=== PATIENT | female | born 1980 | race African-American/Black ===

== ENCOUNTER 2019-10-25 07:31 | Emergency (ER) | payer MEDICAID, SELFPAY ==
[2019-10-25 07:32] VITALS: BP 132/82; PULSE 99; RESP 16; TEMP 36.2; O2SAT 100; BMI 21.0
[2019-10-25 08:46] LABS: Bacteria 0 SEEN /hpf (None Seen); Mucous, Urine 0 SEEN /hpf (<or=2+); Red Blood Cells-Urine 0 SEEN /hpf (0-5); White Blood Cells 0 SEEN /hpf (0-5)
[2019-10-25] MEDS: Azithromycin 250 MG Tablet 1000 MG PO (08:51)
[2019-10-25 08:52] LABS: Color, Urine Yellow (Yellow); Glucose, Dipstick Normal (Normal); Ketone-Dipstick 5 mg/dl (Negative); Leukocyte Esterase-Dipstick 25 /ul (Negative); Nitrite-Dipstick Negative (Negative); Occult Blood-Urine Negative /ul (Negative); Protein-Dipstick 30 mg/dl (Negative); Specific Gravity, Urine 1.025 (1.002-1.030); Urine Bilirubin Dipstick Negative (Negative); Urine Clarity Sl. Cloudy (Clear); Urine Urobilinogen 1 mg/dl (Normal)
[2019-10-25 08:53] LABS: Internal QC Validated? YES +Cl - CLEAR BKGD; Pregnancy, Urine Negative Negative
[2019-10-25 08:58] LABS: Squamous Epithelial Cells - UA 0-5 SEEN /hpf (5-10)
--- NOTE | 2019-10-25 09:19 | ED.DCSUM_ITS ---
- ER Visit Summary Date of Service: 10/25/19 Chief Complaint: [Dysuria, vaginal discharge] History of Present Illness: The patient is a 38 F [presents to the emergency department with vaginal discharge for about a week. Patient states that she just moved to the area from [place]. Patient states that she has history of recurrent bacterial vaginosis. Patient also has had history of chlamydia in 2016. She does have recent exposures of unprotected sex and concern for STD. She denies any after normal external lesions. She is had no fevers. She does complain of burning with urination. She denies nausea or vomiting. She does not believe that she is as she had a menstrual period on 729 that was normal.] Physical Examination: [HEENT-PERRLA, EOMI. Cranial nerves II through XII grossly intact. TMs clear. Mucous membranes moist. No adenopathy. Cardiovascular-regular rate and rhythm without murmur or ectopy Lungs-clear to auscultation, chest wall stable without crepitus or subcu emphysema Abdomen-normoactive bowel sounds, soft, nontender, no rebound or rigidity, no peritoneal signs. Extremities-intact ?4, normal range of motion, normal pulses, atraumatic] Test Results: [Urinalysis was normal. hCG was negative. Urine was sent for gonorrhea and chlamydia and results of that are pending.] Emergency Department Course and Treatment: [Patient was treated with Rocephin and Zithromax.] Treatment Plan: [Patient will be given a prescription for Flagyl to cover bacterial vaginosis as she has a history of recurrent bacterial vaginosis. 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 It may contain incorrect words, spelling, and punctuation that were not noted in review of the chart prior to signing ED Disposition - Plan for ED Patient: Referrals: Care Physician,No Primary [Primary Care Provider] -
--- NOTE | 2019-10-25 09:21 | ED.DEP ---
ED Disposition - Plan for ED Patient: Instructions: Vaginal Infection: Bacterial Vaginosis Prescriptions: metroNIDAZOLE [Flagyl] 500 mg PO Q8H #21 tab Prescription Printed Referrals: Care Physician,No Primary [Primary Care Provider] - Jennifer Hankins MD [STAFF PHYSICIAN] - 5-7 Days
[2019-10-25 10:45] LABS: Chlamydia Trachomatis by PCR Negative (Negative); Neisserai gonorrhoeae by PCR Negative (Negative); Probe Check PASS; Sample Adequacy Control PASS; Specimen Processing Control PASS
== END 2019-10-25 10:00 | disposition home or self-care (01) ==
LOC: ED 08:24
PROVIDERS: Emergency Provider Emergency Medicine
DX: N76.0 Acute vaginitis (principal)
CPT/HCPCS: 81001; 81025; 87491; 87591; 96372; 99283

== ENCOUNTER 2019-11-22 15:47 | Emergency (ER) | payer MEDICAID, SELFPAY ==
[2019-11-22 15:49] VITALS: BP 134/81; PULSE 95; RESP 18; TEMP 36.9; O2SAT 100; BMI 21.9
--- NOTE | 2019-11-22 16:07 | ED.DCSUM_ITS ---
- ER Visit Summary Date of Service: 11/22/19 Chief Complaint: Forearm pain History of Present Illness: The patient is a 38 F presents with right forearm pain. She states that 3 days ago she hit her arm on an iron bedpost and she has been having pain in the right forearm ever since this happened. Pain is worse with movement. She tried Aleve which is not helping. She does have a history of a distal radius fracture on that right arm. She states that any type of movement makes his pain worse. She denies any elbow or shoulder pain. Physical Examination: Vital signs reviewed. Right forearm exam reveals tenderness to the mid forearm on the right-hand side. There is no swelling. There is no erythema. She has a 2+ radial pulse. She has decreased range of motion secondary to pain. Elbow and shoulder have full range of motion. Test Results: Right forearm x-rays negative Emergency Department Course and Treatment: Patient is given Tylenol for pain. X-rays are negative. She will ice and use Tylenol or ibuprofen for pain at home. Treatment Plan: [] Disposition: Discharge Impression: Right forearm pain This note was generated with [employer] dictation software. It may contain incorrect words, spelling, and punctuation that were not noted in review of the chart prior to signing ED Disposition - Plan for ED Patient: Disposition: Home or Assisted Living Instructions: ED EXTREMITY CONTUSION Upper Referrals: Care Physician,No Primary [Primary Care Provider] -
--- NOTE | 2019-11-22 16:10 | RAD_ITS ---
STUDY: X-RAY - RIGHT RADIUS AND ULNA REASON FOR EXAM: Female, 38 years old. HIT RIGHT FOREARM ON IRON BED 3 DAYS AGO. PAIN GETTING WORSE. TECHNIQUE: 2 view(s) of the forearm. COMPARISON: None. FINDINGS: There is no demonstrated soft tissue swelling. Normal visualized radius. Normal visualized ulna. RAD/Forearm 2 Views IMPRESSION: Normal x-ray examination of the radius and ulna. Electronically Signed: Salvador Duque MD at 16:30 EDT , Service support ,
[2019-11-22] MEDS: Acetaminophen 500 MG Tablet 1000 MG PO (16:15)
[2019-11-22] MEDS: Ketorolac 30 MG/ML Syringe IM (16:55)
== END 2019-11-22 16:56 | disposition home or self-care (01) ==
PROVIDERS: Emergency Provider Emergency Medicine
DX: M79.631 Pain in right forearm (principal); Z72.0 Tobacco use
CPT/HCPCS: 73090; 96372; 99282

== ENCOUNTER 2020-01-18 09:28 | Emergency (ER) | payer MEDICAID, SELFPAY ==
[2020-01-18 09:29] VITALS: BP 119/82; PULSE 81; RESP 16; TEMP 36.8; O2SAT 98; BMI 21.9
--- NOTE | 2020-01-18 09:37 | ED.VIS.GEN ---
History of Present Illness Chief Complaint: Complaint Narrative: Patient presents with fullness in the suprapubic region, dysuria and frequency she also has some back pain she has no fever chills cough or congestion she has fishy odor and her urine and vaginal area. She has no abdominal pain no nausea or vomiting she has no diarrhea. She is being treated with amoxicillin for exposed urinary tract infection after having a virtual medical visit. Past Medical History - Allergies and Home Meds Allergies/Adverse Reactions: Allergies latex Allergy (Verified 01/18/20 09:29) Hives Primary Care Physician: Care Physician,No Primary [Primary Care Provider] - Past Medical History: None Smoking Status: Current every day smoker Review of Systems General: Denies: Fever Gastrointestinal: Denies: Abdominal pain, Nausea, Vomiting, Diarrhea Genitourinary: Reports: Dysuria, Frequency. Denies: Hematuria Musculoskeletal: Reports: Back pain. Denies: Myalgias Skin: Denies: Rash, Abrasions Neurological: Denies: Headache, Weakness Hematologic: Denies: Easy bruising Allergy: Denies: Uticaria Physical Exam Vital Signs/Narrative: Vital Signs Temp Pulse Resp BP Pulse Ox 01/18/20 09:29 98.2 F 81 16 119/82 H 98 General: Well nourished, Well developed Eyes: Negative for: Perrl ENT: Negative for: Moist mucous membranes, No rhinorrhea Cardiovascular: Negative for: Regular rate, Regular rhythm, No murmurs Respiratory: Negative for: No distress, CTA bilaterally, Chest nontender Abdomen: Negative for: Soft, Nontender, Nondistended, Normal bowel sounds Back: Nontender, Normal Inspection, - - She has slight tenderness mostly in the paraspinal region of her back she does not have actual CVA tenderness the tenderness is reproducible with palpation as well as movement Extremities: Nontender, No edema Skin: Normal color Neurological: Normal Strength, Normal Sensation Diagnostic/Tx/Re-eval - Medical Decision Making Patient has a normal urinalysis. I believe her back pain is mostly musculoskeletal which we will treat with anti-inflammatories I will treat her for presumed BV also. Otherwise she will be discharged in stable condition ED Disposition - Plan for ED Patient: Disposition: Home or Assisted Living Diagnosis: Bacterial vaginitis, Back pain Instructions: Vaginal Infection: Bacterial Vaginosis Prescriptions: metroNIDAZOLE [Flagyl] 500 mg PO BID #14 tab Prescription Printed Tizanidine HCl 2 mg PO TID #20 tab Prescription Printed Referrals: Care Physician,No Primary [Primary Care Provider] - 3-5 Days
[2020-01-18 10:06] LABS: Bacteria 0 SEEN /hpf (None Seen); Mucous, Urine 0 SEEN /hpf (<or=2+); Red Blood Cells-Urine 0 SEEN /hpf (0-5); White Blood Cells 0 SEEN /hpf (0-5)
[2020-01-18 10:07] LABS: Color, Urine Straw (Yellow); Glucose, Dipstick Normal (Normal); Ketone-Dipstick Negative (Negative); Leukocyte Esterase-Dipstick Negative /ul (Negative); Nitrite-Dipstick Negative (Negative); Occult Blood-Urine Negative /ul (Negative); Protein-Dipstick Negative (Negative); Specific Gravity, Urine 1.005 (1.002-1.030); Urine Bilirubin Dipstick Negative (Negative); Urine Clarity Clear (Clear); Urine Urobilinogen Normal (Normal); Urine pH 6.5 (5.0 - 8.0)
[2020-01-18 10:12] LABS: Squamous Epithelial Cells - UA 0-5 SEEN /hpf (5-10)
== END 2020-01-18 10:49 | disposition home or self-care (01) ==
PROVIDERS: Emergency Provider Emergency Medicine
DX: N76.0 Acute vaginitis (principal); B96.89 Other specified bacterial agents as the cause of diseases classified elsewhere; M54.9 Dorsalgia, unspecified; N39.0 Urinary tract infection, site not specified; Z79.2 Long term (current) use of antibiotics; F17.200 Nicotine dependence, unspecified, uncomplicated
CPT/HCPCS: 81001; 99282

== ENCOUNTER 2020-05-09 12:37 | Emergency (ER) | payer MEDICAID, SELFPAY ==
[2020-05-09 12:38] VITALS: BP 106/62; PULSE 67; RESP 18; TEMP 36.6; O2SAT 100; BMI 22.6
--- NOTE | 2020-05-09 13:05 | EKG12_ITS ---
Test Reason : CP Blood Pressure : / mmHG Vent. Rate : 064 BPM Atrial Rate : 064 BPM P-R Int : 106 ms QRS Dur : 078 ms QT Int : 384 ms P-R-T Axes : 081 070 027 degrees QTc Int : 396 ms Sinus rhythm with short DC Otherwise normal ECG Confirmed by JESSICA CARDENAS, BERRY ([id number]), scientific editor STACIE WOODALL ([id number]) on 05/13/2020 9:54:50 AM Referred By: IRMA/JEWELS Confirmed By:SHANNON LOPEZ MD
--- NOTE | 2020-05-09 13:05 | RAD_ITS ---
STUDY: X-RAY CHEST REASON FOR EXAM: Female, 39 years old. Pt with cp starting approx. 30 minutes prior. States hx of same TECHNIQUE: Single AP portable view of the chest. COMPARISON: None. FINDINGS: EKG electrodes are seen. The lungs are clear and expanded. There is no demonstrated pleural abnormality. Normal size heart. Normal mediastinum and basilia. Normal visualized pulmonary arteries. Normal visualized aortic arch and descending thoracic aorta. Normal visualized thoracic spine. Normal visualized ribs, clavicles, and shoulders. There is no demonstrated abnormality of the visualized soft tissue structures of the upper abdomen. RAD/Chest 1 View (Portable) IMPRESSION: Normal x-ray examination of the chest. Electronically Signed: Aditya Swartz MD at 14:00 EST , Service support ,
[2020-05-09] MEDS: Aspirin 81 MG TAB.CHEW 324 MG PO (13:16)
[2020-05-09 13:37] VITALS: BP 137/84; PULSE 65; RESP 20; O2SAT 100
[2020-05-09 13:37] LABS: Absolute Lymphocyte Count 2.26 X10^3/uL (0.83-4.51); Absolute Neutrophil Count 3.7 X10^3/uL (2.0-7.7); Basophil# 0.02 X10^3/uL; Basophil% 0.3 % (0-1); Eosinophils% 2.9 % (0-5); Hematocrit 40.2 % (37-47); Hemoglobin 12.8 g/dL (12.0-15.0); Lymphocyte # 2.26 X10^3/ul (4.0); Mean Corp Hgb Conc 31.8 g/dL (32-36); Mean Corpuscular Hgb 30.1 pg (27.0-32.0); Mean Corpuscular Volume 94.6 fL (81-99); Mean Platelet Vol. 9.1 fl (6.2-12.0); Monocyte# 0.65 X10^3/uL; Monocyte% 9.5 % (0-10); NRBC Flagged by Analyzer 0 % (0-5); Neutrophil % 54.2 % (47-70); Platelet Count 237 K/mm3 (150-450); RBC Distribution Width CV 14.1 % (11.6-14.6); RBC Distribution Width SD 48.9 fl (35.1-43.9); Red Blood Count 4.25 M/mm3 (4.2-5.4); White Blood Count 6.8 K/mm3 (4.4-11.0)
[2020-05-09 13:39] VITALS: O2SAT 100
[2020-05-09 13:54] LABS: Anion Gap 3 (5-15); BUN 12 mg/dL (7-18); BUN/Creat Ratio 14.6 RATIO (10-20); Chloride 111 mmol/L (98-107); Creatinine, Serum 0.82 mg/dL (0.55-1.02); EST Glomerular Filtration Rate 82 mL/min (>60); Est Glom Filt Rate - Afr Amer 100 mL/min (>60); Estimated Creatinine Clearance 72.85 ml/min; Glucose 59 mg/dL (74-106); Sodium Level 142 mmol/L (136-145)
--- NOTE | 2020-05-09 14:28 | ED.DCSUM_ITS ---
- ER Visit Summary Date of Service: 05/09/20 Chief Complaint: Chest pain History of Present Illness: The patient is a 39 F who presents with chest pain that began today. Patient states it began after eating today. Patient describes the pain as sharp and heavy. Patient states pain started on the right side of her chest and then radiated to the left side of her chest. Patient states pain also radiated to the her right shoulder and right side of her neck. Patient denies any shortness of breath or cough. Patient denies any diaphoresis. Patient denies any nausea or vomiting. Patient denies any fevers or chills. Patient denies any cough. Physical Examination: Vital signs are stable. Patient is afebrile. Patient is in no acute distress. Oral mucosa is pink and moist. Neck is supple. Trachea is midline. There is no JVD noted. Heart was regular rate and rhythm. Lungs are clear and equal bilaterally. Abdomen is soft. Bowel sounds are normal. There is no tenderness. There is no rebound or guarding noted. Skin is warm dry. Cranial nerves II through XII are intact. There are no focal motor or sensory deficits noted. Extremities are intact. There is no calf tenderness or edema. Test Results: EKG was obtained. On my interpretation, there is a normal sinus rhythm with a rate of 64. There are no acute ST or T wave changes. Portable 1 view chest x-ray was obtained. On my interpretation, lung larose are clear. There is normal cardiac silhouette. Bony thorax is normal. There is no acute process noted. Neurologist also interpreted the x-ray and agrees. CBC, basic metabolic profile, and troponin were obtained and were essentially within normal limits. Emergency Department Course and Treatment: Patient was given aspirin and sublingual nitroglycerin here. Patient was feeling better on reevaluation. Patient has a HEART score of 1. Patient was advised that this is low risk for acute cardiac event. Patient was instructed to follow-up with her primary care physician in 5 to 7 days for further evaluation. Patient understood and was agreeable with the plan. All questions were answered. Disposition: Discharge home Impression: Chest pain This note was generated with [employer] dictation software. It may contain incorrect words, spelling, and punctuation that were not noted in review of the chart prior to signing ED Disposition - Plan for ED Patient: Disposition: Home or Assisted Living Diagnosis: Chest pain Instructions: ED Chest Pain, Uncertain Cause Referrals: Care Physician,No Primary [Primary Care Provider] - 5-7 Days
[2020-05-09 14:54] VITALS: BP 115/73; PULSE 65; RESP 16; O2SAT 99
[2020-05-09 14:55] VITALS: BP 115/73; PULSE 65; RESP 16; O2SAT 99
== END 2020-05-09 15:00 | disposition home or self-care (01) ==
PROVIDERS: Emergency Provider Emergency Medicine
DX: R07.9 Chest pain, unspecified (principal); Z72.0 Tobacco use
CPT/HCPCS: 71045; 80048; 84484; 85025; 93005; 99285; A4216

== ENCOUNTER 2020-05-17 12:45 | Emergency (ER) | payer MEDICAID, SELFPAY ==
[2020-05-17 12:45] VITALS: BP 129/70; PULSE 82; RESP 18; TEMP 36.2; BMI 21.9
--- NOTE | 2020-05-17 13:09 | US_ITS ---
STUDY: ULTRASOUND OF THE FEMALE PELVIS - COMPLETE REASON FOR EXAM: Female, 39 years old. RLQ pain . Bleeding. LMP: 04/15/2020 TECHNIQUE: Transabdominal and Transvaginal TECHNICAL QUALITY: Adequate. COMPARISON: None. FINDINGS: The uterus is anteverted and is in a midline position. The uterus measures 9.9 cm x 5.3 cm x 4.3 cm. Normal uterine cervix. The endometrium measures 9.6 mm in thickness, and is hyperechoic. There is no demonstrated endometrial mass. There is evidence of a 2.8 cm x 2.5 cm x 2.9 cm fibroid originating from the right side of the body of uterus. I.U.D. - The patient does not have an I.U.D. The right ovary is visualized. The right ovary measures 2.9 cm x 1.7 cm x 1.5 cm. There is no right ovarian cyst or ovarian mass. There is no visualized right adnexal mass or complex lesion. There is normal arterial and normal venous vascularity. The left ovary is visualized. The left ovary measures 2.8 cm x 1.6 cm x 1.8 cm. There is no left ovarian cyst or ovarian mass. There is no visualized left adnexal mass or complex lesion. There is normal arterial and normal venous vascularity. There is no fluid in the cul-de-sac. US/Transvaginal Non- IMPRESSION: 2.8 cm x 2.5 cm x 2.9 cm uterine fibroid arising from the lateral aspect of the body of the uterus. Electronically Signed: Aditya Swartz MD at 15:17 EST , Service support ,
--- NOTE | 2020-05-17 13:10 | ED.VIS.GEN ---
History of Present Illness Chief Complaint: Vag Bleeding Detail of Chief Complaint: Pelvic pain Informant: Patient Onset: Today Current Severity: Moderate Maximum Severity: Moderate Narrative: Patient states she woke this morning after using the restroom noted some pink vaginal discharge. She believes she is due to start her period so did not think much of it. She then developed right lower quadrant pain that became significantly worse. Patient has a history of an ectopic in 2017 and she states this feels similar. She did have surgery at that time to have part of the fallopian tube removed. She does not remember if this was on the left or right side. - Past Medical History (1) Ovarian cyst Status: Resolved Past Medical History - Allergies and Home Meds Allergies/Adverse Reactions: Allergies latex Allergy (Verified 05/17/20 12:48) Hives Primary Care Physician: Care Physician,No Primary [Primary Care Provider] - Surgical History: - - Ectopic Lives: With Family Smoking Status: Current every day smoker Review of Systems General: Denies: Chills, Fever Eyes: Denies: Visual changes - bilaterally ENT: Denies: Bilateral ear pain Cardiovascular: Denies: Chest pain Respiratory: Denies: Dyspnea, Cough Gastrointestinal: Reports: Abdominal pain. Denies: Nausea, Vomiting Genitourinary: Denies: Dysuria Musculoskeletal: Denies: Swelling, Extremity Pain Skin: Denies: Rash Neurological: Denies: Headache Hematologic: Denies: Easy bruising, Easy bleeding Allergy: Denies: Uticaria Physical Exam Vital Signs/Narrative: Vital Signs Temp Pulse Resp BP 05/17/20 12:45 97.2 F L 82 18 129/70 H Inital Vital Signs reviewed: Yes General: Well nourished, Well developed Head: Normocephalic ENT: Moist mucous membranes Neck: Supple Cardiovascular: Regular rate, Regular rhythm Respiratory: No distress, CTA bilaterally Abdomen: Soft, Tender - Lower abdominal tenderness to palpation.. Negative for: Guarding, Rebound tenderness Extremities: Nontender Skin: Normal color Neurological: Alert, Oriented x3, Normal Strength, Normal Sensation Psychological: Normal affect Diagnostic/Tx/Re-eval Impressions Transvaginal US 05/17/20 13:09 IMPRESSION: 2.8 cm x 2.5 cm x 2.9 cm uterine fibroid arising from the lateral aspect of the body of the uterus. Electronically Signed: Aditya Swartz MD at 15:17 EST , Service support , 05/17/20 13:09 Transvaginal Non- [US] Stat Laboratory Results 05/17/20 05/17/20 05/17/20 13:25 13:25 13:25 WBC 8.3 RBC 4.75 Hgb 14.1 Hct 44.6 MCV 93.9 MCH 29.7 MCHC 31.6 L RDW Std Deviation 46.5 H RDW Coeff of Sophia 13.4 Plt Count 288 MPV 9.5 Immature Gran % (Auto) 0.200 Neut % (Auto) 67.4 Lymph % (Auto) 24.8 Garvin % (Auto) 5.3 Eos % (Auto) 1.9 Baso % (Auto) 0.4 Absolute Neuts (auto) 5.6 Absolute Lymphs (auto) 2.06 Nucleated RBC % 0 Sodium 139 Potassium 4.3 Chloride 108 H Carbon Dioxide 28.0 Anion Gap 3 L BUN 14 Creatinine 0.90 Estim Creat Clear Calc 66.37 Est GFR (MDRD) Af Amer 89 Est GFR (MDRD) Non-Af 74 BUN/Creatinine Ratio 15.5 Glucose 87 Calcium 9.2 Serum , Qual NEGATIVE Urine Color Urine Clarity Urine pH Ur Specific Bartlett Urine Protein Urine Glucose (UA) Urine Ketones Urine Occult Blood Urine Nitrite Urine Bilirubin Urine Urobilinogen Ur Leukocyte Esterase Urine RBC Urine WBC Ur Squamous Epith Cells Urine Bacteria Urine Mucus 05/17/20 15:05 WBC RBC Hgb Hct MCV MCH MCHC RDW Std Deviation RDW Coeff of Sophia Plt Count MPV Immature Gran % (Auto) Neut % (Auto) Lymph % (Auto) Garvin % (Auto) Eos % (Auto) Baso % (Auto) Absolute Neuts (auto) Absolute Lymphs (auto) Nucleated RBC % Sodium Potassium Chloride Carbon Dioxide Anion Gap BUN Creatinine Estim Creat Clear Calc Est GFR (MDRD) Af Amer Est GFR (MDRD) Non-Af BUN/Creatinine Ratio Glucose Calcium Serum , Qual Urine Color Straw Urine Clarity Clear Urine pH 7.0 Ur Specific Bartlett 1.010 Urine Protein Negative Urine Glucose (UA) Normal Urine Ketones Negative Urine Occult Blood 150 H Urine Nitrite Negative Urine Bilirubin Negative Urine Urobilinogen Normal Ur Leukocyte Esterase Negative Urine RBC 0 SEEN Urine WBC 0 SEEN Ur Squamous Epith Cells 0-5 SEEN Urine Bacteria 0 SEEN Urine Mucus 0 SEEN - Medical Decision Making Patient had taken ibuprofen earlier today. She was given a dose of morphine on arrival. After returning from ultrasound she did get a dose of Dilaudid for pain control. Blood work is unremarkable. test is negative. Urinalysis shows no sign of acute infection. Ultrasound of the pelvis reveals a fibroid on the right side of the uterus. No evidence of ovarian cyst or torsion. On repeat evaluation patient is resting comfortably. Test results are discussed with her. She will be written for analgesics and referred to Dr. Higuera, on-call for MEDICAL TRANSCRIPTION. ED Disposition - Plan for ED Patient: Disposition: Home or Assisted Living Diagnosis: Uterine fibroid, Pelvic pain Instructions: ED Uterine Fibroids, ED MENSTRUAL CRAMPING Prescriptions: Naproxen [Naprosyn] 500 mg PO BID PRN #20 tab PRN Reason: Pain Score 4-10 Transmission Status: Pending to [facility] Hydrocodone Bitart/Apap 5-325 [Senoia 5MG-325MG] 1 tablet PO Q6H PRN PRN 3 Days #10 tablet PRN Reason: Pain Transmission Status: Sent to [facility] Referrals: Sharri Lucia MD [STAFF PHYSICIAN] - 1-2 Weeks
[2020-05-17] MEDS: Ondansetron 4 MG/2 ML Vial IV (13:19)
[2020-05-17] MEDS: Morphine 4 MG/ML Syringe IV (13:19)
[2020-05-17 13:33] LABS: Absolute Lymphocyte Count 2.06 X10^3/uL (0.83-4.51); Absolute Neutrophil Count 5.6 X10^3/uL (2.0-7.7); Basophil# 0.03 X10^3/uL; Basophil% 0.4 % (0-1); Eosinophil# 0.16 X10^3/uL; Eosinophils% 1.9 % (0-5); Hematocrit 44.6 % (37-47); Hemoglobin 14.1 g/dL (12.0-15.0); Lymphocyte # 2.06 X10^3/ul (4.0); Lymphocyte % 24.8 % (19-41); Mean Corp Hgb Conc 31.6 g/dL (32-36); Mean Corpuscular Hgb 29.7 pg (27.0-32.0); Mean Corpuscular Volume 93.9 fL (81-99); Mean Platelet Vol. 9.5 fl (6.2-12.0); Monocyte# 0.44 X10^3/uL; Monocyte% 5.3 % (0-10); NRBC Flagged by Analyzer 0 % (0-5); Neutrophil % 67.4 % (47-70); Platelet Count 288 K/mm3 (150-450); RBC Distribution Width CV 13.4 % (11.6-14.6); RBC Distribution Width SD 46.5 fl (35.1-43.9); Red Blood Count 4.75 M/mm3 (4.2-5.4); White Blood Count 8.3 K/mm3 (4.4-11.0)
[2020-05-17 13:42] LABS: Internal QC Validated? YES +Cl - CLEAR BKGD; Pregnancy, Serum, hCG Quali. NEGATIVE Negative
[2020-05-17 13:47] LABS: Anion Gap 3 (5-15); BUN 14 mg/dL (7-18); BUN/Creat Ratio 15.5 RATIO (10-20); Calcium,Total 9.2 mg/dL (8.5-10.1); Chloride 108 mmol/L (98-107); EST Glomerular Filtration Rate 74 mL/min (>60); Est Glom Filt Rate - Afr Amer 89 mL/min (>60); Estimated Creatinine Clearance 66.37 ml/min; Glucose 87 mg/dL (74-106); Potassium 4.3 mmol/L (3.5-5.1); Sodium Level 139 mmol/L (136-145)
[2020-05-17] MEDS: HYDROmorphone 0.5 MG/0.5 ML SYRINGE IV (15:08)
[2020-05-17 15:13] VITALS: BP 122/70; PULSE 78; RESP 14; O2SAT 98
[2020-05-17 15:18] LABS: Bacteria 0 SEEN /hpf (None Seen); Mucous, Urine 0 SEEN /hpf (<or=2+); Red Blood Cells-Urine 0 SEEN /hpf (0-5); White Blood Cells 0 SEEN /hpf (0-5)
[2020-05-17 15:28] LABS: Color, Urine Straw (Yellow); Glucose, Dipstick Normal (Normal); Ketone-Dipstick Negative (Negative); Leukocyte Esterase-Dipstick Negative /ul (Negative); Nitrite-Dipstick Negative (Negative); Occult Blood-Urine 150 /ul (Negative); Protein-Dipstick Negative (Negative); Urine Bilirubin Dipstick Negative (Negative); Urine Clarity Clear (Clear); Urine Urobilinogen Normal (Normal)
[2020-05-17 15:45] LABS: Squamous Epithelial Cells - UA 0-5 SEEN /hpf (5-10)
[2020-05-17 16:06] VITALS: PULSE 62; RESP 18; O2SAT 100
[2020-05-17 17:16] LABS: Chlamydia Trachomatis by PCR Negative (Negative); Neisserai gonorrhoeae by PCR Negative (Negative); Probe Check PASS; Sample Adequacy Control PASS; Specimen Processing Control PASS
== END 2020-05-17 16:07 | disposition home or self-care (01) ==
PROVIDERS: Emergency Provider Emergency Medicine
DX: D25.9 Leiomyoma of uterus, unspecified (principal); R10.2 Pelvic and perineal pain; F17.200 Nicotine dependence, unspecified, uncomplicated
CPT/HCPCS: 76830; 80048; 81001; 84703; 85025; 87491; 87591; 96374; 96375; 99283; A4216; J2405

== ENCOUNTER 2020-06-04 13:52 | Emergency (ER) | payer MEDICAID, SELFPAY ==
[2020-06-04 13:54] VITALS: BP 141/83; PULSE 96; RESP 16; TEMP 36.7; O2SAT 100; BMI 21.2
--- NOTE | 2020-06-04 14:07 | CT_ITS ---
STUDY: CT ABDOMEN AND PELVIS WITHOUT CONTRAST REASON FOR EXAM: Female, 39 years old. left flank pain RADIATION DOSAGE (If Supplied By Facility): CTDIvol = ( 6.04 ) mGy, DLP = ( 271.80 ) mGycm TECHNIQUE: Transaxial images were obtained from the dome of the diaphragm to the symphysis pubis without oral contrast, and without intravenous contrast. Sagittal and coronal images were reconstructed. Individualized dose optimization techniques were used for this CT. COMPARISON: None. FINDINGS: The visualized lung bases are unremarkable. The visualized portions of the heart are within normal limits. Normal liver. Normal gallbladder and extrahepatic biliary system. Normal spleen. Normal pancreas. Normal bilateral adrenal glands. Normal right kidney. 3 mm obstructing stone at the left ureterovesical junction with mild ureteral dilatation. Normal visualized stomach. Normal small intestine. Normal colon. The appendix is visualized and appears normal. Normal abdominal aorta. Normal inferior vena cava. Normal retroperitoneum. Normal urinary bladder. Normal abdominal wall. Normal osseous structures. CT/Abdomen/Pelvis without Cont IMPRESSION: 3 mm obstructing stone at the left ureterovesical junction with mild ureteral dilatation. Electronically Signed: Mervin Jimenez MD at 15:39 EDT Tel , Service support ,
[2020-06-04 14:25] LABS: Mucous, Urine 0 SEEN /hpf (<or=2+)
--- NOTE | 2020-06-04 14:28 | ED.DCSUM_ITS ---
- ER Visit Summary Date of Service: 06/04/20 Chief Complaint: Dysuria, left flank pain History of Present Illness: The patient is a 39 F presenting with dysuria and flank pain. Patient states this started on May 28. She has had dysuria and urinary frequency. She has had nausea with no vomiting. She has had chills. She was seen by her family doctor and started on Keflex for UTI. She states she has 1 day left of Keflex and has not improved. She also was seen by her MEDICAL TRANSCRIPTION SUPERVISOR 2 days ago and tested for STDs. She states she was negative for STDs. She was set up to see urology on Wednesday due to persistent dysuria and flank pain after antibiotics. Physical Examination: Vitals are stable. Patient is afebrile. Alert no acute distress. HEENT exam is unremarkable. Neck is supple. Lungs are clear and equal bilaterally. Heart is regular rate and rhythm. Abdomen is soft nontender nondistended. No guarding or rebound Back: Mild left CVA tenderness Extremities are unremarkable. Skin is warm and dry. Remainder of exam is unremarkable. Emergency Department Course and Treatment: Patient was given Toradol, IV fluids, Morphine, Zofran. CBC, chemistries unremarkable. Urinalysis shows 0-5 white blood cells, 0-[address] flank shows 3 mm obstructing stone at the left ureterovesical junction with mild ureteral dilatation. On reevaluation, patient is resting comfortably. She was given prescription for Percocet. Advi sed to follow-up with urology as scheduled. Advised to return to the ED for worsening complaints. Disposition: Discharge home Impression: Urolithiasis This note was generated with [employer] dictation software. It may contain incorrect words, spelling, and punctuation that were not noted in review of the chart prior to signing ED Disposition - Plan for ED Patient: Instructions: ED Kidney Stone w/ Colic Prescriptions: Oxycodone HCl/Acetaminophen [Percocet 5/325] 1 tablet PO Q6H PRN PRN 3 Days #12 tab PRN Reason: Pain Prescription Printed Referrals: El Salguero MD [STAFF PHYSICIAN] -
[2020-06-04 14:29] LABS: Absolute Lymphocyte Count 2.36 X10^3/uL (0.83-4.51); Absolute Neutrophil Count 5.5 X10^3/uL (2.0-7.7); Basophil# 0.04 X10^3/uL; Basophil% 0.5 % (0-1); Eosinophil# 0.11 X10^3/uL; Eosinophils% 1.3 % (0-5); Hemoglobin 13.7 g/dL (12.0-15.0); Lymphocyte # 2.36 X10^3/ul (4.0); Lymphocyte % 27.6 % (19-41); Mean Corp Hgb Conc 33.4 g/dL (32-36); Mean Corpuscular Hgb 30.6 pg (27.0-32.0); Mean Corpuscular Volume 91.7 fL (81-99); Mean Platelet Vol. 9.5 fl (6.2-12.0); Monocyte# 0.51 X10^3/uL; NRBC Flagged by Analyzer 0 % (0-5); Neutrophil % 64.2 % (47-70); Platelet Count 257 K/mm3 (150-450); RBC Distribution Width CV 13.2 % (11.6-14.6); RBC Distribution Width SD 44.9 fl (35.1-43.9); Red Blood Count 4.47 M/mm3 (4.2-5.4); White Blood Count 8.6 K/mm3 (4.4-11.0)
[2020-06-04 14:36] LABS: Color, Urine Yellow (Yellow); Glucose, Dipstick Normal (Normal); Ketone-Dipstick Negative (Negative); Leukocyte Esterase-Dipstick Negative /ul (Negative); Nitrite-Dipstick Negative (Negative); Occult Blood-Urine Negative /ul (Negative); Protein-Dipstick Negative (Negative); Specific Gravity, Urine 1.015 (1.002-1.030); Urine Bilirubin Dipstick Negative (Negative); Urine Clarity Clear (Clear); Urine Urobilinogen Normal (Normal)
[2020-06-04] MEDS: 0.9% Normal Saline 1,000 ML 1000 ML IV (14:36)
[2020-06-04] MEDS: Ondansetron 4 MG/2 ML Vial IV (14:36)
[2020-06-04] MEDS: Ketorolac 15 MG/ML Vial IV (14:37)
[2020-06-04] MEDS: Morphine 4 MG/ML Syringe IV (14:37)
[2020-06-04 14:40] LABS: Anion Gap 4 (5-15); BUN 10 mg/dL (7-18); BUN/Creat Ratio 13.2 RATIO (10-20); Calcium,Total 9.1 mg/dL (8.5-10.1); Chloride 109 mmol/L (98-107); Creatinine, Serum 0.76 mg/dL (0.55-1.02); EST Glomerular Filtration Rate 90 mL/min (>60); Est Glom Filt Rate - Afr Amer 109 mL/min (>60); Glucose 94 mg/dL (74-106); Potassium 3.4 mmol/L (3.5-5.1); Sodium Level 143 mmol/L (136-145)
[2020-06-04 14:46] LABS: Bacteria RARE /hpf (None Seen); Red Blood Cells-Urine 0-5 SEEN /hpf (0-5); Squamous Epithelial Cells - UA 0-5 SEEN /hpf (5-10); White Blood Cells 0-5 SEEN /hpf (0-5)
--- NOTE | 2020-06-04 15:54 | ED.DEP ---
ED Disposition - Plan for ED Patient: Instructions: ED Kidney Stone w/ Colic Prescriptions: Oxycodone HCl/Acetaminophen [Percocet 5/325] 1 tablet PO Q6H PRN PRN 3 Days #12 tab PRN Reason: Pain Prescription Printed Referrals: El Salguero MD [STAFF PHYSICIAN] -
== END 2020-06-04 16:10 | disposition home or self-care (01) ==
LOC: ED 14:32
PROVIDERS: Emergency Provider Emergency Medicine
DX: N20.1 Calculus of ureter (principal); Z72.0 Tobacco use
CPT/HCPCS: 74176; 80048; 81001; 85025; 96361; 96374; 96375; 99283; J7030; A4216; J2405

== ENCOUNTER 2020-06-28 00:04 | Emergency (ER) | payer MEDICAID, SELFPAY ==
[2020-06-28 00:04] VITALS: BP 131/82; PULSE 63; RESP 18; TEMP 36.4; O2SAT 98; BMI 22.0
--- NOTE | 2020-06-28 00:18 | ED.DCSUM_ITS ---
History of Present Illness Chief Complaint: Flank Pain Informant: Patient - Abdominal Pain/Flank Pain Onset: Weeks - 3-4 Context: - - can't remember onset Timing: Waxes and wanes - pain present daily Quality: Aching Location: Right Flank Current Severity: Mild Maximum Severity: Severe Worsened by: Nothing Relieved by: Nothing - Nausea/Vomiting/Emesis GI Symptom: Nausea. Negative for: Vomiting - Diarrhea/Melena/Hematochezia GI Symptom: Negative for: Diarrhea, Melena, Hematochezia Associated Symptoms: Frequency, - - foamy. Negative for: Dysuria, Hematuria, Urgency Narrative: 39-year-old female presenting with ongoing right low back/flank pain for the past 3 to 4 weeks. She states that this started with the diagnosis of a kidney stone on the CT scan here last month in May. She followed up as an outpatient with her kidney specialist Dr. Larson (not in our healthcare system, unclear if case aide or urologist), who sent her to [facility] for surgery. She states they went to get the stone out but when they did the procedure there was no stone present. She continues to have pain. She saw her physician 1 or 2 weeks ago and had a urinalysis that was abnormal but the culture came back positive so she was called with that on 06/20, and they prescribed her Augmentin. She has 2 days of that left, she is still having pain. Therefore she presents at around midnight saying that she wants answers as to why she is still having this pain. She states it is somewhat colicky, when it gets bad she gets nauseated but she has not been vomiting. She denies any fevers but today has been chilling. She states she urinates frequently, most of the time in small amounts. She denies any gross hematuria. She states when she urinates it looks foamy in the toilet, but if she drinks a lot of water, but does not look foamy anymore. - Past Medical History (1) Kidney stone Status: Chronic (2) Ovarian cyst Status: Resolved Past Medical History - Allergies and Home Meds Allergies/Adverse Reactions: Allergies latex Allergy (Verified 06/28/20 00:07) Hives sertraline [From Zoloft] Allergy (Verified 06/28/20 00:07) Hives Primary Care Physician: Care Physician,No Primary [NON-STAFF] - Surgical History: - - Ectopic Smoking Status: Current every day smoker Review of Systems General: Reports: Chills. Denies: Fever, Sweats Eyes: Denies: Visual changes - bilaterally, Diplopia ENT: Denies: Rhinorrhea, Sore throat Cardiovascular: Denies: Chest pain, Palpitations Respiratory: Denies: Dyspnea, Cough, Dyspnea on exertion Gastrointestinal: Reports: Abdominal pain - periumbilical mild. Denies: Nausea, Vomiting, Diarrhea, Melena, Hematochezia Genitourinary: Reports: Frequency. Denies: Dysuria, Hematuria Musculoskeletal: Reports: Back pain - right. Denies: Swelling, Extremity Pain Skin: Denies: Rash, Wounds Neurological: Denies: Headache, Weakness, Numbness Physical Exam Vital Signs/Narrative: Vital Signs Temp Pulse Resp BP Pulse Ox 06/28/20 00:04 97.6 F L 63 18 131/82 H 98 Inital Vital Signs reviewed: Yes General: Well nourished, Well developed, No Acute Distress Head: Normocephalic, Atraumatic Eyes: Perrl, EOMI ENT: Moist mucous membranes, No rhinorrhea Neck: Supple, Nontender Cardiovascular: Regular rate, Regular rhythm, No murmurs. Negative for: Tachycardia Respiratory: No distress, CTA bilaterally, Chest nontender Abdomen: Soft, Nondistended, Normal bowel sounds, No masses, Tender - mild suprapubic only. Negative for: Guarding, Rebound tenderness Back: Normal Inspection, CVA tenderness - bilat, symmetric, mild. Negative for: Spinal tenderness Extremities: Nontender, No edema Skin: Normal color, No rash, No Trauma Neurological: Alert, Oriented x3, Cranial nerves II-XII grossly intact, Normal Strength, Normal Sensation, Normal Gait Psychological: Normal affect, Normal Mood Diagnostic/Tx/Re-eval Impressions Abdomen/Pelvis CT 06/28/20 00:54 IMPRESSION: No radiopaque urolithiasis or hydroureteronephrosis on either side. Interval passage of the previously described left UVJ stone. Electronically Signed: Kg Calix MD at 1:52 EDT Tel , Service support , 06/28/20 00:54 CT Abd [Abdomen/Pelvis without Cont] [CT] Stat Laboratory Results 06/28/20 06/28/20 06/28/20 00:00 00:28 00:28 WBC 14.0 H RBC 4.21 Hgb 12.6 Hct 39.3 MCV 93.3 MCH 29.9 MCHC 32.1 RDW Std Deviation 46.5 H RDW Coeff of Sophia 13.6 Plt Count 353 MPV 9.3 Immature Gran % (Auto) 0.300 Neut % (Auto) 65.2 Lymph % (Auto) 26.9 [place] % (Auto) 5.9 Eos % (Auto) 1.4 Baso % (Auto) 0.3 Absolute Neuts (auto) 9.1 H Absolute Lymphs (auto) 3.77 Nucleated RBC % 0 Sodium 137 Potassium 3.5 Chloride 106 Carbon Dioxide 26.0 Anion Gap 5 BUN 9 Creatinine 0.86 Estim Creat Clear Calc 69.46 Est GFR (MDRD) Af Amer 94 Est GFR (MDRD) Non-Af 78 BUN/Creatinine Ratio 10.5 Glucose 92 Calcium 9.5 Urine Color Yellow Urine Clarity Clear Urine pH 6.5 Ur Specific [place] 1.010 Urine Protein Negative Urine Glucose (UA) Normal Urine Ketones Negative Urine Occult Blood Negative Urine Nitrite Negative Urine Bilirubin Negative Urine Urobilinogen Normal Ur Leukocyte Esterase Negative Urine RBC 0 SEEN Urine WBC 0 SEEN Ur Squamous Epith Cells 0-5 SEEN Urine Bacteria 0 SEEN Urine Mucus 0 SEEN Urine Test 06/28/20 00:45 WBC RBC Hgb Hct MCV MCH MCHC RDW Std Deviation RDW Coeff of Sophia Plt Count MPV Immature Gran % (Auto) Neut % (Auto) Lymph % (Auto) [place] % (Auto) Eos % (Auto) Baso % (Auto) Absolute Neuts (auto) Absolute Lymphs (auto) Nucleated RBC % Sodium Potassium Chloride Carbon Dioxide Anion Gap BUN Creatinine Estim Creat Clear Calc Est GFR (MDRD) Af Amer Est GFR (MDRD) Non-Af BUN/Creatinine Ratio Glucose Calcium Urine Color Urine Clarity Urine pH Ur Specific [place] Urine Protein Urine Glucose (UA) Urine Ketones Urine Occult Blood Urine Nitrite Urine Bilirubin Urine Urobilinogen Ur Leukocyte Esterase Urine RBC Urine WBC Ur Squamous Epith Cells Urine Bacteria Urine Mucus Urine Test Negative - Medical Decision Making Patient is having persistent right flank pain, and the area of her right kidney, the pain is colicky suspicious for renal etiology, so we started with blood work and urinalysis. There is a nonspecific mild leukocytosis of 14.0, and her urinalysis is completely normal. Her renal function is normal. Therefore, renal infarct is less likely, so I imaged her without contrast, I had verified that the previously seen stone is resolved as the patient did go to the operating room after the prior CT was obtained, and there is no other acute abnormality seen on CT. She does not have pleuritic discomfort to suggest a lower pulmonary etiology, and the CT showed no acute pulmonary etiologies in the bases of her lungs. She does not have any pain in the midline of her back or radicular symptoms into her lower extremities, nor cauda equina syndrome symptoms. She does not have any fevers or chills or abnormal vital signs to suggest that she is septic. She is very well-appearing clinically. I see no sign of any infection to treat at this time, the etiology of the nonspecific leukocytosis is unknown. I do not think blood cultures are indicated just because of this. I recommend she follow-up with her doctor I see no sign of any emergency at this time, and she is comfortable with that plan. 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 She is very reassured that her kidneys are functioning normally, she had proteinuria before apparently, that seems resolved now and her renal function is normal. She was offered a dose of Toradol prior to discharge. ED Disposition - Plan for ED Patient: Disposition: Home or Assisted Living Diagnosis: Right flank pain Instructions: ED Kidney Stone, Passed Referrals: dr. kathy [Other] (Or your other doctor, within the next 3-5 days if symptoms persist) Additional Instructions: Take and finish antibiotic as prescribed
[2020-06-28 00:32] LABS: Bacteria 0 SEEN /hpf (None Seen); Mucous, Urine 0 SEEN /hpf (<or=2+); Red Blood Cells-Urine 0 SEEN /hpf (0-5); White Blood Cells 0 SEEN /hpf (0-5)
[2020-06-28 00:37] LABS: Absolute Lymphocyte Count 3.77 X10^3/uL (0.83-4.51); Absolute Neutrophil Count 9.1 X10^3/uL (2.0-7.7); Basophil# 0.04 X10^3/uL; Basophil% 0.3 % (0-1); Eosinophil# 0.19 X10^3/uL; Eosinophils% 1.4 % (0-5); Hematocrit 39.3 % (37-47); Hemoglobin 12.6 g/dL (12.0-15.0); Lymphocyte # 3.77 X10^3/ul (0.83-4.51); Lymphocyte % 26.9 % (19-41); Mean Corp Hgb Conc 32.1 g/dL (32-36); Mean Corpuscular Hgb 29.9 pg (27.0-32.0); Mean Corpuscular Volume 93.3 fL (81-99); Mean Platelet Vol. 9.3 fl (6.2-12.0); Monocyte# 0.83 X10^3/uL; Monocyte% 5.9 % (0-10); NRBC Flagged by Analyzer 0 % (0-5); Neutrophil # 9.14 X10^3/uL (2.7-7.7); Neutrophil % 65.2 % (47-70); Platelet Count 353 K/mm3 (150-450); RBC Distribution Width CV 13.6 % (11.6-14.6); RBC Distribution Width SD 46.5 fl (35.1-43.9); Red Blood Count 4.21 M/mm3 (4.2-5.4)
[2020-06-28 00:38] LABS: Color, Urine Yellow (Yellow); Glucose, Dipstick Normal (Normal); Ketone-Dipstick Negative (Negative); Leukocyte Esterase-Dipstick Negative /ul (Negative); Nitrite-Dipstick Negative (Negative); Occult Blood-Urine Negative /ul (Negative); Protein-Dipstick Negative (Negative); Urine Bilirubin Dipstick Negative (Negative); Urine Clarity Clear (Clear); Urine Urobilinogen Normal (Normal); Urine pH 6.5 (5.0 - 8.0)
[2020-06-28 00:45] LABS: Squamous Epithelial Cells - UA 0-5 SEEN /hpf (5-10)
[2020-06-28 00:52] LABS: Anion Gap 5 (5-15); BUN 9 mg/dL (7-18); BUN/Creat Ratio 10.5 RATIO (10-20); Calcium,Total 9.5 mg/dL (8.5-10.1); Chloride 106 mmol/L (98-107); Creatinine, Serum 0.86 mg/dL (0.55-1.02); EST Glomerular Filtration Rate 78 mL/min (>60); Est Glom Filt Rate - Afr Amer 94 mL/min (>60); Estimated Creatinine Clearance 69.46 ml/min; Glucose 92 mg/dL (74-106); Potassium 3.5 mmol/L (3.5-5.1); Sodium Level 137 mmol/L (136-145)
--- NOTE | 2020-06-28 00:54 | CT_ITS ---
STUDY: CT ABDOMEN AND PELVIS WITHOUT CONTRAST REASON FOR EXAM: Female, 39 years old. R flank pain RADIATION DOSAGE (If Supplied By Facility): CTDIvol = ( 6.04 ) mGy, DLP = ( 297.66 ) mGycm TECHNIQUE: Transaxial images were obtained from the dome of the diaphragm to the symphysis pubis without oral contrast, and without intravenous contrast. Sagittal and coronal images were reconstructed. Individualized dose optimization techniques were used for this CT. COMPARISON: None. FINDINGS: Lung bases clear. Unremarkable liver, spleen, adrenals, and pancreas on this unenhanced study. No radiopaque urolithiasis or hydroureteronephrosis on either side. Multiple phleboliths in the abdomen and pelvis. No definite cholelithiasis. Bowel loops nonobstructed. No CT evidence of acute appendicitis. No radiopaque stone in the urinary bladder. Somewhat prominent uterus. No free air or free fluid. No definite adenopathy. No abdominal aortic aneurysm intact osseous structures. CT/Abdomen/Pelvis without Cont IMPRESSION: No radiopaque urolithiasis or hydroureteronephrosis on either side. Interval passage of the previously described left UVJ stone. Electronically Signed: Kg Calix MD at 1:52 EDT Tel , Service support ,
[2020-06-28 01:09] LABS: Internal QC Validated? YES +Cl - CLEAR BKGD; Pregnancy, Urine Negative Negative
[2020-06-28 02:07] VITALS: BP 123/57; PULSE 68; RESP 18
[2020-06-28] MEDS: Ibuprofen 600 MG Tablet PO (02:10)
== END 2020-06-28 02:11 | disposition home or self-care (01) ==
PROVIDERS: Emergency Provider Emergency Medicine; PCP Nurse Practitioner
DX: R10.9 Unspecified abdominal pain (principal); F17.200 Nicotine dependence, unspecified, uncomplicated
CPT/HCPCS: 74176; 80048; 81001; 81025; 85025; 96360; 99284; J7030; A4216

== ENCOUNTER 2020-07-03 13:21 | Emergency (ER) | payer MEDICAID, SELFPAY ==
[2020-07-03 13:22] VITALS: BP 125/82; PULSE 79; RESP 18; TEMP 36.7; O2SAT 100; BMI 21.9
[2020-07-03] MEDS: HYDROmorphone 1 MG/ML Syringe IM (14:05)
[2020-07-03] MEDS: Ondansetron ODT 4 MG Tablet PO (14:06)
--- NOTE | 2020-07-03 14:20 | RAD_ITS ---
STUDY: X-RAY - RIGHT SHOULDER REASON FOR EXAM: Female, 39 years old. Pain TECHNIQUE: 2 view(s) of the shoulder. COMPARISON: None. FINDINGS: Normal glenohumeral articulation. Normal acromioclavicular joint. Normal acromion. There is a 1.9 cm x 1.4 cm rounded calcification in the region of the body of the scapula along its lateral aspect. Normal humeral head and visualized proximal humerus. The soft tissue structures are unremarkable. Normal visualized pulmonary apex. RAD/Shoulder min 2 Views IMPRESSION: 1.9 cm x 1.4; the calcification in the lateral body of the scapula. Electronically Signed: Aditya Swartz MD at 14:52 EDT , Service support ,
--- NOTE | 2020-07-03 16:28 | DCINST.ED_ITS ---
ED Disposition - Plan for ED Patient: Instructions: ED Chronic Pain Prescriptions: Hydrocodone Bitart/Apap 5-325 [[place] 5MG-325MG] 1 tablet PO Q6H PRN PRN 3 Days #10 tab PRN Reason: Pain Prescription Printed Referrals: Mayelin Jose CASTING FINISHER, CASTING FINISHER-C [Primary Care Provider] -
--- NOTE | 2020-07-03 16:28 | ED.DEP ---
ED Disposition - Plan for ED Patient: Instructions: ED Chronic Pain Prescriptions: Hydrocodone Bitart/Apap 5-325 [[place] 5MG-325MG] 1 tablet PO Q6H PRN PRN 3 Days #10 tab PRN Reason: Pain Prescription Printed Referrals: Mayelin Jose LUMBER SALES SUPERVISOR, LUMBER SALES SUPERVISOR-C [Primary Care Provider] -
[2020-07-03 16:44] VITALS: PULSE 70; RESP 15; O2SAT 98
--- NOTE | 2020-07-03 18:29 | ED.DCSUM_ITS ---
- ER Visit Summary Date of Service: 07/03/20 Chief Complaint: Right shoulder pain History of Present Illness: The patient is a 39 F presenting with right shoulder pain. She states this has been ongoing for the past month. She has had continuous pain in her right posterior shoulder. 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 She states she has been evaluated for this and it is a benign tumor. She states it does not require removal at this time. She has been taking ibuprofen at home. She was referred to pain management but is unable to get in until August. She states yesterday she moved an arm chair and this exacerbated her pain. She denies other complaints. Physical Examination: Vitals are stable. Patient is afebrile. Alert no acute distress. HEENT exam is unremarkable. Neck is supple. Lungs are clear and equal bilaterally. Heart is regular rate and rhythm. Abdomen is soft nontender nondistended. Extremities right posterior shoulder tenderness with active full range of motion. Neurovascularly intact distally. Skin is warm and dry. No focal neurologic deficit. Remainder of exam is unremarkable. Emergency Department Course and Treatment: Right shoulder x-ray read by myself and radiology shows 1.9 cm x 1.4; the calcification in the lateral body of the scapula. Patient was given Dilaudid, Zofran IM. She was given prescription for short course of [place]. She is advised to follow-up with pain management. Advised return to the ED for worsening complaints. Disposition: Discharge home Impression: Acute on chronic right shoulder pain This note was generated with [employer] dictation software. It may contain incorrect words, spelling, and punctuation that were not noted in review of the chart prior to signing ED Disposition - Plan for ED Patient: Disposition: Home or Assisted Living Instructions: ED Chronic Pain Prescriptions: Hydrocodone Bitart/Apap 5-325 [[place] 5MG-325MG] 1 tablet PO Q6H PRN PRN 3 Days #10 tab PRN Reason: Pain Prescription Printed Referrals: Mayelin Jose MAINTENANCE SPECIALIST, MAINTENANCE SPECIALIST-C [Primary Care Provider] -
== END 2020-07-03 16:45 | disposition home or self-care (01) ==
LOC: ED 13:55
PROVIDERS: Emergency Provider Emergency Medicine; PCP Nurse Practitioner
DX: M25.511 Pain in right shoulder (principal); G89.29 Other chronic pain; Z87.891 Personal history of nicotine dependence
CPT/HCPCS: 73030; 96372; 99282

== ENCOUNTER 2020-07-19 08:10 | Emergency (ER) | payer MEDICAID, SELFPAY ==
[2020-07-19 08:11] VITALS: BP 125/79; PULSE 75; RESP 16; TEMP 36.2; O2SAT 99; BMI 21.9
--- NOTE | 2020-07-19 08:52 | EDS_ITS ---
HPI History of Present Illness Chief Complaint: Back Informant: patient Narrative Narrative: Patient is a 39-year-old female with history of chronic back pain, ovarian cyst and kidney stones presenting with bilateral flank pain. She states she has been having it for the past 2 weeks. It is constant. She denies any associated dysuria or hematuria but she states that she has been having foam when she pees. The right side seems to be worse than the left. Patient states she was recently diagnosed with kidney stones about a month ago and had cystoscopy performed at [facility] with Dr. Horn. She states she no longer has stones but she is worried she could have associated UTI from this. She also notes she is had abnormal vaginal discharge for the past week. She states it has been brown in color. She does have a history of BV. She is only had 1 partner but notes that he lives out of state is concerned she might have an STI. Patient she does have some intermittent vaginal itching. She states she was recently on antibiotics for her urologic procedure, amoxicillin. Her last menstrual period was July 10. She is not concerned for . She states that she has been taking pain medication and has an appointment to see pain management on August 19. 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 No other complaints at this time. No reported fever or chills. [facility] Medical History (Updated 07/19/20 @ 10:[address] Yadi Lira, ) Anxiety Asthma Carpal tunnel syndrome Chronic pain Former smoker GERD (gastroesophageal reflux disease) Kidney disease Migraines Post-trauma syndrome Substance abuse Home Medications acyclovir 1 tablet PO DAILY PRN 06/28/20 [History Last Taken Unknown] hydrocodone-acetaminophen 1 tab PO Q6H PRN 07/19/20 [History Last Taken Unknown] metronidazole 1 applic TOPICAL DAILY 5 Days #45 g 07/19/20 [Rx Last Taken Unknown] Allergy/AdvReac Type Severity Reaction Status Date / Time latex Allergy Hives Verified 07/19/20 08:10 morphine Allergy Rash Verified 07/19/20 08:10 sertraline [From Zoloft] Allergy Hives Verified 07/19/20 08:10 tramadol Allergy Rash Verified 07/19/20 08:10 Social History Smoking Status: Former smoker ROS ROS ED Constitutional Constitutional ED: Denies chills, fever(s) or malaise Eyes Eyes: Denies blurry vision or loss of vision ENT ENT ED: Denies rhinorrhea or sore throat Cardiovascular Cardiovascular: Denies chest pain or dizziness Respiratory/Chest Respiratory/Chest: Denies cough or dyspnea Gastrointestinal Gastrointestinal: Denies nausea or vomiting Genitourinary Genitourinary ED: Reports urinary frequency and other Details: Abnormal vaginal discharge ; Denies dysuria or hematuria Musculoskeletal Musculoskeletal: Reports back pain; Denies arthralgias or myalgias Integumentary Denies rash or wounds Neurologic Neurologic: Denies focal weakness or headache(s) Psychiatric Psychiatric: Denies anxiety or behavioral changes EXAM Physical Exam Const Vital Signs: 07/19/20 08:11 Temperature 97.2 F L Temperature Source Temporal Pulse Rate 75 Respiratory Rate 16 Blood Pressure 125/79 H Blood Pressure Mean 94 Pulse Ox 99 Oxygen Delivery Method Room Air Positive well nourished, well developed and no apparent distress General Appearance ED: well developed HEENT Reports normocephalic and moist mucous membranes atraumatic; Negative for tenderness Nose: no nasal discharge General Ear: hearing grossly impaired External Ear: external ears normal Mouth ED: Yes moist mucous membranes abnormal Mouth: moist mucous membranes abnormal Eyes PERRL and EOMs intact bilaterally Neck full ROM, supple, no meningeal signs and no JVD General: Negative for tenderness Chest Wall inspection of chest normal Resp normal respiratory effort and normal air movement Cardio regular rate and regular rhythm GI normal to inspection, nondistended, normoactive bowel sounds Narrative: Normal external genitalia. No cervical motion tenderness. On speculum exam patient does have a thick brownish discharge. Mild suprapubic tenderness on bimanual exam. No adnexal tenderness. Bladder / Kidney Exam: other Back/Spine General Back: CVA tenderness right Cervical Spine: Negative for cervical spine tenderness Thoracic Spine / Upper Back: Negative for thoracic spinal tenderness or paraspinal muscle tenderness Lumbar Spine / Lower Back: Negative for lumbar spinal tenderness Extremity normal to inspection and full ROM General Extremety ED: Negative for edema or tenderness General Extremity: Negative for edema Neuro oriented x3 and no focal motor deficits Psych mental status grossly normal and thought process normal Skin no rashes or lesions noted and no wounds MDM MDM MDM Narrative Medical decision making narrative: Patient evaluated for back pain. She is concerned she has UTI. She also been having abnormal vaginal discharge. She recently been on antibiotics. Pelvic exam does show some abnormal vaginal discharge. Trichomoniasis is negative. Gonorrhea and Chlamydia still pending. Will defer treatment until then. Patient will be treated for bacterial vaginosis empirically. She request the gel so she will be prescribed Flagyl vaginal gel. Patient does not have any findings consistent with UTI or kidney stone on urinalysis. She discharged to follow-up with urology as well as her primary care doctor. Patient counseled return precautions. She verbalized agreement understanding this plan. Discharged home in stable condition. Lab Data Labs: Laboratory Results - last 24 hr 07/19/20 09:00 Urine Color Yellow Urine Clarity Clear Urine pH 6.0 Ur Specific [place] 1.020 Urine Protein Negative Urine Glucose (UA) Normal Urine Ketones Negative Urine Occult Blood Negative Urine Nitrite Negative Urine Bilirubin Negative Urine Urobilinogen Normal Ur Leukocyte Esterase Negative Urine RBC 0 SEEN Urine WBC 0 SEEN Ur Squamous Epith Cells 0-5 SEEN Urine Bacteria RARE Urine Mucus 0 SEEN Urine Test Negative Discharge Plan Triage Chief Complaint: Back ED Provider: Yadi Lira Dx/Rx/DC Orders Clinical Impression: Bacterial vaginosis, Low back pain Instructions: ED Back Pain (Acute or Chronic), ED Bacterial Vaginosis (BV) Prescriptions: New metronidazole 0.75 % gel 1 applic topical DAILY 5 Days Qty: 45 RF: 0 No Action acyclovir 400 MG tablet 1 tablet PO DAILY PRN (Reason: Not Specified) RF: 0 hydrocodone-acetaminophen 5-325 mg Tablet 1 tab PO Q6H PRN (Reason: Pain) RF: 0 Primary Care Provider: Mayelin Jose NP Referrals: Mayelin Jose SECURITY AND COMPLIANCE ANALYST, SECURITY AND COMPLIANCE ANALYST-C [Primary Care Provider] - Activity Restrictions/Additional Instructions: Please follow-up with your urologist as well as your primary care doctor. Alternate Tylenol and ibuprofen for your pain. You do not have a urinary tract infection today. Disposition Disposition: Home, self care
[2020-07-19 10:05] LABS: Mucous, Urine 0 SEEN /hpf (<or=2+); Red Blood Cells-Urine 0 SEEN /hpf (0-5); White Blood Cells 0 SEEN /hpf (0-5)
[2020-07-19 10:10] LABS: Color, Urine Yellow (Yellow); Glucose, Dipstick Normal (Normal); Ketone-Dipstick Negative (Negative); Leukocyte Esterase-Dipstick Negative /ul (Negative); Nitrite-Dipstick Negative (Negative); Occult Blood-Urine Negative /ul (Negative); Protein-Dipstick Negative (Negative); Urine Bilirubin Dipstick Negative (Negative); Urine Clarity Clear (Clear); Urine Urobilinogen Normal (Normal)
[2020-07-19 10:11] LABS: Internal QC Validated? YES +Cl - CLEAR BKGD; Pregnancy, Urine Negative Negative
[2020-07-19 10:13] LABS: Bacteria RARE /hpf (None Seen); Squamous Epithelial Cells - UA 0-5 SEEN /hpf (5-10)
[2020-07-19 10:55] VITALS: BP 118/79; PULSE 81; RESP 16; O2SAT 99
--- NOTE | 2020-07-19 10:55 | ED.RN ---
THIS NURSE REVIEWED D/C INSTRUCTIONS WITH PT. PT VERBALIZED UNDERSTANDING OF INSTRUCTIONS. PT DENIES FURTHER NEEDS OR QUESTIONS AT THIS TIME. PT AMBULATES FROM ROOM ON OWN WITHOUT ASSISTANCE FROM STAFF
[2020-07-19 12:25] LABS: Chlamydia Trachomatis by PCR Negative (Negative); Neisserai gonorrhoeae by PCR Negative (Negative); Probe Check PASS; Sample Adequacy Control PASS; Specimen Processing Control PASS
== END 2020-07-19 10:58 | disposition home or self-care (01) ==
PROVIDERS: Emergency Provider Emergency Medicine; PCP Nurse Practitioner
DX: M54.5 Low back pain (principal); G89.29 Other chronic pain; N76.0 Acute vaginitis; B96.89 Other specified bacterial agents as the cause of diseases classified elsewhere; K21.9 Gastro-esophageal reflux disease without esophagitis; J45.909 Unspecified asthma, uncomplicated; Z87.891 Personal history of nicotine dependence
CPT/HCPCS: 81001; 81025; 87210; 87491; 87591; 99282

== ENCOUNTER 2020-09-12 14:11 | Emergency (ER) | payer MEDICAID, SELFPAY ==
[2020-09-12 14:12] VITALS: BP 128/75; PULSE 92; RESP 14; TEMP 36.6; O2SAT 96; BMI 22.6
[2020-09-12 15:06] VITALS: RESP 17
[2020-09-12 15:24] LABS: Mucous, Urine 0 SEEN /hpf (<or=2+); Red Blood Cells-Urine 0 SEEN /hpf (0-5)
[2020-09-12 15:31] LABS: Color, Urine Straw (Yellow); Glucose, Dipstick Normal (Normal); Ketone-Dipstick Negative (Negative); Leukocyte Esterase-Dipstick 25 /ul (Negative); Nitrite-Dipstick Negative (Negative); Occult Blood-Urine Negative /ul (Negative); Protein-Dipstick Negative (Negative); Urine Bilirubin Dipstick Negative (Negative); Urine Clarity Clear (Clear); Urine Urobilinogen 1 mg/dl (Normal); Urine pH 6.5 (5.0 - 8.0)
[2020-09-12 15:40] LABS: White Blood Cells 0-5 SEEN /hpf (0-5)
[2020-09-12 15:41] LABS: Bacteria 1+ /hpf (None Seen); Squamous Epithelial Cells - UA 0-5 SEEN /hpf (5-10)
--- NOTE | 2020-09-12 15:53 | EDS_ITS ---
HPI History of Present Illness Chief Complaint: Complaint Informant: patient Onset/Context/Timing Onset: Days (4) Context: Gradual Onset Timing: Continuous Quality: Burning, pressure Location: Suprapubic Worsened by: Holding urine Relieved by: Nothing Narrative Narrative: Patient presents with dysuria and urinary frequency that has been getting worse over the past 4 days. Patient also complains of pain in her left forearm that radiates into her hand. Patient states she has some pressure over her suprapubic area and burning with urination. Patient states it is worse whenever she has to hold her urine. Patient denies any nausea or vomiting. Patient denies any fevers or chills. Patient does admit to some mild back pain. Patient denies any injury to her forearm. Patient denies any swelling. Patient states her pain in her forearm is worse with any movement. Patient denies any paresthesias or weakness. [facility] Medical History Anxiety Asthma Carpal tunnel syndrome Chronic pain Former smoker GERD (gastroesophageal reflux disease) Kidney stone Migraines Post-trauma syndrome Substance abuse Home Medications hydrocodone-acetaminophen 1 tab PO BID PRN 07/19/20 [History Last Taken Unknown] acetaminophen 1,000 mg PO Q8H PRN 09/12/20 [History Last Taken Unknown] cephalexin 500 mg PO Q6 #12 capsule 09/12/20 [Rx Last Taken Unknown] meloxicam 15 mg PO DAILY 09/12/20 [History Last Taken Unknown] nortriptyline 10 mg PO QHS 09/12/20 [History Last Taken Unknown] phenazopyridine [Pyridium] 200 mg PO TID #6 tab 09/12/20 [Rx Last Taken Unknown] sumatriptan succinate 50 mg PO PRN PRN 09/12/20 [History Last Taken Unknown] tizanidine [Zanaflex] 2 - 4 mg PO Q8H 09/12/20 [History Last Taken Unknown] Allergy/AdvReac Type Severity Reaction Status Date / Time latex Allergy Hives Verified 09/12/20 14:13 morphine Allergy Rash Verified 09/12/20 14:13 sertraline [From Zoloft] Allergy Hives Verified 09/12/20 14:13 tramadol Allergy Rash Verified 09/12/20 14:13 Social History Smoking Status: Former smoker ROS ROS ED Constitutional Constitutional ED: Denies chills or fever(s) Eyes Eyes: Denies blurry vision or change in vision ENT ENT ED: Denies rhinorrhea or sore throat Cardiovascular Cardiovascular: Denies chest pain or palpitations Respiratory/Chest Respiratory/Chest: Denies cough or dyspnea Gastrointestinal Gastrointestinal: Denies nausea or vomiting Genitourinary Genitourinary ED: Denies dysuria or hematuria Musculoskeletal Musculoskeletal: Reports back pain and myalgias; Denies neck pain Integumentary Denies abscess or rash Neurologic Neurologic: Reports headache(s); Denies weakness Allergic/Immunologic Allergic/Immunologic ED: Denies mouth swelling or urticaria EXAM Physical Exam Const Vital Signs: 09/12/20 14:12 09/12/20 15:06 Temperature 97.9 F Temperature Source Temporal Pulse Rate 92 Respiratory Rate 14 17 Blood Pressure 128/75 H Blood Pressure Mean 92 Pulse Ox 96 Oxygen Delivery Method Room Air Positive well nourished and well developed General Appearance ED: well developed HEENT Reports moist mucous membranes Neck supple and no JVD Resp normal respiratory effort and clear to auscultation bilaterally Cardio regular rate, regular rhythm and no murmurs GI normal to inspection, nondistended, normoactive bowel sounds Palpation: soft and tender suprapubic Extremity normal to inspection Extremity Narrative: There is mild tenderness over the volar aspect of the left forearm. There is no deformity. There is no bony crepitance or step-off. There is no edema or ecchymosis. There is good range of motion. Radial pulses are equal bilaterally. Sensation was intact light touch in all digits. Capillary refill was less than 2 seconds in all digits. General Extremety ED: Yes tenderness; Negative for edema General Extremity: Negative for edema Neuro oriented x3, CN's II-XII intact bilaterally and no sensory deficits noted Sensorium / Orientation: alert Motor Exam: strength 5/5 throughout Psych mental status grossly normal Skin no rashes or lesions noted MDM MDM MDM Narrative Medical decision making narrative: Urinalysis shows leukocyte esterase of 25 with 1+ bacteria. Because of the patient's symptoms, I will treat her with Keflex for 3 days. Patient was also given a prescription for Pyridium. Patient was instructed to drink plenty of fluids. Patient was instructed to continue her pain medications as previously prescribed. Patient was instructed to return if worse in any way. Patient understood and was agreeable with the plan. All questions were answered. Lab Data Attestation: I reviewed the patient's lab results. Labs: Laboratory Results - last 24 hr 09/12/20 15:15 Urine Color [place] Urine Clarity Clear Urine pH 6.5 Ur Specific [place] 1.020 Urine Protein Negative Urine Glucose (UA) Normal Urine Ketones Negative Urine Occult Blood Negative Urine Nitrite Negative Urine Bilirubin Negative Urine Urobilinogen 1 H Ur Leukocyte Esterase 25 H Urine RBC 0 SEEN Urine WBC 0-5 SEEN Ur Squamous Epith Cells 0-5 SEEN Urine Bacteria 1+ Urine Mucus 0 SEEN Discharge Plan Triage Chief Complaint: Complaint ED Provider: Eldon Acuña Dx/Rx/DC Orders Clinical Impression: Dysuria, Muscle strain of left forearm Instructions: ED Dysuria, Uncertain Cause (Adult) Prescriptions: New cephalexin [cephalexin] 500 MG capsule 500 mg PO Q6 Qty: 12 RF: 0 phenazopyridine [Pyridium] 200 MG tablet 200 mg PO TID Qty: 6 RF: 0 No Action hydrocodone-acetaminophen 5-325 mg Tablet 1 tab PO BID PRN (Reason: Pain) RF: 0 tizanidine [Zanaflex] 4 mg tablet 2 - 4 mg PO Q8H RF: 0 meloxicam 15 mg tablet 15 mg PO DAILY RF: 0 sumatriptan succinate 50 mg tablet 50 mg PO PRN PRN (Reason: Migraine Headache) RF: 0 acetaminophen 500 mg tablet 1,000 mg PO Q8H PRN (Reason: Pain) RF: 0 nortriptyline 10 mg capsule 10 mg PO QHS RF: 0 Primary Care Provider: Mayelin Jose PNEUMATIC SYSTEM CONVEYOR OPERATOR Referrals: Mayelin Jose PNEUMATIC SYSTEM CONVEYOR OPERATOR, PNEUMATIC SYSTEM CONVEYOR OPERATOR-C [Primary Care Provider] - 3-5 Days Disposition Disposition: Home, Self Care
[2020-09-12] MEDS: Cephalexin 500 MG Capsule PO (16:20)
[2020-09-12 16:22] VITALS: BP 126/85; PULSE 74; RESP 16
== END 2020-09-12 16:24 | disposition home or self-care (01) ==
PROVIDERS: Emergency Provider Emergency Medicine; PCP Nurse Practitioner
DX: R30.0 Dysuria (principal); S56.912A Strain of unspecified muscles, fascia and tendons at forearm level, left arm, initial encounter; F41.9 Anxiety disorder, unspecified; J45.909 Unspecified asthma, uncomplicated; K21.9 Gastro-esophageal reflux disease without esophagitis; Z79.899 Other long term (current) drug therapy; Z87.891 Personal history of nicotine dependence; X58.XXXA Exposure to other specified factors, initial encounter; Y93.89 Activity, other specified; Y92.89 Other specified places as the place of occurrence of the external cause; Y99.8 Other external cause status
CPT/HCPCS: 81001; 99283

== ENCOUNTER 2020-09-15 06:41 | Emergency (ER) | payer MEDICAID, SELFPAY ==
[2020-09-15 06:42] VITALS: BP 138/90; PULSE 97; RESP 15; TEMP 36.7; O2SAT 100; BMI 22.5
[2020-09-15 07:05] VITALS: BP 138/90; PULSE 97; RESP 15; TEMP 36.7; O2SAT 100
--- NOTE | 2020-09-15 07:45 | CT_ITS ---
STUDY: CT ABDOMEN AND PELVIS WITHOUT CONTRAST REASON FOR EXAM: Female, 39 years old. Flank pain RADIATION DOSAGE (If Supplied By Facility): CTDIvol = ( 6.06 ) mGy, DLP = ( 272.34 ) mGycm TECHNIQUE: Transaxial images were obtained from the dome of the diaphragm to the symphysis pubis without oral contrast, and without intravenous contrast. Sagittal and coronal images were reconstructed. Individualized dose optimization techniques were used for this CT. COMPARISON: 06/28/2020 FINDINGS: The visualized lung bases are unremarkable. The visualized portions of the heart are within normal limits. Normal liver. Normal gallbladder and extrahepatic biliary system. Normal spleen. Normal pancreas. Normal bilateral adrenal glands. Normal right kidney. Normal left kidney. A calcification in the mid right abdomen is unchanged from the previous study of 06/28/2020 and is extrinsic to the right ureter Normal visualized stomach. Normal small intestine. Retained stool noted throughout the colon. There is non-visualization of the appendix. Normal abdominal aorta. Normal inferior vena cava. Normal retroperitoneum. Normal urinary bladder. Normal visualized uterus. No suspicious adnexal mass or free fluid Normal abdominal wall. Normal osseous structures. CT/Abdomen/Pelvis without Cont IMPRESSION: No suspicious solid organ abnormality, specifically, no obstructive uropathy Retained stool throughout the colon which may be impacted No free intraperitoneal fluid, air, or suspicious adenopathy No CT evidence of an acute inflammatory process Electronically Signed: Alex Olson MD at 9:27 EDT , Service support ,
--- NOTE | 2020-09-15 07:58 | EDS_ITS ---
HPI History of Present Illness Chief Complaint: Complaint Narrative Narrative: Dysuria and left flank pain that began around she was seen in the emergency department treated with cephalexin for UTI history of kidney stones very minimal flank pain at that time now the flank pain seems worse the dysuria has persisted she is not prone to UTI, her last kidney stone was years ago treated with what she was a lithotripsy at [facility] facility no fever no vomiting bowel bladder habits otherwise unremarkable denies any other history or complaints Past medical history for kidney stones 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 being monitored and includes as above PFSH PFSH Medical History Anxiety Asthma Carpal tunnel syndrome Chronic pain Former smoker GERD (gastroesophageal reflux disease) Kidney stone Migraines Post-trauma syndrome Substance abuse Home Medications hydrocodone-acetaminophen 1 tab PO BID PRN 07/19/20 [History Last Taken Unknown] acetaminophen 1,000 mg PO Q8H PRN 09/12/20 [History Last Taken Unknown] cephalexin 500 mg PO Q6 #12 capsule 09/12/20 [Rx Last Taken Unknown] meloxicam 15 mg PO DAILY 09/12/20 [History Last Taken Unknown] nortriptyline 10 mg PO QHS 09/12/20 [History Last Taken Unknown] phenazopyridine [Pyridium] 200 mg PO TID #6 tab 09/12/20 [Rx Last Taken Unknown] sumatriptan succinate 50 mg PO PRN PRN 09/12/20 [History Last Taken Unknown] tizanidine [Zanaflex] 2 - 4 mg PO Q8H 09/12/20 [History Last Taken Unknown] valacyclovir [Valtrex] 500 mg PO DAILY 09/15/20 [History Last Taken Unknown] Allergy/AdvReac Type Severity Reaction Status Date / Time latex Allergy Hives Verified 09/15/20 06:46 morphine Allergy Rash Verified 09/15/20 06:46 sertraline [From Zoloft] Allergy Hives Verified 09/15/20 06:46 tramadol Allergy Rash Verified 09/15/20 06:46 Social History Smoking Status: Current some day smoker tobacco type: cigarettes ROS ROS ED ROS Narrative Dysuria flank pain Constitutional Constitutional ED: Reports subjective, sweats and other; Denies chills, fever(s) or weight loss Eyes Eyes: Denies blurry vision or change in vision ENT ENT ED: Denies ear pain Cardiovascular Cardiovascular: Denies chest pain or palpitations Respiratory/Chest Respiratory/Chest: Denies dyspnea Gastrointestinal Gastrointestinal: Denies abdominal pain, nausea or vomiting Genitourinary Genitourinary ED: Denies dysuria or hematuria Musculoskeletal Musculoskeletal: Denies arthralgias or myalgias Integumentary Reports rash; Denies abscess Neurologic Neurologic: Denies weakness Psychiatric Psychiatric: Denies anxiety or depression Endocrine Endocrinology: Denies polydipsia or polyuria Allergic/Immunologic Allergic/Immunologic ED: Denies urticaria EXAM Physical Exam Narrative Exam Narrative: Her abdomen is soft and nontender she is a very vague nonspecific pain to the left flank, she has a nonspecific fullness to the right scapula is chronic and unchanged and not an issue today Const Vital Signs: 09/15/20 06:42 09/15/20 07:05 09/15/20 10:11 Temperature 98.1 F 98.1 F Temperature Source Oral Oral Pulse Rate 97 97 67 Respiratory Rate 15 15 14 Blood Pressure 138/90 H 138/90 H 137/80 H Blood Pressure Mean 106 106 99 Pulse Ox 100 100 97 Oxygen Delivery Method Room Air Room Air MDM MDM MDM Narrative Medical decision making narrative: Her abdomen soft her vital signs are unremarkable she is been on the cephalexin for a few days without improvement of her dysuria now has flank pain ED screening evaluation with labs pain management flank CT urine urine culture The patient's ED screening evaluation is generally unremarkable she always reports, CT and pelvis shows nothing acute, discussed all the above with her she is feeling better, I explained to her there is no signs at this time of failure to respond for the antibiotic for sure, she just been on for a few days she was given IV Rocephin she will continue the Keflex urine culture was sent Naprosyn for pain she will follow-up with outpatient providers and return for change in symptoms and will have her outpatient providers check the urine culture and adjust antibiotics as needed Home stable Final impression is left flank pain recent UTI Lab Data Labs: Laboratory Results - last 24 hr 09/15/20 09/15/20 09/15/20 08:00 08:15 08:15 WBC 6.5 RBC 4.62 Hgb 13.6 Hct 42.1 MCV 91.1 MCH 29.4 MCHC 32.3 RDW Std Deviation 42.5 RDW Coeff of Sophia 12.8 Plt Count 312 MPV 9.0 Immature Gran % (Auto) 0.300 Neut % (Auto) 53.5 Lymph % (Auto) 33.0 [place] % (Auto) 7.8 Eos % (Auto) 4.8 Baso % (Auto) 0.6 Absolute Neuts (auto) 3.5 Absolute Lymphs (auto) 2.13 Nucleated RBC % 0 Sodium 137 Potassium 3.7 Chloride 103 Carbon Dioxide 26.0 Anion Gap 8 BUN 15 Creatinine 0.78 Estim Creat Clear Calc 76.59 Est GFR (MDRD) Af Amer 105 Est GFR (MDRD) Non-Af 87 BUN/Creatinine Ratio 19.2 Glucose 84 Calcium 9.0 Urine Color [place] Urine Clarity Clear Urine pH 6.5 Ur Specific [place] 1.015 Urine Protein Negative Urine Glucose (UA) Normal Urine Ketones Negative Urine Occult Blood Negative Urine Nitrite Positive H Urine Bilirubin 1 H Urine Urobilinogen 1 H Ur Leukocyte Esterase 25 H Urine RBC 0 SEEN Urine WBC 0 SEEN Ur Squamous Epith Cells 0-5 SEEN Urine Bacteria 0 SEEN Urine Mucus 0 SEEN Radiography Diagnostic Testing: Radiology Impression Abdomen/Pelvis CT 09/15/20 07:45 IMPRESSION: No suspicious solid organ abnormality, specifically, no obstructive uropathy Retained stool throughout the colon which may be impacted No free intraperitoneal fluid, air, or suspicious adenopathy No CT evidence of an acute inflammatory process Electronically Signed: Alex Olson MD at 9:27 EDT , Service support , Discharge Plan Triage Chief Complaint: Complaint ED Provider: Kiya Valentine Dx/Rx/DC Orders Clinical Impression: Kidney stone, Dysuria Instructions: ED Dysuria, Uncertain Cause (Adult), ED Pelvic Pain, Unknown Cause Prescriptions: No Action hydrocodone-acetaminophen 5-325 mg Tablet 1 tab PO BID PRN (Reason: Pain) RF: 0 tizanidine [Zanaflex] 4 mg tablet 2 - 4 mg PO Q8H RF: 0 meloxicam 15 mg tablet 15 mg PO DAILY RF: 0 sumatriptan succinate 50 mg tablet 50 mg PO PRN PRN (Reason: Migraine Headache) RF: 0 acetaminophen 500 mg tablet 1,000 mg PO Q8H PRN (Reason: Pain) RF: 0 nortriptyline 10 mg capsule 10 mg PO QHS RF: 0 cephalexin [cephalexin] 500 MG capsule 500 mg PO Q6 Qty: 12 RF: 0 phenazopyridine [Pyridium] 200 MG tablet 200 mg PO TID Qty: 6 RF: 0 valacyclovir [Valtrex] 500 mg Tablet 500 mg PO DAILY RF: 0 Primary Care Provider: Mayelin Jose IT INFRASTRUCTURE PROJECT MANAGER Referrals: Mayelin Jose IT INFRASTRUCTURE PROJECT MANAGER, IT INFRASTRUCTURE PROJECT MANAGER-C [Primary Care Provider] -
[2020-09-15 08:10] LABS: Bacteria 0 SEEN /hpf (None Seen); Mucous, Urine 0 SEEN /hpf (<or=2+); Red Blood Cells-Urine 0 SEEN /hpf (0-5); White Blood Cells 0 SEEN /hpf (0-5)
[2020-09-15 08:11] LABS: Color, Urine Amber (Yellow); Glucose, Dipstick Normal (Normal); Ketone-Dipstick Negative (Negative); Leukocyte Esterase-Dipstick 25 /ul (Negative); Nitrite-Dipstick Positive (Negative); Occult Blood-Urine Negative /ul (Negative); Protein-Dipstick Negative (Negative); Specific Gravity, Urine 1.015 (1.002-1.030); Urine Clarity Clear (Clear); Urine Urobilinogen 1 mg/dl (Normal); Urine pH 6.5 (5.0 - 8.0)
[2020-09-15 08:12] LABS: Urine Bilirubin Dipstick 1 mg/dL (Negative)
[2020-09-15 08:17] LABS: Squamous Epithelial Cells - UA 0-5 SEEN /hpf (5-10)
[2020-09-15 08:25] LABS: Absolute Lymphocyte Count 2.13 X10^3/uL (0.83-4.51); Absolute Neutrophil Count 3.5 X10^3/uL (2.0-7.7); Basophil# 0.04 X10^3/uL; Basophil% 0.6 % (0-1); Eosinophil# 0.31 X10^3/uL; Eosinophils% 4.8 % (0-5); Hematocrit 42.1 % (37-47); Hemoglobin 13.6 g/dL (12.0-15.0); Lymphocyte # 2.13 X10^3/ul (0.83-4.51); Mean Corp Hgb Conc 32.3 g/dL (32-36); Mean Corpuscular Hgb 29.4 pg (27.0-32.0); Mean Corpuscular Volume 91.1 fL (81-99); Monocyte% 7.8 % (0-10); NRBC Flagged by Analyzer 0 % (0-5); Neutrophil # 3.45 X10^3/uL (2.7-7.7); Neutrophil % 53.5 % (47-70); Platelet Count 312 K/mm3 (150-450); RBC Distribution Width CV 12.8 % (11.6-14.6); RBC Distribution Width SD 42.5 fl (35.1-43.9); Red Blood Count 4.62 M/mm3 (4.2-5.4); White Blood Count 6.5 K/mm3 (4.4-11.0)
[2020-09-15] MEDS: fentaNYL 100 MCG/2 ML Ampul 25 MCG IV (08:32)
[2020-09-15] MEDS: 0.9% Normal Saline 1,000 ML 125 ML IV (08:33)
[2020-09-15] MEDS: Ketorolac 30 MG/ML Syringe IV (08:33)
[2020-09-15] MEDS: Ondansetron 4 MG/2 ML Vial IV (08:33)
[2020-09-15 08:37] LABS: Anion Gap 8 (5-15); BUN 15 mg/dL (7-18); BUN/Creat Ratio 19.2 RATIO (10-20); Chloride 103 mmol/L (98-107); Creatinine, Serum 0.78 mg/dL (0.55-1.02); EST Glomerular Filtration Rate 87 mL/min (>60); Est Glom Filt Rate - Afr Amer 105 mL/min (>60); Estimated Creatinine Clearance 76.59 ml/min; Glucose 84 mg/dL (74-106); Potassium 3.7 mmol/L (3.5-5.1); Sodium Level 137 mmol/L (136-145)
[2020-09-15 10:11] VITALS: BP 137/80; PULSE 67; RESP 14; O2SAT 97
[2020-09-15] MEDS: Ceftriaxone 1 GM/50 ML BAG IV (11:11)
[2020-09-15 12:31] VITALS: RESP 18
== END 2020-09-15 12:33 | disposition home or self-care (01) ==
LOC: ED 07:52
PROVIDERS: Emergency Provider Emergency Medicine; PCP Nurse Practitioner
DX: N20.0 Calculus of kidney (principal); J45.909 Unspecified asthma, uncomplicated; K21.9 Gastro-esophageal reflux disease without esophagitis; F17.210 Nicotine dependence, cigarettes, uncomplicated; Z79.899 Other long term (current) drug therapy; Z87.440 Personal history of urinary (tract) infections
CPT/HCPCS: 74176; 80048; 81001; 85025; 87086; 96361; 96365; 96366; 96375; 99284; J7030; J7050; A4216; J2405

== ENCOUNTER 2020-09-24 03:29 | Emergency (ER) | payer MEDICAID, SELFPAY ==
[2020-09-24 03:30] VITALS: BP 139/97; PULSE 107; RESP 16; TEMP 36.8; O2SAT 97; BMI 21.9
--- NOTE | 2020-09-24 03:43 | CT_ITS ---
STUDY: CT ABDOMEN AND PELVIS WITH CONTRAST REASON FOR EXAM: Female, 39 years old. lower abdominal injury RADIATION DOSAGE (If Supplied By Facility): CTDIvol = ( 7.15 ) mGy, DLP = ( 343.23 ) mGycm TECHNIQUE: Transaxial images were obtained from the dome of the diaphragm to the symphysis pubis without oral contrast. IV 100mL Isovue-370 was administered. Sagittal and coronal images were reconstructed. Individualized dose optimization techniques were used for this CT. COMPARISON: None. FINDINGS: The visualized lung bases are unremarkable. The visualized portions of the heart are within normal limits. There is hepatomegaly with diffuse hepatic enlargement. Normal gallbladder and extrahepatic biliary system. Normal spleen. Normal pancreas. Normal bilateral adrenal glands. Normal right kidney. Normal left kidney. Evaluation of bowel is limited by lack of oral contrast. Moderate stool in the colon. No dilated loops of bowel by CT criteria. No free air identified. Small hiatal hernia. The appendix is visualized and appears normal. Normal abdominal aorta. Normal inferior vena cava. Normal retroperitoneum. Mild bladder wall thickening. Cervix is heterogeneous. Fluid in the endometrial canal. There is a LEFT adnexal 2.9 cm low-attenuation structure likely ovarian. Small umbilical hernia containing fatty stranding. There is no bowel within the hernia. Normal osseous structures. CT/Abdomen/Pelvis W IV Cont ONLY IMPRESSION: No acute fracture identified. Mild bladder wall thickening. May be related to underdistention however correlate with urinalysis to exclude cystitis. Heterogeneous cervix and fluid in the endometrial canal. This could be related to phase of cycle. However gynecologic follow-up and ultrasound on a nonemergent basis to exclude underlying mass would be recommended. Possible fibroid within the uterus which can be further evaluated with the above-mentioned ultrasound. No CT evidence for diverticulitis or appendicitis. Moderate stool in the colon. Other findings as above. Electronically Signed: Gallito Bililngsley MD at 6:18 EDT Tel , Service support ,
--- NOTE | 2020-09-24 03:44 | EX.ED.DYSGE1 ---
HPI History of Present Illness Chief Complaint: Abd Pain Informant: patient Narrative Narrative: 39-year-old female was at work tonight when she got pulled forward at her workstation and her lower abdomen contacted a metal bar. She notes pain with ambulation. She has not urinated since the accident. Patient takes hydrocodone chronically. Patient states she was fine before the accident. [facility] Medical History Anxiety Asthma Carpal tunnel syndrome Chronic pain Former smoker GERD (gastroesophageal reflux disease) Kidney stone Migraines Post-trauma syndrome Substance abuse Home Medications hydrocodone-acetaminophen 1 tab PO BID PRN 07/19/20 [History Last Taken Unknown] acetaminophen 1,000 mg PO Q8H PRN 09/12/20 [History Last Taken Unknown] cephalexin 500 mg PO Q6 #12 capsule 09/12/20 [Rx Last Taken Unknown] meloxicam 15 mg PO DAILY 09/12/20 [History Last Taken Unknown] nortriptyline 10 mg PO QHS 09/12/20 [History Last Taken Unknown] phenazopyridine [Pyridium] 200 mg PO TID #6 tab 09/12/20 [Rx Last Taken Unknown] sumatriptan succinate 50 mg PO PRN PRN 09/12/20 [History Last Taken Unknown] tizanidine [Zanaflex] 2 - 4 mg PO Q8H 09/12/20 [History Last Taken Unknown] valacyclovir [Valtrex] 500 mg PO DAILY 09/15/20 [History Last Taken Unknown] Allergy/AdvReac Type Severity Reaction Status Date / Time latex Allergy Hives Verified 09/15/20 06:46 morphine Allergy Rash Verified 09/15/20 06:46 sertraline [From Zoloft] Allergy Hives Verified 09/15/20 06:46 tramadol Allergy Rash Verified 09/15/20 06:46 Social History (Updated 09/24/20 @ 03:[address] Elroy Glover DO) Smoking Status: Current some day smoker tobacco type: cigarettes substance use type: does not use ROS ROS ED Constitutional Constitutional ED: Denies chills or weight loss Eyes Eyes: Denies change in vision or diplopia ENT ENT ED: Denies ear pain, rhinorrhea or sore throat Cardiovascular Cardiovascular: Denies chest pain, orthopnea, palpitations or racing heartbeat Respiratory/Chest Respiratory/Chest: Denies cough, dyspnea or orthopnea Gastrointestinal Gastrointestinal: Reports abdominal pain; Denies diarrhea, nausea or vomiting Genitourinary Genitourinary ED: Denies dysuria, hematuria or urinary frequency Musculoskeletal Musculoskeletal: Denies arthralgias or myalgias Integumentary Denies abscess or rash Neurologic Neurologic: Denies headache(s) or weakness Psychiatric Psychiatric: Denies anxiety, depression, suicidal ideation or suicidal thoughts Endocrine Endocrinology: Denies polydipsia, polyphagia or polyuria Allergic/Immunologic Allergic/Immunologic ED: Denies mouth swelling, tongue swelling or urticaria EXAM Physical Exam Const Vital Signs: 09/24/20 03:30 Temperature 98.2 F Temperature Source Temporal Pulse Rate 107 H Respiratory Rate 16 Blood Pressure 139/97 H Blood Pressure Mean 111 Pulse Ox 97 Oxygen Delivery Method Room Air Positive well nourished and well developed General Appearance ED: well developed HEENT Reports normocephalic, head/scalp atraumatic and moist mucous membranes Eyes PERRL and EOMs intact bilaterally Neck no lymphadenopathy, supple and no JVD Resp normal respiratory effort and clear to auscultation bilaterally Cardio regular rate, regular rhythm and no murmurs GI Palpation: soft and tender suprapubic Back/Spine no CVA tenderness and normal ROM Extremity normal to inspection General Extremety ED: Negative for edema General Extremity: Negative for edema Neuro oriented x3 and CN's II-XII intact bilaterally Sensorium / Orientation: alert Motor Exam: strength 5/5 throughout Psych mental status grossly normal Mood & Affect: Negative for depressed or tearful Skin no rashes or lesions noted and no wounds MDM MDM MDM Narrative Medical decision making narrative: Urinalysis did not demonstrate any hematuria. test was negative. CT the abdomen pelvis with IV contrast was obtained. This did not reveal any intra-abdominal process. I think the patient most likely has an abdominal wall contusion. Would recommend rest ice Tylenol Motrin. Return if worsening or concerns Lab Data Labs: Laboratory Results - last 24 hr 09/24/20 03:46 Urine Color Yellow Urine Clarity Clear Urine pH 6.0 Ur Specific [place] 1.025 Urine Protein Negative Urine Glucose (UA) Normal Urine Ketones 5 H Urine Occult Blood Negative Urine Nitrite Negative Urine Bilirubin Negative Urine Urobilinogen Normal Ur Leukocyte Esterase Negative Urine RBC 0 SEEN Urine WBC 0 SEEN Ur Squamous Epith Cells 0-5 SEEN Urine Bacteria RARE Urine Mucus 0 SEEN Urine Test Negative Discharge Plan Triage Chief Complaint: Abd Pain ED Provider: Elroy Glover Dx/Rx/DC Orders Clinical Impression: Abdominal wall contusion Instructions: ED Soft Tissue Contusion Prescriptions: No Action hydrocodone-acetaminophen 5-325 mg Tablet 1 tab PO BID PRN (Reason: Pain) RF: 0 tizanidine [Zanaflex] 4 mg tablet 2 - 4 mg PO Q8H RF: 0 meloxicam 15 mg tablet 15 mg PO DAILY RF: 0 sumatriptan succinate 50 mg tablet 50 mg PO PRN PRN (Reason: Migraine Headache) RF: 0 acetaminophen 500 mg tablet 1,000 mg PO Q8H PRN (Reason: Pain) RF: 0 nortriptyline 10 mg capsule 10 mg PO QHS RF: 0 cephalexin [cephalexin] 500 MG capsule 500 mg PO Q6 Qty: 12 RF: 0 phenazopyridine [Pyridium] 200 MG tablet 200 mg PO TID Qty: 6 RF: 0 valacyclovir [Valtrex] 500 mg Tablet 500 mg PO DAILY RF: 0 Primary Care Provider: Mayelin Jose SMOKING PIPE MOUNTER Referrals: [facility] [NON-STAFF] - 3-5 Days Mayelin Jose SMOKING PIPE MOUNTER, SMOKING PIPE MOUNTER-C [Primary Care Provider] - Disposition Disposition: Home, Self Care
[2020-09-24 03:54] LABS: Mucous, Urine 0 SEEN /hpf (<or=2+); Red Blood Cells-Urine 0 SEEN /hpf (0-5); White Blood Cells 0 SEEN /hpf (0-5)
[2020-09-24 04:01] LABS: Color, Urine Yellow (Yellow); Glucose, Dipstick Normal (Normal); Ketone-Dipstick 5 mg/dl (Negative); Leukocyte Esterase-Dipstick Negative /ul (Negative); Nitrite-Dipstick Negative (Negative); Occult Blood-Urine Negative /ul (Negative); Protein-Dipstick Negative (Negative); Specific Gravity, Urine 1.025 (1.002-1.030); Urine Bilirubin Dipstick Negative (Negative); Urine Clarity Clear (Clear); Urine Urobilinogen Normal (Normal)
[2020-09-24 04:14] LABS: Bacteria RARE /hpf (None Seen); Squamous Epithelial Cells - UA 0-5 SEEN /hpf (5-10)
[2020-09-24 04:15] LABS: Internal QC Validated? YES +Cl - CLEAR BKGD; Pregnancy, Urine Negative Negative
--- NOTE | 2020-09-24 06:01 | ED.RN ---
Called Milad from CT scan about results. She reports that she has called still pending results.
[2020-09-24 06:32] VITALS: BP 128/75; PULSE 75; RESP 16; O2SAT 100
== END 2020-09-24 06:32 | disposition home or self-care (01) ==
PROVIDERS: Emergency Provider Emergency Medicine; PCP Nurse Practitioner
DX: S30.1XXA Contusion of abdominal wall, initial encounter (principal); F41.9 Anxiety disorder, unspecified; J45.909 Unspecified asthma, uncomplicated; K21.9 Gastro-esophageal reflux disease without esophagitis; F17.210 Nicotine dependence, cigarettes, uncomplicated; Z79.899 Other long term (current) drug therapy; W22.09XA Striking against other stationary object, initial encounter; Y93.89 Activity, other specified; Y92.89 Other specified places as the place of occurrence of the external cause; Y99.0 Civilian activity done for income or pay
CPT/HCPCS: 74177; 81001; 81025; 99285; Q9967; A4216

== ENCOUNTER 2020-11-19 12:57 | Emergency (ER) | payer MEDICAID, SELFPAY ==
[2020-11-19 12:58] VITALS: BP 116/78; PULSE 85; RESP 20; TEMP 37.4; O2SAT 100; BMI 22.8
--- NOTE | 2020-11-19 15:04 | EX.ED.DYSGE1 ---
HPI History of Present Illness Chief Complaint: General Illness Informant: patient Narrative Narrative: Patient is a 39-year-old female with history of bronchitis presenting with Covid-like symptoms. She start having symptoms yesterday. Her dieter was diagnosed with Covid yesterday. She is not had her Covid vaccine. Patient states that she feels chest tightness, cough, myalgias, fever and her eyes hurt. She had a fever of 101.2 but took Tylenol prior to arrival. She is presenting with her son who also has similar symptoms. No other complaints at this time. [facility] Medical History (Updated 11/19/20 @ 15:11 by Dean King) Anxiety Asthma Carpal tunnel syndrome Chronic pain Depression Former smoker GERD (gastroesophageal reflux disease) Kidney stone Migraines Post-trauma syndrome Substance abuse Home Medications hydrocodone-acetaminophen 1 tab PO BID PRN 07/19/20 [History Last Taken Unknown] acetaminophen 1,000 mg PO Q8H PRN 09/12/20 [History Last Taken Unknown] cephalexin 500 mg PO Q6 #12 capsule 09/12/20 [Rx Last Taken Unknown] meloxicam 15 mg PO DAILY 09/12/20 [History Last Taken Unknown] nortriptyline 10 mg PO QHS 09/12/20 [History Last Taken Unknown] phenazopyridine [Pyridium] 200 mg PO TID #6 tab 09/12/20 [Rx Last Taken Unknown] sumatriptan succinate 50 mg PO PRN PRN 09/12/20 [History Last Taken Unknown] tizanidine [Zanaflex] 2 - 4 mg PO Q8H 09/12/20 [History Last Taken Unknown] valacyclovir [Valtrex] 500 mg PO DAILY 09/15/20 [History Last Taken Unknown] albuterol sulfate [Ventolin HFA] 1 - 2 puff INHALATION Q4H PRN PRN #1 inh 11/19/20 [Rx Last Taken Unknown] Allergy/AdvReac Type Severity Reaction Status Date / Time latex Allergy Hives Verified 11/19/20 13:00 morphine Allergy Rash Verified 11/19/20 13:00 sertraline [From Zoloft] Allergy Hives Verified 11/19/20 13:00 tramadol Allergy Rash Verified 11/19/20 13:00 Social History Smoking Status: Current some day smoker tobacco type: cigarettes substance use type: does not use ROS ROS ED Constitutional Constitutional ED: Reports chills and fever(s); Denies malaise Eyes Eyes: Reports other Details: eye pain ; Denies blurry vision or loss of vision ENT ENT ED: Reports rhinorrhea; Denies sore throat Cardiovascular Cardiovascular: Reports chest pain; Denies dizziness Respiratory/Chest Respiratory/Chest: Reports cough; Denies dyspnea or dyspnea on exertion Gastrointestinal Gastrointestinal: Denies abdominal pain, nausea or vomiting Genitourinary Genitourinary ED: Denies dysuria or hematuria Musculoskeletal Musculoskeletal: Reports myalgias; Denies arthralgias Integumentary Denies rash or wounds Neurologic Neurologic: Reports headache(s); Denies focal weakness Psychiatric Psychiatric: Denies anxiety or behavioral changes EXAM Physical Exam Const Vital Signs: 11/19/20 12:58 11/19/20 15:10 11/19/20 15:21 Temperature 99.3 F H 98.4 F Temperature Source Temporal Oral Pulse Rate 85 84 Respiratory Rate 20 H 16 Respiratory Effort Normal Respiratory Pattern Normal Blood Pressure 116/78 134/81 H Blood Pressure Mean 90 98 Pulse Ox 100 100 Oxygen Delivery Method Room Air Room Air 11/19/20 15:59 Temperature Temperature Source Pulse Rate Respiratory Rate Respiratory Effort Respiratory Pattern Blood Pressure Blood Pressure Mean Pulse Ox 97 Oxygen Delivery Method Positive well nourished, well developed and no apparent distress General Appearance ED: well developed HEENT Reports normocephalic, TM's clear and moist mucous membranes atraumatic Nose: no nasal discharge External Ear: external ears normal Tympanic Membrane ED: Yes TM's clear Mouth ED: Yes moist mucous membranes normal Eyes PERRL and EOMs intact bilaterally Neck full ROM, no lymphadenopathy, supple and no meningeal signs Chest Wall inspection of chest normal Resp normal respiratory effort, normal air movement and clear to auscultation bilaterally Auscultation: Negative for wheezes Cardio regular rate and regular rhythm GI normal to inspection, nondistended, normoactive bowel sounds Extremity normal to inspection and full ROM Neuro oriented x3 and no focal motor deficits Sensorium / Orientation: alert Motor Exam: Negative for general weakness Psych mental status grossly normal and thought process normal Skin no rashes or lesions noted and no wounds MDM MDM MDM Narrative Medical decision making narrative: Patient evaluated for 2 days of Covid-like symptoms. She is otherwise well-appearing and fever responds to [id number] antipyretics. Patient is a candidate for monoclonal antibody as she has had symptoms for 48 hours and does have underlying asthma. Is given refill for her albuterol inhaler and referred for monoclonal antibody infusion. Discharged home with return precautions. Instructed to get a pulse oximeter. Continue alternating Tylenol and ibuprofen as well as [id number] decongestants as needed for symptomatic relief. Rapid test is negative. I highly suspect she has Covid. PCR test is pending. Lab Data Labs: Laboratory Results - last 24 hr 11/19/20 15:53 COVID-19 (SENG) Not Detected Discharge Plan Triage Chief Complaint: General Illness ED Provider: Yadi Lira Dx/Rx/DC Orders Clinical Impression: COVID-19 virus infection Instructions: Coronavirus Disease 2019 (COVID-19): Caring for Yourself or Others Prescriptions: New albuterol sulfate [Ventolin HFA] 90 mcg/actuation HFA aerosol inhaler 1 - 2 puff inhalation Q4H PRN PRN (Reason: Wheezing) Qty: 1 RF: 0 No Action hydrocodone-acetaminophen 5-325 mg Tablet 1 tab PO BID PRN (Reason: Pain) RF: 0 tizanidine [Zanaflex] 4 mg tablet 2 - 4 mg PO Q8H RF: 0 meloxicam 15 mg tablet 15 mg PO DAILY RF: 0 sumatriptan succinate 50 mg tablet 50 mg PO PRN PRN (Reason: Migraine Headache) RF: 0 acetaminophen 500 mg tablet 1,000 mg PO Q8H PRN (Reason: Pain) RF: 0 nortriptyline 10 mg capsule 10 mg PO QHS RF: 0 cephalexin [cephalexin] 500 MG capsule 500 mg PO Q6 Qty: 12 RF: 0 phenazopyridine [Pyridium] 200 MG tablet 200 mg PO TID Qty: 6 RF: 0 valacyclovir [Valtrex] 500 mg Tablet 500 mg PO DAILY RF: 0 Primary Care Provider: Mayelin Jose GEOPHYSICAL LABORATORY CHIEF Referrals: Mayelin Jose GEOPHYSICAL LABORATORY CHIEF, GEOPHYSICAL LABORATORY CHIEF-C [Primary Care Provider] - Activity Restrictions/Additional Instructions: Use [id number] decongestants and Tylenol/ibuprofen for symptoms. Return with any worsening difficulty breathing or more severe symptoms. You will be contacted with PCR results. If it is positive, you will be a candidate for monoclonal antibody infusion. Even though your rapid test was negative I highly suspect you do have Covid. Disposition Disposition: Home, Self Care Discharge Date/Time: 11/19/20 16:00
[2020-11-19 15:21] VITALS: BP 134/81; PULSE 84; RESP 16; TEMP 36.9; O2SAT 100
[2020-11-19 15:59] VITALS: O2SAT 97
== END 2020-11-19 16:00 | disposition home or self-care (01) ==
PROVIDERS: Emergency Provider Emergency Medicine; PCP Nurse Practitioner
DX: U07.1 COVID-19 (principal); F41.9 Anxiety disorder, unspecified; J45.909 Unspecified asthma, uncomplicated; F32.9 Major depressive disorder, single episode, unspecified; K21.9 Gastro-esophageal reflux disease without esophagitis; F17.210 Nicotine dependence, cigarettes, uncomplicated; Z79.51 Long term (current) use of inhaled steroids; Z79.899 Other long term (current) drug therapy
CPT/HCPCS: 87426; 87635; 99282; U0005; U0003

== ENCOUNTER 2020-11-29 13:06 | Emergency (ER) | payer MEDICAID, SELFPAY ==
[2020-11-29 13:07] VITALS: BP 125/85; PULSE 91; RESP 6; TEMP 37.1; O2SAT 100; BMI 22.1
[2020-11-29 14:40] LABS: Bacteria 0 SEEN /hpf (None Seen); Mucous, Urine 0 SEEN /hpf (<or=2+); Red Blood Cells-Urine 0 SEEN /hpf (0-5); Squamous Epithelial Cells - UA 0 SEEN /hpf (5-10); White Blood Cells 0 SEEN /hpf (0-5)
[2020-11-29 14:42] LABS: Color, Urine Yellow (Yellow); Glucose, Dipstick Normal (Normal); Ketone-Dipstick Negative (Negative); Leukocyte Esterase-Dipstick Negative /ul (Negative); Nitrite-Dipstick Negative (Negative); Occult Blood-Urine Negative /ul (Negative); Protein-Dipstick Negative (Negative); Specific Gravity, Urine 1.015 (1.002-1.030); Urine Bilirubin Dipstick Negative (Negative); Urine Clarity Clear (Clear); Urine Urobilinogen Normal (Normal)
--- NOTE | 2020-11-29 14:58 | ED.VIS.FEGU ---
HPI HPI - Female History of Present Illness Chief Complaint: Female C/O Narrative Narrative: Patient presents with concerns about an STD. She has dysuria and some vaginal discharge but she also has foul-smelling discharge that is consistent with prior BV. She also wants to be treated for chlamydia and gonorrhea. She has no fevers chills cough or congestion she is denying any abdominal pain. [facility] Medical History (Updated 11/29/20 @ 15:[address] Buck Dow MD) Anxiety Asthma Carpal tunnel syndrome Chronic pain Depression Former smoker GERD (gastroesophageal reflux disease) Kidney stone Migraines Post-trauma syndrome Substance abuse Home Medications hydrocodone-acetaminophen 1 tab PO BID PRN 07/19/20 [History Last Taken Unknown] acetaminophen 1,000 mg PO Q8H PRN 09/12/20 [History Last Taken Unknown] cephalexin 500 mg PO Q6 #12 capsule 09/12/20 [Rx Last Taken Unknown] meloxicam 15 mg PO DAILY 09/12/20 [History Last Taken Unknown] nortriptyline 10 mg PO QHS 09/12/20 [History Last Taken Unknown] phenazopyridine [Pyridium] 200 mg PO TID #6 tab 09/12/20 [Rx Last Taken Unknown] sumatriptan succinate 50 mg PO PRN PRN 09/12/20 [History Last Taken Unknown] tizanidine [Zanaflex] 2 - 4 mg PO Q8H 09/12/20 [History Last Taken Unknown] valacyclovir [Valtrex] 500 mg PO DAILY 09/15/20 [History Last Taken Unknown] albuterol sulfate [Ventolin HFA] 1 - 2 puff INHALATION Q4H PRN PRN #1 inh 11/19/20 [Rx Last Taken Unknown] doxycycline monohydrate 100 mg PO BID #14 cap 11/29/20 [Rx Last Taken Unknown] metronidazole 500 mg PO TID #20 tab 11/29/20 [Rx Last Taken Unknown] Allergy/AdvReac Type Severity Reaction Status Date / Time latex Allergy Hives Verified 11/19/20 13:00 morphine Allergy Rash Verified 11/19/20 13:00 sertraline [From Zoloft] Allergy Hives Verified 11/19/20 13:00 tramadol Allergy Rash Verified 11/19/20 13:00 Social History Smoking Status: Current some day smoker tobacco type: cigarettes substance use type: does not use ROS ROS ED ROS Narrative Past medical history: Reviewed, unremarkable Medications: Reviewed Social history: Noncontributory Review of systems: All systems negative except as indicated General: No fever Cardiovascular: No chest pain Respiratory: No shortness of breath or cough Gastrointestinal: No abdominal pain, nausea vomiting or diarrhea Genitourinary: Some dysuria and vaginal discharge Musculoskeletal: Denies myalgias no difficulty with ambulation Skin: No rash Neurological: No memory loss, confusion or any focal weakness Hematologic: No easy bleeding or easy bruising EXAM Physical Exam Narrative Exam Narrative: Physical exam General: Well nourished, Well developed, No Acute Distress Head: Normocephalic, Atraumatic ENT: Moist mucous membranes Neck: Supple, Nontender, No lymphadenopathy Cardiovascular: Regular rate, Regular rhythm Respiratory: No distress, CTA bilaterally Abdomen: Soft, Nontender, Nondistended : Deferred Back: Nontender, Normal Inspection. Negative for: CVA tenderness Extremities: Nontender, No edema Skin: Normal color, No rash Const Vital Signs: 11/29/20 13:07 Temperature 98.8 F Temperature Source Temporal Pulse Rate 91 Respiratory Rate 6 L Blood Pressure 125/85 H Blood Pressure Mean 98 Pulse Ox 100 Oxygen Delivery Method Room Air MDM MDM MDM Narrative Medical decision making narrative: Patient has an unremarkable urinalysis, I did send GC and chlamydia but she wants treated. I will treat her should be discharged in stable condition. I will also give her Flagyl which would cover trichomonas she has it, however presumptively she has BV. Lab Data Labs: Laboratory Results - last 24 hr 11/29/20 14:20 Urine Color Yellow Urine Clarity Clear Urine pH 5.0 Ur Specific [place] 1.015 Urine Protein Negative Urine Glucose (UA) Normal Urine Ketones Negative Urine Occult Blood Negative Urine Nitrite Negative Urine Bilirubin Negative Urine Urobilinogen Normal Ur Leukocyte Esterase Negative Urine RBC 0 SEEN Urine WBC 0 SEEN Ur Squamous Epith Cells 0 SEEN Urine Bacteria 0 SEEN Urine Mucus 0 SEEN Discharge Plan Triage Chief Complaint: Female C/O ED Provider: Buck Dow Dx/Rx/DC Orders Clinical Impression: Vaginal discharge Instructions: Bacterial Vaginosis Prescriptions: New doxycycline monohydrate 100 mg capsule 100 mg PO BID Qty: 14 RF: 0 metronidazole 500 mg tablet 500 mg PO TID Qty: 20 RF: 0 No Action hydrocodone-acetaminophen 5-325 mg Tablet 1 tab PO BID PRN (Reason: Pain) RF: 0 tizanidine [Zanaflex] 4 mg tablet 2 - 4 mg PO Q8H RF: 0 meloxicam 15 mg tablet 15 mg PO DAILY RF: 0 sumatriptan succinate 50 mg tablet 50 mg PO PRN PRN (Reason: Migraine Headache) RF: 0 acetaminophen 500 mg tablet 1,000 mg PO Q8H PRN (Reason: Pain) RF: 0 nortriptyline 10 mg capsule 10 mg PO QHS RF: 0 cephalexin [cephalexin] 500 MG capsule 500 mg PO Q6 Qty: 12 RF: 0 phenazopyridine [Pyridium] 200 MG tablet 200 mg PO TID Qty: 6 RF: 0 valacyclovir [Valtrex] 500 mg Tablet 500 mg PO DAILY RF: 0 albuterol sulfate [Ventolin HFA] 90 mcg/actuation HFA aerosol inhaler 1 - 2 puff inhalation Q4H PRN PRN (Reason: Wheezing) Qty: 1 RF: 0 Primary Care Provider: Mayelin Jose NP Referrals: Mayelin Jose [employer]ACHINE ASSEMBLER FOR [employer], MACH[employer]SEMBLER [employer]-C [Primary Care Provider] - 3-5 Days Disposition Disposition: Home, Self Care
[2020-11-29] MEDS: Doxycycline 100 MG CAPSULE PO (15:29)
[2020-11-29] MEDS: Ceftriaxone 500 MG Vial IM (15:29)
[2020-11-29] MEDS: metroNIDAZOLE 500 MG Tablet PO (15:29)
[2020-11-29 16:38] LABS: Chlamydia Trachomatis by PCR Negative (Negative); Neisserai gonorrhoeae by PCR Negative (Negative); Probe Check PASS; Sample Adequacy Control PASS; Specimen Processing Control PASS
== END 2020-11-29 15:53 | disposition home or self-care (01) ==
PROVIDERS: Emergency Provider Emergency Medicine; PCP Nurse Practitioner
DX: N89.8 Other specified noninflammatory disorders of vagina (principal); F41.9 Anxiety disorder, unspecified; J45.909 Unspecified asthma, uncomplicated; F32.9 Major depressive disorder, single episode, unspecified; K21.9 Gastro-esophageal reflux disease without esophagitis; F17.210 Nicotine dependence, cigarettes, uncomplicated; Z79.51 Long term (current) use of inhaled steroids; Z79.899 Other long term (current) drug therapy
CPT/HCPCS: 81001; 87491; 87591; 96372; 99283

== ENCOUNTER 2021-02-17 12:07 | Emergency (ER) | payer MEDICAID, SELFPAY ==
[2021-02-17 12:08] VITALS: BP 116/79; PULSE 96; RESP 16; TEMP 35.8; O2SAT 100; BMI 19.3
--- NOTE | 2021-02-17 12:50 | RAD_ITS ---
STUDY: X-RAY CHEST REASON FOR EXAM: Female, 40 years old. Cough TECHNIQUE: Single AP portable view of the chest. COMPARISON: Comparison is made with prior study dated 05/09/2020. FINDINGS: The lungs are clear and expanded. There is no demonstrated pleural abnormality. Normal size heart. Normal mediastinum and basilia. Normal visualized pulmonary arteries. Normal visualized aortic arch and descending thoracic aorta. Normal visualized thoracic spine. Normal visualized ribs, clavicles, and shoulders. There is no demonstrated abnormality of the visualized soft tissue structures of the upper abdomen. RAD/Chest 1 View IMPRESSION: Normal x-ray examination of the chest. Electronically Signed: Aditya Swartz MD at 13:26 EST , Service support ,
--- NOTE | 2021-02-17 14:02 | EDS_ITS ---
HPI History of Present Illness Chief Complaint: General Illness Narrative Narrative: 40-year-old female presenting with headache, congestion, sore throat which is improving. She was exposed to Covid a few days ago by her neighbor. She states she is currently caring for her neighbors child who she did not want to gets sick and then after she brought the baby home she developed symptoms. Patient does not have any chest pain or shortness of breath. She is not had a known fever. Patient denies abdominal pain but does express that she has some nausea. No urinary complaints or constipation or diarrhea. [facility] Medical History Anxiety Asthma Carpal tunnel syndrome Chronic pain Depression Former smoker GERD (gastroesophageal reflux disease) Kidney stone Migraines Post-trauma syndrome Substance abuse Home Medications hydrocodone-acetaminophen 1 tab PO BID PRN 07/19/20 [History Last Taken Unknown] acetaminophen 1,000 mg PO Q8H PRN 09/12/20 [History Last Taken Unknown] cephalexin 500 mg PO Q6 #12 capsule 09/12/20 [Rx Last Taken Unknown] meloxicam 15 mg PO DAILY 09/12/20 [History Last Taken Unknown] nortriptyline 10 mg PO QHS 09/12/20 [History Last Taken Unknown] phenazopyridine [Pyridium] 200 mg PO TID #6 tab 09/12/20 [Rx Last Taken Unknown] sumatriptan succinate 50 mg PO PRN PRN 09/12/20 [History Last Taken Unknown] tizanidine [Zanaflex] 2 - 4 mg PO Q8H 09/12/20 [History Last Taken Unknown] valacyclovir [Valtrex] 500 mg PO DAILY 09/15/20 [History Last Taken Unknown] albuterol sulfate [Ventolin HFA] 1 - 2 puff INHALATION Q4H PRN PRN #1 inh 11/19/20 [Rx Last Taken Unknown] doxycycline monohydrate 100 mg PO BID #14 cap 11/29/20 [Rx Last Taken Unknown] metronidazole 500 mg PO TID #20 tab 11/29/20 [Rx Last Taken Unknown] ondansetron HCl [Zofran] 4 mg PO Q8H PRN #14 tab 02/17/21 [Rx Last Taken Unknown] Allergy/AdvReac Type Severity Reaction Status Date / Time latex Allergy Hives Verified 02/17/21 12:08 morphine Allergy Rash Verified 02/17/21 12:08 sertraline [From Zoloft] Allergy Hives Verified 02/17/21 12:08 tramadol Allergy Rash Verified 02/17/21 12:08 Social History Smoking Status: Current some day smoker tobacco type: cigarettes substance use type: does not use ROS ROS ED Constitutional Constitutional ED: Denies chills or sweats Eyes Eyes: Denies blurry vision or diplopia ENT ENT ED: Reports sore throat Cardiovascular Cardiovascular: Denies chest pain or palpitations Respiratory/Chest Respiratory/Chest: Denies cough or dyspnea Gastrointestinal Gastrointestinal: Reports nausea; Denies abdominal pain, diarrhea or vomiting Genitourinary Genitourinary ED: Denies dysuria or hematuria Musculoskeletal Musculoskeletal: Denies myalgias or neck pain Integumentary Denies Abrasions or rash Neurologic Neurologic: Reports headache(s); Denies paresthesias or weakness EXAM Physical Exam Const Vital Signs: 02/17/21 12:08 02/17/21 13:30 Temperature 96.4 F L Temperature Source Temporal Pulse Rate 96 Respiratory Rate 16 Respiratory Effort Normal Non-Labored Respiratory Pattern Normal Blood Pressure 116/79 Blood Pressure Mean 91 Pulse Ox 100 Oxygen Delivery Method Room Air Positive well nourished General Appearance ED: NAD HEENT Reports moist mucous membranes Negative for trauma Eyes PERRL and EOMs intact bilaterally Resp normal respiratory effort and clear to auscultation bilaterally Cardio regular rate and regular rhythm Neuro oriented x3 and CN's II-XII intact bilaterally Sensorium / Orientation: alert Psych mental status grossly normal Skin no wounds MDM MDM MDM Narrative Medical decision making narrative: 40-year-old female presenting with concern for Covid infection. She states she was exposed to Covid this week. She has very mild symptoms. Her rapid Covid was negative here. Her vital signs are stable she is afebrile. Chest x-ray on my interpretation shows no acute cardiopulmonary process and radiologist agree. Given patient would qualify for monoclonal antibodies is positive I will send for PCR test and have her quarantine at home for the results as she is medically stable. Impression: 1. Viral syndrome Radiography Diagnostic Testing: Clinical Impression(s) from Imaging Studies Chest X-Ray 02/17/21 12:50 IMPRESSION: Normal x-ray examination of the chest. Electronically Signed: Aditya Swartz MD at 13:26 EST , Service support , Discharge Plan Triage Chief Complaint: General Illness ED Provider: Jeromy Arevalo Dx/Rx/DC Orders Instructions: Coronavirus Disease 2019 (COVID-19): Caring for Yourself or Others Prescriptions: New ondansetron HCl [Zofran] 4 mg tablet 4 mg PO Q8H PRN (Reason: nausea and vomiting) Qty: 14 RF: 0 No Action hydrocodone-acetaminophen 5-325 mg Tablet 1 tab PO BID PRN (Reason: Pain) RF: 0 tizanidine [Zanaflex] 4 mg tablet 2 - 4 mg PO Q8H RF: 0 meloxicam 15 mg tablet 15 mg PO DAILY RF: 0 sumatriptan succinate 50 mg tablet 50 mg PO PRN PRN (Reason: Migraine Headache) RF: 0 acetaminophen 500 mg tablet 1,000 mg PO Q8H PRN (Reason: Pain) RF: 0 nortriptyline 10 mg capsule 10 mg PO QHS RF: 0 cephalexin [cephalexin] 500 MG capsule 500 mg PO Q6 Qty: 12 RF: 0 phenazopyridine [Pyridium] 200 MG tablet 200 mg PO TID Qty: 6 RF: 0 valacyclovir [Valtrex] 500 mg Tablet 500 mg PO DAILY RF: 0 albuterol sulfate [Ventolin HFA] 90 mcg/actuation HFA aerosol inhaler 1 - 2 puff inhalation Q4H PRN PRN (Reason: Wheezing) Qty: 1 RF: 0 doxycycline monohydrate 100 mg capsule 100 mg PO BID Qty: 14 RF: 0 metronidazole 500 mg tablet 500 mg PO TID Qty: 20 RF: 0 Primary Care Provider: Mayelin Jose [employer]FLICT RES[employer]UTION PROFESSIONAL Referrals: Mayelin Jose CONFLICT RESOLUTION PROFESSIONAL, CONFLICT RESOLUTION PROFESSIONAL-C [Primary Care Provider] - Disposition Disposition: Home, Self Care
[2021-02-17] MEDS: Ondansetron ODT 4 MG Tablet PO (14:42)
[2021-02-17 14:44] VITALS: BP 114/76; PULSE 74; RESP 16; O2SAT 100
== END 2021-02-17 15:02 | disposition home or self-care (01) ==
PROVIDERS: Emergency Provider Student in an Organized Health Care Education/Training Program; PCP Nurse Practitioner
DX: B34.9 Viral infection, unspecified (principal); F41.9 Anxiety disorder, unspecified; J45.909 Unspecified asthma, uncomplicated; F32.A Depression, unspecified; K21.9 Gastro-esophageal reflux disease without esophagitis; F17.210 Nicotine dependence, cigarettes, uncomplicated; Z79.891 Long term (current) use of opiate analgesic; Z79.51 Long term (current) use of inhaled steroids; Z79.899 Other long term (current) drug therapy
CPT/HCPCS: 71045; 87426; 87635; 99283; U0005; U0003

== ENCOUNTER 2021-04-11 11:17 | Emergency (ER) | payer MEDICAID, SELFPAY ==
[2021-04-11 11:18] VITALS: BP 115/84; PULSE 97; RESP 16; TEMP 36.3; O2SAT 100; BMI 24.7
[2021-04-11 11:26] VITALS: BP 115/84; PULSE 97; RESP 16; TEMP 36.3; O2SAT 100
--- NOTE | 2021-04-11 11:49 | EX.ED.DYSGE1 ---
HPI History of Present Illness Chief Complaint: General Illness Informant: patient Narrative Narrative: Patient presents 3-day history of symptoms fatigue myalgias nausea vomiting diarrhea 2 days ago resolved. Increasing cough yesterday with chest discomfort with cough. Fever of 100.4 max. Headache 2 days ago resolved. Nonvaccinated for Covid. She has had Covid virus in the past. This feels different. No loss of taste or smell. 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 She tested her son was negative however states yesterday she did test herself which came back positive however she states she wants recheck. Prior similar symptoms: Yes PFSH [facility] Medical History Anxiety Asthma Carpal tunnel syndrome Chronic pain Depression Former smoker GERD (gastroesophageal reflux disease) Kidney stone Migraines Post-trauma syndrome Substance abuse Home Medications hydrocodone-acetaminophen 1 tab PO BID PRN 07/19/20 [History Last Taken Unknown] acetaminophen 1,000 mg PO Q8H PRN 09/12/20 [History Last Taken Unknown] cephalexin 500 mg PO Q6 #12 capsule 09/12/20 [Rx Last Taken Unknown] meloxicam 15 mg PO DAILY 09/12/20 [History Last Taken Unknown] nortriptyline 10 mg PO QHS 09/12/20 [History Last Taken Unknown] phenazopyridine [Pyridium] 200 mg PO TID #6 tab 09/12/20 [Rx Last Taken Unknown] sumatriptan succinate 50 mg PO PRN PRN 09/12/20 [History Last Taken Unknown] tizanidine [Zanaflex] 2 - 4 mg PO Q8H 09/12/20 [History Last Taken Unknown] valacyclovir [Valtrex] 500 mg PO DAILY 09/15/20 [History Last Taken Unknown] albuterol sulfate [Ventolin HFA] 1 - 2 puff INHALATION Q4H PRN PRN #1 inh 11/19/20 [Rx Last Taken Unknown] doxycycline monohydrate 100 mg PO BID #14 cap 11/29/20 [Rx Last Taken Unknown] metronidazole 500 mg PO TID #20 tab 11/29/20 [Rx Last Taken Unknown] ondansetron HCl [Zofran] 4 mg PO Q8H PRN #14 tab 02/17/21 [Rx Last Taken Unknown] Allergy/AdvReac Type Severity Reaction Status Date / Time latex Allergy Hives Verified 04/11/21 12:17 morphine Allergy Rash Verified 04/11/21 12:17 sertraline [From Zoloft] Allergy Hives Verified 04/11/21 12:17 tramadol Allergy Rash Verified 04/11/21 12:17 Social History Smoking Status: Current some day smoker tobacco type: cigarettes substance use type: does not use ROS ROS ED Constitutional Constitutional ED: Reports fever(s); Denies chills or sweats Eyes Eyes: Denies change in vision ENT ENT ED: Denies dysphagia or sore throat Cardiovascular Cardiovascular: Denies chest pain, leg edema, palpitations or racing heartbeat Respiratory/Chest Respiratory/Chest: Reports cough and dyspnea; Denies dyspnea on exertion Gastrointestinal Gastrointestinal: Reports diarrhea and nausea; Denies abdominal pain or vomiting Genitourinary Genitourinary ED: Denies dysuria, hematuria or urinary frequency Musculoskeletal Musculoskeletal: Denies back pain, extremity pain or neck pain Integumentary Denies rash or wounds Neurologic Neurologic: Reports headache(s); Denies paresthesias or weakness EXAM Physical Exam Const Vital Signs: 04/11/21 11:18 04/11/21 11:26 Temperature 97.4 F L 97.4 F L Temperature Source Temporal Temporal Pulse Rate 97 97 Respiratory Rate 16 16 Blood Pressure 115/84 H 115/84 H Blood Pressure Mean 94 94 Pulse Ox 100 100 Oxygen Delivery Method Room Air Room Air Positive well nourished and well developed General Appearance ED: well developed and NAD HEENT Reports moist mucous membranes normocephalic and atraumatic Eyes PERRL, EOMs intact bilaterally and conjunctivae normal General Eye ED: Yes normal appearance of both eyes Neck no lymphadenopathy and supple Neck Narrative: No meningismus General: Negative for tenderness Chest Wall Chest: Negative for tenderness Resp normal respiratory effort and normal air movement Effort and Inspection: symmetric chest movement; Negative for respiratory distress Cardio regular rate, regular rhythm and no murmurs Peripheral Pulses: pulses 2+ throughout GI normal to inspection, nondistended, normoactive bowel sounds and non-tender Palpation: Negative for guarding or rebound tenderness present Back/Spine no CVA tenderness and no thoracic nor lumbar tenderness Extremity normal to inspection General Extremety ED: Negative for edema or tenderness General Extremity: Negative for edema Neuro oriented x3, CN's II-XII intact bilaterally and no sensory deficits noted Sensorium / Orientation: awake and alert Skin no rashes or lesions noted and no wounds MDM MDM MDM Narrative Medical decision making narrative: Chest x-ray obtained reviewed by myself and read by radiologist with no acute process. Rapid Covid obtained was negative. She had a positive test yesterday at home. She has symptoms. Discussed with patient continue to isolate monitoring her pulse ox. Return precautions. Patient is being discharged under pandemic conditions under declared global, national and state disaster activation, with limited medical resources. Patient and community understands this. Results discussed in layman's terms to the patient satisfaction. All questions answered in layman's terms. Patient understands importance of follow-up care as directed. Patient has been instructed to return to the ED immediately if new symptoms, problems, or questions occur. We mutually agree with the plan of disposition. The patient understand that they may call or return with any questions or concerns at any time. Radiography Chest X-Ray - ED: 1 View, Read by ED Physician, Read by Radiologist and No Acute Disease Diagnostic Testing: Clinical Impression(s) from Imaging Studies Chest X-Ray 04/11/21 12:09 IMPRESSION: Normal x-ray examination of the chest. Electronically Signed: Aditya Swartz MD at 12:21 EST Reading Location ID and State: [facility] / [place] , Service support , Discharge Plan Triage Chief Complaint: General Illness ED Provider: Stephon Singh Dx/Rx/DC Orders Clinical Impression: Viral syndrome Instructions: ED Viral Syndrome (Adult) Prescriptions: No Action hydrocodone-acetaminophen 5-325 mg Tablet 1 tab PO BID PRN (Reason: Pain) RF: 0 tizanidine [Zanaflex] 4 mg tablet 2 - 4 mg PO Q8H RF: 0 meloxicam 15 mg tablet 15 mg PO DAILY RF: 0 sumatriptan succinate 50 mg tablet 50 mg PO PRN PRN (Reason: Migraine Headache) RF: 0 acetaminophen 500 mg tablet 1,000 mg PO Q8H PRN (Reason: Pain) RF: 0 nortriptyline 10 mg capsule 10 mg PO QHS RF: 0 cephalexin [cephalexin] 500 MG capsule 500 mg PO Q6 Qty: 12 RF: 0 phenazopyridine [Pyridium] 200 MG tablet 200 mg PO TID Qty: 6 RF: 0 valacyclovir [Valtrex] 500 mg Tablet 500 mg PO DAILY RF: 0 albuterol sulfate [Ventolin HFA] 90 mcg/actuation HFA aerosol inhaler 1 - 2 puff inhalation Q4H PRN PRN (Reason: Wheezing) Qty: 1 RF: 0 doxycycline monohydrate 100 mg capsule 100 mg PO BID Qty: 14 RF: 0 metronidazole 500 mg tablet 500 mg PO TID Qty: 20 RF: 0 ondansetron HCl [Zofran] 4 mg tablet 4 mg PO Q8H PRN (Reason: nausea and vomiting) Qty: 14 RF: 0 Primary Care Provider: Mayelin Jose PRINT SHOP CHIEF CLERK Referrals: Mayelin Jose PRINT SHOP CHIEF CLERK, [employer] CHIEF CLERK-C [Primary Care Provider] - 5-7 Days Activity Restrictions/Additional Instructions: Rapid Covid test today negative. Chest x-ray negative. Continue to isolate with the mass. Monitor for worsening symptoms. Disposition Disposition: Home, Self Care Discharge Date/Time: 04/11/21 13:43
--- NOTE | 2021-04-11 12:09 | RAD_ITS ---
STUDY: X-RAY CHEST REASON FOR EXAM: Female, 40 years old. Chest pain and cough. Body aches. TECHNIQUE: Single AP portable view of the chest. COMPARISON: Comparison is made with prior study dated 02/17/2021. FINDINGS: The lungs are clear and expanded. There is no demonstrated pleural abnormality. Normal size heart. Normal mediastinum and basilia. Normal visualized pulmonary arteries. Normal visualized aortic arch and descending thoracic aorta. Normal visualized thoracic spine. Normal visualized ribs, clavicles, and shoulders. There is no demonstrated abnormality of the visualized soft tissue structures of the upper abdomen. RAD/Chest 1 View (Portable) IMPRESSION: Normal x-ray examination of the chest. Electronically Signed: Aditya Swartz MD at 12:21 EST ,
== END 2021-04-11 13:43 | disposition home or self-care (01) ==
PROVIDERS: Emergency Provider Emergency Medicine; PCP Nurse Practitioner; Visit Provider Emergency Medicine
DX: B34.9 Viral infection, unspecified (principal); J45.909 Unspecified asthma, uncomplicated; F17.210 Nicotine dependence, cigarettes, uncomplicated; Z79.51 Long term (current) use of inhaled steroids; Z86.16 Personal history of COVID-19
CPT/HCPCS: 71045; 87426; 99282

== ENCOUNTER 2021-05-11 16:14 | Emergency (ER) | payer MEDICAID, SELFPAY ==
[2021-05-11 16:15] VITALS: BP 114/76; PULSE 122; RESP 15; TEMP 36; O2SAT 99; BMI 24.3
--- NOTE | 2021-05-11 17:14 | EDS_ITS ---
HPI History of Present Illness Chief Complaint: Upper Extremity Injury Informant: patient Occured/Mechanism Mechanism/Context: Yes injury and Yes blunt trauma Onset/Context/Timing Onset: Yesterday Context: Sudden Onset Timing: Continuous Quality of Pain: Dull and Aching Current Severity: Mild Maximum Severity: Mild Associated Symptoms Associated Symptoms: Negative for Parasthesia, Weakness and Loss of Funtion Narrative Narrative: 40-year-old female states that last night she was arrested. And while she was being handcuffed she thinks she injured her right hand. Complaining of pain and swelling. She was let out of long-term today. She came to have it evaluated. Prior similar symptoms: No Recent Illness/Hospitalization: No PFSH PFSH Medical History Anxiety Asthma Carpal tunnel syndrome Chronic pain Depression Former smoker GERD (gastroesophageal reflux disease) Kidney stone Migraines Post-trauma syndrome Substance abuse Home Medications hydrocodone-acetaminophen 1 tab PO BID PRN 07/19/20 [History Last Taken Unknown] acetaminophen 1,000 mg PO Q8H PRN 09/12/20 [History Last Taken Unknown] meloxicam 15 mg PO DAILY 09/12/20 [History Last Taken Unknown] nortriptyline 10 mg PO QHS 09/12/20 [History Last Taken Unknown] sumatriptan succinate 50 mg PO PRN PRN 09/12/20 [History Last Taken Unknown] Allergy/AdvReac Type Severity Reaction Status Date / Time latex Allergy Hives Verified 04/11/21 12:17 morphine Allergy Rash Verified 04/11/21 12:17 sertraline [From Zoloft] Allergy Hives Verified 04/11/21 12:17 tramadol Allergy Rash Verified 04/11/21 12:17 Social History Smoking Status: Current some day smoker tobacco type: cigarettes substance use type: does not use ROS ROS ED ROS Narrative Denies recent illness. Review of Systems ROS Unobtainable: Denies due to encephalopathy Constitutional Constitutional ED: Denies fever(s) Eyes Eyes: Denies change in vision ENT ENT ED: Denies ear pain Cardiovascular Cardiovascular: Denies chest pain Respiratory/Chest Respiratory/Chest: Denies dyspnea Gastrointestinal Gastrointestinal: Denies abdominal pain Genitourinary Genitourinary ED: Denies dysuria Musculoskeletal Musculoskeletal: Denies myalgias Integumentary Denies rash Neurologic Neurologic: Denies headache(s) Psychiatric Psychiatric: Denies depression Endocrine Endocrinology: Denies polyuria Hematologic/Lymphatic Hematologic/Lymphatic: Denies easy bruising Allergic/Immunologic Allergic/Immunologic ED: Denies urticaria EXAM Physical Exam Narrative Exam Narrative: White female vital signs are stable afebrile. Sitting upright in bed. HEENT exam pupils round reactive light. No signs of trauma to her face or scalp. She has a small abrasion on her inner cheek along the mucosal wall border of her mouth. Dentition intact. Neck nontender. Trachea midline. L ungs clear to auscultation. Heart tachycardic rate about 110 no murmur. Chest wall nontender. Abdomen soft nontender. She is moving all 4 extremities. Neurovascular intact. She has tenderness and mild swelling over the dorsum of her right hand. She is able to flex and extend hand. Wrist is nontender forearm upper arm nontender. Left upper extremity is unremarkable. She has normal range of motion and nontender lower extremities. Back nontender. Neurologically she is awake and alert. Const Vital Signs: 05/11/21 16:15 Temperature 96.8 F L Temperature Source Temporal Pulse Rate 122 H Respiratory Rate 15 Blood Pressure 114/76 Blood Pressure Mean 88 Pulse Ox 99 Oxygen Delivery Method Room Air Positive well nourished and well developed; Negative for obese, cachectic, contractures or unkempt General Appearance ED: well developed and NAD; Negative for unkempt, cachectic, contractures, cyanotic or diaphoretic Nutritional Appearance: Negative for cachectic or obese HEENT Reports moist mucous membranes normocephalic and atraumatic Eyes PERRL and EOMs intact bilaterally Neck full ROM and supple General: Negative for tenderness Chest Wall inspection of chest normal and palpation of chest normal Resp normal respiratory effort and clear to auscultation bilaterally Effort and Inspection: Negative for pain with movement Auscultation: Negative for rales, rhonchi or wheezes Cardio regular rhythm, S1 normal heart sound, S2 normal heart sound and no murmurs; Negative for regular rate Rate: tachycardic GI non-tender, non-distended and no masses Inspection: Negative for abdominal distention Auscultation: normoactive bowel sounds Palpation: soft; Negative for tender, guarding or rebound tenderness present Back/Spine no CVA tenderness General Back: Negative for CVA tenderness Cervical Spine: Negative for cervical spine tenderness Thoracic Spine / Upper Back: Negative for thoracic spinal tenderness Lumbar Spine / Lower Back: Negative for lumbar spinal tenderness, straight leg raise negative bilaterally or straight leg raise positive right Extremity normal to inspection and full ROM Extremity Narrative: Dorsum right hand tender swollen. No deformity. General Extremety ED: Yes edema General Extremity: edema Neuro oriented x3, moves all extremities and no focal motor deficits Sensorium / Orientation: alert, oriented to person, oriented to place and oriented to time; Negative for orientation impaired, lethargic or stuporous Motor Exam: strength 5/5 throughout Psych mental status grossly normal Appearance: Negative for unkempt Mood & Affect: Negative for depressed Skin Lesions: no lesions Rashes: no rashes MDM MDM MDM Narrative Medical decision making narrative: Patient with injury to her right hand while being arrested last night. X-ray being obtained in the hand. She will be given Tylenol for pain. Repeat exam patient is doing well at 6:30 PM will be discharged home. She and I went over her x-ray results. Radiography Diagnostic Testing: Right hand x-ray, 3 views, interpreted by myself shows no acute abnormality. No fracture nor dislocation. Discharge Plan Triage Chief Complaint: Upper Extremity Injury ED Provider: Jesús Cintron Dx/Rx/DC Orders Clinical Impression: Contusion of hand, right Instructions: ED Hand Contusion Prescriptions: No Action hydrocodone-acetaminophen 5-325 mg Tablet 1 tab PO BID PRN (Reason: Pain) RF: 0 meloxicam 15 mg tablet 15 mg PO DAILY RF: 0 sumatriptan succinate 50 mg tablet 50 mg PO PRN PRN (Reason: Migraine Headache) RF: 0 acetaminophen 500 mg tablet 1,000 mg PO Q8H PRN (Reason: Pain) RF: 0 nortriptyline 10 mg capsule 10 mg PO QHS RF: 0 Primary Care Provider: Mayelin Jose LOAN INTERVIEWER Referrals: Mayelin Jose LOAN INTERVIEWER, LOAN INTERVIEWER-C [Primary Care Provider] - 1 Week if not improving Activity Restrictions/Additional Instructions: Your x-ray was normal. Ice and elevate your hand to decrease pain and swelling. Motrin for pain and swelling. Tylenol for pain. This should progressively improve if not follow-up with your doctor to have it reevaluated. Disposition Disposition: Home, Self Care
[2021-05-11] MEDS: Acetaminophen 500 MG Tablet 1000 MG PO (17:33)
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
[2021-05-11 18:36] VITALS: PULSE 78; RESP 14
== END 2021-05-11 18:37 | disposition home or self-care (01) ==
PROVIDERS: Emergency Provider Emergency Medicine; PCP Nurse Practitioner; Visit Provider Emergency Medicine
DX: S60.221A Contusion of right hand, initial encounter (principal); X58.XXXA Exposure to other specified factors, initial encounter; Y93.89 Activity, other specified; F32.A Depression, unspecified; F41.9 Anxiety disorder, unspecified; F17.210 Nicotine dependence, cigarettes, uncomplicated; Z79.899 Other long term (current) drug therapy
CPT/HCPCS: 73130; 99282

== ENCOUNTER 2021-07-27 20:22 | Emergency (ER) | payer MEDICAID, SELFPAY ==
[2021-07-27 20:23] VITALS: BP 130/82; PULSE 84; RESP 16; TEMP 36.9; O2SAT 99; BMI 24.7
--- NOTE | 2021-07-27 21:19 | EDS_ITS ---
HPI HPI - URI History of Present Illness Chief Complaint: Sore Throat Narrative Narrative: Patient presents with sore throat that began today. She states she had to take a pain medication to help with her swallowing. It hurts more when she swallows or tries to eat. She denies any fever or chills. No nausea or vomiting. No runny nose. No cough. No other symptoms. ROS ROS ED ROS Narrative Constitutional: No fever, no chills. HEENT: No sore throat. No neck pain. No loss of vision. No rhinorrhea. Positive sore throat, worse with swallowing and eating. Cardiovascular: No chest pain. No palpitations. No pedal edema. Respiratory: No cough, no shortness of breath. Abdominal: No abdominal pain. No nausea. No vomiting. Genitourinary: No dysuria. No hematuria. Musculoskeletal: No myalgias. No arthralgias. Neurologic: No headaches. No dizziness. No lightheadedness. Skin: No rash. No change in color. Psychiatric: No depression. No anxiety. PFSH PFS Medical History Anxiety Asthma Carpal tunnel syndrome Chronic pain Depression Former smoker GERD (gastroesophageal reflux disease) Kidney stone Migraines Post-trauma syndrome Substance abuse Home Medications hydrocodone-acetaminophen 1 tab PO BID PRN 07/19/20 [History Last Taken Unknown] acetaminophen 1,000 mg PO Q8H PRN 09/12/20 [History Last Taken Unknown] meloxicam 15 mg PO DAILY 09/12/20 [History Last Taken Unknown] nortriptyline 10 mg PO QHS 09/12/20 [History Last Taken Unknown] sumatriptan succinate 50 mg PO PRN PRN 09/12/20 [History Last Taken Unknown] Allergy/AdvReac Type Severity Reaction Status Date / Time latex Allergy Hives Verified 07/27/21 20:24 morphine Allergy Rash Verified 07/27/21 20:24 sertraline [From Zoloft] Allergy Hives Verified 07/27/21 20:24 tramadol Allergy Rash Verified 07/27/21 20:24 Social History Smoking Status: Current some day smoker tobacco type: cigarettes substance use type: does not use EXAM Physical Exam Narrative Exam Narrative: Afebrile. Vital signs noted. HEENT: Normocephalic. Atraumatic. PERRL, EOMI. Neck soft and supple. No point tenderness or step off. Airway pain. No drooling or trismus. No exudate in posterior pharynx. No evidence of cervical lymphadenopathy or meningismus. Cardiovascular: Regular rate and rhythm. No murmurs, rubs, or gallops appreciated. Respiratory: No tachypnea. Lungs clear to auscultation bilaterally. Gastrointestinal: Abdomen soft, nontender, with normoactive bowel sounds. No rebound or guarding. Neurological: Awake. Alert. Nonfocal, nonlateralizing. Skin: No rash. Normal color. No pallor. Musculoskeletal: No pedal edema. Full range of motion extremities. Const Vital Signs: 07/27/21 20:23 Temperature 98.5 F Temperature Source Temporal Pulse Rate 84 Respiratory Rate 16 Blood Pressure 130/82 H Blood Pressure Mean 98 Pulse Ox 99 Oxygen Delivery Method Room Air MDM MDM MDM Narrative Medical decision making narrative: RN protocol ordered rapid strep test. It is negative. I do not feel antibiotics are indicated. Her pulse ox is 99% on room air. She was given a dose of Decadron 8 mg orally. Smoking cessation was discussed. True Blue symptomatic with [id number] medications. She will follow-up with her primary care provider. I feel she can be discharged safely home with follow-up. Return instructions were reviewed. Disposition is discharged home in stable condition. Discharge Plan Triage Chief Complaint: Sore Throat ED Provider: Dario Arana Dx/Rx/DC Orders Clinical Impression: Sore throat, Pharyngitis Instructions: ED Pharyngitis, Viral Prescriptions: No Action hydrocodone-acetaminophen 5-325 mg Tablet 1 tab PO BID PRN (Reason: Pain) RF: 0 meloxicam 15 mg tablet 15 mg PO DAILY RF: 0 sumatriptan succinate 50 mg tablet 50 mg PO PRN PRN (Reason: Migraine Headache) RF: 0 acetaminophen 500 mg tablet 1,000 mg PO Q8H PRN (Reason: Pain) RF: 0 nortriptyline 10 mg capsule 10 mg PO QHS RF: 0 Stand Alone Forms: ED Work / School Excuse Primary Care Provider: Mayelin Jose QUALITY ASSURANCE TESTER Referrals: Mayelin Jose QUALITY ASSURANCE TESTER, QUALITY ASSURANCE TESTER-C [Primary Care Provider] - 3-5 Days if not improving Activity Restrictions/Additional Instructions: Stop smoking. Take Tylenol or ibuprofen for pain. Drink plenty of oral fluids. Disposition Disposition: Home, Self Care
[2021-07-27] MEDS: dexAMETHasone 4 MG Tablet 8 MG PO (21:25)
== END 2021-07-27 21:27 | disposition home or self-care (01) ==
PROVIDERS: Emergency Provider Emergency Medicine; PCP Nurse Practitioner; Visit Provider Emergency Medicine
DX: J02.9 Acute pharyngitis, unspecified (principal); G89.29 Other chronic pain; K21.9 Gastro-esophageal reflux disease without esophagitis; F17.210 Nicotine dependence, cigarettes, uncomplicated
CPT/HCPCS: 87880; 99283

== ENCOUNTER 2021-08-17 06:58 | Emergency (ER) | payer MEDICAID, SELFPAY ==
[2021-08-17 06:59] VITALS: BP 132/82; PULSE 87; RESP 15; TEMP 37.1; O2SAT 99; BMI 24.7
--- NOTE | 2021-08-17 07:07 | EDS_ITS ---
HPI HPI - Female History of Present Illness Chief Complaint: Female C/O Narrative Narrative: 40-year-old female presenting with vaginal discharge. She describes this as foul-smelling, white discharge. She states that it is similar to her history of bacterial vaginosis. Patient states that she is prone to this. She states she had sexual intercourse with her significant other last week and had noticed some vaginal discharge since this. She has no concern for STD and states that she was actually checked at her [facility] [employer] [employer] office 2 weeks ago and everything was normal. Patient has been using vaginal applicators for yeast infection and this is not improving it. Patient does admit to some dysuria and urinary frequency. No nausea or vomiting. No GI complaints. No fever or chills. PFSH PFSH Medical History Anxiety Asthma Carpal tunnel syndrome Chronic pain Depression Former smoker GERD (gastroesophageal reflux disease) Kidney stone Migraines Post-trauma syndrome Substance abuse Home Medications hydrocodone-acetaminophen 1 tab PO BID PRN 07/19/20 [History Last Taken Unknown] meloxicam 15 mg PO DAILY 09/12/20 [History Last Taken Unknown] nortriptyline 10 mg PO QHS 09/12/20 [History Last Taken Unknown] sumatriptan succinate 50 mg PO PRN PRN 09/12/20 [History Last Taken Unknown] fluconazole [Diflucan] 150 mg PO Q3D #2 tab 08/17/21 [Rx Last Taken Unknown] metronidazole 500 mg PO BID 7 Days #14 tab 08/17/21 [Rx Last Taken Unknown] Allergy/AdvReac Type Severity Reaction Status Date / Time latex Allergy Hives Verified 08/17/21 07:02 morphine Allergy Rash Verified 08/17/21 07:02 sertraline [From Zoloft] Allergy Hives Verified 08/17/21 07:02 tramadol Allergy Rash Verified 08/17/21 07:02 Social History Smoking Status: Current some day smoker tobacco type: cigarettes substance use type: does not use ROS ROS ED Constitutional Constitutional ED: Denies chills, fever(s) or sweats Eyes Eyes: Denies blurry vision or change in vision ENT ENT ED: Denies ear pain or sore throat Cardiovascular Cardiovascular: Denies chest pain, palpitations or racing heartbeat Respiratory/Chest Respiratory/Chest: Denies cough, dyspnea or sputum Gastrointestinal Gastrointestinal: Denies abdominal pain, constipation, diarrhea, nausea or vomiting Genitourinary Genitourinary ED: Reports dysuria, urinary frequency and other Details: Vaginal discharge ; Denies hematuria Musculoskeletal Musculoskeletal: Denies arthralgias, myalgias or neck pain Integumentary Denies abscess, Abrasions or rash Neurologic Neurologic: Denies headache(s), paresthesias or weakness Psychiatric Psychiatric: Denies anxiety, depression, suicidal ideation or suicidal thoughts Endocrine Endocrinology: Denies polydipsia or polyuria EXAM Physical Exam Const Vital Signs: 08/17/21 06:59 Temperature 98.7 F Temperature Source Oral Pulse Rate 87 Respiratory Rate 15 Blood Pressure 132/82 H Blood Pressure Mean 98 Pulse Ox 99 Oxygen Delivery Method Room Air Positive well nourished General Appearance ED: NAD HEENT Reports moist mucous membranes Negative for trauma Eyes PERRL and EOMs intact bilaterally Resp normal respiratory effort Cardio regular rate Narrative: Deferred Neuro oriented x3 Sensorium / Orientation: alert Psych mental status grossly normal Skin no rashes or lesions noted MDM MDM MDM Narrative Medical decision making narrative: Patient presenting with vaginal discharge which she believes is bacterial vaginosis as she is prone to this. Her description is white foul-smelling discharge consistent with her history of BV.Her vaginal applicators are not helping. Since she has urinary symptoms I did obtain a urinalysis and this is negative for infection. I think it would be unlikely to have a normal urinalysis with an STD, and this was discussed with the patient. 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 Patient wishes to be treated empirically for bacterial vaginosis and I will give her 2 doses of Diflucan in case she develops yeast infection while on antibiotics. She is amenable to this. She is discharged home in stable condition. Impression: 1. Bacterial vaginosis Lab Data Attestation: I reviewed the patient's lab results. Labs: Laboratory Results - last 24 hr 08/17/21 07:15 Urine Color Yellow Urine Clarity Clear Urine pH 6.5 Ur Specific [place] 1.020 Urine Protein Negative Urine Glucose (UA) Normal Urine Ketones Negative Urine Occult Blood Negative Urine Nitrite Negative Urine Bilirubin Negative Urine Urobilinogen Normal Ur Leukocyte Esterase 25 H Urine RBC 0 SEEN Urine WBC 0 SEEN Ur Squamous Epith Cells 0-5 SEEN Urine Bacteria 0 SEEN Urine Mucus 0 SEEN Urine Test Negative Discharge Plan Triage Chief Complaint: Female C/O ED Provider: Jeromy Arevalo Dx/Rx/DC Orders Instructions: ED Bacterial Vaginosis (BV) Prescriptions: New metronidazole 500 mg tablet 500 mg PO BID 7 Days Qty: 14 RF: 0 fluconazole [Diflucan] 150 mg tablet 150 mg PO Q3D Qty: 2 RF: 0 No Action hydrocodone-acetaminophen 5-325 mg Tablet 1 tab PO BID PRN (Reason: Pain) RF: 0 meloxicam 15 mg tablet 15 mg PO DAILY RF: 0 sumatriptan succinate 50 mg tablet 50 mg PO PRN PRN (Reason: Migraine Headache) RF: 0 nortriptyline 10 mg capsule 10 mg PO QHS RF: 0 Primary Care Provider: Mayelin Jose PROCESS LABORATORY SPECIALIST Referrals: Mayelin Jose PROCESS LABORATORY SPECIALIST, PROCESS LABORATORY SPECIALIST-C [Primary Care Provider] - Disposition Disposition: Home, Self Care
[2021-08-17 07:21] LABS: Bacteria 0 SEEN /hpf (None Seen); Mucous, Urine 0 SEEN /hpf (<or=2+); Red Blood Cells-Urine 0 SEEN /hpf (0-5); White Blood Cells 0 SEEN /hpf (0-5)
[2021-08-17 07:24] LABS: Color, Urine Yellow (Yellow); Glucose, Dipstick Normal (Normal); Ketone-Dipstick Negative (Negative); Leukocyte Esterase-Dipstick 25 /ul (Negative); Nitrite-Dipstick Negative (Negative); Occult Blood-Urine Negative /ul (Negative); Protein-Dipstick Negative (Negative); Urine Bilirubin Dipstick Negative (Negative); Urine Clarity Clear (Clear); Urine Urobilinogen Normal (Normal); Urine pH 6.5 (5.0 - 8.0)
[2021-08-17 07:35] LABS: Internal QC Validated? YES +Cl - CLEAR BKGD; Pregnancy, Urine Negative Negative; Squamous Epithelial Cells - UA 0-5 SEEN /hpf (5-10)
[2021-08-17 08:20] VITALS: BP 128/77; PULSE 62; RESP 18; O2SAT 97
== END 2021-08-17 08:20 | disposition home or self-care (01) ==
LOC: ED 08:07
PROVIDERS: Emergency Provider Student in an Organized Health Care Education/Training Program; PCP Nurse Practitioner; Visit Provider Student in an Organized Health Care Education/Training Program
DX: N76.0 Acute vaginitis (principal); R35.0 Frequency of micturition; Z79.1 Long term (current) use of non-steroidal anti-inflammatories (NSAID); F17.210 Nicotine dependence, cigarettes, uncomplicated; Z79.899 Other long term (current) drug therapy
CPT/HCPCS: 81001; 81025; 99282

== ENCOUNTER 2022-02-09 11:38 | Emergency (ER) | payer MEDICAID, SELFPAY ==
[2022-02-09 11:39] VITALS: BP 137/78; PULSE 98; RESP 18; TEMP 36.4; O2SAT 100; BMI 27.4
--- NOTE | 2022-02-09 11:58 | EKG12_ITS ---
Test Reason : Blood Pressure : / mmHG Vent. Rate : 081 BPM Atrial Rate : 081 BPM P-R Int : 106 ms QRS Dur : 128 ms QT Int : 418 ms P-R-T Axes : 252 051 -70 degrees QTc Int : 485 ms Unusual P axis and short DE, consider ectopic atrial rhythm Abnormal ECG Confirmed by CATIA CARDENAS, SAY ([id number]), clinical editor STACIE WOODALL ([id number]) on 02/10/2022 9:18:19 AM Referred By: ZOILA Confirmed By:SAY BARDALES MD
--- NOTE | 2022-02-09 12:00 | EX.ED.DYSGE1 ---
HPI History of Present Illness Chief Complaint: General Illness Informant: patient Onset/Context/Timing Onset: Days Context: Gradual Onset Current Severity: Mild Maximum Severity: Moderate PFSH PFSH Medical History Anxiety Asthma Carpal tunnel syndrome Chronic pain Depression Former smoker GERD (gastroesophageal reflux disease) Herpes Kidney stone Migraines Post-trauma syndrome Scoliosis Substance abuse Home Medications meloxicam 15 mg tablet 15 mg PO DAILY 09/12/20 [History Last Taken Unknown] nortriptyline 10 mg capsule 10 mg PO QHS 09/12/20 [History Last Taken Unknown] sumatriptan succinate 50 mg tablet 50 mg PO PRN PRN Migraine Headache 09/12/20 [History Last Taken Unknown] fluconazole 150 mg tablet (Diflucan) 150 mg PO Q3D PRN YEAST 02/09/22 [History Last Taken Unknown] gabapentin 300 mg tablet 300 mg PO BID 02/09/22 [History Last Taken Unknown] Allergy/AdvReac Type Severity Reaction Status Date / Time latex Allergy Hives Verified 02/09/22 11:40 morphine Allergy Rash Verified 02/09/22 11:40 sertraline [From Zoloft] Allergy Hives Verified 02/09/22 11:40 tramadol Allergy Rash Verified 02/09/22 11:40 Social History Smoking Status: Current some day smoker tobacco type: cigarettes substance use type: does not use ROS ROS ED Constitutional Constitutional ED: Denies chills or fever(s) Eyes Eyes: Denies change in vision or discharge from eye(s) ENT ENT ED: Denies discharge from eye(s), rhinorrhea or sore throat Cardiovascular Cardiovascular: Denies chest pain or palpitations Respiratory/Chest Respiratory/Chest: Denies cough or dyspnea Gastrointestinal Gastrointestinal: Reports abdominal pain and nausea; Denies diarrhea or vomiting Genitourinary Genitourinary ED: Reports dysuria and urinary frequency Musculoskeletal Musculoskeletal: Reports back pain; Denies extremity pain Integumentary Denies Abrasions or rash Neurologic Neurologic: Reports weakness and other Details: Dizziness ; Denies headache(s) Psychiatric Psychiatric: Denies anxiety or depression Endocrine Endocrinology: Denies polydipsia or polyuria Allergic/Immunologic Allergic/Immunologic ED: Denies lip swelling or urticaria EXAM Physical Exam Const Vital Signs: 11/28/22 11:39 02/09/22 11:48 02/09/22 14:06 Temperature 97.5 F L Temperature Source Temporal Pulse Rate 98 68 Respiratory Rate 18 18 Respiratory Effort Normal Respiratory Pattern Normal Blood Pressure 137/78 H Blood Pressure Mean 97 Pulse Ox 100 99 Oxygen Delivery Method Room Air Room Air Positive well nourished and well developed General Appearance ED: well developed HEENT Reports normocephalic and head/scalp atraumatic Eyes PERRL and EOMs intact bilaterally Neck supple Chest Wall inspection of chest normal and palpation of chest normal Resp normal respiratory effort and clear to auscultation bilaterally Cardio regular rate and regular rhythm GI normal to inspection, nondistended, normoactive bowel sounds Palpation: soft Extremity normal to inspection Neuro oriented x3 and no sensory deficits noted Sensorium / Orientation: alert Motor Exam: strength 5/5 throughout Psych mental status grossly normal Skin no rashes or lesions noted MDM MDM MDM Narrative Medical decision making narrative: Patient placed on hospital monitor. EKG, lab work, urinalysis obtained. Patient given Zofran and IV fluids. Lab Data Attestation: I reviewed the patient's lab results. Labs: Laboratory Results - last 24 hr 02/09/22 02/09/22 02/09/22 12:30 12:30 12:30 WBC 9.8 RBC 4.47 Hgb 13.8 Hct 41.0 MCV 91.7 MCH 30.9 MCHC 33.7 RDW Std Deviation 48.5 H RDW Coeff of Sophia 14.3 Plt Count 318 MPV 9.7 Immature Gran % (Auto) 0.200 Neut % (Auto) 70.7 H Lymph % (Auto) 22.0 [place] % (Auto) 4.9 Eos % (Auto) 1.9 Baso % (Auto) 0.3 Absolute Neuts (auto) 6.9 Absolute Lymphs (auto) 2.15 Nucleated RBC % 0 Sodium 140 Potassium 3.4 L Chloride 110 H Carbon Dioxide 29.0 Anion Gap 1 L BUN 9 Creatinine 0.79 Estim Creat Clear Calc 74.12 Est GFR (MDRD) Af Amer 103 Est GFR (MDRD) Non-Af 85 BUN/Creatinine Ratio 11.3 Glucose 107 H Calcium 8.7 Serum , Qual NEGATIVE Urine Color Urine Clarity Urine pH Ur Specific [place] Urine Protein Urine Glucose (UA) Urine Ketones Urine Occult Blood Urine Nitrite Urine Bilirubin Urine Urobilinogen Ur Leukocyte Esterase Urine RBC Urine WBC Ur Squamous Epith Cells Urine Bacteria Urine Mucus 02/09/22 13:10 WBC RBC Hgb Hct MCV MCH MCHC RDW Std Deviation RDW Coeff of Sophia Plt Count MPV Immature Gran % (Auto) Neut % (Auto) Lymph % (Auto) [place] % (Auto) Eos % (Auto) Baso % (Auto) Absolute Neuts (auto) Absolute Lymphs (auto) Nucleated RBC % Sodium Potassium Chloride Carbon Dioxide Anion Gap BUN Creatinine Estim Creat Clear Calc Est GFR (MDRD) Af Amer Est GFR (MDRD) Non-Af BUN/Creatinine Ratio Glucose Calcium Serum , Qual Urine Color Straw Urine Clarity Clear Urine pH 8.0 Ur Specific [place] 1.015 Urine Protein Negative Urine Glucose (UA) Normal Urine Ketones Negative Urine Occult Blood Negative Urine Nitrite Negative Urine Bilirubin Negative Urine Urobilinogen Normal Ur Leukocyte Esterase Negative Urine RBC 0 SEEN Urine WBC 0 SEEN Ur Squamous Epith Cells 0-5 SEEN Urine Bacteria 0 SEEN Urine Mucus 0 SEEN EKG Initial EKG: Attestation: I personally reviewed and interpreted this EKG as follows: Interpretation: Sinus Rhythm (Sinus 81 with no acute ischemia.) Treatment and Re-Evaluation Narrative: CBC and chemistry studies remarkable only for slightly low potassium at 3.4. test is negative. Urinalysis reveals no acute infection. EKG is normal. On repeat evaluation patient resting comfortably. Advised her that she may have picked up a viral illness but at this time her testing is all normal. She will continue supportive care at home. I will write her off work today. Discharge Plan Triage Chief Complaint: General Illness ED Provider: Savanah Gooden Dx/Rx/DC Orders Clinical Impression: Dizziness Instructions: ED Dizziness, Uncertain Cause Prescriptions: No Action meloxicam 15 mg tablet 15 mg PO DAILY Label Comments: Take 1 tablet by mouth once daily as needed for pain. sumatriptan succinate 50 mg tablet 50 mg PO PRN PRN (Reason: Migraine Headache) Label Comments: Take 1 tablet at the onset of migraine. Can repeat in 2 hours if headaches persists nortriptyline 10 mg capsule 10 mg PO QHS Label Comments: Take 1 capsule by mouth daily at bedtime. gabapentin 300 mg Tablet 300 mg PO BID fluconazole [Diflucan] 150 mg tablet 150 mg PO Q3D PRN (Reason: YEAST) Stand Alone Forms: ED Work / School Excuse Primary Care Provider: Mayelin Jose CONTROL PANEL TESTER Referrals: Mayelin Jose CONTROL PANEL TESTER, CONTROL PANEL TESTER-C [Primary Care Provider] - 3-5 Days if not improving Disposition Disposition: Home, Self Care
[2022-02-09] MEDS: Ondansetron 4 MG/2 ML Vial IV (12:29)
[2022-02-09] MEDS: 0.9% Normal Saline 1,000 ML 1000 ML IV (12:30)
[2022-02-09 12:46] LABS: Absolute Lymphocyte Count 2.15 X10^3/uL (0.83-4.51); Absolute Neutrophil Count 6.9 X10^3/uL (2.0-7.7); Basophil# 0.03 X10^3/uL; Basophil% 0.3 % (0-1); Eosinophil# 0.19 X10^3/uL; Eosinophils% 1.9 % (0-5); Hemoglobin 13.8 g/dL (12.0-15.0); Lymphocyte # 2.15 X10^3/ul (0.83-4.51); Mean Corp Hgb Conc 33.7 g/dL (32-36); Mean Corpuscular Hgb 30.9 pg (27.0-32.0); Mean Corpuscular Volume 91.7 fL (81-99); Mean Platelet Vol. 9.7 fl (6.2-12.0); Monocyte# 0.48 X10^3/uL; Monocyte% 4.9 % (0-10); NRBC Flagged by Analyzer 0 % (0-5); Neutrophil # 6.91 X10^3/uL (2.7-7.7); Neutrophil % 70.7 % (47-70); Platelet Count 318 K/mm3 (150-450); RBC Distribution Width CV 14.3 % (11.6-14.6); RBC Distribution Width SD 48.5 fl (35.1-43.9); Red Blood Count 4.47 M/mm3 (4.2-5.4); White Blood Count 9.8 K/mm3 (4.4-11.0)
[2022-02-09 12:54] LABS: Internal QC Validated? YES +Cl - CLEAR BKGD; Pregnancy, Serum, hCG Quali. NEGATIVE Negative
[2022-02-09 12:59] LABS: Anion Gap 1 (5-15); BUN 9 mg/dL (7-18); BUN/Creat Ratio 11.3 RATIO (10-20); Calcium,Total 8.7 mg/dL (8.5-10.1); Chloride 110 mmol/L (98-107); Creatinine, Serum 0.79 mg/dL (0.55-1.02); EST Glomerular Filtration Rate 85 mL/min (>60); Est Glom Filt Rate - Afr Amer 103 mL/min (>60); Estimated Creatinine Clearance 74.12 ml/min; Glucose 107 mg/dL (74-106); Potassium 3.4 mmol/L (3.5-5.1); Sodium Level 140 mmol/L (136-145)
[2022-02-09 13:16] LABS: Bacteria 0 SEEN /hpf (None Seen); Mucous, Urine 0 SEEN /hpf (<or=2+); Red Blood Cells-Urine 0 SEEN /hpf (0-5); White Blood Cells 0 SEEN /hpf (0-5)
[2022-02-09 13:17] LABS: Color, Urine Straw (Yellow); Glucose, Dipstick Normal (Normal); Ketone-Dipstick Negative (Negative); Leukocyte Esterase-Dipstick Negative /ul (Negative); Nitrite-Dipstick Negative (Negative); Occult Blood-Urine Negative /ul (Negative); Protein-Dipstick Negative (Negative); Specific Gravity, Urine 1.015 (1.002-1.030); Urine Bilirubin Dipstick Negative (Negative); Urine Clarity Clear (Clear); Urine Urobilinogen Normal (Normal)
[2022-02-09 13:26] LABS: Squamous Epithelial Cells - UA 0-5 SEEN /hpf (5-10)
[2022-02-09 14:06] VITALS: PULSE 68; RESP 18; O2SAT 99
== END 2022-02-09 14:36 | disposition home or self-care (01) ==
PROVIDERS: Emergency Provider Emergency Medicine; PCP Nurse Practitioner; Visit Provider Emergency Medicine
DX: R42 Dizziness and giddiness (principal); F17.210 Nicotine dependence, cigarettes, uncomplicated
CPT/HCPCS: 80048; 81001; 84703; 85025; 93005; 96361; 96374; 99285; J7030; A4216; J2405

== ENCOUNTER 2022-03-03 17:14 | Emergency (ER) | payer MEDICAID, SELFPAY ==
[2022-03-03 17:15] VITALS: BP 105/50; PULSE 120; RESP 18; TEMP 37.8; O2SAT 100; BMI 23.2
[2022-03-03 18:29] VITALS: O2SAT 98
[2022-03-03] MEDS: 0.9% Normal Saline 1,000 ML 999 ML IV (19:22)
[2022-03-03] MEDS: Ibuprofen 200 MG Tablet 400 MG PO (19:22)
[2022-03-03] MEDS: Ondansetron 4 MG/2 ML Vial IV (19:22)
--- NOTE | 2022-03-03 20:03 | EX.ED.DYSGE1 ---
HPI <DORIE Hector - Last Filed: 03/03/22 21:44> History of Present Illness Chief Complaint: General Illness Narrative Narrative: Patient presents with flulike symptoms that started yesterday. She states other members of her household are also sick with similar symptoms. Patient states she has had a cough, nausea, fever, a few episodes of vomiting, and nasal congestion. Patient states she is feeling a little bit short of breath and feels dehydrated. She denies chest pain. PFSH <DORIE Hector - Last Filed: 03/03/22 21:44> PFSH Medical History Anxiety Asthma Carpal tunnel syndrome Chronic pain Depression Former smoker GERD (gastroesophageal reflux disease) Herpes Kidney stone Migraines Post-trauma syndrome Scoliosis Substance abuse Home Medications meloxicam 15 mg tablet 15 mg PO DAILY 09/12/20 [History Last Taken Unknown] nortriptyline 10 mg capsule 10 mg PO QHS 09/12/20 [History Last Taken Unknown] sumatriptan succinate 50 mg tablet 50 mg PO PRN PRN Migraine Headache 09/12/20 [History Last Taken Unknown] fluconazole 150 mg tablet (Diflucan) 150 mg PO Q3D PRN YEAST 02/09/22 [History Last Taken Unknown] gabapentin 300 mg tablet 300 mg PO BID 02/09/22 [History Last Taken Unknown] phenylephrin 5 mg-DM 10 mg-acetaminophen 325 mg-guaifen 200 mg capsule (Mucinex Fast-Max Cold-Flu) 2 tab PO Q4H PRN flu symptoms #45 caps 03/03/22 [Rx Last Taken Unknown] Allergy/AdvReac Type Severity Reaction Status Date / Time latex Allergy Hives Verified 03/03/22 17:17 morphine Allergy Rash Verified 03/03/22 17:17 sertraline [From Zoloft] Allergy Hives Verified 03/03/22 17:17 tramadol Allergy Rash Verified 03/03/22 17:17 Social History Smoking Status: Current some day smoker tobacco type: cigarettes substance use type: does not use ROS <DORIE Hector - Last Filed: 03/03/22 21:44> ROS ED Constitutional Constitutional ED: Reports chills and fever(s); Denies subjective Eyes Eyes: Denies blurry vision, change in vision or diplopia ENT ENT ED: Reports rhinorrhea; Denies ear pain or sore throat Cardiovascular Cardiovascular: Denies chest pain, palpitations or racing heartbeat Respiratory/Chest Respiratory/Chest: Reports cough, dyspnea and dyspnea on exertion Gastrointestinal Gastrointestinal: Reports abdominal pain, nausea and vomiting; Denies constipation or diarrhea Genitourinary Genitourinary ED: Denies dysuria, hematuria or urinary frequency Musculoskeletal Musculoskeletal: Denies back pain, myalgias or neck pain Integumentary Denies abscess, Abrasions or rash Neurologic Neurologic: Denies headache(s), paresthesias or weakness Psychiatric Psychiatric: Denies anxiety, depression or suicidal ideation EXAM <DORIE Hector - Last Filed: 03/03/22 21:44> Physical Exam Const Vital Signs: 03/03/22 17:15 03/03/22 18:29 03/03/22 18:31 Temperature 100.0 F H Temperature Source Temporal Pulse Rate 120 H Respiratory Rate 18 Respiratory Pattern Normal Blood Pressure 105/50 L Blood Pressure Mean 68 Pulse Ox 100 98 Oxygen Delivery Method Room Air Room Air 03/03/22 20:31 03/03/22 21:02 Temperature 99.8 F H Temperature Source Temporal Pulse Rate 101 H Respiratory Rate 18 Respiratory Pattern Blood Pressure 112/56 L Blood Pressure Mean 74 Pulse Ox 96 Oxygen Delivery Method Room Air Positive well nourished and well developed General Appearance ED: well developed HEENT Reports TM's clear and moist mucous membranes Negative for tenderness Tympanic Membrane ED: Yes TM's clear Throat: posterior oropharynx normal, tonsils normal and uvula midline Eyes PERRL and EOMs intact bilaterally Neck no lymphadenopathy and supple Chest Wall inspection of chest normal Resp normal respiratory effort and clear to auscultation bilaterally Cardio regular rate, regular rhythm and no murmurs GI non-tender, non-distended and no masses Palpation: soft Extremity normal to inspection General Extremety ED: Negative for edema General Extremity: Negative for edema Neuro oriented x3, CN's II-XII intact bilaterally and no sensory deficits noted Sensorium / Orientation: alert Motor Exam: strength 5/5 throughout Psych mental status grossly normal Skin no rashes or lesions noted, no wounds and skin turgor normal General Skin Exam: elasticity normal <Dario Arana MD - Last Filed: 03/03/22 21:57> Physical Exam Const Vital Signs: 03/03/22 17:15 03/03/22 18:29 03/03/22 18:31 Temperature 100.0 F H Temperature Source Temporal Pulse Rate 120 H Respiratory Rate 18 Respiratory Pattern Normal Blood Pressure 105/50 L Blood Pressure Mean 68 Pulse Ox 100 98 Oxygen Delivery Method Room Air Room Air 03/03/22 20:31 03/03/22 21:02 Temperature 99.8 F H Temperature Source Temporal Pulse Rate 101 H Respiratory Rate 18 Respiratory Pattern Blood Pressure 112/56 L Blood Pressure Mean 74 Pulse Ox 96 Oxygen Delivery Method Room Air [facility] <DORIE Hector - Last Filed: 03/03/22 21:44> [facility] Narrative Medical decision making narrative: Patient states she feels short of breath, however, she is not tachypneic and her O2 sat has remained above 96% on room air. She is in no respiratory distress. Patient's lungs sound clear. She was given ibuprofen for fever. Clinically patient did not look dehydrated, however, she stated she felt dehydrated so I have given her a liter of normal saline. She has also been given Zofran for nausea. Patient tested positive for influenza A which would explain her symptoms. Upon reexamination patient states her nausea is much better and she feels like she can discharge home. I have educated her on supportive measures. I have encouraged her to follow-up with PCP in 3 to 5 days. Patient has been given a prescription for Mucinex DM. I am comfortable with patient discharging home in stable condition. Patient is comfortable with plan. She has been given a work excuse as well. <Dario Arana MD - Last Filed: 03/03/22 21:57> [facility] Narrative Medical decision making narrative: Patient states she feels short of breath, however, she is not tachypneic and her O2 sat has remained above 96% on room air. She is in no respiratory distress. Patient's lungs sound clear. She was given ibuprofen for fever. Clinically patient did not look dehydrated, however, she stated she felt dehydrated so I have given her a liter of normal saline. She has also been given Zofran for nausea. Patient tested positive for influenza A which would explain her symptoms. Upon reexamination patient states her nausea is much better and she feels like she can discharge home. I have educated her on supportive measures. I have encouraged her to follow-up with PCP in 3 to 5 days. Patient has been given a prescription for Mucinex DM. I am comfortable with patient discharging home in stable condition. Patient is comfortable with plan. She has been given a work excuse as well. I have personally performed a face to face assessment of the patient and have reviewed the ROULA Note. I performed a substantive portion of the visit including all aspects of the following. My aguirre findings include: History is upper respiratory infection type symptoms, cough and shortness of breath. Exam is afebrile, vital signs noted. Mild tachycardia. Lungs clear to auscultation bilaterally. No stridor or wheezing. Pulse ox 96 to 100% on room air without evidence of hypoxia. Medical Decision Making check respiratory swabs. Positive for influenza A. Symptomatic treatment. Discharge. Other additions or changes: [None] Discharge Plan Triage Chief Complaint: General Illness ED Midlevel Provider: Qiana Schilling ED Provider: Dario Arana Dx/Rx/DC Orders Clinical Impression: Influenza A Instructions: ED Influenza (Adult) Prescriptions: New Mucinex Fast-Max Cold-Flu [id number] mg capsule 2 tab PO Q4H PRN (Reason: flu symptoms) Qty: 45 0RF Rx Instructions: Do not exceed 12 tablets in 24 hours. No Action meloxicam 15 mg tablet 15 mg PO DAILY Label Comments: Take 1 tablet by mouth once daily as needed for pain. sumatriptan succinate 50 mg tablet 50 mg PO PRN PRN (Reason: Migraine Headache) Label Comments: Take 1 tablet at the onset of migraine. Can repeat in 2 hours if headaches persists nortriptyline 10 mg capsule 10 mg PO QHS Label Comments: Take 1 capsule by mouth daily at bedtime. gabapentin 300 mg Tablet 300 mg PO BID fluconazole [Diflucan] 150 mg tablet 150 mg PO Q3D PRN (Reason: YEAST) Stand Alone Forms: ED Work / School Excuse Primary Care Provider: Mayelin Jose NP Referrals: Mayelin Jose SLOT SHIFT SUPERVISOR, SLOT SHIFT SUPERVISOR-C [Primary Care Provider] - 3-5 Days Activity Restrictions/Additional Instructions: Make sure you are staying well-hydrated. Return if symptoms worsen. Follow-up with PCP Disposition Disposition: Home, Self Care Discharge Date/Time: 03/03/22 21:29
[2022-03-03 20:31] VITALS: BP 112/56; PULSE 101; RESP 18; O2SAT 96
[2022-03-03 21:02] VITALS: TEMP 37.7
== END 2022-03-03 21:29 | disposition home or self-care (01) ==
PROVIDERS: Emergency Provider Emergency Medicine; PCP Nurse Practitioner; Visit Provider Emergency Medicine
DX: J10.1 Influenza due to other identified influenza virus with other respiratory manifestations (principal); F17.210 Nicotine dependence, cigarettes, uncomplicated
CPT/HCPCS: 87428; 96361; 96374; 99284; J7030; A4216; J2405

== ENCOUNTER 2022-03-12 16:41 | Emergency (ER) | payer MEDICAID, SELFPAY ==
[2022-03-12 16:42] VITALS: BP 134/84; PULSE 104; RESP 22; TEMP 36.9; O2SAT 100; BMI 23.2
[2022-03-12 20:51] VITALS: BP 156/107; PULSE 111; RESP 25; O2SAT 100
[2022-03-12 20:53] VITALS: O2SAT 100
--- NOTE | 2022-03-12 21:10 | EKG12_ITS ---
Test Reason : shortness of breath Blood Pressure : / mmHG Vent. Rate : 082 BPM Atrial Rate : 082 BPM P-R Int : 106 ms QRS Dur : 104 ms QT Int : 402 ms P-R-T Axes : 000 055 -83 degrees QTc Int : 469 ms Sinus rhythm with short CA Nonspecific ST and T wave abnormality Abnormal ECG Confirmed by CATIA CARDENAS, SAY ([id number]), medical editor STACIE WOODALL ([id number]) on 03/17/2022 1:04:16 PM Referred By: Paloma Confirmed By:SAY BARDALES MD
--- NOTE | 2022-03-12 21:10 | RAD_ITS ---
STUDY: X-RAY CHEST REASON FOR EXAM: Female, 41 years old. cough TECHNIQUE: PA and lateral views of the chest. COMPARISON: 04/11/2021 FINDINGS: The lungs are clear and expanded. There is no demonstrated pleural abnormality. Normal size heart. Normal mediastinum and basilia. Normal visualized pulmonary arteries. Normal visualized aortic arch and descending thoracic aorta. Normal visualized thoracic spine. Normal visualized ribs, clavicles, and shoulders. There is no demonstrated abnormality of the visualized soft tissue structures of the upper abdomen. RAD/Chest PA and Lateral IMPRESSION: Normal x-ray examination of the chest. Electronically Signed: Mervin Jimenez MD at 22:36 EST ,
[2022-03-12] MEDS: Ipratropium/Albuterol Sulfate 3 ML AMPUL.NEB INHALATION (21:20)
[2022-03-12 22:00] VITALS: PULSE 85; RESP 24
--- NOTE | 2022-03-12 22:14 | ED.RN ---
two unsuccessful IV starts by ramya BANKS. One unsuccessful IV start by Eugenia BANKS. Lab called for blood to be obtained.
--- NOTE | 2022-03-12 22:35 | EDS_ITS ---
HPI <Dr. Buck Dow MD - Last Filed: 03/12/22 22:55> History of Present Illness Chief Complaint: Cough Narrative Narrative: Patient presents with cough and congestion. She was recently diagnosed with Influenza. She has a history of asthma and thinks her asthma is worse. She is denying fevers, she did have a fever initially. She has some chest wall pain from coughing but no pleuritic component. No lower extremity edema or calf pain. PFSH <Dr. Buck Dow MD - Last Filed: 03/12/22 22:55> PFSH Medical History Anxiety Asthma Carpal tunnel syndrome Chronic pain Depression Former smoker GERD (gastroesophageal reflux disease) Herpes Kidney stone Migraines Post-trauma syndrome Scoliosis Substance abuse Home Medications meloxicam 15 mg tablet 15 mg PO DAILY 09/12/20 [History Last Taken Unknown] nortriptyline 10 mg capsule 10 mg PO QHS 09/12/20 [History Last Taken Unknown] sumatriptan succinate 50 mg tablet 50 mg PO PRN PRN Migraine Headache 09/12/20 [History Last Taken Unknown] fluconazole 150 mg tablet (Diflucan) 150 mg PO Q3D PRN YEAST 02/09/22 [History Last Taken Unknown] gabapentin 300 mg tablet 300 mg PO BID 02/09/22 [History Last Taken Unknown] phenylephrin 5 mg-DM 10 mg-acetaminophen 325 mg-guaifen 200 mg capsule (Mucinex Fast-Max Cold-Flu) 2 tab PO Q4H PRN flu symptoms #45 caps 03/03/22 [Rx Last Taken Unknown] prednisone 20 mg tablet 40 mg PO DAILY #8 tabs 03/12/22 [Rx Last Taken Unknown] Allergy/AdvReac Type Severity Reaction Status Date / Time latex Allergy Hives Verified 03/12/22 16:45 morphine Allergy Rash Verified 03/12/22 16:45 sertraline [From Zoloft] Allergy Hives Verified 03/12/22 16:45 tramadol Allergy Rash Verified 03/12/22 16:45 Social History Smoking Status: Former smoker substance use type: does not use ROS <Dr. Buck Dow MD - Last Filed: 03/12/22 22:55> ROS ED ROS Narrative Past medical history: Reviewed consistent with asthma Medications: Reviewed Social history: Noncontributory Review of systems: All systems negative except as indicated General: Fever is gone. She does have some weakness Eyes: No visual changes ENT: Upper airway congestion has improved Neck: No neck pain Cardiovascular: No palpitations or syncope Respiratory: Cough and some dyspnea Gastrointestinal: No abdominal pain, nausea vomiting or diarrhea Genitourinary: No dysuria Musculoskeletal: Denies myalgias no difficulty with ambulation Skin: No rash Neurological: No memory loss, confusion or any focal weakness Psych: No recent behavioral changes Hematologic: No easy bleeding or easy bruising EXAM <Dr. Buck Dow MD - Last Filed: 03/12/22 22:55> Physical Exam Narrative Exam Narrative: Physical exam General: She appears somewhat uncomfortable Head: Normocephalic, Atraumatic Eyes: Conjunctiva not pale ENT: There is upper airway congestion and some rhinorrhea Neck: Supple, Nontender, No lymphadenopathy Cardiovascular: Regular rate, Regular rhythm Respiratory: Bilateral end expiratory wheezing, slight tachypneic. Abdomen: Soft, Nontender, Nondistended Back: Nontender, Normal Inspection. Negative for: CVA tenderness Extremities: Nontender, No edema Skin: Normal color, No rash Neurological: Alert, Normal Strength, Normal Sensation Psychological: Normal affect Const Vital Signs: 03/12/22 16:42 03/12/22 20:51 03/12/22 20:53 Temperature 98.4 F Temperature Source Temporal Pulse Rate 104 H 111 H Respiratory Rate 22 H 25 H Respiratory Effort Short of Breath Respiratory Depth Deep Respiratory Pattern Tachypnea Blood Pressure 134/84 H 156/107 H Blood Pressure Mean 100 123 Pulse Ox 100 100 Oxygen Delivery Method Room Air Room Air Room Air 03/12/22 22:00 03/13/22 00:00 Temperature Temperature Source Pulse Rate 85 71 Respiratory Rate 24 H 24 H Respiratory Effort Respiratory Depth Respiratory Pattern Tachypnea Blood Pressure 142/87 H Blood Pressure Mean 105 Pulse Ox 99 Oxygen Delivery Method Room Air <Dario Arana MD - Last Filed: 03/13/22 00:20> Physical Exam Const Vital Signs: 03/12/22 16:42 03/12/22 20:51 03/12/22 20:53 Temperature 98.4 F Temperature Source Temporal Pulse Rate 104 H 111 H Respiratory Rate 22 H 25 H Respiratory Effort Short of Breath Respiratory Depth Deep Respiratory Pattern Tachypnea Blood Pressure 134/84 H 156/107 H Blood Pressure Mean 100 123 Pulse Ox 100 100 Oxygen Delivery Method Room Air Room Air Room Air 03/12/22 22:00 03/13/22 00:00 Temperature Temperature Source Pulse Rate 85 71 Respiratory Rate 24 H 24 H Respiratory Effort Respiratory Depth Respiratory Pattern Tachypnea Blood Pressure 142/87 H Blood Pressure Mean 105 Pulse Ox 99 Oxygen Delivery Method Room Air MDM <Dr. Buck Dow MD - Last Filed: 03/12/22 22:55> [facility] MDM Narrative Medical decision making narrative: Patient's symptoms improved after DuoNeb she is feeling much better. I auscultated the wheezing is gone although she still has some coarse breath sounds. Lab Data Labs: Laboratory Results - last 24 hr 03/12/22 03/12/22 03/12/22 22:20 22:20 22:20 WBC 12.5 H RBC 4.66 Hgb 13.7 Hct 41.3 MCV 88.6 MCH 29.4 MCHC 33.2 RDW Std Deviation 44.8 H RDW Coeff of Sophia 13.8 Plt Count 351 MPV 9.9 Immature Gran % (Auto) 0.600 Neut % (Auto) 61.0 Lymph % (Auto) 29.3 [place] % (Auto) 8.2 Eos % (Auto) 0.6 Baso % (Auto) 0.3 Absolute Neuts (auto) 7.6 Absolute Lymphs (auto) 3.65 Nucleated RBC % 0 Differential Comment SCANNED D-Dimer Quant (PE/DVT) < 0.27 L Sodium 141 Potassium 3.0 L Chloride 109 H Carbon Dioxide 26.0 Anion Gap 6 BUN 10 Creatinine 0.73 Estim Creat Clear Calc 80.21 Est GFR (MDRD) Af Amer 112 Est GFR (MDRD) Non-Af 93 BUN/Creatinine Ratio 13.6 Glucose 125 H Calcium 9.0 Total Bilirubin 0.40 AST 17 ALT 32 Alkaline Phosphatase 45 Total Protein 7.5 Albumin 3.6 Globulin 3.9 Albumin/Globulin Ratio 0.9 Radiography Diagnostic Testing: Clinical Impression(s) from Imaging Studies Chest X-Ray 03/12/22 21:10 IMPRESSION: Normal x-ray examination of the chest. Electronically Signed: Mervin Jimenez MD at 22:36 EST , X-ray interpreted by me is unremarkable <Dario Arana MD - Last Filed: 03/13/22 00:20> [facility] MDM Narrative Medical decision making narrative: Patient's symptoms improved after DuoNeb she is feeling much better. I auscultated the wheezing is gone although she still has some coarse breath sounds. Dr. Arana: Patient endorsed to me by Dr. Dow to check the laboratory work on this patient that was short of breath status post upper respiratory infection. Chest x-ray interpreted by myself after Dr. Dow had interpreted also shows no acute pneumonia or infiltrate, no pneumothorax. CBC is grossly normal except for slightly elevated white count of 12.5, normal hemoglobin of 13.7, hematocrit 41.3. Normal platelet count of 351. Electrolyte panel shows potassium slightly low at 3.0 which was replaced orally with 40 mEq. Glucose appropriately elevated at 125 with a normal anion gap of 6. D-dimer is negative at less than 0.27. At this point in time, plan will be for discharge as originally intended given her negative work-up here. He had already written for prednisone burst for the next few days. I feel she be discharged safely home with follow-up. Return instructions to the emergency department were reviewed. Disposition is discharged home in stable condition. Lab Data Attestation: I reviewed the patient's lab results. Labs: Laboratory Results - last 24 hr 03/12/22 03/12/22 03/12/22 22:20 22:20 22:20 WBC 12.5 H RBC 4.66 Hgb 13.7 Hct 41.3 MCV 88.6 MCH 29.4 MCHC 33.2 RDW Std Deviation 44.8 H RDW Coeff of Sophia 13.8 Plt Count 351 MPV 9.9 Immature Gran % (Auto) 0.600 Neut % (Auto) 61.0 Lymph % (Auto) 29.3 [place] % (Auto) 8.2 Eos % (Auto) 0.6 Baso % (Auto) 0.3 Absolute Neuts (auto) 7.6 Absolute Lymphs (auto) 3.65 Nucleated RBC % 0 Differential Comment SCANNED D-Dimer Quant (PE/DVT) < 0.27 L Sodium 141 Potassium 3.0 L Chloride 109 H Carbon Dioxide 26.0 Anion Gap 6 BUN 10 Creatinine 0.73 Estim Creat Clear Calc 80.21 Est GFR (MDRD) Af Amer 112 Est GFR (MDRD) Non-Af 93 BUN/Creatinine Ratio 13.6 Glucose 125 H Calcium 9.0 Total Bilirubin 0.40 AST 17 ALT 32 Alkaline Phosphatase 45 Total Protein 7.5 Albumin 3.6 Globulin 3.9 Albumin/Globulin Ratio 0.9 Radiography Diagnostic Testing: Clinical Impression(s) from Imaging Studies Chest X-Ray 03/12/22 21:10 IMPRESSION: Normal x-ray examination of the chest. Electronically Signed: Mervin Jimenez MD at 22:36 EST , Discharge Plan Triage Chief Complaint: Cough ED Provider: Buck Dow Dx/Rx/DC Orders Clinical Impression: Influenza, Asthma Instructions: What Is Asthma, ED Influenza (Adult), ED Inhaler Use, Asthma Prescriptions: New prednisone 20 mg tablet 40 mg PO DAILY Qty: 8 0RF No Action meloxicam 15 mg tablet 15 mg PO DAILY Label Comments: Take 1 tablet by mouth once daily as needed for pain. sumatriptan succinate 50 mg tablet 50 mg PO PRN PRN (Reason: Migraine Headache) Label Comments: Take 1 tablet at the onset of migraine. Can repeat in 2 hours if headaches persists nortriptyline 10 mg capsule 10 mg PO QHS Label Comments: Take 1 capsule by mouth daily at bedtime. gabapentin 300 mg Tablet 300 mg PO BID fluconazole [Diflucan] 150 mg tablet 150 mg PO Q3D PRN (Reason: YEAST) Mucinex Fast-Max Cold-Flu [id number] mg capsule 2 tab PO Q4H PRN (Reason: flu symptoms) Qty: 45 0RF Rx Instructions: Do not exceed 12 tablets in 24 hours. Primary Care Provider: Mayelin Jose WILDLIFE ECOLOGY PROFESSOR Referrals: Mayelin Jose WILDLIFE ECOLOGY PROFESSOR, WILDLIFE ECOLOGY PROFESSOR-C [Primary Care Provider] - 3-5 Days
[2022-03-12 22:36] LABS: Absolute Lymphocyte Count 3.65 X10^3/uL (0.83-4.51); Absolute Neutrophil Count 7.6 X10^3/uL (2.0-7.7); Basophil# 0.04 X10^3/uL; Basophil% 0.3 % (0-1); Eosinophil# 0.07 X10^3/uL; Eosinophils% 0.6 % (0-5); Hematocrit 41.3 % (37-47); Hemoglobin 13.7 g/dL (12.0-15.0); Lymphocyte # 3.65 X10^3/ul (0.83-4.51); Lymphocyte % 29.3 % (19-41); Mean Corp Hgb Conc 33.2 g/dL (32-36); Mean Corpuscular Hgb 29.4 pg (27.0-32.0); Mean Corpuscular Volume 88.6 fL (81-99); Mean Platelet Vol. 9.9 fl (6.2-12.0); Monocyte# 1.02 X10^3/uL; Monocyte% 8.2 % (0-10); NRBC Flagged by Analyzer 0 % (0-5); POSITIVE MORPHOLOGY YES; Platelet Count 351 K/mm3 (150-450); RBC Distribution Width CV 13.8 % (11.6-14.6); RBC Distribution Width SD 44.8 fl (35.1-43.9); Red Blood Count 4.66 M/mm3 (4.2-5.4); White Blood Count 12.5 K/mm3 (4.4-11.0)
[2022-03-12 23:00] LABS: ALB/GLOB Ratio 0.9 RATIO (0.9-2.4); AST(SGOT) 17 U/L (15-37); Alanine Aminotransfer ALT/SGPT 32 U/L (13-56); Albumin, Serum 3.6 g/dL (3.2-5.0); Alkaline Phosphatase 45 U/L (45-117); Anion Gap 6 (5-15); BUN 10 mg/dL (7-18); BUN/Creat Ratio 13.6 RATIO (10-20); Chloride 109 mmol/L (98-107); Creatinine, Serum 0.73 mg/dL (0.55-1.02); EST Glomerular Filtration Rate 93 mL/min (>60); Est Glom Filt Rate - Afr Amer 112 mL/min (>60); Estimated Creatinine Clearance 80.21 ml/min; Globulin 3.9 g/dL (2.2-4.2); Glucose 125 mg/dL (74-106); Protein, Total 7.5 g/dL (6.4-8.2); Sodium Level 141 mmol/L (136-145)
[2022-03-12] MEDS: Albuterol Sulfate 8 gm Inhaler (60 puffs) 4 PUFF INHALATION (23:12)
[2022-03-12 23:46] LABS: Differential Indicated SCAN CRITERIA MET
[2022-03-12 23:47] LABS: Differential Comment SCANNED
[2022-03-13] VITALS: BP 142/87; PULSE 71; RESP 24; O2SAT 99
[2022-03-13] MEDS: Potassium Chloride Oral Tablet 20 MEQ 40 MEQ PO (00:03)
[2022-03-13 00:06] LABS: D-Dimer Quantitative (DVT/PE) < 0.27 FEU/ug/m (0.27-0.49)
== END 2022-03-13 00:32 | disposition home or self-care (01) ==
PROVIDERS: Emergency Provider Emergency Medicine; PCP Nurse Practitioner; Visit Provider Emergency Medicine
DX: J11.1 Influenza due to unidentified influenza virus with other respiratory manifestations (principal); J45.909 Unspecified asthma, uncomplicated; Z87.891 Personal history of nicotine dependence; Z79.52 Long term (current) use of systemic steroids
CPT/HCPCS: 71046; 80053; 85025; 85379; 93005; 94640; 99283

== ENCOUNTER 2022-07-20 15:34 | Emergency (ER) | payer MEDICAID, SELFPAY ==
[2022-07-20 15:55] VITALS: BP 113/76; PULSE 71; RESP 16; TEMP 36.6; O2SAT 100; BMI 24.1
--- NOTE | 2022-07-20 16:43 | ED.RN ---
NAME CALLED MULTIPLE TIMES TO START SOME PROTOCOL ORDERS/TREATMENT. PT NOT IN UNIT. LWBS
== END 2022-07-20 16:50 | disposition left against medical advice (07) ==
LOC: ED 16:52
PROVIDERS: PCP Nurse Practitioner
DX: Z53.21 Procedure and treatment not carried out due to patient leaving prior to being seen by health care provider (principal)

== ENCOUNTER 2022-10-04 11:42 | Emergency (ER) | payer MEDICAID, SELFPAY ==
[2022-10-04 11:43] VITALS: BP 123/89; PULSE 111; RESP 18; TEMP 36.8; O2SAT 100; BMI 23.2
--- NOTE | 2022-10-04 11:58 | ED.VIS.FEGU ---
HPI <DORIE Hector - Last Filed: 10/04/22 15:54> HPI - Female History of Present Illness Chief Complaint: Female C/O Narrative Narrative: Patient presenting today with concerns that she could be having a ectopic . She reports that she feels as her breasts feel full, she has had intermittent nausea, fatigue, intermittent headaches, and has felt garcia for the past month. Her last menstrual period was September 08 she reports that it was shorter than usual. Reports a history of an ectopic in 2017. She went to an emergency department in [place] 1 week ago where a test was obtained and was negative, they also performed blood work and vaginal swabs and she was told everything came back normal. She reports intermittent left ovarian pain. But does have a history of an ovarian cyst. She denies any fever, chills, vomiting, abdominal pain, vaginal bleeding, or abnormal vaginal discharge. PFSH <DORIE Hector - Last Filed: 10/04/22 15:54> [facility] Medical History Anxiety Asthma Carpal tunnel syndrome Chronic pain Depression Former smoker GERD (gastroesophageal reflux disease) Herpes Kidney stone Migraines Post-trauma syndrome Scoliosis Substance abuse Home Medications meloxicam 15 mg tablet 15 mg PO DAILY 09/12/20 [History Last Taken Unknown] nortriptyline 10 mg capsule 10 mg PO QHS 09/12/20 [History Last Taken Unknown] sumatriptan succinate 50 mg tablet 50 mg PO PRN PRN Migraine Headache 09/12/20 [History Last Taken Unknown] fluconazole 150 mg tablet (Diflucan) 150 mg PO Q3D PRN YEAST 02/09/22 [History Last Taken Unknown] gabapentin 300 mg tablet 300 mg PO BID 02/09/22 [History Last Taken Unknown] phenylephrin 5 mg-DM 10 mg-acetaminophen 325 mg-guaifen 200 mg capsule (Mucinex Fast-Max Cold-Flu) 2 tab PO Q4H PRN flu symptoms #45 caps 03/03/22 [Rx Last Taken Unknown] prednisone 20 mg tablet 40 mg (2 x 20 mg) PO DAILY #8 tabs 03/12/22 [Rx Last Taken Unknown] Allergy/AdvReac Type Severity Reaction Status Date / Time latex Allergy Hives Verified 03/12/22 16:45 morphine Allergy Rash Verified 03/12/22 16:45 sertraline [From Zoloft] Allergy Hives Verified 03/12/22 16:45 tramadol Allergy Rash Verified 03/12/22 16:45 Social History Smoking Status: Former smoker substance use type: does not use ROS <DORIE Hector - Last Filed: 10/04/22 15:54> ROS ED Constitutional Constitutional ED: Denies chills or fever(s) Eyes Eyes: Denies change in vision Cardiovascular Cardiovascular: Denies chest pain Respiratory/Chest Respiratory/Chest: Denies cough, dyspnea or dyspnea on exertion Gastrointestinal Gastrointestinal: Reports nausea; Denies abdominal pain or vomiting Genitourinary Genitourinary ED: Denies dysuria, hematuria or urinary urgency Musculoskeletal Musculoskeletal: Denies arthralgias or myalgias Integumentary Denies Abrasions or rash Neurologic Neurologic: Denies paresthesias or weakness Psychiatric Psychiatric: Denies anxiety, depression, suicidal ideation or suicidal thoughts EXAM <DORIE Hector - Last Filed: 10/04/22 15:54> Physical Exam Const Vital Signs: 10/04/22 11:43 Temperature 98.2 F Temperature Source Temporal Pulse Rate 111 H Respiratory Rate 18 Blood Pressure 123/89 H Blood Pressure Mean 100 Pulse Ox 100 Oxygen Delivery Method Room Air Positive well nourished, well developed and no apparent distress General Appearance ED: well developed HEENT Reports normocephalic and head/scalp atraumatic Mouth ED: Yes moist mucous membranes normal Eyes PERRL and EOMs intact bilaterally Neck full ROM and supple Chest Wall inspection of chest normal Resp normal respiratory effort and clear to auscultation bilaterally Cardio regular rate and regular rhythm GI soft to palpation, non-tender, non-distended and no masses Back/Spine normal ROM and normal to inspection Extremity normal to inspection and full ROM Neuro oriented x3, CN's II-XII intact bilaterally, moves all extremities, no focal motor deficits and no sensory deficits noted Sensorium / Orientation: awake and alert Psych mental status grossly normal and thought process normal Skin no rashes or lesions noted and no wounds <Dr. Jeromy Arevalo DO - Last Filed: 10/04/22 16:26> Physical Exam Const Vital Signs: 10/04/22 11:43 Temperature 98.2 F Temperature Source Temporal Pulse Rate 111 H Respiratory Rate 18 Blood Pressure 123/89 H Blood Pressure Mean 100 Pulse Ox 100 Oxygen Delivery Method Room Air [facility] <DORIE Hector - Last Filed: 10/04/22 15:54> [facility] Narrative Medical decision making narrative: Patient presenting today with concerns that she could be and having an ectopic . She was seen in an emergency department in [place] last week where blood work was obtained as well as a urine test and vaginal swabs to test for BV, trichomonas, gonorrhea, and chlamydia. She was told that the swabs were negative and that her blood work was unremarkable. Urine test at that time was negative. She is well-appearing and in no acute distress, vitals are unremarkable aside from being slightly tachycardic. UA obtained to rule out and UTI and is negative. Patient requested that we obtain a blood test, this has been obtained and is also negative. At this time I do not think that any additional laboratory work needs to be repeated. She reports that she has been having abnormal menstrual periods over the past 2 months and they have been much shorter than usual. I have encouraged her to follow-up with her SHOE REPAIR COBBLER on this. She will be discharged home in stable condition and is comfortable with plan. She has been given return instructions. Lab Data Labs: Laboratory Results - last 24 hr 10/04/22 10/04/22 12:00 13:50 Serum , Qual NEGATIVE Urine Color Yellow Urine Clarity Clear Urine pH 6.5 Ur Specific [place] 1.010 Urine Protein Negative Urine Glucose (UA) Normal Urine Ketones Negative Urine Occult Blood Negative Urine Nitrite Negative Urine Bilirubin Negative Urine Urobilinogen Normal Ur Leukocyte Esterase Negative Urine RBC 0 SEEN Urine WBC 0 SEEN Ur Squamous Epith Cells 0-5 SEEN Urine Bacteria 0 SEEN Urine Mucus 0 SEEN Urine Test Negative <Dr. Jeromy Arevalo DO - Last Filed: 10/04/22 16:26> [facility] Narrative Medical decision making narrative: Patient presenting today with concerns that she could be and having an ectopic . She was seen in an emergency department in [place] last week where blood work was obtained as well as a urine test and vaginal swabs to test for BV, trichomonas, gonorrhea, and chlamydia. She was told that the swabs were negative and that her blood work was unremarkable. Urine test at that time was negative. She is well-appearing and in no acute distress, vitals are unremarkable aside from being slightly tachycardic. UA obtained to rule out and UTI and is negative. Patient requested that we obtain a blood test, this has been obtained and is also negative. At this time I do not think that any additional laboratory work needs to be repeated. She reports that she has been having abnormal menstrual periods over the past 2 months and they have been much shorter than usual. I have encouraged her to follow-up with her SHOE REPAIR COBBLER on this. She will be discharged home in stable condition and is comfortable with plan. She has been given return instructions. This patient was seen with a PA/PATTERN STAMPER Individually assessed they patient including history and physical. I have reviewed everything on the chart that is available and agree with the documentation provided by the PA/PATTERN STAMPER including discussion about the assessment, treatment plan, discussion, and return precautions. Patient presenting with concern for ectopic . She states she was seen in [place] last week for similar symptoms. She states that she was tested for STDs. All of her work-up was normal. test was negative. She presents today because she continues to have some pain and she is concerned she has had some ectopic . She states that urine hCG is never worked and she needs blood test. Her urine hCG was negative but we did obtain blood work to assess for and this is negative as well. Her pain is very mild I do not believe she needs any more blood work or imaging. Patient be discharged to follow-up with her PCP. Lab Data Labs: Laboratory Results - last 24 hr 10/04/22 10/04/22 12:00 13:50 Serum , Qual NEGATIVE Urine Color Yellow Urine Clarity Clear Urine pH 6.5 Ur Specific [place] 1.010 Urine Protein Negative Urine Glucose (UA) Normal Urine Ketones Negative Urine Occult Blood Negative Urine Nitrite Negative Urine Bilirubin Negative Urine Urobilinogen Normal Ur Leukocyte Esterase Negative Urine RBC 0 SEEN Urine WBC 0 SEEN Ur Squamous Epith Cells 0-5 SEEN Urine Bacteria 0 SEEN Urine Mucus 0 SEEN Urine Test Negative Discharge Plan Triage Chief Complaint: Female C/O ED Midlevel Provider: Qiana Schilling ED Provider: Jeromy Arevalo Dx/Rx/DC Orders Clinical Impression: Abnormal menstrual periods, Fatigue Instructions: ED Dysfunctional Uterine Bleeding Prescriptions: No Action meloxicam 15 mg tablet 15 mg PO DAILY Patient Comments: Take 1 tablet by mouth once daily as needed for pain. sumatriptan succinate 50 mg tablet 50 mg PO PRN PRN (Reason: Migraine Headache) Patient Comments: Take 1 tablet at the onset of migraine. Can repeat in 2 hours if headaches persists nortriptyline 10 mg capsule 10 mg PO QHS Patient Comments: Take 1 capsule by mouth daily at bedtime. gabapentin 300 mg Tablet 300 mg PO BID fluconazole [Diflucan] 150 mg tablet 150 mg PO Q3D PRN (Reason: YEAST) Mucinex Fast-Max Cold-Flu [id number] mg capsule 2 tab PO Q4H PRN (Reason: flu symptoms) Qty: 45 0RF Rx Instructions: Do not exceed 12 tablets in 24 hours. prednisone 20 mg tablet 40 mg PO DAILY Qty: 8 0RF Primary Care Provider: Mayelin Jose NP Referrals: Mayelin Jose PATTERN STAMPER, PATTERN STAMPER-C [Primary Care Provider] - Activity Restrictions/Additional Instructions: Please follow-up with your SHOE REPAIR COBBLER and return for any worsening of symptoms. Disposition Disposition: Home, Self Care Discharge Date/Time: 10/04/22 15:13
[2022-10-04 12:24] LABS: Bacteria 0 SEEN /hpf (None Seen); Internal QC Validated? YES +Cl - CLEAR BKGD; Mucous, Urine 0 SEEN /hpf (<or=2+); Pregnancy, Urine Negative Negative; Red Blood Cells-Urine 0 SEEN /hpf (0-5); White Blood Cells 0 SEEN /hpf (0-5)
[2022-10-04 13:00] LABS: Color, Urine Yellow (Yellow); Glucose, Dipstick Normal (Normal); Ketone-Dipstick Negative (Negative); Leukocyte Esterase-Dipstick Negative /ul (Negative); Nitrite-Dipstick Negative (Negative); Occult Blood-Urine Negative /ul (Negative); Protein-Dipstick Negative (Negative); Urine Bilirubin Dipstick Negative (Negative); Urine Clarity Clear (Clear); Urine Urobilinogen Normal (Normal); Urine pH 6.5 (5.0 - 8.0)
[2022-10-04 13:14] LABS: Squamous Epithelial Cells - UA 0-5 SEEN /hpf (5-10)
[2022-10-04 14:07] LABS: Internal QC Validated? YES +Cl - CLEAR BKGD; Pregnancy, Serum, hCG Quali. NEGATIVE Negative
== END 2022-10-04 15:13 | disposition home or self-care (01) ==
PROVIDERS: Physician Assistant; Emergency Provider Student in an Organized Health Care Education/Training Program; PCP Nurse Practitioner; Visit Provider Student in an Organized Health Care Education/Training Program
DX: N92.1 Excessive and frequent menstruation with irregular cycle (principal); R53.83 Other fatigue; R11.0 Nausea; R51.9 Headache, unspecified; Z87.891 Personal history of nicotine dependence
CPT/HCPCS: 36415; 81001; 81025; 84703; 99282

== ENCOUNTER 2022-12-10 18:15 | Emergency (ER) | payer MEDICAID, SELFPAY ==
[2022-12-10 18:17] VITALS: BP 142/90; PULSE 78; RESP 18; TEMP 36.2; O2SAT 100; BMI 25.0
--- NOTE | 2022-12-10 19:26 | CT_ITS ---
EXAM: CT ABDOMEN AND PELVIS WITH INTRAVENOUS CONTRAST CLINICAL INDICATION: Abdominal pain TECHNIQUE: Helically acquired images were obtained of the abdomen and pelvis with intravenous contrast. This CT exam was performed using one or more of the following dose reduction techniques: automated exposure control, adjustment of the mA and/or kV according to patient size, and/or use of iterative reconstruction technique. CONTRAST: Oral and amp; IV Gastrografin and amp; 100mL Isovue-300 COMPARISON: 09/24/2020 CT abdomen pelvis. FINDINGS: LOWER THORAX: No significant abnormality. Lung bases are clear. No cardiomegaly. No significant pericardial effusion. ABDOMEN: LIVER: Hepatomegaly. GALLBLADDER AND BILE DUCTS: No significant abnormality. No calcified gallstones. No gallbladder distention or wall edema. No intra- or extrahepatic biliary ductal dilation. PANCREAS: No significant abnormality. No focal cystic or solid mass. SPLEEN: No significant abnormality. Normal size without focal cystic or solid mass. ADRENALS: No significant abnormality. No nodules. KIDNEYS AND URETERS: No significant abnormality. Normal renal size and position. No hydronephrosis. STOMACH AND BOWEL: Moderate colonic stool. No stomach or bowel distention. No focal inflammatory change. PELVIS: APPENDIX: Normal appendix visualized. BLADDER: Mild urinary bladder wall thickening. REPRODUCTIVE: Uterine fibroids partially visualized. ABDOMEN and PELVIS: INTRAPERITONEAL SPACE: No significant abnormality. No ascites or other fluid collection. No free air. BONES/JOINTS: No significant abnormality. No suspicious lytic or blastic abnormality. SOFT TISSUES: Small fat-containing umbilical hernia. VASCULATURE: No significant abnormality. Abdominal aorta is non-dilated. LYMPH NODES: No significant abnormality. No enlarged lymph nodes. CT/Abdomen/Pelvis WITH Contrast IMPRESSION: 1. No evidence of acute appendicitis or bowel obstruction. 2. Mild urinary bladder wall thickening. Correlate for cystitis. 3. Uterine fibroids partially visualized. 4. Hepatomegaly. 5. Moderate colonic stool. Electronically Signed: Emmett Resendez DO at 21:23 EDT ,
[2022-12-10] MEDS: Ondansetron 4 MG/2 ML Vial IV (20:01)
[2022-12-10] MEDS: 0.9% Normal Saline (1000mL) 1,000 ML 1000 ML IV (20:01)
[2022-12-10 20:04] LABS: Absolute Lymphocyte Count 2.44 X10^3/uL (0.83-4.51); Absolute Neutrophil Count 3.6 X10^3/uL (2.0-7.7); Basophil# 0.05 X10^3/uL; Basophil% 0.7 % (0-1); Hematocrit 44.2 % (37-47); Hemoglobin 14.4 g/dL (12.0-15.0); Lymphocyte # 2.44 X10^3/ul (0.83-4.51); Lymphocyte % 36.3 % (19-41); Mean Corp Hgb Conc 32.6 g/dL (32-36); Mean Corpuscular Hgb 29.4 pg (27.0-32.0); Mean Corpuscular Volume 90.2 fL (81-99); Mean Platelet Vol. 9.4 fl (6.2-12.0); Monocyte% 5.9 % (0-10); NRBC Flagged by Analyzer 0 % (0-5); Neutrophil # 3.63 X10^3/uL (2.7-7.7); Platelet Count 348 K/mm3 (150-450); RBC Distribution Width CV 13.1 % (11.6-14.6); RBC Distribution Width SD 43.2 fl (35.1-43.9); White Blood Count 6.7 K/mm3 (4.4-11.0)
--- NOTE | 2022-12-10 20:12 | ED.VIS.GI ---
HPI HPI - GI History of Present Illness Chief Complaint: Abd Pain Informant: patient Abdominal Pain/Flank Pain Onset: Today Context: Gradual Onset Timing: Continuous Quality: Aching Location: RLQ Worsened by: Nothing Relieved by: Nothing Nausea/Vomiting/Emesis GI Symptom: Positive for Nausea; Negative for Vomiting Diarrhea/Melena/Hematochezia GI Symptom: Negative for Diarrhea, Melena or Hematochezia Associated Symptoms Associated Symptoms: Positive for Frequency; Negative for Dysuria or Hematuria Narrative Narrative: Patient presents with abdominal pain that began today. Patient describes her pain as aching. Patient states it is over the right lower abdomen. Patient states she has had some nausea today. Patient denies any vomiting. Patient admits to some urinary frequency but denies any dysuria or hematuria. Patient denies any diarrhea, melena, or hematochezia. Patient states her last menstrual period was 2 weeks ago. Patient denies any abnormal vaginal bleeding or discharge. Patient states she went to the urgent care and when they pushed on her right lower abdomen, they recommended patient come to the emergency department for further evaluation. [facility] Medical History (Updated 12/10/22 @ 22:[address] Eldon Acuña, ) Anxiety Asthma Carpal tunnel syndrome Chronic pain Depression Former smoker GERD (gastroesophageal reflux disease) Herpes Kidney stone Migraines Post-trauma syndrome Scoliosis Substance abuse Home Medications meloxicam 15 mg tablet 15 mg PO DAILY 09/12/20 [History Last Taken Unknown] nortriptyline 10 mg capsule 10 mg PO QHS 09/12/20 [History Last Taken Unknown] sumatriptan succinate 50 mg tablet 50 mg PO PRN PRN Migraine Headache 09/12/20 [History Last Taken Unknown] fluconazole 150 mg tablet (Diflucan) 150 mg PO Q3D PRN YEAST 02/09/22 [History Last Taken Unknown] gabapentin 300 mg tablet 300 mg PO BID 02/09/22 [History Last Taken Unknown] phenylephrin 5 mg-DM 10 mg-acetaminophen 325 mg-guaifen 200 mg capsule (Mucinex Fast-Max Cold-Flu) 2 tab PO Q4H PRN flu symptoms #45 caps 03/03/22 [Rx Last Taken Unknown] prednisone 20 mg tablet 40 mg (2 x 20 mg) PO DAILY #8 tabs 03/12/22 [Rx Last Taken Unknown] Allergy/AdvReac Type Severity Reaction Status Date / Time latex Allergy Hives Verified 12/10/22 18:17 morphine Allergy Rash Verified 12/10/22 18:17 sertraline [From Zoloft] Allergy Hives Verified 12/10/22 18:17 sulfamethoxazole Allergy Hives Verified 12/10/22 18:17 [From Bactrim] tramadol Allergy Rash Verified 12/10/22 18:17 trimethoprim [From Bactrim] Allergy Hives Verified 12/10/22 18:17 Surgical History (Updated 12/10/22 @ 20:[address] Eldon Acuña DO) Hx of breast surgery Hx of lithotripsy Hx of oral surgery Social History Smoking Status: Former smoker substance use type: does not use ROS ROS ED Constitutional Constitutional ED: Denies chills or fever(s) Eyes Eyes: Denies blurry vision or change in vision ENT ENT ED: Denies rhinorrhea or sore throat Cardiovascular Cardiovascular: Denies chest pain or palpitations Respiratory/Chest Respiratory/Chest: Denies cough or dyspnea Gastrointestinal Gastrointestinal: Reports abdominal pain and nausea; Denies vomiting Genitourinary Genitourinary ED: Reports urinary frequency; Denies dysuria or hematuria Musculoskeletal Musculoskeletal: Denies back pain or neck pain Integumentary Denies abscess or rash Neurologic Neurologic: Denies headache(s) or weakness Allergic/Immunologic Allergic/Immunologic ED: Denies mouth swelling or urticaria EXAM Physical Exam Const Vital Signs: 12/10/22 18:17 Temperature 97.1 F L Temperature Source Temporal Pulse Rate 78 Respiratory Rate 18 Blood Pressure 142/90 H Blood Pressure Mean 107 Pulse Ox 100 Oxygen Delivery Method Room Air Positive well nourished and well developed General Appearance ED: well developed and NAD HEENT Reports moist mucous membranes Neck supple and no JVD Resp normal respiratory effort and clear to auscultation bilaterally Cardio regular rate and regular rhythm GI normal to inspection, nondistended, normoactive bowel sounds Palpation: soft and tender RLQ; Negative for guarding or rebound tenderness present Extremity normal to inspection General Extremety ED: Negative for edema or tenderness General Extremity: Negative for edema Neuro oriented x3, CN's II-XII intact bilaterally and no sensory deficits noted Sensorium / Orientation: alert Motor Exam: strength 5/5 throughout Psych mental status grossly normal Skin no rashes or lesions noted MDM MDM MDM Narrative Medical decision making narrative: Differential diagnosis includes appendicitis, ovarian cyst, ectopic , mesenteric adenitis, pancreatitis, bowel obstruction, perforation, urinary tract infection, ureteral calculus, and viral illness. CBC will be obtained to assess for leukocytosis and anemia. Comprehensive metabolic profile will be obtained to assess for hepatic function, renal function, and electrolyte abnormality. Lipase will be obtained to assess for pancreatitis. Serum hCG will be obtained to assess for . Urinalysis will be obtained to assess for urinary tract infection. CT scan of the abdomen pelvis will be obtained to assess for appendicitis, bowel obstruction, perforation. Lab Data Attestation: I reviewed the patient's lab results. Lab results narrative: CBC was reviewed and was within normal limits. Comprehensive metabolic profile was reviewed and was within normal limits. Lipase was reviewed and was normal at 34. Serum hCG was reviewed and was negative. Urinalysis was reviewed. There is no evidence of urinary tract infection or hematuria. Labs: Laboratory Results - last 24 hr 12/10/22 12/10/22 20:00 20:30 WBC 6.7 RBC 4.90 Hgb 14.4 Hct 44.2 MCV 90.2 MCH 29.4 MCHC 32.6 RDW Std Deviation 43.2 RDW Coeff of Sophia 13.1 Plt Count 348 MPV 9.4 Immature Gran % (Auto) 0.100 Neut % (Auto) 54.0 Lymph % (Auto) 36.3 [place] % (Auto) 5.9 Eos % (Auto) 3.0 Baso % (Auto) 0.7 Absolute Neuts (auto) 3.6 Absolute Lymphs (auto) 2.44 Nucleated RBC % 0 Sodium 138 Potassium 3.7 Chloride 107 Carbon Dioxide 30.0 Anion Gap 1 L BUN 11 Creatinine 0.88 Estim Creat Clear Calc 66.54 Est GFR (MDRD) Af Amer 90 Est GFR (MDRD) Non-Af 75 BUN/Creatinine Ratio 12.4 Glucose 87 Calcium 9.5 Total Bilirubin 0.50 AST 21 ALT 32 Alkaline Phosphatase 63 Total Protein 8.7 H Albumin 4.3 Globulin 4.4 H Albumin/Globulin Ratio 1.0 Lipase 34 Serum , Qual NEGATIVE Urine Color Yellow Urine Clarity Clear Urine pH 7.0 Ur Specific [place] 1.005 Urine Protein Negative Urine Glucose (UA) Normal Urine Ketones Negative Urine Occult Blood Negative Urine Nitrite Negative Urine Bilirubin Negative Urine Urobilinogen Normal Ur Leukocyte Esterase Negative Urine RBC 0 SEEN Urine WBC 0 SEEN Ur Squamous Epith Cells 0 SEEN Urine Bacteria 0 SEEN Urine Mucus 0 SEEN Radiography Diagnostic Testing: Clinical Impression(s) from Imaging Studies Abdomen/Pelvis CT 12/10/22 19:26 IMPRESSION: 1. No evidence of acute appendicitis or bowel obstruction. 2. Mild urinary bladder wall thickening. Correlate for cystitis. 3. Uterine fibroids partially visualized. 4. Hepatomegaly. 5. Moderate colonic stool. Electronically Signed: Emmett Resendez DO at 21:23 EDT , CT scan of the abdomen and pelvis was obtained. There is no evidence of appendicitis or bowel obstruction. There is moderate stool in the colon. There is no acute abnormality noted. This was interpreted by the radiologist and was also independently reviewed by myself. Treatment and Re-Evaluation :: Patient was given IV fluids and Zofran. Patient was advised of her findings. Patient was instructed to follow-up with her primary care physician in 5 to 7 days. Patient was instructed to take Tylenol or ibuprofen as needed for pain. Patient understood and was agreeable with the plan. All questions were answered. Discharge Plan Triage Chief Complaint: Abd Pain ED Provider: Eldon Acuña Dx/Rx/DC Orders Clinical Impression: Right lower quadrant abdominal pain Instructions: ED Abdominal Pain Unkn Cause Fem Prescriptions: No Action meloxicam 15 mg tablet 15 mg PO DAILY Patient Comments: Take 1 tablet by mouth once daily as needed for pain. sumatriptan succinate 50 mg tablet 50 mg PO PRN PRN (Reason: Migraine Headache) Patient Comments: Take 1 tablet at the onset of migraine. Can repeat in 2 hours if headaches persists nortriptyline 10 mg capsule 10 mg PO QHS Patient Comments: Take 1 capsule by mouth daily at bedtime. gabapentin 300 mg Tablet 300 mg PO BID fluconazole [Diflucan] 150 mg tablet 150 mg PO Q3D PRN (Reason: YEAST) Mucinex Fast-Max Cold-Flu [id number] mg capsule 2 tab PO Q4H PRN (Reason: flu symptoms) Qty: 45 0RF Rx Instructions: Do not exceed 12 tablets in 24 hours. prednisone 20 mg tablet 40 mg PO DAILY Qty: 8 0RF Primary Care Provider: Mayelin Jose SECOND HELPER Referrals: Mayelin Jose SECOND HELPER, SECOND HELPER-C [Primary Care Provider] - 5-7 Days Disposition Disposition: Home, Self Care
[2022-12-10 20:14] LABS: Internal QC Validated? YES +Cl - CLEAR BKGD; Pregnancy, Serum, hCG Quali. NEGATIVE Negative
[2022-12-10 20:22] LABS: AST(SGOT) 21 U/L (15-37); Alanine Aminotransfer ALT/SGPT 32 U/L (13-56); Albumin, Serum 4.3 g/dL (3.2-5.0); Alkaline Phosphatase 63 U/L (45-117); Anion Gap 1 (5-15); BUN 11 mg/dL (7-18); BUN/Creat Ratio 12.4 RATIO (10-20); Calcium,Total 9.5 mg/dL (8.5-10.1); Chloride 107 mmol/L (98-107); Creatinine, Serum 0.88 mg/dL (0.55-1.02); EST Glomerular Filtration Rate 75 mL/min (>60); Est Glom Filt Rate - Afr Amer 90 mL/min (>60); Estimated Creatinine Clearance 66.54 ml/min; Globulin 4.4 g/dL (2.2-4.2); Glucose 87 mg/dL (74-106); Lipase 34 U/L (13-75); Potassium 3.7 mmol/L (3.5-5.1); Protein, Total 8.7 g/dL (6.4-8.2); Sodium Level 138 mmol/L (136-145)
[2022-12-10 20:44] LABS: Bacteria 0 SEEN /hpf (None Seen); Mucous, Urine 0 SEEN /hpf (<or=2+); Red Blood Cells-Urine 0 SEEN /hpf (0-5); Squamous Epithelial Cells - UA 0 SEEN /hpf (5-10); White Blood Cells 0 SEEN /hpf (0-5)
[2022-12-10 20:46] LABS: Color, Urine Yellow (Yellow); Glucose, Dipstick Normal (Normal); Ketone-Dipstick Negative (Negative); Leukocyte Esterase-Dipstick Negative /ul (Negative); Nitrite-Dipstick Negative (Negative); Occult Blood-Urine Negative /ul (Negative); Protein-Dipstick Negative (Negative); Specific Gravity, Urine 1.005 (1.002-1.030); Urine Bilirubin Dipstick Negative (Negative); Urine Clarity Clear (Clear); Urine Urobilinogen Normal (Normal)
[2022-12-10 22:00] VITALS: RESP 18
== END 2022-12-10 22:14 | disposition home or self-care (01) ==
PROVIDERS: Emergency Provider Emergency Medicine; PCP Nurse Practitioner; Visit Provider Emergency Medicine
DX: R10.31 Right lower quadrant pain (principal); R11.0 Nausea; Z87.891 Personal history of nicotine dependence; R35.0 Frequency of micturition
CPT/HCPCS: 74177; 80053; 81001; 83690; 84703; 85025; 96361; 96374; 99282; J7030; Q9967; A4216; J2405

== ENCOUNTER 2023-03-12 06:44 | Emergency (ER) | payer MEDICAID, SELFPAY ==
[2023-03-12 06:45] VITALS: BP 126/78; PULSE 95; RESP 18; TEMP 36.6; O2SAT 100; BMI 25.8
--- OUTSIDE RECORDS SUMMARY | 2023-03-12 06:57 | XMS RPT_ITS | CCD ---
Author Name Unknown Address [id number] [place] [address] Organization [facility] Care Team Providers Care Home Care Liaison Name Role Phone ELIAS GREEN GLASS PRODUCTION MACHINE OPERATOR- Referring Unavailable VANDA KEARNS DO Attending Unavailable VANDA KEARNS DO Primary Care Unavailable VANDA KAERNS DO Admitting Unavailable Unavailable Primary Care Provider Unavailjenni e Gustavo CARDENAS, Elijah Lundberg Primary Care Provider [phone] Elijah Arguelles MD Primary Care Provider [phone] PROVIDER, UNKNOWN Admitting Unavailable PROVIDER, UNKNOWN Attending Unavailable PROVIDER, UNKNOWN Attending Unavailable PROVIDER, UNKNOWN Admitting Unavailable PROVIDER, UNKNOWN Attending Unavailable PROVIDER, UNKNOWN Admitting Unavailable Elijah Arguelles MD Primary Care Provider [phone] LUISA AMIN PA-C Attending Unavailable PHYSICIAN, PATIENT UNSURE Primary Care Unanick ARGUELLES, GIORGIO Primary Care Unavailable ROLO RUEDA Attending Unavailable ARGUELLES, GIORGIO Primary Care Unavailable ARGUELLES, GIORGIO Primary Care Unavailable MAYELIN DE LEON Referring Unavailable ARGUELLES, GIORGIO Primary Care Unavailable MAYELIN DE LEON Attending Unavailable ARGUELLES, GIORGIO Primary Care Unavailable ARGUELLES, GIORGIO Primary Care Unavailable ARGUELLES, GIORGIO Primary Care Unavailable ARGUELLES, GIORGIO Primary Care Unavailable ARGUELLES, GIORGIO Primary Care Unavailable CORA MIRANDA Attending Unavailable ARGUELLES, GIORGIO Primary Care Unavailable ARGUELLES, GIORGIO Primary Care Unavailable Allergies Allergy Classification Reported Allergen(s) Allergy Type Date of Onset Reaction(s) Facility (20 sources) Latex; Translations: [LATEX] Drug Allergy 02-20-20 20 Hives, Swelling [facility] (20 sources) Morphine; Translations: [MORPHINE] Drug Allergy 07-04-19 21 Rash [facility] Work Phone: (20 sources) Sertraline; Translations: [SERTRALINE] Drug Allergy 02-20-20 Hives, Swelling [facility] (20 sources) Sulfamethoxazole / Trimethoprim; Translations: [SULFAMETHOXAZOLE-T RIMETHOPRIM] Drug Allergy 05-14-19 Unknown [facility] Work Phone: (20 sources) traMADol; Translations: [TRAMADOL] Drug Allergy 07-30-19 Rash [facility] Work Phone: (1 source) SULFAMETHOXAZOLE W-TRIMETHOPRIM; Translations: [SULFAMETHOXAZOLE W-TRIMETHOPRIM] Propensity to adverse reactions to drug (disorder) 05-14-19 [facility] Rep[facility] Medications Current Medications Medication Drug Class(es) Dates Sig (Normalized) Sig (Original) amoxicillin 875 mg oral tablet (1 source) Penicillin-class Antibacterial Start: 09-11-2021 End: 09-18-2021 take 1 tablet by mouth twice daily amoxicillin (AMOXIL) 875 mg tablet Take 1 tablet by mouth twice daily for 7 days. 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 60 tablet 0 08/28/2021 10/30/2021 Discontinued (Non-Compliance) Problems Active Problems Problem Classification Problem Date Documented Da te Episodic/Chronic Abdominal pain (1 source) Right lower quadrant pain; Translations: [Right lower quadrant pain] 12-10-2022 Episodic Anxiety disorders (20 sources) Posttraumatic stress disorder; Translations: [Post-traumatic stress disorder, unspecified] Onset: 02-20-2020 02-20-2020 Chronic Asthma (20 sources) Asthmatic bronchitis; Translations: [Unspecified asthma, uncomplicated] Onset: 02-20-2020 02-20-2020 Chronic Disorders of teeth and jaw (1 source) Infection of tooth; Translations: [Periapical abscess without sinus] 10-15-2022 Episodic Genitourinary symptoms and ill-defined conditions (2 sources) Dysuria; Translations: [Dysuria] 10-15-2022 Episodic Headache; including migraine (20 sources) Migraine without aura, not refractory ; Translations: [Migraine without aura, not intractable, without status migrainosus] Onset: 02-20-2020 02-20-2020 Chronic Headache; including migraine (1 source) Headache; Translations: [Headache, unspecified headache type] Episodic Immunizations and screening for infectious disease (1 source) Contact with or exposure to other viral diseases; Translations: [Close exposure to COVID-19 virus] Episodic Inflammatory diseases of female pelvic organs (1 source) Acute vaginitis; Translations: [Acute vaginitis] 02-26-2023 Episodic Mood disorders (1 source) Mild major depression, single episode; Translations: [Major depressive disorder, single episode, mild] Chronic Nausea and vomiting (1 source) Nausea; Translations: [Nausea] 12-10-2022 Episodic Other acquired deformities (7 sources) Scoliosis deformity of spine; Translations: [Scoliosis, unspecified] Onset: 07-24-2022 Chronic Other aftercare (4 sources) Long-term current use of opiate analgesic drug; Translations: [prison (current) use of opiate analgesic] Episodic Other ear and sense organ disorders (1 source) Otalgia, right ear; Translations: [Otalgia, unspecified] Episodic Other female genital disorders (1 source) Vaginal irritation; Translations: [Other specified noninflammatory disorders of vagina] Episodic Other female genital disorders (1 source) Vaginal odor; Translations: [Other specified noninflammatory disorders of vagina] Episodic Other female genital disorders (1 source) Vaginal discharge; Translations: [Other specified noninflammatory disorders of vagina] Episodic Other gastrointestinal disorders (1 source) Diarrhea; Translations: [Diarrhea, unspecified] 12-10-2022 Episodic Other lower respiratory disease (1 source) Cough; Translations: [Acute cough] Episodic Other lower respiratory disease (1 source) Dyspnea; Translations: [Shortness of breath] Episodic Other non-traumatic joint disorders (2 sources) Chronic pain of right upper limb; Translations: [Pain in right shoulder] Episodic Other screening for suspected conditions (not mental disorders or infectious disease) (7 sources) Patient encounter status; Translations: [Encounter for screening mammogram for malignant neoplasm of breast] Episodic Other upper respiratory infections (1 source) Viral upper respiratory tract infection; Translations: [Acute upper respiratory infection, unspecified] Episodic Otitis media and related conditions (1 source) Acute right otitis media; Translations: [Otitis media, unspecified, right ear] Episodic Viral infection (20 sources) Herpes simplex; Translations: [Herpesviral infection of urogenital system, unspecified] Onset: 02-20-2020 02-20-2020 Chronic Past or Other Problems Problem Classification Problem Date Documented Da te Episodic/Chronic Anal and rectal conditions (1 source) Other specified diseases of anus and rectum; Translations: [Rectal pain] Onset: 07-17-2022 Episodic Calculus of urinary tract (20 sources) Ureteric stone; Translations: [Calculus of ureter] Onset: 06-08-2020 06-08-2020 Episodic Gastrointestinal hemorrhage (1 source) Hemorrhage of anus and rectum; Translations: [Rectal bleeding] Onset: 07-17-2022 Episodic Nonmalignant breast conditions (20 sources) Cyst of right breast; Translations: [Solitary cyst of right breast] Onset: 02-20-2020 02-20-2020 Episodic Other and unspecified benign neoplasm (20 sources) Osteochondroma of scapula; Translations: [Benign neoplasm of scapula and long bones of right upper limb] Onset: 06-28-2020 Episodic Other connective tissue disease (20 sources) Myofascial pain; Translations: [Myalgia, other site] Onset: 11-25-2020 Episodic Other gastrointestinal disorders (1 source) Diarrhea, unspecified; Translations: [Diarrhea, unspecified type] Onset: 07-17-2022 Episodic Other non-traumatic joint disorders (20 sources) Shoulder joint pain; Translations: [Pain in right shoulder] Onset: 06-28-2020 Episodic Other skin disorders (20 sources) Subcutaneous mass of head; Translations: [Localized swelling, mass and lump, head] Onset: 02-20-2020 02-20-2020 Episodic Spondylosis; intervertebral disc disorders; other back problems (20 sources) Spinal stenosis in cervical region; Translations: [Spinal stenosis, cervical region] Onset: 11-25-2020 Episodic Substance-related disorders (20 sources) Marijuana user; Translations: [Cannabis use, unspecified, uncomplicated] Onset: 02-20-2020 02-20-2020 Episodic Results Test Name Value Interpretation Reference Range Facil ity Vital Signs Date Time Vital Sign Value Performing Clinician Meena vale 02-26-2023 11:55-0500 Body temperature 97.9 [degF] Simran Ballesterosk DRY CELL SEALER.GLASS PRODUCTION MACHINE OPERATOR Work Phone: [facility] 02-26-2023 11:55-0500 Body weight 63.96 kg Simran Hester DRY CELL SEALER.GLASS PRODUCTION MACHINE OPERATOR Work Phone: [facility] 02-26-2023 11:55-0500 Diastolic blood pressure 84 mm[Hg] Simran Ballesterosk DRY CELL SEALER.GLASS PRODUCTION MACHINE OPERATOR Work Phone: [facility] 02-26-2023 11:55-0500 Heart rate 74 /min Simran Hester DRY CELL SEALER.GLASS PRODUCTION MACHINE OPERATOR Work Phone: [facility] 02-26-2023 11:55-0500 Respiratory rate 18 /min Simran Hester DRY CELL SEALER.GLASS PRODUCTION MACHINE OPERATOR Work Phone: [facility] 02-26-2023 11:55-0500 SaO2% (BldA) [Mass fraction] 100 % Simran Hester DRY CELL SEALER.GLASS PRODUCTION MACHINE OPERATOR Work Phone: [facility] 02-26-2023 11:55-0500 Systolic blood pressure 135 mm[Hg] Simran Ballesterosk DRY CELL SEALER.GLASS PRODUCTION MACHINE OPERATOR Work Phone: [facility] 12-10-2022 17:29-0400 Body temperature 97.9 [degF] Aline Gilman-Jan DRY CELL SEALER.GLASS PRODUCTION MACHINE OPERATOR Work Phone: [facility] 12-10-2022 17:29-0400 Body weight 61.69 kg Aline Gilman-Jan DRY CELL SEALER.GLASS PRODUCTION MACHINE OPERATOR Work Phone: [facility] 12-10-2022 17:29-0400 Diastolic blood pressure 78 mm[Hg] Aline Lopzeler-Jan DRY CELL SEALER.GLASS PRODUCTION MACHINE OPERATOR Work Phone: [facility] 12-10-2022 17:29-0400 Heart rate 75 /min Aline Praisler-Wood DRY CELL SEALER.GLASS PRODUCTION MACHINE OPERATOR Work Phone: [facility] 12-10-2022 17:29-0400 Respiratory rate 18 /min Aline Praisler-Wood DRY CELL SEALER.GLASS PRODUCTION MACHINE OPERATOR Work Phone: [facility] 12-10-2022 17:29-0400 SaO2% (BldA) [Mass fraction] 100 % Aline Praisler-Wood DRY CELL SEALER.GLASS PRODUCTION MACHINE OPERATOR Work Phone: [facility] 12-10-2022 17:29-0400 Systolic blood pressure 110 mm[Hg] Aline Praisler-Wood DRY CELL SEALER.GLASS PRODUCTION MACHINE OPERATOR Work Phone: [facility] 10-15-2022 18:47-0400 Body temperature 99.1 [degF] Krislyn Aberegg PA Work Phone: [facility] 10-15-2022 18:47-0400 Body weight 60.51 kg Krislyn Aberegg PA Work Phone: [facility] 10-15-2022 18:47-0400 Diastolic blood pressure 82 mm[Hg] Krislyn Aberegg PA Work Phone: [facility] 10-15-2022 18:47-0400 Heart rate 96 /min Krislyn Aberegg PA Work Phone: [facility] 10-15-2022 18:47-0400 Respiratory rate 18 /min Krislyn Aberegg PA Work Phone: [facility] 10-15-2022 18:47-0400 SaO2% (BldA) [Mass fraction] 100 % Krislyn Aberegg PA Work Phone: [facility] 10-15-2022 18:47-0400 Systolic blood pressure 128 mm[Hg] Krislyn Aberegg PA Work Phone: [facility] 07-24-2022 08:21-0400 Body height 158.8 cm Rolo Mohit DRY CELL SEALER.GLASS PRODUCTION MACHINE OPERATOR Work Phone: [facility] 07-24-2022 08:21-0400 Body weight 58.97 kg Rolo Mohit DRY CELL SEALER.GLASS PRODUCTION MACHINE OPERATOR Work Phone: [facility] 07-24-2022 08:21-0400 Diastolic blood pressure 70 mm[Hg] Rolo Mohit DRY CELL SEALER.GLASS PRODUCTION MACHINE OPERATOR Work Phone: [facility] 07-24-2022 08:21-0400 Heart rate 82 /min Rolo Mohit DRY CELL SEALER.GLASS PRODUCTION MACHINE OPERATOR Work Phone: [facility] 07-24-2022 08:21-0400 SaO2% (BldA) [Mass fraction] 98 % Rolo Mohit DRY CELL SEALER.GLASS PRODUCTION MACHINE OPERATOR Work Phone: [facility] 07-24-2022 08:21-0400 Systolic blood pressure 100 mm[Hg] Rolo Mohit DRY CELL SEALER.GLASS PRODUCTION MACHINE OPERATOR Work Phone: [facility] 06-20-2022 14:14-0400 Body temperature 98.4 [degF] Aline Praisler-Wood DRY CELL SEALER.GLASS PRODUCTION MACHINE OPERATOR Work Phone: [facility] 06-20-2022 14:14-0400 Body weight 59.15 kg Aline Praisler-Wood DRY CELL SEALER.GLASS PRODUCTION MACHINE OPERATOR Work Phone: [facility] 06-20-2022 14:14-0400 Diastolic blood pressure 70 mm[Hg] Aline Praisler-Wood DRY CELL SEALER.GLASS PRODUCTION MACHINE OPERATOR Work Phone: [facility] 06-20-2022 14:14-0400 Heart rate 78 /min Aline Praisler-Wood DRY CELL SEALER.GLASS PRODUCTION MACHINE OPERATOR Work Phone: [facility] 06-20-2022 14:14-0400 Respiratory rate 18 /min Aline Praisler-Wood DRY CELL SEALER.GLASS PRODUCTION MACHINE OPERATOR Work Phone: [facility] 06-20-2022 14:14-0400 SaO2% (BldA) [Mass fraction] 100 % Aline Praisler-Wood DRY CELL SEALER.GLASS PRODUCTION MACHINE OPERATOR Work Phone: [facility] 04-08-2023 14:14-0400 Systolic blood pressure 108 mm[Hg] Aline Lugo DRY CELL SEALER.GLASS PRODUCTION MACHINE OPERATOR Work Phone: [facility] 03-12-2022 16:25-0500 Body temperature 98.4 [degF] [facility] DRY CELL SEALER.GLASS PRODUCTION MACHINE OPERATOR Work Phone: [facility] 03-12-2022 16:25-0500 Body weight 58.06 kg [facility] DRY CELL SEALER.GLASS PRODUCTION MACHINE OPERATOR Work Phone: [facility] 03-12-2022 16:25-0500 Diastolic blood pressure 90 mm[Hg] [facility] DRY CELL SEALER.GLASS PRODUCTION MACHINE OPERATOR Work Phone: [facility] 03-12-2022 16:25-0500 Heart rate 104 /min [facility] DRY CELL SEALER.GLASS PRODUCTION MACHINE OPERATOR Work Phone: [facility] 03-12-2022 16:25-0500 Respiratory rate 22 /min [facility] DRY CELL SEALER.GLASS PRODUCTION MACHINE OPERATOR Work Phone: [facility] 03-12-2022 16:25-0500 SaO2% (BldA) [Mass fraction] 100 % [facility] DRY CELL SEALER.GLASS PRODUCTION MACHINE OPERATOR Work Phone: [facility] 03-12-2022 16:25-0500 Systolic blood pressure 140 mm[Hg] [facility] DRY CELL SEALER.GLASS PRODUCTION MACHINE OPERATOR Work Phone: [facility] 03-02-2022 15:32-0500 Body temperature 99.3 [degF] Sid Menendez MD Work Phone: [facility] 03-02-2022 15:32-0500 Body weight 58.15 kg Sid Menendez MD Work Phone: [facility] 03-02-2022 15:32-0500 Diastolic blood pressure 70 mm[Hg] Sid Menendez MD Work Phone: [facility] 03-02-2022 15:32-0500 Heart rate 99 /min Sid Menendez MD Work Phone: [facility] 12-19-2022 15:32-0500 Respiratory rate 18 /min Sid Menendez MD Work Phone: [facility] 03-02-2022 15:32-0500 SaO2% (BldA) [Mass fraction] 99 % Sid Menendez MD Work Phone: [facility] 03-02-2022 15:32-0500 Systolic blood pressure 100 mm[Hg] Sid Menendez MD Work Phone: [facility] 03-02-2022 13:29-0500 Body weight 57.61 kg Cora Plotmaximo DRY CELL SEALER.CNM Work Phone: [facility] 03-02-2022 13:29-0500 Diastolic blood pressure 78 mm[Hg] Cora Plotts DRY CELL SEALER.CNM Work Phone: [facility] 03-02-2022 13:29-0500 Systolic blood pressure 116 mm[Hg] Cora Plotts DRY CELL SEALER.CNM Work Phone: [facility] 11-06-2021 16:06-0400 Body temperature 98.2 [degF] Daphne Santos APRN.GLASS PRODUCTION MACHINE OPERATOR Work Phone: [facility] 11-06-2021 16:06-0400 Body weight 62.6 kg Daphne Santos APRN.GLASS PRODUCTION MACHINE OPERATOR Work Phone: [facility] 11-06-2021 16:06-0400 Diastolic blood pressure 74 mm[Hg] Daphne Santos APRN.GLASS PRODUCTION MACHINE OPERATOR Work Phone: [facility] 11-06-2021 16:06-0400 Heart rate 101 /min Daphne Santos APRN.GLASS PRODUCTION MACHINE OPERATOR Work Phone: [facility] 11-06-2021 16:06-0400 Respiratory rate 16 /min Daphne Santos APRN.GLASS PRODUCTION MACHINE OPERATOR Work Phone: [facility] 11-06-2021 16:06-0400 SaO2% (BldA) [Mass fraction] 99 % Daphne Santos APRN.GLASS PRODUCTION MACHINE OPERATOR Work Phone: [facility] 11-06-2021 16:06-0400 Systolic blood pressure 122 mm[Hg] Daphne Santos DRY CELL SEALER.GLASS PRODUCTION MACHINE OPERATOR Work Phone: [facility] 10-30-2021 09:35-0400 Heart rate 99 /min Raeann Rosharon DRY CELL SEALER.GLASS PRODUCTION MACHINE OPERATOR Work Phone: [facility] 10-30-2021 09:35-0400 Respiratory rate 18 /min Raeann Misti DRY CELL SEALER.GLASS PRODUCTION MACHINE OPERATOR Work Phone: [facility] 10-30-2021 09:35-0400 SaO2% (BldA) [Mass fraction] 99 % Raeann Misti DRY CELL SEALER.GLASS PRODUCTION MACHINE OPERATOR Work Phone: [facility] 09-11-2021 16:25-0400 Body temperature 98.8 [degF] Parisa Cobb DRY CELL SEALER.GLASS PRODUCTION MACHINE OPERATOR Work Phone: [facility] 09-11-2021 16:25-0400 Body weight 60.15 kg Parisa Cobb DRY CELL SEALER.GLASS PRODUCTION MACHINE OPERATOR Work Phone: [facility] 09-11-2021 16:25-0400 Diastolic blood pressure 76 mm[Hg] Parisa Cobb DRY CELL SEALER.GLASS PRODUCTION MACHINE OPERATOR Work Phone: [facility] 09-11-2021 16:25-0400 Heart rate 91 /min Parisa Cobb DRY CELL SEALER.GLASS PRODUCTION MACHINE OPERATOR Work Phone: [facility] 09-11-2021 16:25-0400 Respiratory rate 18 /min Parisa Cobb DRY CELL SEALER.GLASS PRODUCTION MACHINE OPERATOR Work Phone: [facility] 09-11-2021 16:25-0400 SaO2% (BldA) [Mass fraction] 99 % Parisa Cobb DRY CELL SEALER.GLASS PRODUCTION MACHINE OPERATOR Work Phone: [facility] 09-11-2021 16:25-0400 Systolic blood pressure 124 mm[Hg] Parisa Cobb DRY CELL SEALER.GLASS PRODUCTION MACHINE OPERATOR Work Phone: [facility] 08-28-2021 13:27-0400 Heart rate 113 /min Raeann Rosharon DRY CELL SEALER.GLASS PRODUCTION MACHINE OPERATOR Work Phone: [facility] 08-28-2021 13:27-0400 Respiratory rate 18 /min Raeann Chappell DRY CELL SEALER.GLASS PRODUCTION MACHINE OPERATOR Work Phone: [facility] 08-28-2021 13:27-0400 SaO2% (BldA) [Mass fraction] 98 % Raeann Chappell DRY CELL SEALER.GLASS PRODUCTION MACHINE OPERATOR Work Phone: [facility] 07-25-2021 11:21-0400 Body height 157.5 cm Sharri Higuera MD Work Phone: [facility] 07-25-2021 11:21-0400 Body weight 61.24 kg Sharri Higuera MD Work Phone: [facility] 07-25-2021 11:21-0400 Diastolic blood pressure 72 mm[Hg] Sharri Higuera MD Work Phone: [facility] 07-25-2021 11:21-0400 Systolic blood pressure 116 mm[Hg] Sharri Higuera MD Work Phone: [facility] 06-17-2021 13:00-0400 Body height 163 cm Mayelin Older DRY CELL SEALER.GLASS PRODUCTION MACHINE OPERATOR Work Phone: [facility] 06-17-2021 13:00-0400 Body weight 59.24 kg Mayelin Older DRY CELL SEALER.GLASS PRODUCTION MACHINE OPERATOR Work Phone: [facility] 06-17-2021 13:00-0400 Diastolic blood pressure 78 mm[Hg] Mayelin Older DRY CELL SEALER.GLASS PRODUCTION MACHINE OPERATOR Work Phone: [facility] 06-17-2021 13:00-0400 Heart rate 97 /min Mayelin Older DRY CELL SEALER.GLASS PRODUCTION MACHINE OPERATOR Work Phone: [facility] 06-17-2021 13:00-0400 Respiratory rate 18 /min Mayelin Older DRY CELL SEALER.GLASS PRODUCTION MACHINE OPERATOR Work Phone: [facility] 06-17-2021 13:00-0400 SaO2% (BldA) [Mass fraction] 100 % Mayelin Older DRY CELL SEALER.GLASS PRODUCTION MACHINE OPERATOR Work Phone: [facility] 06-17-2021 13:00-0400 Systolic blood pressure 120 mm[Hg] Mayelin Older DRY CELL SEALER.GLASS PRODUCTION MACHINE OPERATOR Work Phone: [facility] 06-05-2021 13:37-0400 Heart rate 101 /min Nakul Barillas MD Work Phone: [facility] 06-05-2021 13:37-0400 Respiratory rate 16 /min Nakul Barillas MD Work Phone: [facility] 06-05-2021 13:37-0400 SaO2% (BldA) [Mass fraction] 99 % Nakul Barillas MD Work Phone: [facility] Encounters Encounter Date Encounter Type Care Provider Facility Start: 02-27-2023 Telephone encounter Juanita carrasco PA-C Work Phone: [facility] Procedures Date Procedure Procedure Detail Performing Clinician Start: 02-26-2023 Urnls dip stick/tabl et rgnt auto w/o microscopy Simran Hester DRY CELL SEALER.GLASS PRODUCTION MACHINE OPERATOR Work Phone: Start: 10-15-2022 Urnls dip stick/tabl et rgnt auto w/o microscopy Rob OSHEA Work Phone: Start: 03-02-2022 Urnls dip stick/tabl et rgnt auto w/o microscopy Cora Ivymaximo DRY CELL SEALER.CNM Work Phone: Start: 07-25-2021 Urnls dip stick/tabl et rgnt auto w/o microscopy Sharri Higuera MD Work Phone: Start: 07-25-2021 Mri spinal canal cer vical w/o contrast matrl Nakul Barillas MD Work Phone: Start: 07-25-2021 End: 07-25-2021 Mammography Mayelin Older DRY CELL SEALER.GLASS PRODUCTION MACHINE OPERATOR Work Phone: Start: 06-17-2021 Adult depression scr eening assessment Mayelin Older DRY CELL SEALER.GLASS PRODUCTION MACHINE OPERATOR Work Phone: Start: 07-03-2020 Mammography Nakul Barillas MD Work Phone: Start: 06-11-2020 Adult depression scr eening assessment Nakul Barillas MD Work Phone: Plan of Treatment Date Care Activity Detail Author Start: 04-19-2027 Urine microalbumin profile [facility] Start: 07-25-2026 HPV TESTING HPV TESTING [facility] Start: 07-25-2026 PAP TESTING PAP TESTING [facility] Start: 07-25-2026 Screening for malign ant neoplasm of cervix [facility] Start: 05-29-2025 HPV TESTING HPV TESTING [facility] Start: 05-29-2025 PAP TESTING PAP TESTING [facility] Start: 07-25-2023 ANNUAL PCP TEAM ENTER[employer]ISE SYSTEMS ENGINEER MICHAEL DISEASE VISIT ANNUAL PCP TEAM CHRONIC DISEASE VISIT [facility] Start: 11-13-2022 Influenza vaccination C [facility] Start: 10-15-2022 End: 12-15-2022 Bacteria identified in Urine by Culture [facility] Work Phone: Immunizations Immunization Date Immunization Notes Care Provider Zac donahue 02-20-2020 Influenza, injectabl e, Madin Anali Canine Kidney, preservative free, quadrivalent Rolo Rueda DRY CELL SEALER.GLASS PRODUCTION MACHINE OPERATOR Work Phone: [facility] Work Phone: 02-20-2020 influenza virus vaccine, unspecified formulation Aline Lugo DRY CELL SEALER.GLASS PRODUCTION MACHINE OPERATOR Work Phone: [facility] 01-13-2020 influenza, seasonal, injectable Nakul Barillas MD Work Phone: [facility] Work Phone: 04-19-2017 tetanus toxoid, redu marilin diphtheria toxoid, and acellular pertussis vaccine, adsorbed Nakul Barillas MD Work Phone: [facility] Work Phone: Payers Date Payer Category Payer Unknown [employer] [place] X [id number] 2022-Present [id number] [place] [id number] [facility] [id number] 2022 Unknown [id number] 2019 Medicaid [employer] [facility] MEDICAID [id number] 2019-Present [phone] [address] [place] [address] Medicaid [id number] 2019 Medicaid [id number] 2019 Unknown [id number] 2019 Unknown [id number] 1980 Unknown [id number] 1980 Unknown [id number] 1980 Unknown [id number] 1980 Unknown [id number] 1980 Unknown [id number] Worker's Compensation [id number] Social History Date Type Detail Facility Start: 12-13-1997 End: 11-06-2021 Tobacco smoking status MAIS Smokes tobacco daily [facility] Start: 12-13-1997 End: 03-15-2022 History of tobacco use Smoker [facility] Start: 02-20-2020 End: 07-24-2022 Cigarettes smoked current (pack per day) - Reported 0.25 [facility] Work Phone: Start: 02-20-2020 End: 07-24-2022 Tobacco use and exposure Smokeless tobacco non-user [facility] Start: 06-05-2021 End: 02-26-2023 Alcohol intake Current drinker of alcohol (finding) [facility] Start: 02-20-2020 History SDOH Alcohol Comment socially [facility] Start: 1980 Sex Assigned At Not on file [facility] Start: 04-14-2021 End: 11-06-2021 Exposure to SARS-CoV-2 (event) Not sure [facility] Start: 06-17-2021 End: 11-06-2021 Tobacco Comment 1 pack every 3 days [facility] Start: 12-13-1997 End: 03-15-2022 History of tobacco use Cigarette Smoker [facility] Work Phone: Start: 07-24-2022 Tobacco smoking stat us NHIS Ex-smoker [facility] Work Phone: Start: 02-20-2020 End: 10-15-2022 Tobacco use panel [facility] Work Phone: Adult Depression Screening Assessment 4 [facility] Work Phone: Clinical Notes 02-20-2020 to 02-28-2023 Telephone Encounter - Marquita Fitzpatrick MA - 02/28/2023 8:44 AM ESTTelephone Encounter - Marquita Fitzpatrick MA - 02/27/2023 10:40 AM Simran Harp APRN.GLASS PRODUCTION MACHINE OPERATOR - 02/26/2023 12:03 PM EST Note Date & Type Note Facility 02-28-2023 Miscellaneous Notes Patient notified of results, verbalized understanding of instructions given. Marquita Fitzpatrick MA Left VM instructing patient to return call to receive results. Marquita Fitzpatrick MA Please call and let patient know her vaginal swab came back for trichomonas. This is an STD. She was negative for BV. She will need to be treated with oral metronidazole, this was sent to her pharmacy. [facility] need notified and treated as well. documented in this encounter [facility] 02-26-2023 Note HNO ID: [id number] Author: Simran Hester APRN.GLASS PRODUCTION MACHINE OPERATOR Service: ? Author Type: Nurse Practitioner Type: Progress Notes Filed: 02/26/2023 12:18 PM Note Text: Subjective The history is provided by the patient. No language pathologist was used. MOHAMUD Lechuga is a 42 year old female who presents today for CC of vaginal discharge with odor for 2 weeks. She is also having discomfort with urination. She has used no treatment or medications. She denies known exposures to std, desires testing. Denies any vulvar lesions or blisters. BP 135/84 Pulse 74 Temp 36.6 ?C (97.9 ?F) Resp 18 Wt 64 kg (141 lb) LMP 02/06/2023 (Exact Date) SpO2 100% BMI 25.38 kg/m? Social History Tobacco Use Smoking status: Former Packs/day: .25 Types: Cigarettes Start date: 12/1997 Quit date: 2022 Years since quittin.9 Smokeless tobacco: Never Tobacco comments: 1 pack every 3 days Vaping Use Vaping Use: Former Quit date: 03/15/2019 Substance Use Topics Alcohol use: Yes Comment: socially Drug use: Not Currently Types: Marijuana PAST MEDICAL HISTORY Diagnosis Date Cyst of right breast 02/20/2020 Delayed emergence from general anesthesia Herpes genitalis in women HPV in female Kidney stone PTSD (post-traumatic stress disorder) 02/20/2020 I have confirmed and edited as necessary, the [facility] Review of Systems Constitutional: Negative for chills and fever. Gastrointestinal: Negative for abdominal pain. Genitourinary: Positive for dysuria. Negative for flank pain, frequency, hematuria and urgency. Vaginal discharge with odor Objective Physical Exam Vitals and nursing note reviewed. Constitutional: Appearance: Normal appearance. Abdominal: General: Bowel sounds are normal. There is no abdominal bruit. Palpations: Abdomen is not rigid. There is no mass or pulsatile mass. Tenderness: There is no abdominal tenderness. There is no guarding or rebound. Negative signs include Chaudhari's sign and McBurney's sign. Genitourinary: Comments: Declines exam will self swab Neurological: Mental Status: She is alert and oriented to person, place, and time. Psychiatric: Mood and Affect: Affect normal. ASSESSMENT/PLAN: 1. Acute vaginitis - ICD9: 616.10, ICD10: N76.0 (primary diagnosis) Frequent h/o BV, will treat today with metrogel, send cultures and notify if further treatment needed - BACTERIAL VAGINOSIS NAAT - LESLIE/TRICHOMONAS NAAT - GONORRHEA/CHLAMYDIA NAAT 2. Dysuria - ICD9: 788.1, ICD10: R30.0 acute - UA negative - Send urine for culture - treat if positive culture - UA DIP, URINE (POC) - URINE CULTURE Diagnosis and treatment plan were discussed and questions were answered to the patient's satisfaction. Pt acknowledged understanding of concepts and follow up plan. Specific signs and symptoms that would indicate the need for higher level of care were discussed in detail warranting prompt ER evaluation. Simarn Hester APRN.[facility] 02-26-2023 History of Presen t illness Narrative Subjective The history is provided by the patient. No language pathologist was used. MOHAMUD Lechuga is a 42 year old female who presents today for CC of vaginal discharge with odor for 2 weeks. She is also having discomfort with urination. She has used no treatment or medications. She denies known exposures to std, desires testing. Denies any vulvar lesions or blisters. BP 135/84 Pulse 74 Temp 36.6 C (97.9 F) Resp 18 Wt 64 kg (141 lb) LMP 02/06/2023 (Exact Date) SpO2 100% BMI 25.38 kg/m Social History Tobacco Use Smoking status: Former Packs/day: .25 Types: Cigarettes Start date: 12/1997 Quit date: 2022 Years since quittin.9 Smokeless tobacco: Never Tobacco comments: 1 pack every 3 days Vaping Use Vaping Use: Former Quit date: 03/15/2019 Substance Use Topics Alcohol use: Yes Comment: socially Drug use: Not Currently Types: Marijuana PAST MEDICAL HISTORY Diagnosis Date Cyst of right breast 02/20/2020 Delayed emergence from general anesthesia Herpes genitalis in women HPV in female Kidney stone PTSD (post-traumatic stress disorder) 02/20/2020 I have confirmed and edited as necessary, the [facility] Review of Systems Constitutional: Negative for chills and fever. Gastrointestinal: Negative for abdominal pain. Genitourinary: Positive for dysuria. Negative for flank pain, frequency, hematuria and urgency. Vaginal discharge with odor Objective Physical Exam Vitals and nursing note reviewed. Constitutional: Appearance: Normal appearance. Abdominal: General: Bowel sounds are normal. There is no abdominal bruit. Palpations: Abdomen is not rigid. There is no mass or pulsatile mass. Tenderness: There is no abdominal tenderness. There is no guarding or rebound. Negative signs include Chaudhari's sign and McBurney's sign. Genitourinary: Comments: Declines exam will self swab Neurological: Mental Status: She is alert and oriented to person, place, and time. Psychiatric: Mood and Affect: Affect normal. ASSESSMENT/PLAN: 1. Acute vaginitis - ICD9: 616.10, ICD10: N76.0 (primary diagnosis) Frequent h/o BV, will treat today with metrogel, send cultures and notify if further treatment needed - BACTERIAL VAGINOSIS NAAT - LESLIE/TRICHOMONAS NAAT - GONORRHEA/CHLAMYDIA NAAT 2. Dysuria - ICD9: 788.1, ICD10: R30.0 acute - UA negative - Send urine for culture - treat if positive culture - UA DIP, URINE (POC) - URINE CULTURE Diagnosis and treatment plan were discussed and questions were answered to the patient's satisfaction. Pt acknowledged understanding of concepts and follow up plan. Specific signs and symptoms that would indicate the need for higher level of care were discussed in detail warranting prompt ER evaluation. Simran Hester APRN.TYRELL documented in this encounter [facility] 12-10-2022 Note HNO ID: [id number] Author: Aline Lugo APRN.TYRELL Service: ? Author Type: Nurse Practitioner Type: Progress Notes Filed: 12/10/2022 6:14 PM Note Text: This note was created using [employer]. Joshua Lechuga is a 41 year old female. Patient presents with nausea, vomiting, and diarrhea for one day. Patient reports symptoms began at work yesterday. She went home from work and rested all day however is still feeling ill. She is not aware of any specific exposure to illness. She does report having abdominal pain after eating a hot dog. She denies any fever or blood in stool or emesis. She has not been able to eat solid food however she has been able to drink water. The history is provided by the patient. Review of Systems Constitutional: Positive for fatigue. Negative for chills and fever. Respiratory: Negative for shortness of breath. Cardiovascular: Negative for chest pain. Gastrointestinal: Positive for abdominal pain, diarrhea, nausea and vomiting. Negative for blood in stool. Neurological: Positive for headaches. All other systems reviewed and are negative. Objective BP 110/78 Pulse 75 Temp 36.6 ?C (97.9 ?F) Resp 18 Wt 61.7 kg (136 lb) LMP 07/13/2022 (Exact Date) SpO2 100% BMI 24.48 kg/m? PAST MEDICAL HISTORY Diagnosis Date Cyst of right breast 02/20/2020 Delayed emergence from general anesthesia Herpes genitalis in women HPV in female Kidney stone PTSD (post-traumatic stress disorder) 02/20/2020 PAST SURGICAL HISTORY Procedure Laterality Date BREAST CYST ASPIRATION - ADDTL LESION ORAL SURGERY PROCEDURE SALPINGECTOMY Right ALLERGIES Bactrim [Sulfamethoxazole-Trimethoprim], Latex, Morphine, Tramadol, and Zoloft [Sertraline] MEDICATIONS meloxicam (MOBIC) 15 mg tablet Take 15 mg by mouth once daily. ZINC ACETATE ORAL Take 1 tablet by mouth once daily. BIOTIN ORAL Take 1 tablet by mouth twice daily. nortriptyline (PAMELOR) 25 mg capsule Take 1 capsule by mouth daily at bedtime. cyclobenzaprine (FLEXERIL) 10 mg tablet Take 1 tablet by mouth three times daily as needed for muscle spasm or pain. albuterol HFA (VENTOLIN HFA) 90 mcg/actuation inhaler Inhale 2 Puffs as instructed every 4 hours as needed for wheezing/shortness of breath. SUMAtriptan (IMITREX) 50 mg tablet Take 1 tablet at the onset of migraine. Can repeat in 2 hours if headaches persists FAMILY HISTORY Problem Relation Age of Onset Diabetes Mother Dialysis Mother other (Other) Sister brain cyst Cancer Brother stomach Cancer Maternal Grandmother cervical No Known Problems Maternal Grandfather Social History Tobacco Use Smoking status: Former Packs/day: .25 Types: Cigarettes Start date: 12/1997 Quit date: 2022 Years since quittin.7 Smokeless tobacco: Never Tobacco comments: 1 pack every 3 days Vaping Use Vaping Use: Former Quit date: 03/15/2019 Substance Use Topics Alcohol use: Yes Comment: socially Drug use: Not Currently Types: Marijuana Physical Exam Vitals reviewed. Constitutional: General: She is not in acute distress. Appearance: Normal appearance. She is normal weight. She is ill-appearing. She is not toxic-appearing. Cardiovascular: Rate and Rhythm: Normal rate and regular rhythm. Pulmonary: Effort: Pulmonary effort is normal. No respiratory distress. Breath sounds: Normal breath sounds. Abdominal: General: Abdomen is flat. Bowel sounds are normal. There is no distension. Palpations: Abdomen is soft. Tenderness: There is abdominal tenderness in the right lower quadrant. There is guarding. Neurological: General: No focal deficit present. Mental Status: She is alert and oriented to person, place, and time. Mental status is at baseline. Psychiatric: Mood and Affect: Mood normal. Behavior: Behavior normal. Thought Content: Thought content normal. Judgment: Judgment normal. Assessment and Plan ASSESSMENT/PLAN: 1. Right lower quadrant pain - ICD9: 789.03, ICD10: R10.31 (primary diagnosis) - Discussed differentials of gastroenteritis, food poisoning, and appendicitis with patient - Given amount of tenderness and guarding of RLQ, prefer patient be evaluated in ED to rule out appendicitis - Patient voices understanding and is able to take self to emergency department for evaluation 2. Diarrhea, unspecified type - ICD9: 787.91, ICD10: R19.7 - See above 3. Nausea - ICD9: 787.02, ICD10: R11.0 - See above E Parminder [employer] CAN INSPECTOR Student TEACHING PROVIDER (Physician/PA/DRY CELL SEALER) NOTE OF PERSONAL INVOLVEMENT IN CARE: I have personally seen and examined the patient and performed the medical decision-making components. I have reviewed the Advanced Practice Registered Nurse (DRY CELL SEALER) Student's documentation and verified the findings in the note as written. Any additions or changes are noted in bold/italics. Signature: Aline Lugo Date: 12/10/2022 Time: 6:13 PM [facility] 12-10-2022 Instructions Aline Lugo APRN.[facility] - 12/10/2022 6:13 PM EDT ASSESSMENT/PLAN: 1. Right lower quadrant pain - ICD9: 789.03, ICD10: R10.31 (primary diagnosis) - Discussed differentials of gastroenteritis, food poisoning, and appendicitis with patient - Given amount of tenderness and guarding of RLQ, prefer patient be evaluated in ED to rule out appendicitis - Patient voices understanding and is able to take self to emergency department for evaluation 2. Diarrhea, unspecified type - ICD9: 787.91, ICD10: R19.7 - See above 3. Nausea - ICD9: 787.02, ICD10: R11.0 - See above E Parminder [employer] CAN INSPECTOR Student TEACHING PROVIDER (Physician/PA/DRY CELL SEALER) NOTE OF PERSONAL INVOLVEMENT IN CARE: I have personally seen and examined the patient and performed the medical decision-making components. I have reviewed the Advanced Practice Registered Nurse (DRY CELL SEALER) Student's documentation and verified the findings in the note as written. Any additions or changes are noted in bold/italics. Signature: Aline Lugo Date: 12/10/2022 Time: 6:13 PM documented in this encounter [facility] 12-10-2022 History of Presen t illness Narrative Images from the original note were not included. This note was created using [email or web address]. Joshua Lechuga is a 41 year old female. Patient presents with nausea, vomiting, and diarrhea for one day. Patient reports symptoms began at work yesterday. She went home from work and rested all day however is still feeling ill. She is not aware of any specific exposure to illness. She does report having abdominal pain after eating a hot dog. She denies any fever or blood in stool or emesis. She has not been able to eat solid food however she has been able to drink water. The history is provided by the patient. Review of Systems Constitutional: Positive for fatigue. Negative for chills and fever. Respiratory: Negative for shortness of breath. Cardiovascular: Negative for chest pain. Gastrointestinal: Positive for abdominal pain, diarrhea, nausea and vomiting. Negative for blood in stool. Neurological: Positive for headaches. All other systems reviewed and are negative. Objective BP 110/78 Pulse 75 Temp 36.6 C (97.9 F) Resp 18 Wt 61.7 kg (136 lb) LMP 07/13/2022 (Exact Date) SpO2 100% BMI 24.48 kg/m PAST MEDICAL HISTORY Diagnosis Date Cyst of right breast 02/20/2020 Delayed emergence from general anesthesia Herpes genitalis in women HPV in female Kidney stone PTSD (post-traumatic stress disorder) 02/20/2020 PAST SURGICAL HISTORY Procedure Laterality Date BREAST CYST ASPIRATION - ADDTL LESION ORAL SURGERY PROCEDURE SALPINGECTOMY Right ALLERGIES Bactrim [Sulfamethoxazole-Trimethoprim], Latex, Morphine, Tramadol, and Zoloft [Sertraline] MEDICATIONS meloxicam (MOBIC) 15 mg tablet Take 15 mg by mouth once daily. ZINC ACETATE ORAL Take 1 tablet by mouth once daily. BIOTIN ORAL Take 1 tablet by mouth twice daily. nortriptyline (PAMELOR) 25 mg capsule Take 1 capsule by mouth daily at bedtime. cyclobenzaprine (FLEXERIL) 10 mg tablet Take 1 tablet by mouth three times daily as needed for muscle spasm or pain. albuterol HFA (VENTOLIN HFA) 90 mcg/actuation inhaler Inhale 2 Puffs as instructed every 4 hours as needed for wheezing/shortness of breath. SUMAtriptan (IMITREX) 50 mg tablet Take 1 tablet at the onset of migraine. Can repeat in 2 hours if headaches persists FAMILY HISTORY Problem Relation Age of Onset Diabetes Mother Dialysis Mother other (Other) Sister brain cyst Cancer Brother stomach Cancer Maternal Grandmother cervical No Known Problems Maternal Grandfather Social History Tobacco Use Smoking status: Former Packs/day: .25 Types: Cigarettes Start date: 12/1997 Quit date: 2022 Years since quittin.7 Smokeless tobacco: Never Tobacco comments: 1 pack every 3 days Vaping Use Vaping Use: Former Quit date: 03/15/2019 Substance Use Topics Alcohol use: Yes Comment: socially Drug use: Not Currently Types: Marijuana Physical Exam Vitals reviewed. Constitutional: General: She is not in acute distress. Appearance: Normal appearance. She is normal weight. She is ill-appearing. She is not toxic-appearing. Cardiovascular: Rate and Rhythm: Normal rate and regular rhythm. Pulmonary: Effort: Pulmonary effort is normal. No respiratory distress. Breath sounds: Normal breath sounds. Abdominal: General: Abdomen is flat. Bowel sounds are normal. There is no distension. Palpations: Abdomen is soft. Tenderness: There is abdominal tenderness in the right lower quadrant. There is guarding. Neurological: General: No focal deficit present. Mental Status: She is alert and oriented to person, place, and time. Mental status is at baseline. Psychiatric: Mood and Affect: Mood normal. Behavior: Behavior normal. Thought Content: Thought content normal. Judgment: Judgment normal. Assessment and Plan ASSESSMENT/PLAN: 1. Right lower quadrant pain - ICD9: 789.03, ICD10: R10.31 (primary diagnosis) - Discussed differentials of gastroenteritis, food poisoning, and appendicitis with patient - Given amount of tenderness and guarding of RLQ, prefer patient be evaluated in ED to rule out appendicitis - Patient voices understanding and is able to take self to emergency department for evaluation 2. Diarrhea, unspecified type - ICD9: 787.91, ICD10: R19.7 - See above 3. Nausea - ICD9: 787.02, ICD10: R11.0 - See above E Parminder [employer] INSPECTOR Student TEACHING PROVIDER (Physician/PA/DRY CELL SEALER) NOTE OF PERSONAL INVOLVEMENT IN CARE: I have personally seen and examined the patient and performed the medical decision-making components. I have reviewed the Advanced Practice Registered Nurse (DRY CELL SEALER) Student's documentation and verified the findings in the note as written. Any additions or changes are noted in bold/italics. Signature: Aline Lugo Date: 12/10/2022 Time: 6:13 PM documented in this encounter [facility] 10-15-2022 Note HNO ID: [id number] Author: Rob Calvo PA Service: ? Author Type: Physician Senior Finance Manager Type: Progress Notes Filed: 10/15/2022 7:01 PM Note Text: This note was created using [employer]. Subjective Calamina Alexandrea is a 41 year old female. HPI 41-year-old female presents for left lower tooth pain and swelling x1 day. Patient states that she noticed that she had left lower tooth pain and swelling starting yesterday. She has some swelling on her left cheek. No fevers. She states that she called her dentist and is unable to get in until December. She is awaiting to get a filling in that tooth. Patient is also reporting dysuria and frequency for the past 2 days. No abdominal pain, back pain, hematuria, vomiting. No other complaints. PAST MEDICAL HISTORY Diagnosis Date Cyst of right breast 02/20/2020 Delayed emergence from general anesthesia Herpes genitalis in women HPV in female Kidney stone PTSD (post-traumatic stress disorder) 02/20/2020 PAST SURGICAL HISTORY Procedure Laterality Date BREAST CYST ASPIRATION - ADDTL LESION ORAL SURGERY PROCEDURE SALPINGECTOMY Right ALLERGIES Bactrim [Sulfamethoxazole-Trimethoprim], Latex, Morphine, Tramadol, and Zoloft [Sertraline] MEDICATIONS meloxicam (MOBIC) 15 mg tablet Take 15 mg by mouth once daily. ZINC ACETATE ORAL Take 1 tablet by mouth once daily. BIOTIN ORAL Take 1 tablet by mouth twice daily. nortriptyline (PAMELOR) 25 mg capsule Take 1 capsule by mouth daily at bedtime. cyclobenzaprine (FLEXERIL) 10 mg tablet Take 1 tablet by mouth three times daily as needed for muscle spasm or pain. albuterol HFA (VENTOLIN HFA) 90 mcg/actuation inhaler Inhale 2 Puffs as instructed every 4 hours as needed for wheezing/shortness of breath. SUMAtriptan (IMITREX) 50 mg tablet Take 1 tablet at the onset of migraine. Can repeat in 2 hours if headaches persists FAMILY HISTORY Problem Relation Age of Onset Diabetes Mother Dialysis Mother other (Other) Sister brain cyst Cancer Brother stomach Cancer Maternal Grandmother cervical No Known Problems Maternal Grandfather Social History Tobacco Use Smoking status: Former Packs/day: 0.25 Types: Cigarettes Start date: 12/1997 Quit date: 2022 Years since quittin.5 Smokeless tobacco: Never Tobacco comments: 1 pack every 3 days Vaping Use Vaping Use: Former Quit date: 03/15/2019 Substance Use Topics Alcohol use: Yes Comment: socially Drug use: Not Currently Types: Marijuana Review of Systems Constitutional: Negative for chills and fever. HENT: Positive for dental problem. Negative for congestion, ear pain and sore throat. Respiratory: Negative for cough and shortness of breath. Cardiovascular: Negative for chest pain. Gastrointestinal: Negative for diarrhea and vomiting. Genitourinary: Positive for dysuria, frequency and urgency. Objective BP 128/82 Pulse 96 Temp 37.3 ?C (99.1 ?F) (Tympanic) Resp 18 Wt 60.5 kg (133 lb 6.4 oz) LMP 07/13/2022 (Exact Date) SpO2 100% BMI 24.01 kg/m? Physical Exam Vitals and nursing note reviewed. Constitutional: General: She is not in acute distress. Appearance: Normal appearance. She is not toxic-appearing. HENT: Right Ear: Tympanic membrane and ear canal normal. Left Ear: Tympanic membrane and ear canal normal. Nose: Nose normal. Mouth/Throat: Mouth: Mucous membranes are moist. Dentition: Abnormal dentition. Dental tenderness, gingival swelling and dental caries present. Pharynx: No oropharyngeal exudate or posterior oropharyngeal erythema. Comments: Patient has diffuse dental decay and several missing teeth. Tenderness and cavity noted over tooth #18. She has some gingival swelling and cheek swelling noted on this side as well. No tongue or floor mouth swelling. Throat clear. Eyes: Conjunctiva/sclera: Conjunctivae normal. Cardiovascular: Rate and Rhythm: Normal rate and regular rhythm. Pulmonary: Effort: Pulmonary effort is normal. Breath sounds: Normal breath sounds. Abdominal: General: Abdomen is flat. Palpations: Abdomen is soft. Tenderness: There is no abdominal tenderness. There is no right CVA tenderness or left CVA tenderness. Neurological: Mental Status: She is alert. Assessment and Plan ASSESSMENT/PLAN: 1. Dental infection - ICD9: 522.4, ICD10: K04.7 (primary diagnosis) -Rx for Keflex to cover for potential UTI as well. -Follow-up with dentist. 2. Dysuria - ICD9: 788.1, ICD10: R30.0 - UA positive for hematuria - Send urine for culture - RX for Keflex for tooth and urinary symptoms. - Patient education for prevention given - UA DIP, URINE (POC) - URINE CULTURE Diagnosis and treatment plan were discussed and questions were answered to the patient's satisfaction. Pt acknowledged understanding of concepts and follow up plan. Specific signs and symptoms that would indicate the need for higher level of care were discussed in detail (more content not included)... [facility] 10-15-2022 History of Presen t illness Narrative Images from the original note were not included. This note was created using [employer]. Subjective Calamina Alexandrea is a 41 year old female. HPI 41-year-old female presents for left lower tooth pain and swelling x1 day. Patient states that she noticed that she had left lower tooth pain and swelling starting yesterday. She has some swelling on her left cheek. No fevers. She states that she called her dentist and is unable to get in until December. She is awaiting to get a filling in that tooth. Patient is also reporting dysuria and frequency for the past 2 days. No abdominal pain, back pain, hematuria, vomiting. No other complaints. PAST MEDICAL HISTORY Diagnosis Date Cyst of right breast 02/20/2020 Delayed emergence from general anesthesia Herpes genitalis in women HPV in female Kidney stone PTSD (post-traumatic stress disorder) 02/20/2020 PAST SURGICAL HISTORY Procedure Laterality Date BREAST CYST ASPIRATION - ADDTL LESION ORAL SURGERY PROCEDURE SALPINGECTOMY Right ALLERGIES Bactrim [Sulfamethoxazole-Trimethoprim], Latex, Morphine, Tramadol, and Zoloft [Sertraline] MEDICATIONS meloxicam (MOBIC) 15 mg tablet Take 15 mg by mouth once daily. ZINC ACETATE ORAL Take 1 tablet by mouth once daily. BIOTIN ORAL Take 1 tablet by mouth twice daily. nortriptyline (PAMELOR) 25 mg capsule Take 1 capsule by mouth daily at bedtime. cyclobenzaprine (FLEXERIL) 10 mg tablet Take 1 tablet by mouth three times daily as needed for muscle spasm or pain. albuterol HFA (VENTOLIN HFA) 90 mcg/actuation inhaler Inhale 2 Puffs as instructed every 4 hours as needed for wheezing/shortness of breath. SUMAtriptan (IMITREX) 50 mg tablet Take 1 tablet at the onset of migraine. Can repeat in 2 hours if headaches persists FAMILY HISTORY Problem Relation Age of Onset Diabetes Mother Dialysis Mother other (Other) Sister brain cyst Cancer Brother stomach Cancer Maternal Grandmother cervical No Known Problems Maternal Grandfather Social History Tobacco Use Smoking status: Former Packs/day: 0.25 Types: Cigarettes Start date: 12/1997 Quit date: 2022 Years since quittin.5 Smokeless tobacco: Never Tobacco comments: 1 pack every 3 days Vaping Use Vaping Use: Former Quit date: 03/15/2019 Substance Use Topics Alcohol use: Yes Comment: socially Drug use: Not Currently Types: Marijuana Review of Systems Constitutional: Negative for chills and fever. HENT: Positive for dental problem. Negative for congestion, ear pain and sore throat. Respiratory: Negative for cough and shortness of breath. Cardiovascular: Negative for chest pain. Gastrointestinal: Negative for diarrhea and vomiting. Genitourinary: Positive for dysuria, frequency and urgency. Objective BP 128/82 Pulse 96 Temp 37.3 C (99.1 F) (Tympanic) Resp 18 Wt 60.5 kg (133 lb 6.4 oz) LMP 07/13/2022 (Exact Date) SpO2 100% BMI 24.01 kg/m Physical Exam Vitals and nursing note reviewed. Constitutional: General: She is not in acute distress. Appearance: Normal appearance. She is not toxic-appearing. HENT: Right Ear: Tympanic membrane and ear canal normal. Left Ear: Tympanic membrane and ear canal normal. Nose: Nose normal. Mouth/Throat: Mouth: Mucous membranes are moist. Dentition: Abnormal dentition. Dental tenderness, gingival swelling and dental caries present. Pharynx: No oropharyngeal exudate or posterior oropharyngeal erythema. Comments: Patient has diffuse dental decay and several missing teeth. Tenderness and cavity noted over tooth #18. She has some gingival swelling and cheek swelling noted on this side as well. No tongue or floor mouth swelling. Throat clear. Eyes: Conjunctiva/sclera: Conjunctivae normal. Cardiovascular: Rate and Rhythm: Normal rate and regular rhythm. Pulmonary: Effort: Pulmonary effort is normal. Breath sounds: Normal breath sounds. Abdominal: General: Abdomen is flat. Palpations: Abdomen is soft. Tenderness: There is no abdominal tenderness. There is no right CVA tenderness or left CVA tenderness. Neurological: Mental Status: She is alert. Assessment and Plan ASSESSMENT/PLAN: 1. Dental infection - ICD9: 522.4, ICD10: K04.7 (primary diagnosis) -Rx for Keflex to cover for potential UTI as well. -Follow-up with dentist. 2. Dysuria - ICD9: 788.1, ICD10: R30.0 - UA positive for hematuria - Send urine for culture - RX for Keflex for tooth and urinary symptoms. - Patient education for prevention given - UA DIP, URINE (POC) - URINE CULTURE Diagnosis and treatment plan were discussed and questions were answered to the patient's satisfaction. Pt acknowledged understanding of concepts and follow up plan. Specific signs and symptoms that would indicate the need for higher level of care were discussed in detail warranting prompt ER evaluation. DORIE Anaya documented in this encounter [facility] 09-02-2022 Note Patient Outreach (IN [facility]) ESTEVAN LECHUGA ([id number]) 1980 F Date Time Provider Department 09/02/22 ELIJAH ARGUELLES During your visit today, we recorded the following information about you: Allergies As of Date: 09/02/2022 Noted Allergy Reaction BACTRIM (SULFAMETHOXAZOLE-TRIMETH*2021 16 - Unknown LATEX 02/20/2020 4 - Hives 7 - Swelling MORPHINE 07/03/2020 2 - Rash TRAMADOL 07/29/2020 2 - Rash ZOLOFT (SERTRALINE) 02/20/2020 4 - Hives 7 - Swelling Date Reviewed: 07/24/2022 Reviewed by: Rolo Rueda APRN.GLASS PRODUCTION MACHINE OPERATOR - Fully Assessed Visit Diagnosis:Encounter for screening mammogram for breast cancer [Z12.31] Order(s):[facility] SCREENING [[id number]] Order #: [id number] FUTURE Prescriptions as of 09/07/2022 - meloxicam (MOBIC) 15 mg tablet Take 15 mg by mouth once daily. - ZINC ACETATE ORAL Take 1 tablet by mouth once daily. - BIOTIN ORAL Take 1 tablet by mouth twice daily. - nortriptyline (PAMELOR) 25 mg capsule Take 1 capsule by mouth daily at bedtime. - cyclobenzaprine (FLEXERIL) 10 mg tablet Take 1 tablet by mouth three times daily as needed for muscle spasm or pain. - albuterol HFA (VENTOLIN HFA) 90 mcg/actuation inhaler Inhale 2 Puffs as instructed every 4 hours as needed for wheezing/shortness of breath. - SUMAtriptan (IMITREX) 50 mg tablet Take 1 tablet at the onset of migraine. 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 Author Type: Nurse Practitioner Type: Progress Notes Filed: 07/24/2022 9:04 AM Note Text: CHIEF COMPLAINT: Patient presents with: Physical HISTORY: Estevan Lechuga is a 41 year old female who presents 07/24/2022 for her Yearly Physical Exam. She is an established patient of Dr. Arguelles. They are here today for a wellness exam. She feels her health overall is okay, has some issues, scoliosis and associated pain (tailbone pain), PT and dry needling in the past for her back but not helpful. Does wear a seatbelt when riding in a car. Does have smoke detectors and a carbon monoxide detector in the home. Is able to complete ADL's with independence. She had labs done 07/17/2022, TSH, CMP, CBC. Stable, glucose was elevated, 114 but not fasting. Other Providers: Home Health Care Social Worker with Cora Miranda APRN Was seeing pain provider Gastro Depression Screen Q1: Over the past two weeks, have you felt down, depressed or hopeless? Yes Q2: Over the past two weeks, have you felt little interest or pleasure in doing things? Yes Home status: Lives with her 2 sons and daughter (13, 18 and 17) Current job: [employer] Current exercise habits: limited because of pain Dietary habits: no specific diet, does not eat healthy Hearing difficulties: no Safe in current home environment: Yes Tobacco: Quit ETOH: none MARKETING COMMUNICATIONS ASSISTANT History: LMP: Patient's last menstrual period was 07/13/2022 (exact date). Are periods regular? Starting to notice changes Family Hx Breast CA: yes Family Hx Colon CA: yes Past Medical History: PAST MEDICAL HISTORY Diagnosis Date Cyst of right breast 02/20/2020 Delayed emergence from general anesthesia Herpes genitalis in women HPV in female Kidney stone PTSD (post-traumatic stress disorder) 02/20/2020 Family Medical History: FAMILY HISTORY Problem Relation Age of Onset Diabetes Mother Dialysis Mother other (Other) Sister brain cyst Cancer Brother stomach Cancer Maternal Grandmother cervical No Known Problems Maternal Grandfather Social History: Social History Tobacco Use Smoking status: Former Packs/day: 0.25 Types: Cigarettes Start date: 12/1997 Quit date: 2022 Years since quittin.3 Smokeless tobacco: Never Tobacco comments: 1 pack every 3 days Vaping Use Vaping Use: Former Quit date: 03/15/2019 Substance Use Topics Alcohol use: Yes Comment: socially Drug use: Not Currently Types: Marijuana Allergies: ALLERGIES Allergen Reactions Bactrim [Sulfametho* Unknown Latex Hives, Swelling Morphine Rash Tramadol Rash Zoloft [Sertraline] Hives, Swelling Medications: Current Outpatient Medications Medication Sig meloxicam (MOBIC) 15 mg tablet Take 15 mg by mouth once daily. ZINC ACETATE ORAL Take 1 tablet by mouth once daily. BIOTIN ORAL Take 1 tablet by mouth twice daily. albuterol HFA (VENTOLIN HFA) 90 mcg/actuation inhaler Inhale 2 Puffs as instructed every 4 hours as needed for wheezing/shortness of breath. SUMAtriptan (IMITREX) 50 mg tablet Take 1 tablet at the onset of migraine. Can repeat in 2 hours if headaches persists nortriptyline (PAMELOR) 25 mg capsule Take 1 capsule by mouth daily at bedtime. cyclobenzaprine (FLEXERIL) 10 mg tablet Take 1 tablet by mouth three times daily as needed for muscle spasm or pain. No current facility-administered medications for this visit. Chronic Problem List: ACTIVE PROBLEM LIST Scoliosis - 07/24/2022 Myofascial Pain - 11/25/2020 Lumbar Trigger Point Syndrome - 11/25/2020 Trigger Point of Thoracic Region - 11/25/2020 Osteochondroma of Scapula, Right - 06/28/2020 Trigger Point of Right Shoulder Region - 06/28/2020 Ureteral Stone - 06/08/2020 Ptsd (Post-Traumatic Stress Disorder) - 02/20/2020 Cyst of Right Breast - 02/20/2020 Asthmatic Bronchitis - 02/20/2020 Subcutaneous Mass of Head - 02/20/2020 Migraine Without Aura and Without Status Migrainosus, Not Intractable - 02/20/2020 Marijuana Use - 02/20/2020 Herpes Simplex Infection of Genitourinary System - 02/20/2020 Review of Systems Review of Systems Constitutional: Negative. Respiratory: Negative. Cardiovascular: Negative. Genitourinary: Kidney stones Musculoskeletal: Positive for arthralgias, back pain, gait problem and myalgias. Negative for joint swelling, neck pain and neck stiffness. OBJECTIVE BP 100/70 Pulse 82 Ht 5' 2.5 (1.59m) Wt 130 lb (59.0kg) SpO2 98% LMP 07/13/2022 BMI 23.38 kg/(m2). Physical Exam Vitals and nursing note reviewed. Constitutional: General: She is awake. She is not in acute distress. Appearance: Normal appearance. She is well-developed and well-groomed. She is not ill-appearing, toxic-appearing or diaphoretic. HENT: Head: Normocephalic. Right Ear: Hearing, tympanic membrane, ear canal and external ear normal. Left Ear: Hearing, tympanic membrane, ear canal and externa (more content not included)... [facility] 07-24-2022 History of Presen t illness Narrative CHIEF COMPLAINT: Patient presents with: Physical HISTORY: Estevan Lechuga is a 41 year old female who presents 07/24/2022 for her Yearly Physical Exam. She is an established patient of Dr. Arguelles. They are here today for a wellness exam. She feels her health overall is okay, has some issues, scoliosis and associated pain (tailbone pain), PT and dry needling in the past for her back but not helpful. Does wear a seatbelt when riding in a car. Does have smoke detectors and a carbon monoxide detector in the home. Is able to complete ADL's with independence. She had labs done 07/17/2022, TSH, CMP, CBC. Stable, glucose was elevated, 114 but not fasting. Other Providers: Home Health Care Social Worker with Cora Miranda APRN Was seeing pain provider Gastro Depression Screen Q1: Over the past two weeks, have you felt down, depressed or hopeless? Yes Q2: Over the past two weeks, have you felt little interest or pleasure in doing things? Yes Home status: Lives with her 2 sons and daughter (13, 18 and 17) Current job: [employer] Current exercise habits: limited because of pain Dietary habits: no specific diet, does not eat healthy Hearing difficulties: no Safe in current home environment: Yes Tobacco: Quit ETOH: none MARKETING COMMUNICATIONS ASSISTANT History: LMP: Patient's last menstrual period was 07/13/2022 (exact date). Are periods regular? Starting to notice changes Family Hx Breast CA: yes Family Hx Colon CA: yes Past Medical History: PAST MEDICAL HISTORY Diagnosis Date Cyst of right breast 02/20/2020 Delayed emergence from general anesthesia Herpes genitalis in women HPV in female Kidney stone PTSD (post-traumatic stress disorder) 02/20/2020 Family Medical History: FAMILY HISTORY Problem Relation Age of Onset Diabetes Mother Dialysis Mother other (Other) Sister brain cyst Cancer Brother stomach Cancer Maternal Grandmother cervical No Known Problems Maternal Grandfather Social History: Social History Tobacco Use Smoking status: Former Packs/day: 0.25 Types: Cigarettes Start date: 12/1997 Quit date: 2022 Years since quittin.3 Smokeless tobacco: Never Tobacco comments: 1 pack every 3 days Vaping Use Vaping Use: Former Quit date: 03/15/2019 Substance Use Topics Alcohol use: Yes Comment: socially Drug use: Not Currently Types: Marijuana Allergies: ALLERGIES Allergen Reactions Bactrim [Sulfametho* Unknown Latex Hives, Swelling Morphine Rash Tramadol Rash Zoloft [Sertraline] Hives, Swelling Medications: Current Outpatient Medications Medication Sig meloxicam (MOBIC) 15 mg tablet Take 15 mg by mouth once daily. ZINC ACETATE ORAL Take 1 tablet by mouth once daily. BIOTIN ORAL Take 1 tablet by mouth twice daily. albuterol HFA (VENTOLIN HFA) 90 mcg/actuation inhaler Inhale 2 Puffs as instructed every 4 hours as needed for wheezing/shortness of breath. SUMAtriptan (IMITREX) 50 mg tablet Take 1 tablet at the onset of migraine. Can repeat in 2 hours if headaches persists nortriptyline (PAMELOR) 25 mg capsule Take 1 capsule by mouth daily at bedtime. cyclobenzaprine (FLEXERIL) 10 mg tablet Take 1 tablet by mouth three times daily as needed for muscle spasm or pain. No current facility-administered medications for this visit. Chronic Problem List: ACTIVE PROBLEM LIST Scoliosis - 07/24/2022 Myofascial Pain - 11/25/2020 Lumbar Trigger Point Syndrome - 11/25/2020 Trigger Point of Thoracic Region - 11/25/2020 Osteochondroma of Scapula, Right - 06/28/2020 Trigger Point of Right Shoulder Region - 06/28/2020 Ureteral Stone - 06/08/2020 Ptsd (Post-Traumatic Stress Disorder) - 02/20/2020 Cyst of Right Breast - 02/20/2020 Asthmatic Bronchitis - 02/20/2020 Subcutaneous Mass of Head - 02/20/2020 Migraine Without Aura and Without Status Migrainosus, Not Intractable - 02/20/2020 Marijuana Use - 02/20/2020 Herpes Simplex Infection of Genitourinary System - 02/20/2020 Review of Systems Review of Systems Constitutional: Negative. Respiratory: Negative. Cardiovascular: Negative. Genitourinary: Kidney stones Musculoskeletal: Positive for arthralgias, back pain, gait problem and myalgias. Negative for joint swelling, neck pain and neck stiffness. OBJECTIVE BP 100/70 Pulse 82 Ht 5' 2.5 (1.59m) Wt 130 lb (59.0kg) SpO2 98% LMP 07/13/2022 BMI 23.38 kg/(m^2). Physical Exam Vitals and nursing note reviewed. Constitutional: General: She is awake. She is not in acute distress. Appearance: Normal appearance. She is well-developed and well-groomed. She is not ill-appearing, toxic-appearing or diaphoretic. HENT: Head: Normocephalic. Right Ear: Hearing, tympanic membrane, ear canal and external ear normal. Left Ear: Hearing, tympanic membrane, ear canal and external ear normal. Nose: Nose normal. Eyes: General: Vision grossly intact. Extraocular Movements: Extraocular movements intact. Conjunctiva/sclera: Conjunctivae normal. Pupils: Pupils are equal, round, and reactive to light. Neck: Thyroid: No thyroid mass, thyromegaly or thyroid tenderness. Vascular: No JVD. Trachea: Trachea normal. Cardiovascular: Rate and Rhythm: Normal rate and regular rhythm. Pulses: Normal pulses. Heart sounds: Normal heart sounds. No murmur heard. Pulmonary: Effort: Pulmonary effort is normal. No accessory muscle usage, prolonged expiration or respiratory distress. Breath sounds: Normal breath sounds. Musculoskeletal: Cervical back: Normal and neck supple. Thoracic back: Tenderness and bony tenderness present. No swelling, edema, deformity, signs of trauma, lacerations or spasms. Decreased range of motion. Lumbar back: Tenderness and bony tenderness present. No swelling, edema, deformity, signs of trauma, lacerations or spasms. Decreased range of motion. Right lower leg: No edema. Left lower leg: No edema. Lymphadenopathy: Cervical: No cervical adenopathy. Skin: General: Skin is warm and dry. Capillary Refill: Capillary refill takes less than 2 seconds. Neurological: General: No focal deficit present. Mental Status: She is alert and oriented to person, place, and time. Mental status is at baseline. Psychiatric: Attention and Perception: Attention and perception normal. Mood and Affect: Mood and affect normal. Speech: Speech normal. Behavior: Behavior normal. Behavior is cooperative. Thought Content: Thought content normal. Cognition and Memory: Cognition and memory normal. Judgment: Judgment normal. ASSESSMENT/PLAN: 1. Wellness examination - ICD9: V70.0, ICD10: Z00.00 (primary diagnosis) - Counseled on healthy diet and regular exercise - Calcium intake with supplements or by diet of 1000 mg/day for under 50, 7736-0561 mg/day for 50+ - Depression screening tool completed and reviewed with patient. Based on score and interview, patient is at risk for depression and recommended starting medication. - DEPRESSION SCREENING/ASSESSMENT ALSO ADDRESSED WITH THE VISIT 2. Chronic bilateral low back pain without sciatica - ICD9: 724.2, 338.29, ICD10: M54.50, G89.29 Daily issues with pain, was in pain management in the past but per patient was discharged for asking for pain med increase for worsening pain. She would like to try non-pharm pain management. Can start nortriptyline since this helped in the past with pain, mood, and sleep. Flexeril PRN, NSAIDs and tylenol PRN, rest, heat/ice, gentle stretches and range of motion. - CONSULT TO WELLNESS NON-PHARMACOLOGIC PAIN MANAGEMENT - NORTRIPTYLINE 25 MG CAPSULE - CYCLOBENZAPRINE 10 MG TABLET 3. Scoliosis, unspecified scoliosis type, unspecified spinal region - ICD9: 737.30, ICD10: M41.9 See above. - CONSULT TO WELLNESS NON-PHARMACOLOGIC PAIN MANAGEMENT - NORTRIPTYLINE 25 MG CAPSULE - CYCLOBENZAPRINE 10 MG TABLET 4. Myofascial pain - ICD9: 729.1, ICD10: M79.18 See above. - CONSULT TO WELLNESS NON-PHARMACOLOGIC PAIN MANAGEMENT - NORTRIPTYLINE 25 MG CAPSULE - CYCLOBENZAPRINE 10 MG TABLET 5. Current mild episode of major depressive disorder, unspecified whether recurrent (HCC) - ICD9: 296.21, ICD10: F32.0 Related to her pain, nortriptyline helpful in the past. Keep follow up in 1 month and update on mood/pain with that visit. - NORTRIPTYLINE 25 MG CAPSULE Wellness exam completed. Health maintenance reviewed and updated. Chronic conditions and medications reviewed and updated as needed. Encouraged regular physical activity as tolerated, Healthy diet, and health promoting lifestyle. Encouraged regular eye doctor and dental visits. Wellness handout given Portions of this note have been entered by ancillary staff. I have reviewed and when necessary edited, so that they are an adequate record of my encounter with this patient Please note that parts of this document were created using voice recognition software and therefore may contain grammatical errors. Patient verbalizes understanding of instructions from today's visit and in agreement with treatment plan. Questions answered. Agrees to call the office if questions, concerns or issues with acute symptoms not improving or if they worsen. See diagnoses and orders for additional plan(s). Allergies and medications were reviewed, list was updated, and refills given if needed. Past medical, surgical, social, and family history reviewed and updated as appropriate. Encouraged proper diet & exercise as well as compliance with taking medications. Age-appropriate health preventative measures were discussed. Return if symptoms worsen or fail to improve, for Keep next scheduled appointment.. Rolo Rueda APRN-TYRELL documented in this encounter [facility] 07-06-2022 Note HNO ID: [id number] Author: Mayelin Jose APRN.CNP Service: ? Author Type: Nurse Practitioner Type: Progress Notes Filed: 07/06/2022 12:40 PM Note Text: CC: Patient presents with: change in bowel habits / bloody stools: Discharge with BM HPI Calamina Alexandrea is a 41 year old female who presents today for above. Initially she was experiencing constipation a couple months ago including hard stools and straining with BM's. Associated with rectal bleeding, one episode of blood mixed in her stool, one episode of black/tarry stool, rectal pain and mucus discharge. Then a few weeks ago the diarrhea began, stools are any where from mushy to watery. Only having a BM every few days. No further episodes of bleeding once diarrhea began but all other symptoms persisting. She is trying to drink a lot of water. Admits to not getting enough fiber. Denies alcohol or illicit drug use. She denies GI history other than GERD. Family history: brother-stomach cancer REVIEW OF SYSTEMS General: no fevers, no chills, no night sweats, no change in energy, and no significant changes in weight GI: Negative for heart burn, nausea, vomiting and Positive for abdominal cramping, poor appetite Skin: Negative for lesions, rash, and itching Psych: Negative for sleep disturbance, mood disorder and recent psychosocial stressors Musculoskeletal: denies joint pain, swelling or redness PAST MEDICAL HISTORY Diagnosis Date Cyst of right breast 02/20/2020 Delayed emergence from general anesthesia Herpes genitalis in women HPV in female Kidney stone PTSD (post-traumatic stress disorder) 02/20/2020 PAST SURGICAL HISTORY Procedure Laterality Date BREAST CYST ASPIRATION - ADDTL LESION ORAL SURGERY PROCEDURE SALPINGECTOMY Right ALLERGIES Bactrim [Sulfamethoxazole-Trimethoprim], Latex, Morphine, Tramadol, and Zoloft [Sertraline] MEDICATIONS albuterol HFA (VENTOLIN HFA) 90 mcg/actuation inhaler Inhale 2 Puffs as instructed every 4 hours as needed for wheezing/shortness of breath. phenazopyridine (PYRIDIUM) 200 mg tablet Take 1 tablet by mouth three times daily as needed. gabapentin (NEURONTIN) 300 mg capsule Take one pill at night for one week, then add one pill in the morning for one week, then take on pill 3 times per day thereafter valACYclovir (VALTREX) 1 gram Take 1 tablet by mouth once daily. SUMAtriptan (IMITREX) 50 mg tablet Take 1 tablet at the onset of migraine. Can repeat in 2 hours if headaches persists nortriptyline (PAMELOR) 25 mg capsule Take 1 capsule by mouth daily at bedtime. FAMILY HISTORY Problem Relation Age of Onset Diabetes Mother Dialysis Mother other (Other) Sister brain cyst Cancer Maternal Grandmother cervical No Known Problems Maternal Grandfather Social History Tobacco Use Smoking status: Every Day Packs/day: 0.25 Types: Cigarettes Start date: 12/1997 Smokeless tobacco: Never Tobacco comments: 1 pack every 3 days Vaping Use Vaping Use: Former Quit date: 03/15/2019 Substance Use Topics Alcohol use: Yes Comment: socially Drug use: Not Currently Types: Marijuana PHYSICAL EXAM BP 129/85 Pulse 82 Resp 18 Wt 59.9 kg (132 lb) LMP 02/24/2022 (Exact Date) BMI 24.14 kg/m? General Appearance: well appearing, in no acute distress, alert Pysch: mood and affect broad and appropriate Lungs: Lungs clear to auscultation. No wheezing, rhonchi, rales. Heart: RRR without murmur, gallop, or rubs. No ectopy Abdomen: Soft, non-distended. mild lower abdominal tenderness with palpation. No guarding or rebound tenderness. Bowel sounds normal and active. No masses, organomegaly. DATA REVIEWED: Most recent labs ASSESSMENT/PLAN: 1. Diarrhea, unspecified type - ICD9: 787.91, ICD10: R19.7 (primary diagnosis) Differentials include hemorrhoids, anal fissure, IBD, IBS, dietary CONSULT TO GASTROENTEROLOGY for further evaluation and recommendations Check labs and stool studies: - CBC + DIFF - COMP METABOLIC PANEL - TSH BLD - FECAL OCCULT BLOOD TEST - ENTERIC BACTERIAL PANEL BY PCR - C. DIFFICILE PCR 2. Rectal bleeding - ICD9: 569.3, ICD10: K62.5 As above - CONSULT TO GASTROENTEROLOGY - CBC + DIFF - COMP METABOLIC PANEL - FECAL OCCULT BLOOD TEST - ENTERIC BACTERIAL PANEL BY PCR - C. DIFFICILE PCR 3. Rectal pain - ICD9: 569.42, ICD10: K62.89 As above - CONSULT TO GASTROENTEROLOGY - CBC + DIFF - COMP METABOLIC PANEL - FECAL OCCULT BLOOD TEST - ENTERIC BACTERIAL PANEL BY PCR - C. DIFFICILE PCR Prescription instructions reviewed with patient as applicable. Potential red flag symptoms discussed with the patient. Reviewed appropriate action plan to take if red flag symptoms occur. Patient agreeable to treatment plan. Mayelin Jose APRN.TYRELL [facility] 06-20-2022 Note HNO ID: [id number] Author: Aline Lugo APRN.GLASS PRODUCTION MACHINE OPERATOR Service: ? Author Type: Nurse Practitioner Type: Progress Notes Filed: 06/20/2022 2:28 PM Note Text: Subjective HPI Calamina Alexandrea is a 41 year old female who presents with headache, cough, and recent exposure to COVID. Her boss tested positive earlier this week. She has had nasal congestion, body aches, and fatigue. She has not been taking any medication at home for symptoms. Review of Systems Constitutional: Positive for malaise/fatigue. Negative for chills and fever. HENT: Positive for congestion. Negative for sore throat. Respiratory: Positive for cough and shortness of breath. Cardiovascular: Negative for chest pain. Gastrointestinal: Negative for diarrhea, nausea and vomiting. Musculoskeletal: Positive for myalgias. Neurological: Positive for headaches. BP 108/70 Pulse 78 Temp 36.9 ?C (98.4 ?F) Resp 18 Wt 59.1 kg (130 lb 6.4 oz) LMP 02/24/2022 (Exact Date) SpO2 100% BMI 23.85 kg/m? PAST MEDICAL HISTORY Diagnosis Date Cyst of right breast 02/20/2020 Delayed emergence from general anesthesia Herpes genitalis in women HPV in female Kidney stone PTSD (post-traumatic stress disorder) 02/20/2020 PAST SURGICAL HISTORY Procedure Laterality Date BREAST CYST ASPIRATION - ADDTL LESION ORAL SURGERY PROCEDURE SALPINGECTOMY Right ALLERGIES Bactrim [Sulfamethoxazole-Trimethoprim], Latex, Morphine, Tramadol, and Zoloft [Sertraline] MEDICATIONS albuterol HFA (VENTOLIN HFA) 90 mcg/actuation inhaler Inhale 2 Puffs as instructed every 4 hours as needed for wheezing/shortness of breath. phenazopyridine (PYRIDIUM) 200 mg tablet Take 1 tablet by mouth three times daily as needed. gabapentin (NEURONTIN) 300 mg capsule Take one pill at night for one week, then add one pill in the morning for one week, then take on pill 3 times per day thereafter valACYclovir (VALTREX) 1 gram Take 1 tablet by mouth once daily. SUMAtriptan (IMITREX) 50 mg tablet Take 1 tablet at the onset of migraine. Can repeat in 2 hours if headaches persists nortriptyline (PAMELOR) 25 mg capsule Take 1 capsule by mouth daily at bedtime. FAMILY HISTORY Problem Relation Age of Onset Diabetes Mother Dialysis Mother other (Other) Sister brain cyst Cancer Maternal Grandmother cervical No Known Problems Maternal Grandfather Social History Tobacco Use Smoking status: Every Day Packs/day: 0.25 Types: Cigarettes Start date: 12/1997 Smokeless tobacco: Never Tobacco comments: 1 pack every 3 days Vaping Use Vaping Use: Former Quit date: 03/15/2019 Substance Use Topics Alcohol use: Yes Comment: socially Drug use: Not Currently Types: Marijuana Objective Physical Exam Vitals and nursing note reviewed. HENT: Nose: Congestion present. Mouth/Throat: Pharynx: Uvula midline. Cardiovascular: Rate and Rhythm: Normal rate and regular rhythm. Heart sounds: Normal heart sounds. Pulmonary: Effort: Pulmonary effort is normal. No respiratory distress. Breath sounds: Normal breath sounds. No wheezing or rales. Musculoskeletal: Cervical back: Neck supple. Lymphadenopathy: Cervical: No cervical adenopathy. Skin: General: Skin is warm and dry. Findings: No erythema or rash. Neurological: Mental Status: She is alert. ASSESSMENT/PLAN: 1. Viral URI with cough - ICD9: 465.9, ICD10: J06.9 - Discussed viral etiology and rationale for treatment. - Symptomatic treatment with prn analgesia - Supportive care with fluids and rest - ALBUTEROL SULFATE HFA 90 MCG/ACTUATION AEROSOL INHALER-patient requested refill. - COVID WITH FLUA+B, ROUTINE - Follow-up with your PCP in 3-5 days if symptoms have not improved or sooner if symptoms worsen - Discussed red flags and need for immediate medical evaluation if any occur. - Discussed supportive care treatment with fluids, rest and analgesia. - Discussed expected course of illness Aline Lugo APRN.[facility] 06-20-2022 History of Presen t illness Narrative Subjective HPI Estevan Lechuga is a 41 year old female who presents with headache, cough, and recent exposure to COVID. Her boss tested positive earlier this week. She has had nasal congestion, body aches, and fatigue. She has not been taking any medication at home for symptoms. Review of Systems Constitutional: Positive for malaise/fatigue. Negative for chills and fever. HENT: Positive for congestion. Negative for sore throat. Respiratory: Positive for cough and shortness of breath. Cardiovascular: Negative for chest pain. Gastrointestinal: Negative for diarrhea, nausea and vomiting. Musculoskeletal: Positive for myalgias. Neurological: Positive for headaches. BP 108/70 Pulse 78 Temp 36.9 C (98.4 F) Resp 18 Wt 59.1 kg (130 lb 6.4 oz) LMP 02/24/2022 (Exact Date) SpO2 100% BMI 23.85 kg/m PAST MEDICAL HISTORY Diagnosis Date Cyst of right breast 02/20/2020 Delayed emergence from general anesthesia Herpes genitalis in women HPV in female Kidney stone PTSD (post-traumatic stress disorder) 02/20/2020 PAST SURGICAL HISTORY Procedure Laterality Date BREAST CYST ASPIRATION - ADDTL LESION ORAL SURGERY PROCEDURE SALPINGECTOMY Right ALLERGIES Bactrim [Sulfamethoxazole-Trimethoprim], Latex, Morphine, Tramadol, and Zoloft [Sertraline] MEDICATIONS albuterol HFA (VENTOLIN HFA) 90 mcg/actuation inhaler Inhale 2 Puffs as instructed every 4 hours as needed for wheezing/shortness of breath. phenazopyridine (PYRIDIUM) 200 mg tablet Take 1 tablet by mouth three times daily as needed. gabapentin (NEURONTIN) 300 mg capsule Take one pill at night for one week, then add one pill in the morning for one week, then take on pill 3 times per day thereafter valACYclovir (VALTREX) 1 gram Take 1 tablet by mouth once daily. SUMAtriptan (IMITREX) 50 mg tablet Take 1 tablet at the onset of migraine. Can repeat in 2 hours if headaches persists nortriptyline (PAMELOR) 25 mg capsule Take 1 capsule by mouth daily at bedtime. FAMILY HISTORY Problem Relation Age of Onset Diabetes Mother Dialysis Mother other (Other) Sister brain cyst Cancer Maternal Grandmother cervical No Known Problems Maternal Grandfather Social History Tobacco Use Smoking status: Every Day Packs/day: 0.25 Types: Cigarettes Start date: 12/1997 Smokeless tobacco: Never Tobacco comments: 1 pack every 3 days Vaping Use Vaping Use: Former Quit date: 03/15/2019 Substance Use Topics Alcohol use: Yes Comment: socially Drug use: Not Currently Types: Marijuana Objective Physical Exam Vitals and nursing note reviewed. HENT: Nose: Congestion present. Mouth/Throat: Pharynx: Uvula midline. Cardiovascular: Rate and Rhythm: Normal rate and regular rhythm. Heart sounds: Normal heart sounds. Pulmonary: Effort: Pulmonary effort is normal. No respiratory distress. Breath sounds: Normal breath sounds. No wheezing or rales. Musculoskeletal: Cervical back: Neck supple. Lymphadenopathy: Cervical: No cervical adenopathy. Skin: General: Skin is warm and dry. Findings: No erythema or rash. Neurological: Mental Status: She is alert. ASSESSMENT/PLAN: 1. Viral URI with cough - ICD9: 465.9, ICD10: J06.9 - Discussed viral etiology and rationale for treatment. - Symptomatic treatment with prn analgesia - Supportive care with fluids and rest - ALBUTEROL SULFATE HFA 90 MCG/ACTUATION AEROSOL INHALER-patient requested refill. - COVID WITH FLUA+B, ROUTINE - Follow-up with your PCP in 3-5 days if symptoms have not improved or sooner if symptoms worsen - Discussed red flags and need for immediate medical evaluation if any occur. - Discussed supportive care treatment with fluids, rest and analgesia. - Discussed expected course of illness Aline Lugo APRN.CNP documented in this encounter [facility] 06-20-2022 Instructions Aline Lugo APRN.CNP - 06/20/2022 2:24 PM EDT ASSESSMENT/PLAN: 1. Viral URI with cough - ICD9: 465.9, ICD10: J06.9 - Discussed viral etiology and rationale for treatment. - Symptomatic treatment with prn analgesia - Supportive care with fluids and rest - ALBUTEROL SULFATE HFA 90 MCG/ACTUATION AEROSOL INHALER - COVID WITH FLUA+B, ROUTINE - Follow-up with your PCP in 3-5 days if symptoms have not improved or sooner if symptoms worsen - Discussed red flags and need for immediate medical evaluation if any occur. - Discussed supportive care treatment with fluids, rest and analgesia. - Discussed expected course of illness Aline Lugo APRN.GLASS PRODUCTION MACHINE OPERATOR Beginning Home Isolation Isolation is used to separate people infected with SARS-CoV-2, the virus that causes COVID-19, from people who are not infected. People who are in isolation should stay home until it s safe for them to be around others. In the home, anyone sick or infected should separate themselves from others by staying in a specific sick room or area and using a separate bathroom (if available). Isolation or Quarantine: What's the difference? Quarantine keeps someone who might have been exposed to the virus away from others. Isolation keeps someone who is infected with the virus away from others, even in their home. Who needs to isolate People who have COVID-19 People who have symptoms of COVID-19 and are able to recover at home People who have no symptoms (are asymptomatic) but have tested positive for infection with SARS-CoV-2 Steps to take Stay home except to get medical care Monitor your symptoms. Stay in a separate room from other household members, if possible Use a separate bathroom, if possible Avoid contact with other members of the household and pets Don t share personal household items, like cups, towels, and utensils Wear a mask when around other people, if you are able to When to seek emergency medical attention Look for emergency warning signs* for COVID-19. If someone is showing any of these signs, seek emergency medical care immediately: Trouble breathing Persistent pain or pressure in the chest New confusion Inability to wake or stay awake Bluish lips or face *This list is not all possible symptoms. Please call your medical provider for any other symptoms that are severe or concerning to you. Call 911 or call ahead to your local emergency facility: Notify the heddle machine operator that you are seeking care for someone who has or may have COVID-19. Ending Home Isolation - When you can be around others after you had or likely had COVID-19 When you can be around others after you had or likely had COVID-19 If You Test Positive for COVID-19 (Isolation) Everyone, regardless of vaccination status: Stay home for 5 days. Note: Day 0 is your first day of symptoms or the date of collection of a positive viral test if no symptoms. Day 1 is the first full day after symptoms developed or test specimen was collected. If you have no symptoms or your symptoms are resolving after 5 days, you can leave your house. Continue to wear a mask around others for 5 additional days. If you have a fever, continue to stay home until your fever resolves, even if it is longer than 5 days. If You Were Exposed to Someone with COVID-19 (Quarantine) If you: 1. Have been boosted OR 2. Completed the primary series of Pfizer or Moderna vaccine within the last 6 months OR 3. Completed the primary series of J&J vaccine within the last 2 months THEN: 1. Wear a mask around others for 10 days. 2. Test on day 5, if possible. If you develop symptoms get a test and stay home. If You Were Exposed to Someone with COVID-19 (Quarantine) If you: 1. Completed the primary series of Pfizer or Moderna vaccine over 6 months ago and are not boosted OR 2. Completed the primary series of J&J over 2 months ago and are not boosted OR 3. Are unvaccinated THEN: 1. Stay home for 5 days. After that continue to wear a mask around others for 5 additional days. 2. If you can't quarantine you must wear a mask for 10 days. 3. Test on day 5 if possible. If you develop symptoms get a test and stay home. I had COVID-19 or I tested positive for COVID-19 and I have a weakened immune system If you have a weakened immune system (immunocompromised) due to a health condition or medication, you might need to stay home and isolate longer than 10 days. Talk to your healthcare provider for more information. Your doctor may work with an infectious disease expert at your local health department to determine when you can be around others. How to Manage Common Symptoms Associated with COVID for Adults Fever- Fever is a temperature over 100.4 F and can occur when the body is fighting an infection. To help treat a fever: Drink plenty of fluids and stay well hydrated. Eat small amounts of easy to digest food. Rest. Your body needs rest to recover, but getting up and moving around the house frequently is a good idea. You should try to continue doing your normal daily activities (bathing, toileting, grooming, cooking), though you will probably feel tired, and need to rest often. Avoid any heavy activity or exercise, as this will increase your body temperature. Dress in light clothing and stay covered in a light sheet. Keep the room temperature cool. Take a slightly warm (not cold or cool) bath, or apply damp washcloths to the forehead and wrists. Cough- Cough is a common symptom associated with COVID and can be bothersome. To help treat a cough: Stay well hydrated. Try warm water or tea with lemon and/or honey to help soothe the cough. Use a humidifier to add moisture to the air. Try a product with menthol, like a cough drop or a rub for your chest such as Vicks, which can help reduce cough. Try cough drops. Avoid smoking and other strong odors or perfumes. Try breathing exercises to keep your lungs open and clear. Take a big deep breath through your nose and hold for 5 seconds before slowly releasing. Repeat frequently, while you are awake. Congestion- Runny nose or nasal congestion can occur with COVID. Treatment can help relieve symptoms: Try OTC nasal saline spray, or nasal saline rinse to relieve mucus congestion. Nasal strips can help keep nasal passages open, to increase airflow. Elevating your head with an extra pillow in bed can help reduce congestion. Using a humidifier can increase moisture in the air, and make breathing easier. Sore Throat- Another common symptom with COVID, can be managed at home by: Stay well hydrated. Gargle with salt water - mix teaspoon salt with 1 cup of warm water and gargle. This helps to loosen mucus in the back of the throat and may reduce discomfort. Try ice chips, popsicles or lozenges to soothe the throat. Nausea/Vomiting/Diarrhea- These are common symptoms, and staying hydrated is most important. If you are nauseous or vomiting, start with small sips of water every 10-15 minutes and increase as tolerated. You can try sucking an ice cube too. If tolerating, you can try pedialyte or Gatorade, or flat sprite or batool-harvinder. Start slowly and increase as you are able to. Instead of meals, try smaller, more frequent snacks. Try eating bland foods like crackers, toast, rice, and applesauce. Avoid spicy, greasy or fried foods and dairy containing foods. Even if you aren't feeling hungry due to lack of smell or taste, it is important to try to take in some food when you are able. After drinking and eating, rest in an upright position for up to two hours as needed to help decrease nauseous feelings. Try closing your eyes, avoid moving and watching TV. Avoid strong odors that can make you feel more nauseated. When to seek emergency medical attention Look for emergency warning signs for COVID-19. If having any of these symptoms, seek emergency medical care immediately: Trouble breathing Persistent pain or pressure in the chest New confusion Inability to wake or stay awake Bluish lips or face *This list is not all possible symptoms. Please call your medical provider for any other symptoms that are severe or concerning to you. documented in this encounter [facility] 05-04-2022 Miscellaneous Notes Patient given results and verbalized understanding of instructions given. Annabelle Harman Urine culture and vaginal cultures all negative, follow up with PCP/MARKETING COMMUNICATIONS ASSISTANT for further treatment. documented in this encounter [facility] 05-02-2022 Note HNO ID: [id number] Author: Simran Hester APRN.CNP Service: ? Author Type: Nurse Practitioner Type: Progress Notes Filed: 05/02/2022 11:58 AM Note Text: Subjective The history is provided by the patient. No language pathologist was used. MOHAMUD Lechuga is a 41 year old female who presents today for CC of burning urgency and frequency, she is also having vaginal discharge, itching and odor. This started in the past week. Positive for Dysuria, Increase in frequency of urination, Urgency, and Vaginal itch or discharge, Negative for Sense of incomplete void, Fevers, Vomiting, Diarrhea, Abdominal pain , Back/Flank pain, and Blood in urine Chance of : No Last intercourse: sexually active in past 2 months Any self-treatment attempted: No Number of previous UTI's in last 6 months:0 Number of previous UTI's in last 12 months: 0 Aggravating Factors: voiding Alleviating Factors include none used. BP 112/82 Pulse 95 Temp 37.8 ?C (100 ?F) Resp 21 Wt 60.2 kg (132 lb 12.8 oz) LMP 02/24/2022 (Exact Date) SpO2 100% BMI 24.29 kg/m? Social History Tobacco Use Smoking status: Every Day Packs/day: 0.25 Types: Cigarettes Start date: 12/1997 Smokeless tobacco: Never Tobacco comments: 1 pack every 3 days Vaping Use Vaping Use: Former Quit date: 03/15/2019 Substance Use Topics Alcohol use: Yes Comment: socially Drug use: Not Currently Types: Marijuana PAST MEDICAL HISTORY Diagnosis Date Cyst of right breast 02/20/2020 Delayed emergence from general anesthesia Herpes genitalis in women HPV in female Kidney stone PTSD (post-traumatic stress disorder) 02/20/2020 I have confirmed and edited as necessary, the [facility] Review of Systems Constitutional: Negative for chills and fever. Gastrointestinal: Negative for abdominal pain, nausea and vomiting. Genitourinary: Positive for dysuria, frequency, hematuria and urgency. Negative for flank pain. + vaginal discharge and odor Objective Physical Exam Vitals and nursing note reviewed. Constitutional: Appearance: Normal appearance. Abdominal: General: Bowel sounds are normal. There is no abdominal bruit. Palpations: Abdomen is not rigid. There is no mass or pulsatile mass. Tenderness: There is no abdominal tenderness. There is right CVA tenderness and left CVA tenderness. There is no guarding or rebound. Negative signs include Chaudhari's sign and McBurney's sign. Neurological: Mental Status: She is alert and oriented to person, place, and time. Psychiatric: Mood and Affect: Affect normal. Declined exam will self swab. Component Latest Ref Rng AND Units 05/02/2022 GLUCOSE UA (POCT) Negative mg/dL Negative BILIRUBIN UA (POCT) Negative Negative KETONE UA (POCT) Negative mg/dL Negative SPECIFIC GRAVITY UA (POCT) 1.005 - 1.030 1.015 HEMOGLOBIN/BLOOD UA (POCT) Negative Negative PH UA (POCT) 4.5 - 8.0 6.5 PROTEIN UA (POCT) Negative mg/dL Negative UROBILINOGEN UA (POCT) Normal E.U./dL 0.2 NITRITE UA (POCT) Negative Negative LEUKOCYTES UA (POCT) Negative Negative COLOR UA (POCT) Yellow CLARITY UA (POCT) Clear ASSESSMENT/PLAN: 1. Burning with urination - ICD9: 788.1, ICD10: R30.0 (primary diagnosis) acute Urine dip is negative will send culture and treat if positive - UA DIP, URINE (POC) - URINE CULTURE 2. Acute vaginitis - ICD9: 616.10, ICD10: N76.0 Will send cultures and treat based on testing. - BACTERIAL VAGINOSIS AMPLIFICATION - LESLIE / TRICHOMONAS AMPLIFICATION If all testing is negative and still having symptoms follow up with MARKETING COMMUNICATIONS ASSISTANT Diagnosis and treatment plan were discussed and questions were answered to the patient's satisfaction. Pt acknowledged understanding of concepts and follow up plan. Specific signs and symptoms that would indicate the need for higher level of care were discussed in detail warranting prompt ER evaluation. Simran Hester APRN.GLASS PRODUCTION MACHINE OPERATOR [facility] 03-12-2022 Note HNO ID: [id number] Author: Arjun Dill APRN.TYRELL Service: ? Author Type: Nurse Practitioner Type: Progress Notes Filed: 03/12/2022 4:39 PM Note Text: Subjective HPI Nontoxic female presents urgent care chief plaint shortness of breath. Duration of symptoms ongoing over the last 9 days has worsened over the last 24 hours. Has recently been coughing up blood-tinged sputum. Presents today due to increasing shortness of breath. Has not used any OTC medications. States she was in the ER about a week ago was diagnosed with influenza A. Presents today for evaluation of shortness of breath. .Patient presents with: Shortness of Breath: Congestion, coughing up blood x 9 days PAST MEDICAL HISTORY Diagnosis Date Cyst of right breast 02/20/2020 Delayed emergence from general anesthesia Herpes genitalis in women HPV in female Kidney stone PTSD (post-traumatic stress disorder) 02/20/2020 PAST SURGICAL HISTORY Procedure Laterality Date BREAST CYST ASPIRATION - ADDTL LESION ORAL SURGERY PROCEDURE SALPINGECTOMY Right ALLERGIES Bactrim [Sulfamethoxazole-Trimethoprim], Latex, Morphine, Tramadol, and Zoloft [Sertraline] MEDICATIONS benzonatate (TESSALON PERLE) 100 mg capsule Take 1 capsule by mouth every 8 hours as needed for cough for up to 15 days. gabapentin (NEURONTIN) 300 mg capsule Take one pill at night for one week, then add one pill in the morning for one week, then take on pill 3 times per day thereafter valACYclovir (VALTREX) 1 gram Take 1 tablet by mouth once daily. albuterol HFA (VENTOLIN HFA) 90 mcg/actuation inhaler Inhale 2 Puffs as instructed every 4 hours as needed for wheezing/shortness of breath. SUMAtriptan (IMITREX) 50 mg tablet Take 1 tablet at the onset of migraine. Can repeat in 2 hours if headaches persists nortriptyline (PAMELOR) 25 mg capsule Take 1 capsule by mouth daily at bedtime. FAMILY HISTORY Problem Relation Age of Onset Diabetes Mother Dialysis Mother other (Other) Sister brain cyst Cancer Maternal Grandmother cervical No Known Problems Maternal Grandfather Social History Tobacco Use Smoking status: Every Day Packs/day: 0.25 Types: Cigarettes Start date: 12/1997 Smokeless tobacco: Never Tobacco comments: 1 pack every 3 days Vaping Use Vaping Use: Former Quit date: 03/15/2019 Substance Use Topics Alcohol use: Yes Comment: socially Drug use: Not Currently Types: Marijuana BP 140/90 Pulse 104 Temp 36.9 ?C (98.4 ?F) Resp 22 Wt 58.1 kg (128 lb) LMP 02/24/2022 (Exact Date) SpO2 100% BMI 23.41 kg/m? Resp 35 Review of Systems Constitutional: Negative for chills, fever and malaise/fatigue. HENT: Negative for congestion, ear discharge, ear pain, sinus pain and sore throat. Eyes: Negative for blurred vision, pain, discharge and redness. Respiratory: Positive for cough, sputum production, shortness of breath and wheezing. Negative for hemoptysis and stridor. Cardiovascular: Positive for chest pain. Gastrointestinal: Negative for abdominal pain, diarrhea, nausea and vomiting. Musculoskeletal: Negative for myalgias. Skin: Negative for itching and rash. Neurological: Negative for dizziness and headaches. Objective Physical Exam Constitutional: General: She is not in acute distress. Appearance: She is not diaphoretic. HENT: Head: Normocephalic. Eyes: Conjunctiva/sclera: Conjunctivae normal. Pupils: Pupils are equal, round, and reactive to light. Cardiovascular: Rate and Rhythm: Normal rate and regular rhythm. Heart sounds: Normal heart sounds. Pulmonary: Effort: Accessory muscle usage present. No tachypnea or respiratory distress. Breath sounds: Normal breath sounds. No stridor. No wheezing, rhonchi or rales. Abdominal: Palpations: Abdomen is soft. Tenderness: There is no abdominal tenderness. Musculoskeletal: Cervical back: Normal range of motion. Skin: General: Skin is warm and dry. Neurological: Mental Status: She is alert and oriented to person, place, and time. ASSESSMENT/PLAN: 1. SOB (shortness of breath) - ICD9: 786.05, ICD10: R06.02 Patient diagnosis shortness of breath. Respirations 35-minute. Increased work of breathing noted. Recommend to be seen in ED for further evaluation care. Will be seen at [facility]. Patient verbalized understand agrees with plan of care Arjun Dill APRN.[facility] 03-12-2022 History of Presen t illness Narrative Subjective HPI Nontoxic female presents urgent care chief plaint shortness of breath. Duration of symptoms ongoing over the last 9 days has worsened over the last 24 hours. Has recently been coughing up blood-tinged sputum. Presents today due to increasing shortness of breath. Has not used any OTC medications. States she was in the ER about a week ago was diagnosed with influenza A. Presents today for evaluation of shortness of breath. .Patient presents with: Shortness of Breath: Congestion, coughing up blood x 9 days PAST MEDICAL HISTORY Diagnosis Date Cyst of right breast 02/20/2020 Delayed emergence from general anesthesia Herpes genitalis in women HPV in female Kidney stone PTSD (post-traumatic stress disorder) 02/20/2020 PAST SURGICAL HISTORY Procedure Laterality Date BREAST CYST ASPIRATION - ADDTL LESION ORAL SURGERY PROCEDURE SALPINGECTOMY Right ALLERGIES Bactrim [Sulfamethoxazole-Trimethoprim], Latex, Morphine, Tramadol, and Zoloft [Sertraline] MEDICATIONS benzonatate (TESSALON PERLE) 100 mg capsule Take 1 capsule by mouth every 8 hours as needed for cough for up to 15 days. gabapentin (NEURONTIN) 300 mg capsule Take one pill at night for one week, then add one pill in the morning for one week, then take on pill 3 times per day thereafter valACYclovir (VALTREX) 1 gram Take 1 tablet by mouth once daily. albuterol HFA (VENTOLIN HFA) 90 mcg/actuation inhaler Inhale 2 Puffs as instructed every 4 hours as needed for wheezing/shortness of breath. SUMAtriptan (IMITREX) 50 mg tablet Take 1 tablet at the onset of migraine. Can repeat in 2 hours if headaches persists nortriptyline (PAMELOR) 25 mg capsule Take 1 capsule by mouth daily at bedtime. FAMILY HISTORY Problem Relation Age of Onset Diabetes Mother Dialysis Mother other (Other) Sister brain cyst Cancer Maternal Grandmother cervical No Known Problems Maternal Grandfather Social History Tobacco Use Smoking status: Every Day Packs/day: 0.25 Types: Cigarettes Start date: 12/1997 Smokeless tobacco: Never Tobacco comments: 1 pack every 3 days Vaping Use Vaping Use: Former Quit date: 03/15/2019 Substance Use Topics Alcohol use: Yes Comment: socially Drug use: Not Currently Types: Marijuana BP 140/90 Pulse 104 Temp 36.9 C (98.4 F) Resp 22 Wt 58.1 kg (128 lb) LMP 02/24/2022 (Exact Date) SpO2 100% BMI 23.41 kg/m Resp 35 Review of Systems Constitutional: Negative for chills, fever and malaise/fatigue. HENT: Negative for congestion, ear discharge, ear pain, sinus pain and sore throat. Eyes: Negative for blurred vision, pain, discharge and redness. Respiratory: Positive for cough, sputum production, shortness of breath and wheezing. Negative for hemoptysis and stridor. Cardiovascular: Positive for chest pain. Gastrointestinal: Negative for abdominal pain, diarrhea, nausea and vomiting. Musculoskeletal: Negative for myalgias. Skin: Negative for itching and rash. Neurological: Negative for dizziness and headaches. Objective Physical Exam Constitutional: General: She is not in acute distress. Appearance: She is not diaphoretic. HENT: Head: Normocephalic. Eyes: Conjunctiva/sclera: Conjunctivae normal. Pupils: Pupils are equal, round, and reactive to light. Cardiovascular: Rate and Rhythm: Normal rate and regular rhythm. Heart sounds: Normal heart sounds. Pulmonary: Effort: Accessory muscle usage present. No tachypnea or respiratory distress. Breath sounds: Normal breath sounds. No stridor. No wheezing, rhonchi or rales. Abdominal: Palpations: Abdomen is soft. Tenderness: There is no abdominal tenderness. Musculoskeletal: Cervical back: Normal range of motion. Skin: General: Skin is warm and dry. Neurological: Mental Status: She is alert and oriented to person, place, and time. ASSESSMENT/PLAN: 1. SOB (shortness of breath) - ICD9: 786.05, ICD10: R06.02 Patient diagnosis shortness of breath. Respirations 35-minute. Increased work of breathing noted. Recommend to be seen in ED for further evaluation care. Will be seen at [facility]. 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 jose l [id number] (ERIC)_EUA This test was developed and its performance characteristics determined by [facility]'s [facility]. This test has been authorized by FDA under an Emergency Use Authorization (EUA). This test has been validated in accordance with the FDA's Guidance Document Policy for Diagnostics Testing in Laboratories Certified to Perform High Complexity Testing under CLIA prior to Emergency use Authorization for Coronavirus Disease 2019 during the Public Health Emergency issued on May 13, 2019. Test performed by [facility], [facility], [address] [place] [address]. INFLUENZA A PCR: Negative for Influenza A by RT-PCR INFLUENZA B PCR: Negative for Influenza B by RT-PCR [facility] documented as of this encounter (statuses as of 06/05/2021) [facility]12-[facility]-2020 History of Past illness Narrative* Problem Noted Date Resolved Date Chronic bronchitis 02/20/2020 02/20/2020 documented as of this encounter (statuses as of 06/17/2021) [facility] History of Past illness Narrative* Problem Noted Date Resolved Date Chronic bronchitis 02/20/2020 02/20/2020 documented as of this encounter (statuses as of 06/26/2021) [facility] History of Past illness Narrative* Problem Noted Date Resolved Date Chronic bronchitis 02/20/2020 02/20/2020 documented as of this encounter (statuses as of 07/25/2021) [address]-2020 History of Past illness Narrative* Problem Noted Date Resolved Date Chronic bronchitis 02/20/2020 02/20/2020 documented as of this encounter (statuses as of 07/26/2021) [facility] History of Past illness Narrative* Problem Noted Date Resolved Date Chronic bronchitis 02/20/2020 02/20/2020 documented as of this encounter (statuses as of 07/29/2021) [facility] History of Past illness Narrative* Problem Noted Date Resolved Date Chronic bronchitis 02/20/2020 02/20/2020 documented as of this encounter (statuses as of 08/13/2021) [address]2020 History of Past illness Narrative* Problem Noted Date Resolved Date Chronic bronchitis 02/20/2020 02/20/2020 documented as of this encounter (statuses as of 08/22/2021) [address]2020 History of Past illness Narrative* Problem Noted Date Resolved Date Chronic bronchitis 02/20/2020 02/20/2020 documented as of this encounter (statuses as of 08/28/2021) [address]2020 History of Past illness Narrative* Problem Noted Date Resolved Date Chronic bronchitis 02/20/2020 02/20/2020 documented as of this encounter (statuses as of 09/11/2021) [address]2020 History of Past illness Narrative* Problem Noted Date Resolved Date Chronic bronchitis 02/20/2020 02/20/2020 documented as of this encounter (statuses as of 10/30/2021) [address]2020 History of Past illness Narrative* Problem Noted Date Resolved Date Chronic bronchitis 02/20/2020 02/20/2020 documented as of this encounter (statuses as of 10/30/2021) [address]2020 History of Past illness Narrative* Problem Noted Date Resolved Date Chronic bronchitis 02/20/2020 02/20/2020 documented as of this encounter (statuses as of 11/06/2021) [address]2020 History of Past illness Narrative* Problem Noted Date Resolved Date Chronic bronchitis 02/20/2020 02/20/2020 documented as of this encounter (statuses as of 03/02/2022) [address]2020 History of Past illness Narrative* Problem Noted Date Resolved Date Chronic bronchitis 02/20/2020 02/20/2020 documented as of this encounter (statuses as of 03/02/2022) [facility] History of Past illness Narrative* Problem Noted Date Resolved Date Chronic bronchitis 02/20/2020 02/20/2020 documented as of this encounter (statuses as of 03/18/2022) [address] History of Past illness Narrative* Problem Noted Date Resolved Date Chronic bronchitis 02/20/2020 02/20/2020 documented as of this encounter (statuses as of 05/04/2022) [address]2020 History of Past illness Narrative* Problem Noted Date Resolved Date Chronic bronchitis 02/20/2020 02/20/2020 documented as of this encounter (statuses as of 06/20/2022) [facility] History of Past illness Narrative* Problem Noted Date Resolved Date Chronic bronchitis 02/20/2020 02/20/2020 documented as of this encounter (statuses as of 07/24/2022) [facility] History of Past illness Narrative* Problem Noted Date Resolved Date Chronic bronchitis 02/20/2020 02/20/2020 documented as of this encounter (statuses as of 09/07/2022) [facility] History of Past illness Narrative* Problem Noted Date Diagnosed Date Resolved Date Chronic bronchitis 02/20/2020 0 documented as of this encounter (statuses as of 10/16/2022) [address]2020 History of Past illness Narrative* Problem Noted Date Diagnosed Date Resolved Date Chronic bronchitis 02/20/2020 0 documented as of this encounter (statuses as of 12/11/2022) [address]2020 History of Past illness Narrative* Problem Noted Date Diagnosed Date Resolved Date Chronic bronchitis 02/20/2020 0 documented as of this encounter (statuses as of 02/26/2023) [address] History of Past illness Narrative* Problem Noted Date Diagnosed Date Resolved Date Chronic bronchitis 02/20/2020 0 documented as of this encounter (statuses as of 02/28/2023) [facility] Myofascial pain- Primary Mylagia and myositis, unspecified Trigger point of right shoulder region Spinal stenosis of cervical region Spinal stenosis in cervical region prison current use of opiate analgesic Encounter for long-term (current) use of other medications Osteochondroma of scapula, right Chronic right shoulder pain 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 in 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, 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 Trigger point of thoracic region Backache, unspecified [facility] Diagnosis Wellness examination- Primary Encounter for screening mammogram for breast cancer Migraine without aura and without status migrainosus, not intractable Migraine without aura, without mention of intractable migraine without mention of status migrainosus Mild intermittent asthmatic bronchitis without complication [facility] Diagnosis Osteochondroma of scapula, right- Primary [facility] Diagnosis Encounter for gynecological examination with abnormal finding- Primary Routine gynecological examination Encounter for screening mammogram for malignant neoplasm of breast Other screening mammogram Screen for STD (sexually transmitted disease) Screening examination for venereal disease Mass overlapping multiple quadrants of left breast Vaginal irritation Unspecified noninflammatory disorder of vagina Screening for cervical cancer Screening for malignant neoplasm of the cervix Special screening examination for human papillomavirus (HPV) [facility] Diagnosis Spinal stenosis of cervical region Spinal stenosis in cervical region [facility] Encounter for screening [facility] for [facility] cancer [facility] Diagnosis prison current use of opiate analgesic- Primary Encounter for long-term (current) use of other medications Osteochondroma of scapula, right Myofascial pain Mylagia and myositis, unspecified Trigger point of right shoulder region [facility] Diagnosis Acute otitis media, right- Primary Unspecified otitis media Otalgia, right [facility] Diagnosis Spinal stenosis of cervical region- Primary Spinal stenosis in cervical region Chronic right shoulder pain Pain in joint, shoulder region Myofascial pain Mylagia and myositis, unspecified prison current use of opiate analgesic Encounter for long-term (current) use of other medications [facility] Diagnosis Headache, unspecified headache type- Primary Close exposure to COVID-19 virus documented in this encounter [facility] note* Diagnosis Vaginal odor- Primary Unspecified symptom associated with female genital organs Vaginal discharge Leukorrhea, not specified as infective documented in this encounter [facility] note* Diagnosis Acute cough- Primary documented in this encounter [facility] note* Diagnosis SOB (shortness of breath)- Primary Shortness of breath documented in this encounter [facility] note* Diagnosis Viral URI with cough- Primary Acute upper respiratory infections of unspecified site documented in this encounter [facility] note* Diagnosis Wellness examination- Primary Chronic bilateral low back pain without sciatica Scoliosis, unspecified scoliosis type, unspecified spinal region Myofascial pain Mylagia and myositis, unspecified Current mild episode of major depressive disorder, unspecified whether recurrent (HCC) documented in this encounter [facility] note* Diagnosis Encounter for screening mammogram for breast cancer documented in this encounter [facility] note* Diagnosis Dental infection- Primary Acute apical periodontitis of pulpal origin Dysuria documented in this encounter [facility] note* Diagnosis Right lower quadrant pain- Primary Abdominal pain, right lower quadrant Diarrhea, unspecified type Nausea Nausea alone documented in this encounter [facility] note* Diagnosis Acute vaginitis- Primary Vaginitis and vulvovaginitis, unspecified Dysuria documented in this encounter [facility] for referral (narrative)* Diagnostic Procedure Only (Routine) - Authorized Specialty Diagnoses / Procedures Referred By Caitlyn maher Referred To Contact [facility] Diagnoses Encounter for screening mammogram for breast cancer Procedures TEA SCREENING SCREENING MAMMOGRAPHY BI 2-VIEW BREAST INC Mayelin Gould APRN.CNP [address] [place] [address] [facility] [address] [place] [phone] Referral ID Status Reason Start Date Expiration Date Visits Requested Visits Authorized [id number] Authorized Auto-Generat ed Referral 06/17/2021 07/17/2022 1 1 [facility] for referral (narrative)* Diagnostic Procedure Only (Routine) - Pending Review Specialty Diagnoses / Procedures Referred By Caitlyn maher Referred To Contact XR IMAGING Diagnoses Osteochondroma of scapula, right Procedures XR SCAPULA 2V AP/LAT RIGHT RADEX SCAPULA COMPLETE Corie Egan PA-C [address] [place] [address] X[facility] Referral ID Status Reason Start Date Expiration Date Visits Requested Visits Authorized [id number] Pending Review Auto-Generat ed Referral 06/26/2021 07/26/2022 1 1 * Diagnostic Procedure Only (Routine) - Pending Review Specialty Diagnoses / Procedures Referred By Contac t Referred To Contact XR IMAGING Diagnoses Osteochondroma of scapula, right Procedures XR SHOULDER GENERAL 3V OR MORE AP/TRUE AP/OTHER RIGHT RADEX SHOULDER COMPLETE MINIMUM 2 VIEWS Corie Egan PA-C [address] [place] [address] X[facility] Imaging Referral ID Status Reason Start Date Expiration Date Visits Requested Visits Authorized [id number] Pending Review Auto-Generat ed Referral 06/26/2021 07/26/2022 1 1 [facility] for referral (narrative)* Diagnostic Procedure Only (Routine) - Authorized Specialty Diagnoses / Procedures Referred By Contac t Referred To Contact [facility] Diagnoses Mass overlapping multiple quadrants of left breast Procedures US BREAST LTD US BREAST UNI REAL TIME WITH IMAGE LIMITED Sharri Blakely MD [address] [place] [address] [facility] [address] [place] [address] Referral ID Status Reason Start Date Expiration Date Visits Requested Visits Authorized [id number] Authorized Auto-Generat ed Referral 07/25/2021 08/24/2022 1 1 * Diagnostic Procedure Only (Routine) - Authorized Specialty Diagnoses / Procedures Referred By Contac t Referred To Contact [facility] Diagnoses Mass overlapping multiple quadrants of left breast Procedures TEA DIAGNOSTIC LT DIAGNOSTIC MAMMOGRAPHY COMPUTER-AIDED DETCJ UNI Sharri Blakely MD [address] [place] [address] [facility] [address] [place] [address] Referral ID Status Reason Start Date Expiration Date Visits Requested Visits Authorized [id number] Authorized Auto-Generat ed Referral 07/25/2021 08/24/2022 1 1 * Diagnostic Procedure Only (Routine) - Pending Review Specialty Diagnoses / Procedures Referred By Caitlyn maher Referred To Contact [facility] Diagnoses Encounter for screening mammogram for malignant neoplasm of breast Procedures TEA SCREENING W ROSIE SCREENING DIGITAL BREAST TOMOSYNTHESIS BI SCREENING MAMMOGRAPHY BI 2-VIEW BREAST INC CAD Sharri Blakely MD [address] [place] [address] [facility] [address] [place] [address] Referral ID Status Reason Start Date Expiration Date Visits Requested Visits Authorized [id number] Pending Review Auto-Generat ed Referral 07/25/2021 08/24/2022 1 1 [facility] for referral (narrative)* Diagnostic Procedure Only (Routine) - Closed Specialty Diagnoses / Procedures Referred By Caitlyn maher Referred To Contact [facility] Diagnoses Encounter for screening mammogram for breast cancer Procedures TEA SCREENING SCREENING MAMMOGRAPHY BI 2-VIEW BREAST INC CAD Mayelin Jose APRN.GLASS PRODUCTION MACHINE OPERATOR [address] [place] [address] [facility] [address] [place] [address] Referral ID Status Reason Start Date Expiration Date V isits Requested Visits Authorized [id number] Closed Auto-Generate d Referral 06/17/2021 07/17/2022 1 1 [facility] for referral (narrative)* Diagnostic Procedure Only (Routine) - Pending Review Specialty Diagnoses / Procedures Referred By Caitlyn t Referred To Contact [facility] Diagnoses Encounter for screening mammogram for breast cancer Procedures TEA SCREENING SCREENING MAMMOGRAPHY BI 2-VIEW BREAST INC CAD Elijah Arguelles MD [address] [place] [address] [facility] [address] [place] [address] Referral ID Status Reason Start Date Expiration Date Visits Requested Visits Authorized [id number] Pending Review Auto-Generat ed Referral 09/02/2022 10/02/2023 1 1 [facility] for visit Narrative* Diagnostic Procedure Only (Routine) - Closed Specialty Diagnoses / Procedures Referred By Caitlyn maher Referred To Contact [facility] Diagnoses Encounter for screening mammogram for breast cancer Procedures TEA SCREENING SCREENING MAMMOGRAPHY BI 2-VIEW BREAST INC CAD Mayelin Jose APRN.GLASS PRODUCTION MACHINE OPERATOR [address] [place] [address] [facility] [address] [place] [address] Referral ID Status Reason Start Date Expiration Date V isits Requested Visits Authorized [id number] Closed Auto-Generate d Referral 06/17/2021 07/17/2022 1 1 [facility] Summary Purpose Family History No Family History Records FoundNo Family History Records FoundNo Family History Records FoundNo Family History Records FoundNo Family History Records FoundNo Family History Records FoundNo Family History Records Found Advance Directives No Advanced Directives Records FoundDocuments on File Type Date Recorded 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 Advance Directive(s) 08/21/2020 3:23 PM Advance Directive(s) 06/08/2020 1:04 AM Documents on File Type Date Recorded 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 Advance Directive(s) 08/21/2020 3:23 PM Advance Directive(s) 06/08/2020 1:04 AM Reason for Referral Specialty Diagnoses / Procedures Referred By Caitlyn t Referred To Contact [facility] IMAGING Diagnoses Spinal stenosis of cervical region Procedures MRI CERVICAL SPINE WO IVCON MRI SPINAL CANAL CERVICAL W/O CONTRAST Nakul Valentin MD [address] [place] [address] [facility] Referral ID Status Reason Start Date Expiration Date V isits Requested Visits Authorized [id number] Closed Auto-Generate d Referral 07/10/2021 09/09/2021 1 1 Specialty Diagnoses / Procedures Referred By Contac t Referred To Contact Diagnoses Scoliosis, unspecified scoliosis type, unspecified spinal region Myofascial pain Chronic bilateral low back pain without sciatica Procedures CONSULT TO WELLNESS NON-PHARMACOLOGIC PAIN MANAGEMENT OFFICE/OUTPATIENT [facility] 60-74 MINUTES Rolo Rueda APRN.GLASS PRODUCTION MACHINE OPERATOR [address] [place] [address] Referral ID Status Reason Start Date Expiration Date Visits Requested Visits Authorized [id number] Authorized PCP Requested Referral 07/24/2022 07/24/2023 1 1 Health Concerns Infection Onset Date Last Indicated Resolved Time COVID-19 Rule-Out 11/06/2021 11/06/2021 Infection Onset Date Last Indicated Resolved Time COVID-19 Rule-Out 03/02/2022 03/02/2022 Additional Source Comments INFORMATION SOURCE (unrecogn ized section and content) DATE CREATED AUTHOR AUTHOR'S ORGANIZ ATION 09/27/2020 [facility] DATE CREATED AUTHOR AUTHOR'S ORGANIZ ATION 12/27/2020 [facility] DATE CREATED AUTHOR AUTHOR'S ORGANIZ ATION 11/13/2021 [facility] DATE CREATED AUTHOR AUTHOR'S ORGANIZ ATION [facility]/12/20[facility] DATE CREATED AUTHOR AUTHOR'S ORGANIZ ATION 12/20/2022 [facility] ([place] DATE CREATED AUTHOR AUTHOR'S ORGANIZ ATION 02/28/2023 [facility] Source Comments (unrecognize d section and content) In the event this informatio n is protected by the Federal Confidentiality of Alcohol and Drug Abuse Patient Records regulations: The Federal rules restrict any use of the information to criminally investigate or prosecute any alcohol or drug abuse patient.[facility] the event this information is protected by the Federal Confidentiality of Alcohol and Drug Abuse Patient Records regulations: The Federal rules restrict any use of the information to criminally investigate or prosecute any alcohol or drug abuse patient.[facility] the event this information is protected by the Federal Confidentiality of Alcohol and Drug Abuse Patient Records regulations: The Federal rules restrict any use of the information to criminally investigate or prosecute any alcohol or drug abuse patient.[facility] HospitalIn the event this information is protected by the Federal Confidentiality of Alcohol and Drug Abuse Patient Records regulations: The Federal rules restrict any use of the information to criminally investigate or prosecute any alcohol or drug abuse patient.[facility] HospitalIn the event this information is protected by the Federal Confidentiality of Alcohol and Drug Abuse Patient Records regulations: The Federal rules restrict any use of the information to criminally investigate or prosecute any alcohol or drug abuse patient.[facility] HospitalIn the event this information is protected by the Federal Confidentiality of Alcohol and Drug Abuse Patient Records regulations: The Federal rules restrict any use of the information to criminally investigate or prosecute any alcohol or drug abuse patient.[facility] HospitalIn the event this information is protected by the Federal Confidentiality of Alcohol and Drug Abuse Patient Records regulations: The Federal rules restrict any use of the information to criminally investigate or prosecute any alcohol or drug abuse patient.[facility] HospitalIn the event this information is protected by the Federal Confidentiality of Alcohol and Drug Abuse Patient Records regulations: The Federal rules restrict any use of the information to criminally investigate or prosecute any alcohol or drug abuse patient.[facility] HospitalIn the event this information is protected by the Federal Confidentiality of Alcohol and Drug Abuse Patient Records regulations: The Federal rules restrict any use of the information to criminally investigate or prosecute any alcohol or drug abuse patient.[facility] HospitalIn the event this information is protected by the Federal Confidentiality of Alcohol and Drug Abuse Patient Records regulations: The Federal rules restrict any use of the information to criminally investigate or prosecute any alcohol or drug abuse patient.[facility] HospitalIn the event this information is protected by the Federal Confidentiality of Alcohol and Drug Abuse Patient Records regulations: The Federal rules restrict any use of the information to criminally investigate or prosecute any alcohol or drug abuse patient.[facility] HospitalIn the event this information is protected by the Federal Confidentiality of Alcohol and Drug Abuse Patient Records regulations: The Federal rules restrict any use of the information to criminally investigate or prosecute any alcohol or drug abuse patient.[facility] HospitalIn the event this information is protected by the Federal Confidentiality of Alcohol and Drug Abuse Patient Records regulations: The Federal rules restrict any use of the information to criminally investigate or prosecute any alcohol or drug abuse patient.[facility] HospitalIn the event this information is protected by the Federal Confidentiality of Alcohol and Drug Abuse Patient Records regulations: The Federal rules restrict any use of the information to criminally investigate or prosecute any alcohol or drug abuse patient.[facility] HospitalIn the event this information is protected by the Federal Confidentiality of Alcohol and Drug Abuse Patient Records regulations: The Federal rules restrict any use of the information to criminally investigate or prosecute any alcohol or drug abuse patient.[facility] HospitalIn the event this information is protected by the Federal Confidentiality of Alcohol and Drug Abuse Patient Records regulations: The Federal rules restrict any use of the information to criminally investigate or prosecute any alcohol or drug abuse patient.[facility] the event this information is protected by the Federal Confidentiality of Alcohol and Drug Abuse Patient Records regulations: The Federal rules restrict any use of the information to criminally investigate or prosecute any alcohol or drug abuse patient.[facility] HospitalIn the event this information is protected by the Federal Confidentiality of Alcohol and Drug Abuse Patient Records regulations: The Federal rules restrict any use of the information to criminally investigate or prosecute any alcohol or drug abuse patient.[facility] HospitalIn the event this information is protected by the Federal Confidentiality of Alcohol and Drug Abuse Patient Records regulations: The Federal rules restrict any use of the information to criminally investigate or prosecute any alcohol or drug abuse patient.[facility] HospitalIn the event this information is protected by the Federal Confidentiality of Alcohol and Drug Abuse Patient Records regulations: The Federal rules restrict any use of the information to criminally investigate or prosecute any alcohol or drug abuse patient.[facility] HospitalIn the event this information is protected by the Federal Confidentiality of Alcohol and Drug Abuse Patient Records regulations: The Federal rules restrict any use of the information to criminally investigate or prosecute any alcohol or drug abuse patient.[facility] HospitalIn the event this information is protected by the Federal Confidentiality of Alcohol and Drug Abuse Patient Records regulations: The Federal rules restrict any use of the information to criminally investigate or prosecute any alcohol or drug abuse patient.[facility] HospitalIn the event this information is protected by the Federal Confidentiality of Alcohol and Drug Abuse Patient Records regulations: The Federal rules restrict any use of the information to criminally investigate or prosecute any alcohol or drug abuse patient.[facility] HospitalIn the event this information is protected by the Federal Confidentiality of Alcohol and Drug Abuse Patient Records regulations: The Federal rules restrict any use of the information to criminally investigate or prosecute any alcohol or drug abuse patient.[facility] HospitalIn the event this information is protected by the Federal Confidentiality of Alcohol and Drug Abuse Patient Records regulations: The Federal rules restrict any use of the information to criminally investigate or prosecute any alcohol or drug abuse patient.[facility] Reason for Visit (unrecogniz ed section and content) Specialty Diagnoses / Procedures Referred By Contac t Referred To Contact Pain Management / PAIN MANAGEMENT Diagnoses Pain in right shoulder TPI Procedures TRIGGER POINT INJECTION MULTI 3+ MUSCLE GRP SPECIALTY INJECTION Nakul Barillas MD [address] [place] [address] Nakul Barillas MD [address] [place] [address] Referral ID Status Reason Start Date Expiration Date Visits Re quested Visits Authorized [id number] Closed 06/05/2021 09/05/2021 1 1 Reason Comments Physical Results recent lab results Reason Comments Patient Update Reason Comments Yearly Exam Specialty Diagnoses / Procedures Referred By Contac t Referred To Contact MR IMAGING Diagnoses Spinal stenosis of cervical region Procedures MRI CERVICAL SPINE WO IVCON MRI SPINAL CANAL CERVICAL W/O CONTRAST MATRL Nakul Barillas MD [address] [place] [address] Mr Imaging Referral ID Status Reason Start Date Expiration Date V isits Requested Visits Authorized [id number] Closed Auto-Generate d Referral 07/10/2021 09/09/2021 1 1 Reason Comments Orders Reason Comments Rx Refills Low Back Pain Specialty Diagnoses / Procedures Referred By Contac t Referred To Contact Adult Health / PAIN MANAGEMENT Diagnoses 2 month OV Procedures OFFICE/OUTPATIENT ESTABLISHED MOD MDM 30-39 MIN EST PATIENT Nakul Barillas MD [address] [address] Raeann Chappell, DRY CELL SEALER.GLASS PRODUCTION MACHINE OPERATOR [address] [place] [address] Referral ID Status Reason Start Date Expiration Date Visits Re quested Visits Authorized [id number] Closed 03/15/2021 03/14/2022 1 1 Reason Comments Headache pain rated 8, x1 day location back of head denied accident/injury Ear Pain (RT) ear pain rated 8, x1 day Reason Comments Appointment Reason Comments Follow Up Rx Refills Reason Comments Headache Pain rated 5, x1 day . Reason Comments Vaginal Problem Odor and discomfort Reason Comments Cough Congestion x 1 day Reason Comments Shortness of Breath Congestion, coughing up blood x 9 days Reason Comments Results Reason Comments Covid19 Concern + exposure, HERNÁNDEZ, coug h x this AM Reason Comments Physical Specialty Diagnoses / Procedures Referred By Contsejal t Referred To Contact Internal Medicine / INTERNAL MEDICINE Diagnoses physical rescheduled from missed appt on 07/03 Procedures 4C EST WELL Self Rolo Rueda, DRY CELL SEALER.GLASS PRODUCTION MACHINE OPERATOR [address] [place] [address] Referral ID Status Reason Start Date Expiration Date Visits Re quested Visits Authorized [id number] Denied 07/24/2022 10/22/2022 1 0 Reason Comments Dental Problem Tooth pain x 1 day Reason Comments Nausea & Vomiting Stomach ache, diarrh ea x 1 day Reason Comments Vaginal Problem Discharge, nausea, d iscomfort, foul smell, x 2 weeks wants STD testing as well Care Teams (unrecognized sec tion and content) Home Care Liaison Relationship Specialty Start Date End Date Elijah Arguelles MD [address] [place], [place] [id number] PCP - General Internal Medicine 07/28/21 Home Care Liaison Relationship Specialty Start Date End Date Elijah Arguelles MD [address] [place], [place] [id number] PCP - General Internal Medicine 07/28/21 Home Care Liaison Relationship Specialty Start Date End Date Elijah Arguelles MD [address] [facility] [place] [address] PCP - General Internal Medicine 07/28/21 Home Care Liaison Relationship Specialty Start Date End Date Elijah Arguelles MD [address] [facility] [place] [address] PCP - General Internal Medicine 07/28/21 Home Care Liaison Relationship Specialty Start Date End Date Elijah Arguelles MD [address] [facility] [place] [address] PCP - General Internal Medicine 07/28/21 Home Care Liaison Relationship Specialty Start Date End Date Elijah Arguelles MD [address] [facility] [place] [address] PCP - General Internal Medicine 07/28/21 Home Care Liaison Relationship Specialty Start Date End Date Elijah Arguelles MD [address] [facility] [place] [address] PCP - General Internal Medicine 07/28/21 Home Care Liaison Relationship Specialty Start Date End Date Elijah Arguelles MD [address] [facility] [place] [address] PCP - General Internal Medicine 07/28/21 Home Care Liaison Relationship Specialty Start Date End Date Elijah Arguelles MD [address] [facility] [place] [address] PCP - General Internal Medicine 07/28/21 Home Care Liaison Relationship Specialty Start Date End Date Elijah Arguelles MD [address] [facility] [place] [address] PCP - General Internal Medicine 07/28/21 Home Care Liaison Relationship Specialty Start Date End Date Elijah Arguelles MD [address] [facility] [place] [address] PCP - General Internal Medicine 07/28/21 Home Care Liaison Relationship Specialty Start Date End Date Elijah Arguelles MD [address] [facility] [place] [address] PCP - General Internal Medicine 07/28/21 Home Care Liaison Relationship Specialty Start Date End Date Elijah Arguelles MD [address] [facility] [place] [address] PCP - General Internal Medicine 07/28/21 Home Care Liaison Relationship Specialty Start Date End Date Elijah Arguelles MD [address] [facility] [place] [address] PCP - General Internal Medicine 07/28/21 Home Care Liaison Relationship Specialty Start Date End Date Elijah Arguelles MD [address] [facility] [place] [address] PCP - General Internal Medicine 07/28/21 Home Care Liaison Relationship Specialty Start Date End Date Elijah Arguelles MD [address] [facility] [place] [address] PCP - General Internal Medicine 07/28/21 FOR RECORDS PERTAINING TO PATIENTS WHO ARE OR HAVE BEEN ENROLLED IN A CHEMICAL DEPENDENCY/SUBSTANCEABUSE PROGRAM, SOME INFORMATION MAY BE OMITTED. This clinical summary was aggregated from multiple sources. Caution should be exercised in using it in the provision of clinical care. This summary normalizes information from multiple sources, and as a consequence, information in this document may materially change the coding, format and clinical context of patient data. In addition, data may be omitted in some cases. CLINICAL DECISIONS SHOULD BE BASED ON THE PRIMARY CLINICAL RECORDS. [facility]. provides no warranty or guarantee of the accuracy or completeness of information in this document.
--- NOTE | 2023-03-12 07:34 | US_ITS ---
INDICATION: pain, discharge EXAMINATION: Ultrasound US Transvaginal Non-OB TECHNIQUE: Transvaginal (for optimal evaluation of the adnexa) pelvic ultrasound was performed. Grayscale, spectral waveform, and color flow Doppler evaluation of the adnexa. COMPARISON: CT dated October 12, 2020 FINDINGS: UTERUS: The uterus measures 9.9 x 4.4 x 6.1 cm. The myometrium is heterogenous. Arising from the uterine fundus right of midline there is a hypoechoic soft tissue focus measuring 3.1 x 3.0 x 2.8 cm consistent with a subserosal fibroid. The endometrial stripe measures 3.7 mm in AP diameter which is within normal limits. RIGHT OVARY: 2.1 x 1.0 x 1.8 cm. Non-enlarged, normal echogenicity. There is normal arterial inflow and venous outflow present in the right ovary. LEFT OVARY: 3.0 x 1.8 x 2.1 cm. There are less than 2 cm follicles within the left ovary. Non-enlarged, normal echogenicity. There is normal arterial inflow and venous outflow present in the left ovary. FREE FLUID: None. US/Transvaginal Non- IMPRESSION: Heterogenous myometrium which may reflect adenomyosis. 3.1 x 3.0 x 2.8 cm subserosal fibroid. Electronically Signed: Brigida Herrmann MD at 9:03 EST ,
--- NOTE | 2023-03-12 07:36 | ED.VIS.FEGU ---
HPI HPI - Female History of Present Illness Chief Complaint: Female C/O Informant: patient Narrative Narrative: Patient presents with vaginal discharge is itching and discomfort. Patient started with symptoms probably a week or week and a half ago. She was seen at urgent care. Exam was done. They called her back the next day and said she was positive for trichomonas but negative for gonorrhea and syphilis. Patient has a single sexual partner. Patient was initially treated with MetroGel. When the test came back positive for trichomonas they did tell her to take metronidazole at 500 twice a day for 7 days. It sounds like she did finish this. But she states she still has a little bit of a brown discharge. She has itching and irritation on the external vaginal surface. She also has a little bit of internal discomfort. She has no nausea or vomiting. She is eating normally. No fevers or chills. She states she is urinating normally. She states that when urinating does burn on the outside but not much on the inside. She is moving her bowels normally. Abdominal surgery includes ectopic years ago with reconnection of the tube. Last menstrual cycle was 06 February and 22 January. She states she has been irregular for a while. She has had lithotripsy and kidney stone in the past but states this feels nothing like that at all. [facility] Medical History Anxiety Asthma Carpal tunnel syndrome Chronic pain Depression Former smoker GERD (gastroesophageal reflux disease) Herpes Kidney stone Migraines Post-trauma syndrome Scoliosis Substance abuse Home Medications meloxicam 15 mg tablet 15 mg PO DAILY 09/12/20 [History Last Taken Unknown] nortriptyline 10 mg capsule 10 mg PO QHS 09/12/20 [History Last Taken Unknown] sumatriptan succinate 50 mg tablet 50 mg PO PRN PRN Migraine Headache 09/12/20 [History Last Taken Unknown] gabapentin 300 mg tablet 300 mg PO BID 02/09/22 [History Last Taken Unknown] tinidazole 500 mg tablet 2 g (4 x 500 mg) PO DAILY #4 tabs 03/12/23 [Rx Last Taken Unknown] Allergy/AdvReac Type Severity Reaction Status Date / Time latex Allergy Hives Verified 03/12/23 06:50 morphine Allergy Rash Verified 03/12/23 06:50 sertraline [From Zoloft] Allergy Hives Verified 03/12/23 06:50 sulfamethoxazole Allergy Hives Verified 03/12/23 06:50 [From Bactrim] tramadol Allergy Rash Verified 03/12/23 06:50 trimethoprim [From Bactrim] Allergy Hives Verified 03/12/23 06:50 Surgical History Hx of breast surgery Hx of lithotripsy Hx of oral surgery Social History Smoking Status: Former smoker substance use type: does not use ROS ROS ED Constitutional Constitutional ED: Denies chills, fever(s), subjective or sweats ENT ENT ED: Denies sore throat Cardiovascular Cardiovascular: Denies chest pain or palpitations Respiratory/Chest Respiratory/Chest: Denies cough Gastrointestinal Gastrointestinal: Denies abdominal pain, constipation, diarrhea, melena, nausea or vomiting Genitourinary Genitourinary ED: Reports dysuria and other Details: Patient has dysuria but most of this is external burning and discomfort. ; Denies hematuria or urinary frequency Musculoskeletal Musculoskeletal: Denies myalgias Integumentary Denies rash Endocrine Endocrinology: Denies polydipsia or polyuria Hematologic/Lymphatic Hematologic/Lymphatic: Denies lymphadenopathy Allergic/Immunologic Allergic/Immunologic ED: Denies urticaria EXAM Physical Exam Narrative Exam Narrative: CONSTITUTIONAL: Patient is nontoxic in appearance. The patient looks comfortable. HEENT: No notable trauma. Mucous membranes moist. EYES: No pallor or icterus. CARDIOVASCULAR: Regular rate. Regular rhythm. No notable murmur. No JVD. RESPIRATORY: No respiratory distress. Breathing is unlabored. No wheezes. No rhonchi. No rales. No pain with a deep breath. GASTROINTESTINAL: Not distended. Bowel sounds are normal. No notable tenderness. When I press in the suprapubic area she states that she can feel that. But there is no objective indication of tenderness. Certainly no rebound or guarding. No mass. Pelvic exam will be reported later. GENITOURINARY: No tenderness over the bladder. No CVA tenderness on either side. MUSCULOSKELETAL: Atraumatic. No peripheral edema. No tenderness no pain with joint motion. NEUROLOGICAL: Patient is alert and appropriate. No focal deficit noted. SKIN: No noted rashes. No vesicles or petechiae. No diaphoresis. PSYCHIATRIC: Patient is calm. Mood is appropriate. Const Vital Signs: 03/12/23 06:45 Temperature 97.8 F Temperature Source Temporal Pulse Rate 95 Respiratory Rate 18 Blood Pressure 126/78 H Blood Pressure Mean 94 Pulse Ox 100 Oxygen Delivery Method Room Air MDM MDM MDM Narrative Medical decision making narrative: We did print off visit from 02/27/2023. From urgent care. This does show that she was given Flagyl 500 mg twice a day for 7 days. Pelvic exam was done with assistance of nurse Coral. External exam really showed no notable erythema. I do not see signs of yeast vaginitis. There is no external discharge. No mass. Vaginal exam initially showed no discharge. But there was a little bit at the base near the cervix. But no active discharge. Cultures were sent. These are pending. Bimanual exam was surprisingly not tender. I felt no mass and it was not uncomfortable. With her history of trichomonas still having symptoms and discharge we will retreat. I find out that the patient missed several doses of the Flagyl. She would miss dosages and then she would double up for couple days. This has a higher rate of failure with this. I will see if we can write for Tinidazole as a single dose. She should follow-up with her primary physician or [facility]. Patient's urinalysis is normal. Her is normal. Final reading of her pelvic ultrasound shows subserosal uterine fibroid but no other acute abnormality. Lab Data Labs: Laboratory Results - last 24 hr 03/12/23 07:42 Urine Color Yellow Urine Clarity Sl. Cloudy Urine pH 7.0 Ur Specific [place] 1.010 Urine Protein Negative Urine Glucose (UA) Normal Urine Ketones Negative Urine Occult Blood Negative Urine Nitrite Negative Urine Bilirubin Negative Urine Urobilinogen Normal Ur Leukocyte Esterase Negative Urine RBC 0 SEEN Urine WBC 0 SEEN Ur Squamous Epith Cells 0-5 SEEN Urine Bacteria 0 SEEN Urine Mucus 0 SEEN Urine Test Negative Radiography Diagnostic Testing: Clinical Impression(s) from Imaging Studies Transvaginal US 03/12/23 07:34 IMPRESSION: Heterogenous myometrium which may reflect adenomyosis. 3.1 x 3.0 x 2.8 cm subserosal fibroid. Electronically Signed: Brigida Herrmann MD at 9:03 EST , Discharge Plan Triage Chief Complaint: Female C/O ED Provider: Tariq Bailey Dx/Rx/DC Orders Clinical Impression: Trichomoniasis, Uterine fibroid Instructions: ED Uterine Fibroids, ED TRICHOMONAS VAGINITIS Prescriptions: New tinidazole 500 mg tablet 2 g PO DAILY Qty: 4 0RF Rx Instructions: 2 g as a single dose. No Action meloxicam 15 mg tablet 15 mg PO DAILY Patient Comments: Take 1 tablet by mouth once daily as needed for pain. sumatriptan succinate 50 mg tablet 50 mg PO PRN PRN (Reason: Migraine Headache) Patient Comments: Take 1 tablet at the onset of migraine. Can repeat in 2 hours if headaches persists nortriptyline 10 mg capsule 10 mg PO QHS Patient Comments: Take 1 capsule by mouth daily at bedtime. gabapentin 300 mg Tablet 300 mg PO BID Primary Care Provider: Mayelin Jose IMAGE CONSULTANT Referrals: Mayelin Jose IMAGE CONSULTANT, IMAGE CONSULTANT-C [Primary Care Provider] - 3-5 Days if not improving Disposition Disposition: Home, Self Care
[2023-03-12 08:07] LABS: Internal QC Validated? YES +Cl - CLEAR BKGD; Pregnancy, Urine Negative Negative
[2023-03-12 08:08] LABS: Record Kit Lot#,Urine Preg HCG0000667200
[2023-03-12 08:58] LABS: Bacteria 0 SEEN /hpf (None Seen); Mucous, Urine 0 SEEN /hpf (<or=2+); Red Blood Cells-Urine 0 SEEN /hpf (0-5); White Blood Cells 0 SEEN /hpf (0-5)
[2023-03-12 09:08] LABS: Color, Urine Yellow (Yellow); Glucose, Dipstick Normal (Normal); Ketone-Dipstick Negative (Negative); Leukocyte Esterase-Dipstick Negative /ul (Negative); Nitrite-Dipstick Negative (Negative); Occult Blood-Urine Negative /ul (Negative); Protein-Dipstick Negative (Negative); Urine Bilirubin Dipstick Negative (Negative); Urine Clarity Sl. Cloudy (Clear); Urine Urobilinogen Normal (Normal)
[2023-03-12 09:14] LABS: Squamous Epithelial Cells - UA 0-5 SEEN /hpf (5-10)
[2023-03-12 10:08] VITALS: RESP 16
== END 2023-03-12 10:13 | disposition home or self-care (01) ==
PROVIDERS: Emergency Provider Emergency Medicine; PCP Nurse Practitioner; Visit Provider Emergency Medicine
DX: A59.9 Trichomoniasis, unspecified (principal); D25.9 Leiomyoma of uterus, unspecified; Z87.891 Personal history of nicotine dependence; J45.909 Unspecified asthma, uncomplicated; R30.0 Dysuria
CPT/HCPCS: 76830; 81001; 81025; 87210; 87491; 87591; 99283

== ENCOUNTER 2023-05-31 12:59 | Emergency (ER) | payer MEDICAID, SELFPAY ==
[2023-05-31 12:59] VITALS: BP 115/76; PULSE 97; RESP 18; TEMP 36.2; O2SAT 100; BMI 26.6
--- NOTE | 2023-05-31 13:18 | CT_ITS ---
STUDY: CT ABDOMEN AND PELVIS WITHOUT CONTRAST REASON FOR EXAM: Female, 42 years old. Back pain and frequent urination. RADIATION DOSAGE (If Supplied By Facility): CTDIvol = ( 6.11 ) mGy, DLP = ( 271.64 ) mGycm TECHNIQUE: Transaxial images were obtained from the dome of the diaphragm to the symphysis pubis without oral contrast, and without intravenous contrast. Sagittal and coronal images were reconstructed. Individualized dose optimization techniques were used for this CT. COMPARISON: Comparison is made with prior study dated December 10, 2022. FINDINGS: The visualized lung bases are unremarkable. The visualized portions of the heart are within normal limits. There is hepatomegaly with diffuse hepatic enlargement. Normal gallbladder and extrahepatic biliary system. Normal spleen. Normal pancreas. Normal bilateral adrenal glands. Normal right kidney. 2.5 mm calculus at the left ureterovesical junction. Normal visualized stomach. Normal small intestine. Normal colon. The appendix is visualized and appears normal. Normal abdominal aorta. Normal inferior vena cava. Normal retroperitoneum. Normal urinary bladder. Enlarged fibroid uterus. Normal abdominal wall. Normal osseous structures. CT/Abdomen/Pelvis without Cont IMPRESSION: 2.5 mm calculus at the left ureterovesical junction. Enlarged fibroid uterus. Electronically Signed: Aditya Swartz MD at 14:49 EDT ,
--- NOTE | 2023-05-31 13:19 | ED.VIS.BACK ---
HPI History of Present Illness Chief Complaint: Back Detail of Chief Complaint: Back pain and dysuria Informant: patient Narrative Narrative: Patient presents to the emergency department with complaint of back pain and dysuria. Patient states that she has had symptoms for about 5 days. Patient was seen in urgent care and had a urine dip that was unremarkable and was told to come to the ER and get evaluated for possible kidney stones. Patient did have kidney stones 2 years ago that required extraction. Patient also complaining of dysuria and urinary frequency. She denies fevers. She had some mild nausea but no vomiting. Last menstrual period was 05 May. 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 She is not sure if she injured her back. Patient denies pain radiating down her legs. She denies paresthesias. Patient Nuys weakness in extremities. [facility] Medical History Anxiety Asthma Carpal tunnel syndrome Chronic pain Depression Former smoker GERD (gastroesophageal reflux disease) Herpes Kidney stone Migraines Post-trauma syndrome Scoliosis Substance abuse Home Medications meloxicam 15 mg tablet 15 mg PO DAILY 09/12/20 [History Last Taken Unknown] nortriptyline 10 mg capsule 10 mg PO QHS 09/12/20 [History Last Taken Unknown] sumatriptan succinate 50 mg tablet 50 mg PO PRN PRN Migraine Headache 09/12/20 [History Last Taken Unknown] gabapentin 300 mg tablet 300 mg PO BID 02/09/22 [History Last Taken Unknown] tinidazole 500 mg tablet 2 g (4 x 500 mg) PO DAILY #4 tabs 03/12/23 [Rx Last Taken Unknown] hydrocodone-acetaminophen 5-325mg 5mg-325mg 1 tab PO Q4H PRN PRN Pain 2 days #10 TABLETS 05/31/23 [Rx Last Taken Unknown] metronidazole 0.75 % (37.5 mg/5 gram) vaginal gel 1 appful vaginal DAILY 5 days #70 grams 05/31/23 [Rx Last Taken Unknown] Allergy/AdvReac Type Severity Reaction Status Date / Time latex Allergy Hives Verified 05/31/23 13:01 morphine Allergy Rash Verified 05/31/23 13:01 sertraline [From Zoloft] Allergy Hives Verified 03/12/23 06:50 sulfamethoxazole Allergy Hives Verified 05/31/23 13:01 [From Bactrim] tramadol Allergy Rash Verified 05/31/23 13:01 trimethoprim [From Bactrim] Allergy Hives Verified 05/31/23 13:01 Surgical History Hx of breast surgery Hx of lithotripsy Hx of oral surgery Social History Smoking Status: Former smoker substance use type: does not use ROS ROS ED Review of Systems ROS Unobtainable: other Constitutional Constitutional ED: Reports lethargy; Denies chills, fever(s), sweats or weight loss Eyes Eyes: Denies blurry vision, change in vision or diplopia ENT ENT ED: Denies rhinorrhea or sore throat Cardiovascular Cardiovascular: Denies chest pain, orthopnea or racing heartbeat Respiratory/Chest Respiratory/Chest: Denies cough, dyspnea, dyspnea on exertion, orthopnea or sputum Gastrointestinal Gastrointestinal: Denies abdominal pain, diarrhea, nausea or vomiting Genitourinary Genitourinary ED: Reports dysuria and urinary frequency; Denies hematuria Musculoskeletal Musculoskeletal: Reports back pain; Denies arthralgias, myalgias or neck pain Integumentary Denies abscess, Abrasions or rash Neurologic Neurologic: Denies headache(s) or weakness Psychiatric Psychiatric: Denies anxiety, depression or suicidal thoughts Endocrine Endocrinology: Denies polydipsia, polyphagia or polyuria Hematologic/Lymphatic Hematologic/Lymphatic: Denies easy bleeding, easy bruising or lymphadenopathy Allergic/Immunologic Allergic/Immunologic ED: Denies mouth swelling, tongue swelling or urticaria EXAM Physical Exam Const Vital Signs: 05/31/23 12:59 05/31/23 13:37 Temperature 97.2 F L 98.3 F Temperature Source Temporal Oral Pulse Rate 97 77 Respiratory Rate 18 18 Blood Pressure 115/76 126/86 H Blood Pressure Mean 89 99 Pulse Ox 100 Oxygen Delivery Method Room Air Room Air Positive well nourished and well developed General Appearance ED: well developed and NAD HEENT Reports TM's clear and moist mucous membranes normocephalic and atraumatic; Negative for trauma or tenderness Tympanic Membrane ED: Yes TM's clear Eyes PERRL and EOMs intact bilaterally General Eye ED: Negative for pale conjunctiva or scleral icterus Neck no lymphadenopathy, supple and no JVD General: Negative for tenderness Chest Wall inspection of chest normal and palpation of chest normal Chest: Negative for tenderness Resp normal respiratory effort and clear to auscultation bilaterally Effort and Inspection: Negative for respiratory distress or pain with movement Auscultation: Negative for rhonchi, wheezes or diminished lung sounds Cardio regular rate, regular rhythm, S1 normal heart sound, S2 normal heart sound and no murmurs Peripheral Pulses: pulses 2+ throughout GI normal to inspection, nondistended, normoactive bowel sounds, soft to palpation, non-tender, non-distended and no masses Back/Spine no thoracic nor lumbar tenderness Back/Spine Narrative: Mild tenderness over the right lumbar paraspinal musculature. She does have CVA tenderness bilaterally. No erythema or warmth noted. Negative straight leg raises. Deep tendon reflexes are plus 2 out of 4 bilaterally at the patella and Achilles. Patient has normal L5 extension. Extremity normal to inspection General Extremety ED: Negative for edema General Extremity: Negative for edema Neuro oriented x3, CN's II-XII intact bilaterally, no sensory deficits noted and gait normal Sensorium / Orientation: awake, alert, oriented to person, oriented to place and oriented to time Motor Exam: strength 5/5 throughout and strength abnormal Psych mental status grossly normal Skin no rashes or lesions noted and no wounds MDM MDM MDM Narrative Medical decision making narrative: Patient presenting with dysuria and frequency as well as back pain. History of kidney stones. IV line established. She was medicate with Toradol. CBC with differential white count 9.4 with hemoglobin 13.5 and platelets of 353. Chemistries unremarkable. Urinalysis negative for infection. CT scan of the abdomen pelvis without contrast showed a 2.5 mm left UVJ stone. Discussed with patient. Discussed sending her home with urine strainers and some pain medication and at this size should be able to pass stone. Patient now also tells me that she noticed some brown discharge from her vagina today and she is prone to bacterial vaginosis which can make her back hurt. I will also start her on Flagyl gel. Patient advised to follow-up with urology. Lab Data Attestation: I reviewed the patient's lab results. Labs: Laboratory Results - last 24 hr 05/31/23 05/31/23 13:10 13:30 WBC 9.4 RBC 4.54 Hgb 13.5 Hct 41.2 MCV 90.7 MCH 29.7 MCHC 32.8 RDW Std Deviation 41.9 RDW Coeff of Sophia 12.7 Plt Count 353 MPV 9.2 Immature Gran % (Auto) 0.300 Neut % (Auto) 61.9 Lymph % (Auto) 27.2 Ocean % (Auto) 6.1 Eos % (Auto) 3.9 Baso % (Auto) 0.6 Absolute Neuts (auto) 5.8 Absolute Lymphs (auto) 2.55 Nucleated RBC % 0 Sodium 138 Potassium 3.8 Chloride 110 H Carbon Dioxide 25.0 Anion Gap 3 L BUN 11 Creatinine 0.83 Estim Creat Clear Calc 79.26 Est GFR (MDRD) Af Amer 97 Est GFR (MDRD) Non-Af 80 BUN/Creatinine Ratio 13.3 Glucose 89 Calcium 8.8 Serum , Qual NEGATIVE Urine Color Yellow Urine Clarity Clear Urine pH 6.0 Ur Specific [place] 1.015 Urine Protein 15 H Urine Glucose (UA) Normal Urine Ketones Negative Urine Occult Blood 10 H Urine Nitrite Negative Urine Bilirubin Negative Urine Urobilinogen Normal Ur Leukocyte Esterase 25 H Urine RBC 0-5 SEEN Urine WBC 0-5 SEEN Ur Squamous Epith Cells 0-5 SEEN Urine Bacteria RARE Urine Mucus 0 SEEN Radiography Diagnostic Testing: Clinical Impression(s) from Imaging Studies Abdomen/Pelvis CT 05/31/23 13:18 IMPRESSION: 2.5 mm calculus at the left ureterovesical junction. Enlarged fibroid uterus. Electronically Signed: Aditya Swartz MD at 14:49 EDT Reading Location ID and State: [facility] / [place] , Service support , Discharge Plan Triage Chief Complaint: Back ED Provider: Bobbi Harry Dx/Rx/DC Orders Clinical Impression: Bacterial vaginosis, Urolithiasis Instructions: Bacterial Vaginosis, ED Kidney Stone with Pain Prescriptions: New hydrocodone-acetaminophen [hydrocodone-acetaminophen] 5-325 mg tablet 1 tab PO Q4H PRN PRN (Reason: Pain) 2 Days Qty: 10 0RF metronidazole 0.75 % (37.5mg/5 gram) gel 1 appful vaginal DAILY 5 Days Qty: 70 0RF No Action meloxicam 15 mg tablet 15 mg PO DAILY Patient Comments: Take 1 tablet by mouth once daily as needed for pain. sumatriptan succinate 50 mg tablet 50 mg PO PRN PRN (Reason: Migraine Headache) Patient Comments: Take 1 tablet at the onset of migraine. Can repeat in 2 hours if headaches persists nortriptyline 10 mg capsule 10 mg PO QHS Patient Comments: Take 1 capsule by mouth daily at bedtime. gabapentin 300 mg Tablet 300 mg PO BID tinidazole 500 mg tablet 2 g PO DAILY Qty: 4 0RF Rx Instructions: 2 g as a single dose. Primary Care Provider: Mayelin Lee NP Referrals: Carley Staples MD [Med Staff - Active Staff] - 3-5 Days Mayelin Lee NP, [employer] [facility] [Primary Care Provider] - Disposition Disposition: Home, Self Care
[2023-05-31 13:34] LABS: Mucous, Urine 0 SEEN /hpf (<or=2+)
[2023-05-31 13:36] LABS: Color, Urine Yellow (Yellow); Glucose, Dipstick Normal (Normal); Ketone-Dipstick Negative (Negative); Leukocyte Esterase-Dipstick 25 /ul (Negative); Nitrite-Dipstick Negative (Negative); Occult Blood-Urine 10 /ul (Negative); Protein-Dipstick 15 mg/dl (Negative); Specific Gravity, Urine 1.015 (1.002-1.030); Urine Bilirubin Dipstick Negative (Negative); Urine Clarity Clear (Clear); Urine Urobilinogen Normal (Normal)
[2023-05-31 13:37] VITALS: BP 126/86; PULSE 77; RESP 18; TEMP 36.8
[2023-05-31 13:38] LABS: Absolute Lymphocyte Count 2.55 X10^3/uL (0.83-4.51); Absolute Neutrophil Count 5.8 X10^3/uL (2.0-7.7); Basophil# 0.06 X10^3/uL; Basophil% 0.6 % (0-1); Eosinophil# 0.37 X10^3/uL; Eosinophils% 3.9 % (0-5); Hematocrit 41.2 % (37-47); Hemoglobin 13.5 g/dL (12.0-15.0); Lymphocyte # 2.55 X10^3/ul (0.83-4.51); Lymphocyte % 27.2 % (19-41); Mean Corp Hgb Conc 32.8 g/dL (32-36); Mean Corpuscular Hgb 29.7 pg (27.0-32.0); Mean Corpuscular Volume 90.7 fL (81-99); Mean Platelet Vol. 9.2 fl (6.2-12.0); Monocyte# 0.57 X10^3/uL; Monocyte% 6.1 % (0-10); NRBC Flagged by Analyzer 0 % (0-5); Neutrophil # 5.81 X10^3/uL (2.7-7.7); Neutrophil % 61.9 % (47-70); Platelet Count 353 K/mm3 (150-450); RBC Distribution Width CV 12.7 % (11.6-14.6); RBC Distribution Width SD 41.9 fl (35.1-43.9); Red Blood Count 4.54 M/mm3 (4.2-5.4); White Blood Count 9.4 K/mm3 (4.4-11.0)
[2023-05-31 13:42] LABS: Bacteria RARE /hpf (None Seen); Red Blood Cells-Urine 0-5 SEEN /hpf (0-5); Squamous Epithelial Cells - UA 0-5 SEEN /hpf (5-10); White Blood Cells 0-5 SEEN /hpf (0-5)
[2023-05-31] MEDS: Ketorolac 30 MG/ML Syringe IV (13:44)
[2023-05-31] MEDS: 0.9% Normal Saline (1000mL) 1,000 ML 150 ML IV (13:46)
[2023-05-31 13:48] LABS: Internal QC Validated? YES +Cl - CLEAR BKGD; Pregnancy, Serum, hCG Quali. NEGATIVE Negative
[2023-05-31 13:50] LABS: Anion Gap 3 (5-15); BUN 11 mg/dL (7-18); BUN/Creat Ratio 13.3 RATIO (10-20); Calcium,Total 8.8 mg/dL (8.5-10.1); Chloride 110 mmol/L (98-107); Creatinine, Serum 0.83 mg/dL (0.55-1.02); EST Glomerular Filtration Rate 80 mL/min (>60); Est Glom Filt Rate - Afr Amer 97 mL/min (>60); Estimated Creatinine Clearance 79.26 ml/min; Glucose 89 mg/dL (74-106); Potassium 3.8 mmol/L (3.5-5.1); Sodium Level 138 mmol/L (136-145)
[2023-05-31 15:18] VITALS: BP 139/96; PULSE 69; RESP 16; TEMP 36.7; O2SAT 100
== END 2023-05-31 15:20 | disposition home or self-care (01) ==
PROVIDERS: Emergency Provider Emergency Medicine; PCP Nurse Practitioner; Visit Provider Emergency Medicine
DX: N76.0 Acute vaginitis (principal); N20.1 Calculus of ureter; B96.89 Other specified bacterial agents as the cause of diseases classified elsewhere; R35.0 Frequency of micturition; R30.0 Dysuria; M54.9 Dorsalgia, unspecified; Z87.891 Personal history of nicotine dependence; Z87.442 Personal history of urinary calculi; K21.9 Gastro-esophageal reflux disease without esophagitis
CPT/HCPCS: 74176; 80048; 81001; 84703; 85025; 96361; 96374; 99284

== ENCOUNTER 2023-07-30 10:28 | Emergency (ER) | payer MEDICAID, SELFPAY ==
[2023-07-30 10:29] VITALS: BP 157/90; PULSE 87; RESP 17; TEMP 36; O2SAT 98; BMI 26.4
--- NOTE | 2023-07-30 11:24 | EDS_ITS ---
HPI <WES Jc - Last Filed: 07/30/23 12:03> HPI - Female History of Present Illness Chief Complaint: Vag Bleeding Narrative Narrative: Patient is a 42-year-old female with history of migraine-like headaches who presents to the emergency department for dysuria, urinary frequency, is well as longer than normal menstrual cycle. Patient states that she started her menstrual cycle on the 12th or 13th, she states she only last usually 4 days. She states she still bleeding slightly, mostly on the toilet paper and she is concerned. She denies any back pain fever chills nausea or vomiting. She is concerned she might have a UTI because she has history of them. [facility] <WES Jc - Last Filed: 07/30/23 12:03> [facility] Medical History Anxiety Asthma Carpal tunnel syndrome Chronic pain Depression Former smoker GERD (gastroesophageal reflux disease) Herpes Kidney stone Migraines Post-trauma syndrome Scoliosis Substance abuse Home Medications ?Medication ?Instructions ?Recorded ?Last Taken ?Type meloxicam 15 mg tablet 15 mg PO DAILY 09/12/20 Unknown History nortriptyline 10 mg capsule 10 mg PO QHS 09/12/20 Unknown History sumatriptan succinate 50 mg tablet 50 mg PO PRN PRN Migraine Headache 09/12/20 Unknown History gabapentin 300 mg tablet 300 mg PO BID 02/09/22 Unknown History tinidazole 500 mg tablet 2 g (4 x 500 mg) PO DAILY #4 tabs 03/12/23 Unknown Rx hydrocodone-acetaminophen 5-325mg 1 tab PO Q4H PRN PRN Pain 2 days 05/31/23 Unknown Rx 5mg-325mg #10 TABLETS metronidazole 0.75 % (37.5 mg/5 1 appful vaginal DAILY 5 days #70 05/31/23 Unknown Rx gram) vaginal gel grams Allergy/AdvReac Type Severity Reaction Status Date / Time latex Allergy Hives Verified 05/31/23 13:01 morphine Allergy Rash Verified 05/31/23 13:01 sertraline (From Zoloft) Allergy Hives Verified 03/12/23 06:50 sulfamethoxazole (From Allergy Hives Verified 05/31/23 13:01 Bactrim) tramadol Allergy Rash Verified 05/31/23 13:01 trimethoprim (From Bactrim) Allergy Hives Verified 05/31/23 13:01 Surgical History Hx of breast surgery Hx of lithotripsy Hx of oral surgery Social History Smoking Status: Former smoker substance use type: does not use ROS <WES Jc - Last Filed: 07/30/23 12:03> ROS ED ROS Narrative Constitutional: Negative for fever, chills, weight loss, weakness Eyes: Negative for vision loss, vision change, double vision ENT: Negative for any sore throat, ear pain, congestion Cardiovascular: Negative for any chest pain, tightness, palpitations Respiratory: Negative for any cough, sputum production, hemoptysis, dyspnea, dyspnea on exertion, orthopnea Gastrointestinal: Negative for any abdominal pain, nausea, vomiting, diarrhea, constipation, blood in stool, blood in vomit : Negative for any urinary retention. Positive for dysuria, urinary frequency, blood in urine Muscle skeletal: Negative for any neck pain, back pain Neurological: Negative for any headache, syncope, dizziness Skin: Negative for any rashes, itching, abrasions, lacerations Psychiatric: Negative for any depression, anxiety, stress, suicidal ideation, homicidal ideation Hematologic: Negative for any excessive bruising, easy bleeding EXAM <WES Jc - Last Filed: 07/30/23 12:03> Physical Exam Narrative Exam Narrative: Vital signs reviewed. HEET: Head normocephalic atraumatic, TMs clear bilaterally. Posterior pharynx is clear, moist mucous membranes. Nares clear bilaterally. Neck: Supple with no lymphadenopathy or tenderness. No signs of meningismus. Cardiac: Regular rate and rhythm no murmurs gallops or rubs, equal peripheral pulses bilaterally. Respiratory: Lungs clear to auscultation bilaterally. No chest tenderness. Abdomen: Soft, nontender, nondistended. No abdominal bruit or pulsatile masses. No hepatosplenomegaly Extremities: No peripheral edema, no signs of gross trauma or deformity. Active full range of motion of all extremities. Neuro: Cranial nerves II through XII intact, no focal neurological deficits. Skin: Clean dry and intact with no rash, purpura, petechiae, vesicles or pustules. Backs/flank: No CVA tenderness, no midline spinal tenderness, no deformity. Psych: Normal mood and affect. No SI, HI or acute psychosis. Const Vital Signs: 07/30/23 10:29 07/30/23 12:20 Temperature 96.8 F L 96.8 F L Temperature Source Temporal Pulse Rate 87 80 Respiratory Rate 17 14 Blood Pressure 157/90 H 145/80 H Blood Pressure Mean 112 101 Pulse Ox 98 99 Oxygen Delivery Method Room Air <Dr. Jeromy Arevalo DO - Last Filed: 07/30/23 15:29> Physical Exam Const Vital Signs: 07/30/23 10:29 07/30/23 12:20 Temperature 96.8 F L 96.8 F L Temperature Source Temporal Pulse Rate 87 80 Respiratory Rate 17 14 Blood Pressure 157/90 H 145/80 H Blood Pressure Mean 112 101 Pulse Ox 98 99 Oxygen Delivery Method Room Air MDM <WES Jc - Last Filed: 07/30/23 12:03> [facility] Lab Data Labs: Laboratory Results - last 24 hr 07/30/23 11:25 Urine Color Yellow Urine Clarity Clear Urine pH 7.0 Ur Specific [place] 1.010 Urine Protein Negative Urine Glucose (UA) Normal Urine Ketones Negative Urine Occult Blood 50 H Urine Nitrite Negative Urine Bilirubin Negative Urine Urobilinogen Normal Ur Leukocyte Esterase Negative Urine RBC 0-5 SEEN Urine WBC 0 SEEN Ur Squamous Epith Cells 0-5 SEEN Urine Bacteria 0 SEEN Urine Mucus 0 SEEN Urine Test Negative Treatment and Re-Evaluation Narrative: Differential diagnosis includes however is not limited to: Urine , UTI, pyelonephritis, obstructing uropathy, dysmenorrhea Patient appears to be in no obvious respiratory distress, patient's vital signs are stable. Patient presents to the emergency department for concern of longer than normal menstrual cycle by 1 day as well as some urinary frequency. Patient states her biggest fears that she is a UTI or kidney infection. Patient will receive a urinalysis, urine . I did look at the urine, there was no visible blood in the urine. Patient's urinalysis was negative for any infection. Patient is not . At this time, I do believe the patient is just on her menstrual cycle. Patient is agreeable, she will be discharged home and follow-up outpatient. She did ask for a work note. She will be provided 1 for today. She instructed return for any worsening symptoms. Stable for discharge. <Dr. Jeromy Arevalo, DO - Last Filed: 07/30/23 15:29> [facility] Narrative Medical decision making narrative: Differential diagnosis includes however is not limited to: Urine , UTI, pyelonephritis, obstructing uropathy, dysmenorrhea Patient appears to be in no obvious respiratory distress, patient's vital signs are stable. Patient presents to the emergency department for concern of longer than normal menstrual cycle by 1 day as well as some urinary frequency. Patient states her biggest fears that she is a UTI or kidney infection. Patient will receive a urinalysis, urine . I did look at the urine, there was no vi sible blood in the urine. Patient's urinalysis was negative for any infection. Patient is not . At this time, I do believe the patient is just on her menstrual cycle. Patient is agreeable, she will be discharged home and follow-up outpatient. She did ask for a work note. She will be provided 1 for today. She instructed return for any worsening symptoms. Stable for discharge. This patient was seen with a PA/DATE NIGHT CAREGIVER Individually assessed they patient including history and physical. I have reviewed everything on the chart that is available and agree with the documentation provided by the PA/DATE NIGHT CAREGIVER including discussion about the assessment, treatment plan, discussion, and return precautions. Patient presenting with vaginal bleeding which is part of her menstrual cycle. It went a little longer than usual but I do not think there is any red flags has not had any significant pain. She did have urinary symptoms and we did obtain a urine specimen today which was negative as well. Dose of diuretic patient requesting a work note for today which is provided. Lab Data Labs: Laboratory Results - last 24 hr 07/30/23 11:25 Urine Color Yellow Urine Clarity Clear Urine pH 7.0 Ur Specific [place] 1.010 Urine Protein Negative Urine Glucose (UA) Normal Urine Ketones Negative Urine Occult Blood 50 H Urine Nitrite Negative Urine Bilirubin Negative Urine Urobilinogen Normal Ur Leukocyte Esterase Negative Urine RBC 0-5 SEEN Urine WBC 0 SEEN Ur Squamous Epith Cells 0-5 SEEN Urine Bacteria 0 SEEN Urine Mucus 0 SEEN Urine Test Negative Discharge Plan Triage Chief Complaint: Vag Bleeding Other Complaint: Complaint ED Midlevel Provider: Buck Hannah ED Provider: Jeromy Arevalo Dx/Rx/DC Orders Clinical Impression: Dysuria, Dysmenorrhea Instructions: ED MENSTRUAL CRAMPING, ED Dysuria, Uncertain Cause (Adult) Prescriptions: No Action meloxicam 15 mg tablet 15 mg PO DAILY Patient Comments: Take 1 tablet by mouth once daily as needed for pain. sumatriptan succinate 50 mg tablet 50 mg PO PRN PRN (Reason: Migraine Headache) Patient Comments: Take 1 tablet at the onset of migraine. Can repeat in 2 hours if headaches persists nortriptyline 10 mg capsule 10 mg PO QHS Patient Comments: Take 1 capsule by mouth daily at bedtime. gabapentin 300 mg Tablet 300 mg PO BID tinidazole 500 mg tablet 2 g PO DAILY Qty: 4 0RF Rx Instructions: 2 g as a single dose. hydrocodone-acetaminophen [hydrocodone-acetaminophen] 5-325 mg tablet 1 tab PO Q4H PRN PRN (Reason: Pain) 2 Days Qty: 10 0RF metronidazole 0.75 % (37.5mg/5 gram) gel 1 appful vaginal DAILY 5 Days Qty: 70 0RF Stand Alone Forms: Work / School Excuse Primary Care Provider: Mayelin Lee NP Referrals: Mayelin Lee NP, [facility] N[facility] CAREGIVER[facility] [Primary Care Provider] - Print Language: Singaporean Disposition Disposition: Home, Self Care Discharge Date/Time: 07/30/23 12:21
[2023-07-30 11:29] LABS: Bacteria 0 SEEN /hpf (None Seen); Mucous, Urine 0 SEEN /hpf (<or=2+); White Blood Cells 0 SEEN /hpf (0-5)
[2023-07-30 11:43] LABS: Color, Urine Yellow (Yellow); Glucose, Dipstick Normal (Normal); Ketone-Dipstick Negative (Negative); Leukocyte Esterase-Dipstick Negative /ul (Negative); Nitrite-Dipstick Negative (Negative); Occult Blood-Urine 50 /ul (Negative); Protein-Dipstick Negative (Negative); Urine Bilirubin Dipstick Negative (Negative); Urine Clarity Clear (Clear); Urine Urobilinogen Normal (Normal)
[2023-07-30 11:49] LABS: Red Blood Cells-Urine 0-5 SEEN /hpf (0-5); Squamous Epithelial Cells - UA 0-5 SEEN /hpf (5-10)
[2023-07-30 11:50] LABS: Internal QC Validated? YES +Cl - CLEAR BKGD; Pregnancy, Urine Negative Negative; Record Kit Lot#,Urine Preg HCG0000718089
[2023-07-30] MEDS: Acetaminophen 500 MG Tablet 1000 MG PO (12:19)
[2023-07-30 12:20] VITALS: BP 145/80; PULSE 80; RESP 14; TEMP 36; O2SAT 99
== END 2023-07-30 12:21 | disposition home or self-care (01) ==
PROVIDERS: Nurse Practitioner; Emergency Provider Student in an Organized Health Care Education/Training Program; PCP Nurse Practitioner; Visit Provider Student in an Organized Health Care Education/Training Program
DX: R30.0 Dysuria (principal); N93.9 Abnormal uterine and vaginal bleeding, unspecified; Z87.891 Personal history of nicotine dependence; N94.6 Dysmenorrhea, unspecified; J45.909 Unspecified asthma, uncomplicated; K21.9 Gastro-esophageal reflux disease without esophagitis; R35.0 Frequency of micturition
CPT/HCPCS: 81001; 81025; 99283

== ENCOUNTER 2023-09-10 19:23 | Emergency (ER) | payer MEDICAID, SELFPAY ==
[2023-09-10 19:24] VITALS: BP 131/86; PULSE 86; RESP 15; TEMP 36.3; O2SAT 100; BMI 25.9
--- NOTE | 2023-09-10 20:04 | EX.ED.UPPERE ---
HPI History of Present Illness HPI Narrative: Patient presents with left elbow injury that occurred 1 month ago. Patient states she was walking with her shoulder flexed and her elbow hit the frame of a door. Patient states she has had recurrent injuries to her left elbow over the past month. Patient describes her pain as burning. Patient states it is worse with flexion of the elbow. Patient admits to some angling into her fingers. Patient denies any weakness. Patient states she has difficulty using her left hand and wrist due to the pain in her elbow. Patient denies any pain to her shoulder. Patient denies any other injuries. Chief Complaint: Upper Extremity Injury Informant: patient Occured/Mechanism Mechanism/Context: Yes blunt trauma Onset/Context/Timing Onset: Month(s) (1) Context: Sudden Onset Timing: Continuous Quality of Pain: Burning Location: Left elbow Worsened by: Flexion Relieved by: Nothing Associated Symptoms Associated Symptoms: Positive for Parasthesia; Negative for Weakness or Loss of Funtion PFSH PFS Medical History Herpes Scoliosis Depression Kidney stone Carpal tunnel syndrome Post-trauma syndrome Substance abuse Anxiety Chronic pain GERD (gastroesophageal reflux disease) Former smoker Asthma Migraines Home Medications ?Medication ?Instructions ?Recorded ?Last Taken ?Type nortriptyline 10 mg capsule 25 mg PO QHS 09/12/20 Unknown History sumatriptan succinate 50 mg tablet 50 mg PO PRN PRN Migraine Headache 09/12/20 Unknown History amoxicillin 500 mg capsule 500 mg PO TID 09/10/23 Unknown History cyclobenzaprine 10 mg tablet 25 mg PO TID PRN PRN muscle spasm 09/10/23 Unknown History naproxen 500 mg tablet (Naprosyn) 500 mg PO BID PRN pain #20 tabs 09/10/23 Unknown Rx Allergy/AdvReac Type Severity Reaction Status Date / Time latex Allergy Hives Verified 09/10/23 19:26 morphine Allergy Rash Verified 09/10/23 19:26 sertraline (From Zoloft) Allergy Hives Verified 09/10/23 19:26 sulfamethoxazole (From Allergy Hives Verified 09/10/23 19:26 Bactrim) tramadol Allergy Rash Verified 09/10/23 19:26 trimethoprim (From Bactrim) Allergy Hives Verified 09/10/23 19:26 Surgical History Hx of oral surgery Hx of lithotripsy Hx of breast surgery Social History Smoking Status: Former smoker substance use type: does not use ROS ROS ED Constitutional Constitutional ED: Denies chills or fever(s) Eyes Eyes: Denies blurry vision or change in vision ENT ENT ED: Denies rhinorrhea or sore throat Cardiovascular Cardiovascular: Denies chest pain or palpitations Respiratory/Chest Respiratory/Chest: Denies cough or dyspnea Gastrointestinal Gastrointestinal: Denies nausea or vomiting Genitourinary Genitourinary ED: Denies dysuria or hematuria Musculoskeletal Musculoskeletal: Denies back pain or neck pain Integumentary Denies abscess or rash Neurologic Neurologic: Denies headache(s) or weakness Allergic/Immunologic Allergic/Immunologic ED: Denies mouth swelling or urticaria EXAM Physical Exam Const Vital Signs: 09/10/23 19:24 Temperature 97.4 F L Temperature Source Temporal Pulse Rate 86 Respiratory Rate 15 Blood Pressure 131/86 H Blood Pressure Mean 101 Pulse Ox 100 Oxygen Delivery Method Room Air Positive well nourished and well developed General Appearance ED: well developed and NAD HEENT Reports moist mucous membranes Neck full ROM and supple Extremity Extremity Narrative: There is tenderness over the left elbow. There is no deformity noted. There are some edema noted. There is no ecchymosis noted. Range of motion was limited in all motions of the left elbow secondary to pain. Radial pulses are equal bilaterally. Sensation was intact to light touch in the radial, median, and ulnar areas. Strength is 5/5 in the radial, median, and ulnar areas. Neuro oriented x3, CN's II-XII intact bilaterally, moves all extremities, no focal motor deficits and no sensory deficits noted Sensorium / Orientation: alert Motor Exam: strength 5/5 throughout Psych mental status grossly normal MDM MDM MDM Narrative Medical decision making narrative: Differential diagnosis includes contusion, sprain, and occult fracture. X-rays of the left elbow will be obtained to assess for fracture and effusion. Radiography Diagnostic Testing: X-rays of the left elbow were obtained. There are 3 views. On my independent interpretation, there is no acute fracture or dislocation noted. There is no effusion noted. Radiologist also interpreted the x-rays and agrees. Treatment and Re-Evaluation Narrative: Patient was given a dose of Naprosyn here. Patient was advised of her findings. Patient was instructed to ice and elevate the left elbow. Patient was instructed to do range of motion exercises. Patient was instructed to follow-up with her primary care physician in 5 to 7 days. Patient was given a prescription for Naprosyn. Patient understood and was agreeable with the plan. All questions were answered. Discharge Plan Triage Chief Complaint: Upper Extremity Injury ED Provider: Eldon Acuña Dx/Rx/DC Orders Clinical Impression: Left elbow contusion, Marijuana use Instructions: ED Contusion, Elbow Prescriptions: New naproxen [Naprosyn] 500 mg tablet 500 mg PO BID PRN (Reason: pain) Qty: 20 0RF Discontinued ibuprofen 200 mg tablet 600 mg PO Q6H PRN PRN (Reason: pain) No Action sumatriptan succinate 50 mg tablet 50 mg PO PRN PRN (Reason: Migraine Headache) Patient Comments: Take 1 tablet at the onset of migraine. Can repeat in 2 hours if headaches persists nortriptyline 10 mg capsule 25 mg PO QHS Patient Comments: Take 1 capsule by mouth daily at bedtime. amoxicillin 500 mg capsule 500 mg PO TID cyclobenzaprine 10 mg tablet 25 mg PO TID PRN PRN (Reason: muscle spasm) Primary Care Provider: Mayelin Lee NP Referrals: Mayelin Lee NP, DIRECTOR OF ORTHOPEDICS-C [Primary Care Provider] - 5-7 Days Print Language: Kazakh Disposition Disposition: Home, Self Care
--- NOTE | 2023-09-10 20:12 | RAD_ITS ---
STUDY: X-RAY - LEFT ELBOW REASON FOR EXAM: Female, 42 years old. INJURY/PAIN TECHNIQUE: 3 view(s) of the elbow. COMPARISON: None. FINDINGS: Normal visualized humerus, radius and ulna. Normal radiocapitellar and ulnotrochlear articulations. The soft tissue structures are unremarkable. RAD/Elbow min 3 Views IMPRESSION: Normal x-ray examination of the elbow. Electronically Signed: Arjun Reid MD at 20:37 EDT ,
[2023-09-10 21:27] VITALS: BP 118/74; PULSE 87; RESP 16; TEMP 36.1; O2SAT 98
== END 2023-09-10 21:27 | disposition home or self-care (01) ==
PROVIDERS: Emergency Provider Emergency Medicine; PCP Nurse Practitioner; Visit Provider Emergency Medicine
DX: S50.02XA Contusion of left elbow, initial encounter (principal); Z87.891 Personal history of nicotine dependence; W22.09XA Striking against other stationary object, initial encounter; J45.909 Unspecified asthma, uncomplicated; K21.9 Gastro-esophageal reflux disease without esophagitis
CPT/HCPCS: 73080; 99282

== ENCOUNTER 2023-10-03 07:03 | Emergency (ER) | payer MEDICAID, SELFPAY ==
[2023-10-03 07:03] VITALS: BP 118/74; PULSE 75; RESP 14; TEMP 36.8; O2SAT 98; BMI 26.2
--- NOTE | 2023-10-03 07:14 | CT_ITS ---
EXAM: CT ABDOMEN AND PELVIS WITH INTRAVENOUS CONTRAST CLINICAL INDICATION: LLQ abd and pelvic pain TECHNIQUE: Helically acquired images were obtained of the abdomen and pelvis with intravenous contrast. This CT exam was performed using one or more of the following dose reduction techniques: automated exposure control, adjustment of the mA and/or kV according to patient size, and/or use of iterative reconstruction technique. CONTRAST: IV 75mL [id number]-370 COMPARISON: CT Abdomen Pelvis dated 05/31/2023 and 12/02/2022 FINDINGS: LOWER THORAX: Normal. Lung bases are clear. No cardiomegaly. No pericardial effusion. ABDOMEN: LIVER: Normal. Homogeneous. No focal mass. GALLBLADDER AND BILE DUCTS: Gallbladder is contracted consistent with a nonfasting state. No calcified gallstones. No gallbladder distention or wall edema. No intra- or extrahepatic biliary ductal dilation. PANCREAS: Normal. No focal cystic or solid mass. SPLEEN: Normal. Normal size without focal cystic or solid mass. ADRENALS: Normal. No nodules. KIDNEYS AND URETERS: Normal. Normal renal size and position. No hydronephrosis. STOMACH AND BOWEL: Mild stool burden within the large bowel. PELVIS: APPENDIX: Appendix is visualized and normal in appearance. BLADDER: Normal. REPRODUCTIVE: Uterus measures 11.3 cm in length. 4.8 cm right-sided uterine fibroid is again seen. ABDOMEN and PELVIS: INTRAPERITONEAL SPACE: Normal. No ascites or other fluid collection. No free air. BONES/JOINTS: No suspicious lytic or blastic abnormality. SOFT TISSUES: Normal. No discrete abdominal or pelvic wall hernia. VASCULATURE: Normal. Abdominal aorta is non-dilated. LYMPH NODES: Normal. No enlarged lymph nodes. CT/Abdomen/Pelvis W IV Cont ONLY IMPRESSION: 1. No acute abdominal or pelvic abnormality. 2. Stable uterine fibroid. Electronically Signed: Agustin Vivar MD at 8:29 EDT ,
--- NOTE | 2023-10-03 07:18 | ED.VIS.GI ---
HPI HPI - GI History of Present Illness Chief Complaint: Abd Pain Informant: patient Abdominal Pain/Flank Pain Onset: Days Context: Gradual Onset Timing: Continuous Location: LLQ Current Severity: Mild Maximum Severity: Mild Worsened by: Nothing Relieved by: Nothing Nausea/Vomiting/Emesis GI Symptom: Negative for Nausea or Vomiting Diarrhea/Melena/Hematochezia GI Symptom: Negative for Diarrhea, Melena or Hematochezia Associated Symptoms Associated Symptoms: Negative for Dysuria, Frequency, Hematuria or Urgency Narrative Narrative: 42-year-old female prior ectopic surgery in 2017. B3. But there is been miscarriages. States she has had abdominal discomfort her left lower quadrant left lower pelvic region for about a week. Started when she was on a ride at [employer] and thinks she may have hit her abdomen. She denies any nausea, vomiting or diarrhea. No fever or chills. No weight change. Only mild dysuria when she urinates. Says she is peeing more frequently. No hematuria no cloudy urine. Normal bowel movements. Prior similar symptoms: No Recent Illness/Hospitalization: No PFSH PFSH Medical History Herpes Scoliosis Depression Kidney stone Carpal tunnel syndrome Post-trauma syndrome Substance abuse Anxiety Chronic pain GERD (gastroesophageal reflux disease) Former smoker Asthma Migraines Home Medications ?Medication ?Instructions ?Recorded ?Last Taken ?Type nortriptyline 10 mg capsule 25 mg PO QHS 09/12/20 Unknown History sumatriptan succinate 50 mg tablet 50 mg PO PRN PRN Migraine Headache 09/12/20 Unknown History amoxicillin 500 mg capsule 500 mg PO TID 09/10/23 Unknown History cyclobenzaprine 10 mg tablet 25 mg PO TID PRN PRN muscle spasm 09/10/23 Unknown History naproxen 500 mg tablet (Naprosyn) 500 mg PO BID PRN pain #20 tabs 09/10/23 Unknown Rx Allergy/AdvReac Type Severity Reaction Status Date / Time latex Allergy Hives Verified 10/03/23 07:04 morphine Allergy Rash Verified 10/03/23 07:04 sertraline (From Zoloft) Allergy Hives Verified 10/03/23 07:04 sulfamethoxazole (From Allergy Hives Verified 10/03/23 07:04 Bactrim) tramadol Allergy Rash Verified 10/03/23 07:04 trimethoprim (From Bactrim) Allergy Hives Verified 10/03/23 07:04 Surgical History Hx of oral surgery Hx of lithotripsy Hx of breast surgery Social History Smoking Status: Former smoker substance use type: does not use ROS ROS ED ROS Narrative Lower abdominal pain left side and pelvic. Review of Systems ROS Unobtainable: Denies due to encephalopathy Constitutional Constitutional ED: Denies chills or fever(s) ENT ENT ED: Denies ear pain Cardiovascular Cardiovascular: Denies chest pain Respiratory/Chest Respiratory/Chest: Denies cough Gastrointestinal Gastrointestinal: Reports abdominal pain; Denies constipation, diarrhea, melena, nausea or vomiting Genitourinary Genitourinary ED: Denies dysuria or hematuria Musculoskeletal Musculoskeletal: Denies arthralgias or back pain Integumentary Denies abscess, Abrasions or rash Neurologic Neurologic: Denies headache(s) Psychiatric Psychiatric: Denies anxiety or depression Endocrine Endocrinology: Denies polydipsia Hematologic/Lymphatic Hematologic/Lymphatic: Denies easy bleeding Allergic/Immunologic Allergic/Immunologic ED: Denies mouth swelling, tongue swelling or urticaria EXAM Physical Exam Narrative Exam Narrative: 42-year-old female vital signs are stable afebrile. No acute distress. H EENT exam unremarkable. Neck nontender. Lungs clear. Heart regular rhythm no murmur. Abdomen is soft, nondistended normal bowel sounds no peritoneal signs. She has very minimal tenderness left lower quadrant left lower side of her pelvis. No hernia or mass other than an upper abdominal hernia which easily reduces spontaneously. Is nontender. There is no upper quadrant tenderness at all. No McBurney's point tenderness. No distention. Moving all 4 extremities. Nontender no edema. Neurologically she is awake and alert no focal motor deficits. Very benign exam. Const Vital Signs: 10/03/23 07:03 Temperature 98.2 F Temperature Source Temporal Pulse Rate 75 Respiratory Rate 14 Blood Pressure 118/74 Blood Pressure Mean 88 Pulse Ox 98 Oxygen Delivery Method Room Air Positive well nourished and well developed; Negative for cachectic, contractures or unkempt General Appearance ED: well developed and NAD; Negative for unkempt, cachectic, contractures or pallor Nutritional Appearance: Negative for cachectic HEENT Reports moist mucous membranes normocephalic and atraumatic; Negative for trauma or tenderness Eyes PERRL and EOMs intact bilaterally General Eye ED: Negative for pale conjunctiva or scleral icterus Neck no lymphadenopathy, supple and no JVD General: Negative for tenderness Carotids: Negative for other Resp normal respiratory effort and clear to auscultation bilaterally Effort and Inspection: Negative for respiratory distress Auscultation: Negative for rales, rhonchi or wheezes Cardio regular rate, regular rhythm, S1 normal heart sound, S2 normal heart sound and no murmurs Rate: Negative for bradycardia or tachycardic Rhythm: Negative for abnormal rhythm GI non-distended and no masses; Negative for non-tender GI Narrative: Very mildly tender left lower quadrant left side of the pelvis. No lower abdominal hernias or masses appreciated. Inspection: Negative for abdominal distention Auscultation: normoactive bowel sounds Palpation: soft and tender; Negative for rebound tenderness present Back/Spine no CVA tenderness General Back: Negative for CVA tenderness Cervical Spine: Negative for cervical spine tenderness Thoracic Spine / Upper Back: Negative for thoracic spinal tenderness Lumbar Spine / Lower Back: Negative for lumbar spinal tenderness Extremity full ROM General Extremety ED: Negative for edema or tenderness General Extremity: Negative for edema Neuro CN's II-XII intact bilaterally and moves all extremities Sensorium / Orientation: alert, oriented to person, oriented to place and oriented to time; Negative for orientation impaired, confused, lethargic or stuporous Motor Exam: strength 5/5 throughout Psych mental status grossly normal and thought process normal Appearance: Negative for unkempt Attitude: No agitated Mood & Affect: Negative for depressed, anxious or tearful Skin no wounds General Skin Exam: Negative for jaundice or pallor Lesions: no lesions Rashes: no rashes Trauma: Negative for abrasion Nails: Negative for discolored MDM MDM MDM Narrative Medical decision making narrative: 42-year-old left lower pelvic abdominal pain. Labs and CT being obtained. She does not need any for pain. Differential would include diverticulitis, UTI ectopic , ... Repeat exam at 8:58 AM patient doing well. Abdomen benign. We went over test results. 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 History & Record Review Discussion w/independent historian: Patient Additional record(s) reviewed:: Prior inpatient record, Prior outpatient record, Prior ED visit and Prior labs Lab Data Attestation: I reviewed the patient's lab results. Lab results narrative: CBC normal. White count 8.3. H&H 12.7 and 39. Platelets 321. BMP unremarkable gap 4. Normal BUN and creatinine. Glucose 105. Serum test negative. UA normal. No nitrites. No white or red cells. Only 1+ bacteria. CAT scan unremarkable other than uterine fibroids which could be the cause of her pain. Labs: Laboratory Results - last 24 hr 10/03/23 07:27 WBC 8.3 RBC 4.40 Hgb 12.7 Hct 39.9 MCV 90.7 MCH 28.9 MCHC 31.8 L RDW Std Deviation 44.2 H RDW Coeff of Sophia 13.2 Plt Count 321 MPV 9.4 Immature Gran % (Auto) 0.200 Neut % (Auto) 55.8 Lymph % (Auto) 32.2 [place] % (Auto) 8.3 Eos % (Auto) 3.0 Baso % (Auto) 0.5 Absolute Neuts (auto) 4.6 Absolute Lymphs (auto) 2.68 Nucleated RBC % 0 Sodium 138 Potassium 4.1 Chloride 106 Carbon Dioxide 28.0 Anion Gap 4 L BUN 16 Creatinine 0.86 Estim Creat Clear Calc 75.52 Est GFR (MDRD) Af Amer 93 Est GFR (MDRD) Non-Af 77 BUN/Creatinine Ratio 18.6 Glucose 105 Calcium 9.0 Serum , Qual NEGATIVE Urine Color Yellow Urine Clarity Clear Urine pH 6.0 Ur Specific [place] 1.010 Urine Protein Negative Urine Glucose (UA) Normal Urine Ketones Negative Urine Occult Blood Negative Urine Nitrite Negative Urine Bilirubin Negative Urine Urobilinogen Normal Ur Leukocyte Esterase Negative Urine RBC 0 SEEN Urine WBC 0 SEEN Ur Squamous Epith Cells 0-5 SEEN Urine Bacteria 1+ Urine Mucus 0 SEEN Radiography Diagnostic Testing: Clinical Impression(s) from Imaging Studies Abdomen/Pelvis CT 10/03/23 07:14 IMPRESSION: 1. No acute abdominal or pelvic abnormality. 2. Stable uterine fibroid. Electronically Signed: Agustin Vivar MD at 8:29 EDT , Discharge Plan Triage Chief Complaint: Abd Pain ED Provider: Jesús Cintron Dx/Rx/DC Orders Prescriptions: No Action sumatriptan succinate 50 mg tablet 50 mg PO PRN PRN (Reason: Migraine Headache) Patient Comments: Take 1 tablet at the onset of migraine. Can repeat in 2 hours if headaches persists nortriptyline 10 mg capsule 25 mg PO QHS Patient Comments: Take 1 capsule by mouth daily at bedtime. amoxicillin 500 mg capsule 500 mg PO TID cyclobenzaprine 10 mg tablet 25 mg PO TID PRN PRN (Reason: muscle spasm) naproxen [Naprosyn] 500 mg tablet 500 mg PO BID PRN (Reason: pain) Qty: 20 0RF Primary Care Provider: Mayelin Lee NP Referrals: Mayelin Lee NP, DISABILITY PROGRAM NAVIGATOR-C [Primary Care Provider] - Print Language: Georgian
[2023-10-03 07:39] LABS: Mucous, Urine 0 SEEN /hpf (<or=2+); Red Blood Cells-Urine 0 SEEN /hpf (0-5); White Blood Cells 0 SEEN /hpf (0-5)
[2023-10-03 07:40] LABS: Absolute Lymphocyte Count 2.68 X10^3/uL (0.83-4.51); Absolute Neutrophil Count 4.6 X10^3/uL (2.0-7.7); Basophil# 0.04 X10^3/uL; Basophil% 0.5 % (0-1); Eosinophil# 0.25 X10^3/uL; Hematocrit 39.9 % (37-47); Hemoglobin 12.7 g/dL (12.0-15.0); Lymphocyte # 2.68 X10^3/ul (0.83-4.51); Lymphocyte % 32.2 % (19-41); Mean Corp Hgb Conc 31.8 g/dL (32-36); Mean Corpuscular Hgb 28.9 pg (27.0-32.0); Mean Corpuscular Volume 90.7 fL (81-99); Mean Platelet Vol. 9.4 fl (6.2-12.0); Monocyte# 0.69 X10^3/uL; Monocyte% 8.3 % (0-10); NRBC Flagged by Analyzer 0 % (0-5); Neutrophil # 4.64 X10^3/uL (2.7-7.7); Neutrophil % 55.8 % (47-70); Platelet Count 321 K/mm3 (150-450); RBC Distribution Width CV 13.2 % (11.6-14.6); RBC Distribution Width SD 44.2 fl (35.1-43.9); White Blood Count 8.3 K/mm3 (4.4-11.0)
[2023-10-03 07:46] LABS: Color, Urine Yellow (Yellow); Glucose, Dipstick Normal (Normal); Ketone-Dipstick Negative (Negative); Leukocyte Esterase-Dipstick Negative /ul (Negative); Nitrite-Dipstick Negative (Negative); Occult Blood-Urine Negative /ul (Negative); Protein-Dipstick Negative (Negative); Urine Bilirubin Dipstick Negative (Negative); Urine Clarity Clear (Clear); Urine Urobilinogen Normal (Normal)
[2023-10-03 07:54] LABS: Internal QC Validated? YES +Cl - CLEAR BKGD; Pregnancy, Serum, hCG Quali. NEGATIVE Negative; Record Kit Lot#, Serum Preg. HCG0000772476
[2023-10-03 08:00] LABS: Anion Gap 4 (5-15); BUN 16 mg/dL (7-18); BUN/Creat Ratio 18.6 RATIO (10-20); Chloride 106 mmol/L (98-107); Creatinine, Serum 0.86 mg/dL (0.55-1.02); EST Glomerular Filtration Rate 77 mL/min (>60); Est Glom Filt Rate - Afr Amer 93 mL/min (>60); Estimated Creatinine Clearance 75.52 ml/min; Glucose 105 mg/dL (74-106); Potassium 4.1 mmol/L (3.5-5.1); Sodium Level 138 mmol/L (136-145)
[2023-10-03 08:20] LABS: Bacteria 1+ /hpf (None Seen); Squamous Epithelial Cells - UA 0-5 SEEN /hpf (5-10)
[2023-10-03 08:59] VITALS: BP 113/75; PULSE 72; RESP 16; TEMP 36.5; O2SAT 99
[2023-10-03 09:03] VITALS: BP 122/70; PULSE 70; RESP 16; O2SAT 99
== END 2023-10-03 09:07 | disposition home or self-care (01) ==
PROVIDERS: Emergency Provider Emergency Medicine; PCP Nurse Practitioner; Visit Provider Emergency Medicine
DX: R10.32 Left lower quadrant pain (principal); Z87.891 Personal history of nicotine dependence; K21.9 Gastro-esophageal reflux disease without esophagitis; J45.909 Unspecified asthma, uncomplicated
CPT/HCPCS: 74177; 80048; 81001; 84703; 85025; 99283; Q9967; A4216

== ENCOUNTER 2023-10-24 12:58 | Emergency (ER) | payer MEDICAID, SELFPAY ==
[2023-10-24 12:59] VITALS: BP 113/72; PULSE 84; RESP 20; TEMP 36.4; O2SAT 100; BMI 24.7
--- NOTE | 2023-10-24 14:05 | EX.ED.UPPERE ---
HPI History of Present Illness HPI Narrative: Patient presents with injury to her left fifth finger that occurred 3 days ago. Patient states she was playing basketball with her son. Patient states she went to shoot a basketball and her son blocked it causing a blunt injury to her finger. Patient states that she has been trying to keep it immobilized. Patient describes her pain as aching and burning. Patient states it is worse with any movement. Patient states it is better with rest. Patient denies any paresthesias or weakness. Patient denies any other injuries. Chief Complaint: Upper Extremity Injury Informant: patient Occured/Mechanism Mechanism/Context: Yes direct blow Onset/Context/Timing Onset: Days (3) Context: Sudden Onset Timing: Continuous Quality of Pain: Aching and Burning Location: Left fifth finger Worsened by: Movement Relieved by: Rest Associated Symptoms Associated Symptoms: Negative for Parasthesia, Weakness or Loss of Funtion [facility] Medical History Herpes Scoliosis Depression Kidney stone Carpal tunnel syndrome Post-trauma syndrome Substance abuse Anxiety Chronic pain GERD (gastroesophageal reflux disease) Former smoker Asthma Migraines Home Medications ?Medication ?Instructions ?Recorded ?Last Taken ?Type nortriptyline 10 mg capsule 25 mg PO QHS 09/12/20 Unknown History sumatriptan succinate 50 mg tablet 50 mg PO PRN PRN Migraine Headache 09/12/20 Unknown History amoxicillin 500 mg capsule 500 mg PO TID 09/10/23 Unknown History cyclobenzaprine 10 mg tablet 25 mg PO TID PRN PRN muscle spasm 09/10/23 Unknown History naproxen 500 mg tablet (Naprosyn) 500 mg PO BID PRN pain #20 tabs 09/10/23 Unknown Rx Allergy/AdvReac Type Severity Reaction Status Date / Time latex Allergy Hives Verified 10/24/23 13:00 morphine Allergy Rash Verified 10/24/23 13:00 sertraline (From Zoloft) Allergy Hives Verified 10/24/23 13:00 sulfamethoxazole (From Allergy Hives Verified 10/24/23 13:00 Bactrim) tramadol Allergy Rash Verified 10/24/23 13:00 trimethoprim (From Bactrim) Allergy Hives Verified 10/24/23 13:00 Surgical History Hx of oral surgery Hx of lithotripsy Hx of breast surgery Social History (Updated 10/24/23 @ 14:[address] Eldon Acuña DO) Smoking Status: Former smoker substance use type: marijuana ROS ROS ED Constitutional Constitutional ED: Denies chills or fever(s) Eyes Eyes: Denies blurry vision or change in vision ENT ENT ED: Denies rhinorrhea or sore throat Cardiovascular Cardiovascular: Denies chest pain or palpitations Respiratory/Chest Respiratory/Chest: Denies cough or dyspnea Gastrointestinal Gastrointestinal: Denies nausea or vomiting Genitourinary Genitourinary ED: Denies dysuria or hematuria Musculoskeletal Musculoskeletal: Denies back pain or neck pain Integumentary Denies abscess or rash Neurologic Neurologic: Denies headache(s) or weakness Allergic/Immunologic Allergic/Immunologic ED: Denies mouth swelling or urticaria EXAM Physical Exam Const Vital Signs: 10/24/23 12:59 Temperature 97.5 F L Temperature Source Temporal Pulse Rate 84 Respiratory Rate 20 H Blood Pressure 113/72 Blood Pressure Mean 85 Pulse Ox 100 Oxygen Delivery Method Room Air Positive well nourished and well developed General Appearance ED: well developed and NAD HEENT Reports moist mucous membranes Neck supple Extremity Extremity Narrative: There is tenderness to palpation over the PIP joint and proximal phalanx of the left fifth finger. There is some mild edema. There is no obvious deformity noted. Range of motion was limited in all motions of the MP, PIP, and DIP joints of the left fifth finger secondary to pain. Sensation was intact to light touch in all digits. Capillary refill was less than 2 seconds in all digits. Neuro oriented x3, CN's II-XII intact bilaterally, moves all extremities, no focal motor deficits and no sensory deficits noted Sensorium / Orientation: alert Motor Exam: strength 5/5 throughout Psych mental status grossly normal MDM MDM MDM Narrative Medical decision making narrative: Differential diagnosis includes sprain, fracture, and contusion. X-rays of the left fifth finger will be obtained to assess for fracture. Radiography Diagnostic Testing: X-rays of the left fifth finger were obtained. There are 3 views. On my independent interpretation, there is no acute fracture or dislocation noted. Radiologist also interpreted the x-ray and noted a chronic fracture of the distal phalanx with degenerative changes of the DIP joint. Treatment and Re-Evaluation Narrative: Patient was advised of her findings. Patient was given an aluminum foam splint. Patient was instructed to ice and elevate the finger. Patient was instructed to follow-up with her primary care physician in 5 to 7 days. Patient understood and was agreeable with the plan. All questions were answered. Discharge Plan Triage Chief Complaint: Upper Extremity Injury ED Provider: Eldon Acuña Dx/Rx/DC Orders Clinical Impression: Sprain of left little finger, Marijuana use Instructions: ED Finger Sprain Prescriptions: No Action sumatriptan succinate 50 mg tablet 50 mg PO PRN PRN (Reason: Migraine Headache) Patient Comments: Take 1 tablet at the onset of migraine. Can repeat in 2 hours if headaches persists nortriptyline 10 mg capsule 25 mg PO QHS Patient Comments: Take 1 capsule by mouth daily at bedtime. amoxicillin 500 mg capsule 500 mg PO TID cyclobenzaprine 10 mg tablet 25 mg PO TID PRN PRN (Reason: muscle spasm) naproxen [Naprosyn] 500 mg tablet 500 mg PO BID PRN (Reason: pain) Qty: 20 0RF Primary Care Provider: Mayelin Lee NP Referrals: Mayelin Lee TELESALES REPRESENTATIVE, TELESALES REPRESENTATIVE-C [Primary Care Provider] - 5-7 Days Print Language: Indonesian Disposition Disposition: Home, Self Care
--- NOTE | 2023-10-24 14:05 | RAD_ITS ---
HISTORY: BASKETBALL INJURY, PAIN PINKY FINGER LEFT. TECHNIQUE: XR Fingers Min 2 Views. COMPARISON: None. FINDINGS: BONES : Impaction at the base of the distal phalanx with small osteophyte noted. Mineralization otherwise unremarkable. JOINTS: No dislocation. SOFT TISSUES: Mild soft tissue swelling of the fifth finger. RAD/Finger(s) Min 2 Views IMPRESSION: Chronic appearing fracture of the left fifth distal phalanx with secondary degenerative changes of the distal interphalangeal joint. Electronically Signed: Mariola Houston MD at 14:41 EDT ,
[2023-10-24 15:06] VITALS: BP 123/76; PULSE 66; RESP 18; TEMP 36.7; O2SAT 100
== END 2023-10-24 15:07 | disposition home or self-care (01) ==
PROVIDERS: Emergency Provider Emergency Medicine; PCP Nurse Practitioner; Visit Provider Emergency Medicine
DX: S63.617A Unspecified sprain of left little finger, initial encounter (principal); Z87.891 Personal history of nicotine dependence; J45.909 Unspecified asthma, uncomplicated; K21.9 Gastro-esophageal reflux disease without esophagitis; F12.90 Cannabis use, unspecified, uncomplicated; W22.8XXA Striking against or struck by other objects, initial encounter; Y93.67 Activity, basketball
CPT/HCPCS: 29130; 73140; 99282

== ENCOUNTER 2023-12-29 15:53 | Emergency (ER) | payer MEDICAID, SELFPAY ==
[2023-12-29 15:55] VITALS: BP 115/81; PULSE 96; RESP 16; TEMP 37; O2SAT 100; BMI 26.2
--- NOTE | 2023-12-29 16:47 | ED.VIS.FEGU ---
HPI HPI - Female History of Present Illness Chief Complaint: Complaint Narrative Narrative: Chief complaint and HPI: Back pain. 43-year-old female with history of kidney stones presents for evaluation of bilateral lower back pain. Patient states for the past several weeks she has had intermittent lower back pain. She states it feels similar to her previous kidney stone pain. She follows with urology. She has had surgery in the past secondary to her kidney stones. Patient states she has been taking Tylenol and Motrin with little relief. She endorses nausea secondary to the pain but no vomiting. She denies any fever, chills, shortness of breath, chest pain, abdominal pain, diarrhea, constipation. Endorses urinary frequency and cloudiness to the urine. Denies any hematuria. States she has a slight discomfort when she urinates but is not burning. Denies any pelvic pain or vaginal complaints. Patient denies any trauma or injury to her back Review of systems: See HPI Medications: As listed on the chart Allergies: As listed on the chart PFSH: Per chart Vital signs: As listed on the chart. Reviewed. Physical exam: Gen: A&O x3, NAD Head: Normocephalic, atraumatic Eyes: No sclera icterus, conjunctiva clear ENT: Moist mucous membranes Neck: Trachea midline, No JVD CV: RRR, no murmurs, no peripheral edema Resp: Lungs CTA BL, no w/r/c GI: Abd soft, non-distended, non-tender, no r/r/g : No CVA tenderness Musc: Full ROM, no deformit, no midline spinal tenderness, no bony step-offs, no signs of trauma or infection, patient has tenderness to palpation of the bilateral paraspinal musculature of the lumbar spine-both muscles are tense-this does recreate her pain Skin: Warm, dry Neuro: Alert, oriented, grossly intact, sensation intact Psych: Cooperative, appropriate mood and affect [facility] Medical History Herpes Scoliosis Depression Kidney stone Carpal tunnel syndrome Post-trauma syndrome Substance abuse Anxiety Chronic pain GERD (gastroesophageal reflux disease) Former smoker Asthma Migraines Home Medications ?Medication ?Instructions ?Recorded ?Last Taken ?Type nortriptyline 10 mg capsule 25 mg PO QHS 09/12/20 Unknown History sumatriptan succinate 50 mg tablet 50 mg PO PRN PRN Migraine Headache 09/12/20 Unknown History amoxicillin 500 mg capsule 500 mg PO TID 09/10/23 Unknown History naproxen 500 mg tablet (Naprosyn) 500 mg PO BID PRN pain #20 tabs 09/10/23 Unknown Rx cyclobenzaprine 5 mg tablet 5 mg PO TID PRN muscle spasm 3 12/29/23 Unknown Rx days #9 tabs Allergy/AdvReac Type Severity Reaction Status Date / Time latex Allergy Hives Verified 12/29/23 16:18 morphine Allergy Rash Verified 12/29/23 16:18 sertraline (From Zoloft) Allergy Hives Verified 12/29/23 16:18 sulfamethoxazole (From Allergy Hives Verified 12/29/23 16:18 Bactrim) tramadol Allergy Rash Verified 12/29/23 16:18 trimethoprim (From Bactrim) Allergy Hives Verified 12/29/23 16:18 Surgical History Hx of oral surgery Hx of lithotripsy Hx of breast surgery Social History (Updated 10/24/23 @ 14:[address] Eldon Acuña DO) Smoking Status: Former smoker substance use type: marijuana EXAM Physical Exam Const Vital Signs: 12/29/23 15:55 12/29/23 17:54 12/29/23 19:00 Temperature 98.6 F Temperature Source Oral Pulse Rate 96 69 62 Respiratory Rate 16 16 16 Blood Pressure 115/81 H 125/79 H 128/87 H Blood Pressure Mean 92 94 100 Pulse Ox 100 99 99 Oxygen Delivery Method Room Air Room Air Room Air MDM MDM MDM Narrative Medical decision making narrative: 43-year-old female with history of kidney stones presents for evaluation of low back pain. Differential diagnosis includes but is not limited to back strain, back spasm, urolithiasis, UTI. Patient has tense paraspinal musculature of the lumbar spine. Palpation of these muscles recreates her pain. However this is a mixed picture as she states her pain is similar to her previous urolithiasis. Zofran and Toradol ordered for symptoms. Will obtain blood work, CT of the abdomen and pelvis without contrast to assess for urolithiasis, UA. CBC unremarkable without leukocytosis or anemia. BMP without REG. UA negative for UTI or blood. CT abdomen pelvis shows normal kidneys without evidence of renal calculus. She has a large uterus with right fundal fibroid and probable left ovarian cyst. Recommend pelvic ultrasound. This was ordered. However upon talking to the patient, she declined the ultrasound. She states she is not having any pelvic pain. She states she already knows about her fibroid as well as her cyst. She was educated that if there is some pelvic abnormality causing the pain I cannot prove this without ultrasound. She confirmed understanding. I do suspect the patient's pain is likely a muscle spasm. Patient is stable to discharge home. Follow-up with PCP. Tylenol, Motrin as needed for pain. Patient given a prescription for Flexeril. She was educated not to drive or operate heavy machinery on this. She confirmed understanding of the plan. Impression: 1. Lumbar back spasm 2. History of kidney stones 3. Right fundal fibroid 4. Left ovarian cyst Lab Data Labs: Laboratory Results - last 24 hr 12/29/23 12/29/23 17:10 17:16 WBC 9.6 RBC 5.07 Hgb 15.0 Hct 45.2 MCV 89.2 MCH 29.6 MCHC 33.2 RDW Std Deviation 44.3 H RDW Coeff of Sophia 13.6 Plt Count 327 MPV 9.7 Immature Gran % (Auto) 0.300 Neut % (Auto) 60.6 Lymph % (Auto) 30.4 [place] % (Auto) 6.0 Eos % (Auto) 2.4 Baso % (Auto) 0.3 Absolute Neuts (auto) 5.8 Absolute Lymphs (auto) 2.90 Nucleated RBC % 0 Sodium 138 Potassium 3.8 Chloride 107 Carbon Dioxide 28.0 Anion Gap 3 L BUN 11 Creatinine 0.79 Estim Creat Clear Calc 81.18 Est GFR (MDRD) Af Amer 102 Est GFR (MDRD) Non-Af 84 BUN/Creatinine Ratio 13.9 Glucose 79 Calcium 9.6 Serum , Qual NEGATIVE Urine Color Straw Urine Clarity Clear Urine pH 7.0 Ur Specific Melvin 1.005 Urine Protein Negative Urine Glucose (UA) Normal Urine Ketones Negative Urine Occult Blood Negative Urine Nitrite Negative Urine Bilirubin Negative Urine Urobilinogen Normal Ur Leukocyte Esterase Negative Urine RBC 0 SEEN Urine WBC 0 SEEN Ur Squamous Epith Cells 0-5 SEEN Urine Bacteria 0 SEEN Urine Mucus 0 SEEN Radiography Diagnostic Testing: Clinical Impression(s) from Imaging Studies Abdomen/Pelvis CT 12/29/23 17:39 IMPRESSION: Enlarged uterus with right fundal fibroid and probable left ovarian cyst.. Pelvic sonogram would be helpful for more definitive evaluation. Normal kidneys without evidence for renal calculus Electronically Signed: Arjun Reid MD at 18:18 EDT Reading Location ID and State: [facility] / [place] Tel , Service support , Discharge Plan Triage Chief Complaint: Complaint ED Provider: Mukesh Ann Dx/Rx/DC Orders Clinical Impression: Back muscle spasm Instructions: ED Muscle Spasm Prescriptions: New cyclobenzaprine 5 mg tablet 5 mg PO TID PRN (Reason: muscle spasm) 3 Days Qty: 9 0RF Discontinued cyclobenzaprine 10 mg tablet 25 mg PO TID PRN PRN (Reason: muscle spasm) No Action sumatriptan succinate 50 mg tablet 50 mg PO PRN PRN (Reason: Migraine Headache) Patient Comments: Take 1 tablet at the onset of migraine. Can repeat in 2 hours if headaches persists nortriptyline 10 mg capsule 25 mg PO QHS Patient Comments: Take 1 capsule by mouth daily at bedtime. amoxicillin 500 mg capsule 500 mg PO TID naproxen [Naprosyn] 500 mg tablet 500 mg PO BID PRN (Reason: pain) Qty: 20 0RF Primary Care Provider: Mayelin Lee NP Referrals: Mayelin Lee [facility], [facility] [Primary Care Provider] - 3-5 Days Activity Restrictions/Additional Instructions: Do not drive or operate heavy machinery when taking a muscle relaxer Print Language: Occitan Disposition Disposition: Home, Self Care
[2023-12-29] MEDS: Ketorolac 15 MG/ML Vial IV (17:10)
[2023-12-29] MEDS: Ondansetron 4 MG/2 ML Vial IV (17:11)
[2023-12-29 17:16] LABS: Absolute Neutrophil Count 5.8 X10^3/uL (2.0-7.7); Basophil# 0.03 X10^3/uL; Basophil% 0.3 % (0-1); Eosinophil# 0.23 X10^3/uL; Eosinophils% 2.4 % (0-5); Hematocrit 45.2 % (37-47); Lymphocyte % 30.4 % (19-41); Mean Corp Hgb Conc 33.2 g/dL (32-36); Mean Corpuscular Hgb 29.6 pg (27.0-32.0); Mean Corpuscular Volume 89.2 fL (81-99); Mean Platelet Vol. 9.7 fl (6.2-12.0); Monocyte# 0.57 X10^3/uL; NRBC Flagged by Analyzer 0 % (0-5); Neutrophil # 5.79 X10^3/uL (2.7-7.7); Neutrophil % 60.6 % (47-70); Platelet Count 327 K/mm3 (150-450); RBC Distribution Width CV 13.6 % (11.6-14.6); RBC Distribution Width SD 44.3 fl (35.1-43.9); Red Blood Count 5.07 M/mm3 (4.2-5.4); White Blood Count 9.6 K/mm3 (4.4-11.0)
[2023-12-29 17:20] LABS: Bacteria 0 SEEN /hpf (None Seen); Mucous, Urine 0 SEEN /hpf (<or=2+); Red Blood Cells-Urine 0 SEEN /hpf (0-5); White Blood Cells 0 SEEN /hpf (0-5)
[2023-12-29 17:21] LABS: Color, Urine Straw (Yellow); Glucose, Dipstick Normal (Normal); Ketone-Dipstick Negative (Negative); Leukocyte Esterase-Dipstick Negative /ul (Negative); Nitrite-Dipstick Negative (Negative); Occult Blood-Urine Negative /ul (Negative); Protein-Dipstick Negative (Negative); Specific Gravity, Urine 1.005 (1.002-1.030); Urine Bilirubin Dipstick Negative (Negative); Urine Clarity Clear (Clear); Urine Urobilinogen Normal (Normal)
[2023-12-29 17:35] LABS: Internal QC Validated? YES +Cl - CLEAR BKGD; Pregnancy, Serum, hCG Quali. NEGATIVE Negative; Record Kit Lot#, Serum Preg. 869294
[2023-12-29 17:36] LABS: Anion Gap 3 (5-15); BUN 11 mg/dL (7-18); BUN/Creat Ratio 13.9 RATIO (10-20); Calcium,Total 9.6 mg/dL (8.5-10.1); Chloride 107 mmol/L (98-107); Creatinine, Serum 0.79 mg/dL (0.55-1.02); EST Glomerular Filtration Rate 84 mL/min (>60); Est Glom Filt Rate - Afr Amer 102 mL/min (>60); Estimated Creatinine Clearance 81.18 ml/min; Glucose 79 mg/dL (74-106); Potassium 3.8 mmol/L (3.5-5.1); Sodium Level 138 mmol/L (136-145)
[2023-12-29 17:37] LABS: Squamous Epithelial Cells - UA 0-5 SEEN /hpf (5-10)
--- NOTE | 2023-12-29 17:39 | CT_ITS ---
STUDY: CT ABDOMEN AND PELVIS WITHOUT CONTRAST REASON FOR EXAM: Female, 43 years old. Kidney Stone RADIATION DOSAGE (If Supplied By Facility): CTDIvol = ( 6.23 ) mGy, DLP = ( 288.11 ) mGycm TECHNIQUE: Transaxial images were obtained from the dome of the diaphragm to the symphysis pubis without oral contrast, and without intravenous contrast. Sagittal and coronal images were reconstructed. Individualized dose optimization techniques were used for this CT. COMPARISON: October 03, 2023 FINDINGS: The visualized lung bases are unremarkable. The visualized portions of the heart are within normal limits. Normal liver. Normal gallbladder and extrahepatic biliary system. Normal spleen. Normal pancreas. Normal bilateral adrenal glands. Normal right kidney. Normal left kidney. Normal visualized stomach. Normal small intestine. There is diffuse fecal retention noted within the colon . No evidence for acute appendicitis. Normal abdominal aorta. Normal inferior vena cava. Normal retroperitoneum. Incompletely distended thick walled bladder of uncertain significance. Uterus is enlarged and there is a pedunculated fibroid on the right measuring approximately 3.6 x 2.5 cm. There is a left adnexal cystic lesion possibly ovarian cyst measuring approximately 4.4 x 2.5 cm Normal abdominal wall. Normal osseous structures. CT/Abdomen/Pelvis without Cont IMPRESSION: Enlarged uterus with right fundal fibroid and probable left ovarian cyst.. Pelvic sonogram would be helpful for more definitive evaluation. Normal kidneys without evidence for renal calculus Electronically Signed: Arjun Reid MD at 18:18 EDT ,
[2023-12-29 17:54] VITALS: BP 125/79; PULSE 69; RESP 16; O2SAT 99
--- NOTE | 2023-12-29 18:41 | ED.RN ---
PT REFUSED THE NON-PREG PELVIC US; DR CEDILLO AWARE.
[2023-12-29 19:00] VITALS: BP 128/87; PULSE 62; RESP 16; O2SAT 99
[2023-12-29 19:10] VITALS: BP 126/85; PULSE 64; RESP 16; TEMP 36.7; O2SAT 100
== END 2023-12-29 19:13 | disposition home or self-care (01) ==
PROVIDERS: Emergency Provider Surgery; PCP Nurse Practitioner; Visit Provider Surgery
DX: M62.830 Muscle spasm of back (principal); N83.202 Unspecified ovarian cyst, left side; Z87.891 Personal history of nicotine dependence; Z87.442 Personal history of urinary calculi; F12.90 Cannabis use, unspecified, uncomplicated; D25.9 Leiomyoma of uterus, unspecified
CPT/HCPCS: 74176; 80048; 81001; 84703; 85025; 96374; 96375; 99283; A4216; J2405

== ENCOUNTER 2024-03-09 12:59 | Emergency (ER) | payer MEDICAID, SELFPAY ==
[2024-03-09 13:00] VITALS: BP 125/78; PULSE 96; RESP 16; TEMP 37; O2SAT 99; BMI 25.7
[2024-03-09 16:23] VITALS: O2SAT 97
--- NOTE | 2024-03-09 16:33 | EDS_ITS ---
HPI History of Present Illness Chief Complaint: Cough Informant: patient Narrative Narrative: 2-day history cough headache myalgias and diarrhea. Son seen in ED yesterday diagnosed with COVID. Patient nonvaccinated for COVID with no infections in the past. Patient tolerant oral fluids. Denies history of kidney injury. 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 Prior similar symptoms: No PFSH PFSH Medical History Herpes Scoliosis Depression Kidney stone Carpal tunnel syndrome Post-trauma syndrome Substance abuse Anxiety Chronic pain GERD (gastroesophageal reflux disease) Former smoker Asthma Migraines Home Medications ?Medication ?Instructions ?Recorded ?Last Taken ?Type nortriptyline 10 mg capsule 25 mg PO QHS 09/12/20 Unknown History sumatriptan succinate 50 mg tablet 50 mg PO PRN PRN Migraine Headache 09/12/20 Unknown History Allergy/AdvReac Type Severity Reaction Status Date / Time latex Allergy Hives Verified 03/09/24 13:00 morphine Allergy Rash Verified 03/09/24 13:00 sertraline (From Zoloft) Allergy Hives Verified 03/09/24 13:00 sulfamethoxazole (From Allergy Hives Verified 03/09/24 13:00 Bactrim) tramadol Allergy Rash Verified 03/09/24 13:00 trimethoprim (From Bactrim) Allergy Hives Verified 03/09/24 13:00 Surgical History Hx of oral surgery Hx of lithotripsy Hx of breast surgery Social History Smoking Status: Former smoker substance use type: marijuana ROS ROS ED Constitutional Constitutional ED: Denies chills, fever(s) or sweats ENT ENT ED: Denies sore throat Cardiovascular Cardiovascular: Denies chest pain, leg edema, palpitations or racing heartbeat Respiratory/Chest Respiratory/Chest: Reports cough; Denies dyspnea or dyspnea on exertion Gastrointestinal Gastrointestinal: Reports diarrhea; Denies abdominal pain, nausea or vomiting Genitourinary Genitourinary ED: Denies dysuria, hematuria or urinary frequency Musculoskeletal Musculoskeletal: Reports myalgias; Denies back pain, extremity pain or neck pain Integumentary Denies rash or wounds Neurologic Neurologic: Reports headache(s); Denies paresthesias or weakness EXAM Physical Exam Const Vital Signs: 03/09/24 13:00 03/09/24 16:23 03/09/24 17:00 Temperature 98.6 F Temperature Source Oral Pulse Rate 96 87 Respiratory Rate 16 16 Respiratory Effort Normal Respiratory Depth Normal Respiratory Pattern Normal Blood Pressure 125/78 H Blood Pressure Mean 93 Pulse Ox 99 98 Oxygen Delivery Method Room Air Room Air Room Air 03/09/24 18:03 Temperature Temperature Source Pulse Rate 86 Respiratory Rate 16 Respiratory Effort Respiratory Depth Respiratory Pattern Blood Pressure 134/78 H Blood Pressure Mean 96 Pulse Ox 97 Oxygen Delivery Method Positive well nourished and well developed General Appearance ED: well developed and NAD HEENT Reports moist mucous membranes normocephalic and atraumatic Eyes General Eye ED: Yes normal appearance of both eyes Neck full ROM Neck Narrative: No meningismus Chest Wall Chest: Negative for tenderness Resp normal respiratory effort and normal air movement Effort and Inspection: symmetric chest movement; Negative for respiratory distress Cardio regular rate, regular rhythm and no murmurs Peripheral Pulses: pulses 2+ throughout GI normal to inspection, nondistended, normoactive bowel sounds and non-tender Palpation: Negative for guarding or rebound tenderness present Extremity normal to inspection General Extremety ED: Negative for edema or tenderness General Extremity: Negative for edema Neuro oriented x3, CN's II-XII intact bilaterally and no sensory deficits noted Sensorium / Orientation: awake and alert Skin no rashes or lesions noted and no wounds MDM MDM MDM Narrative Medical decision making narrative: Interventions / MDM: Differential diagnosis: Viral syndrome Diagnosis considered but do not suspect: Pneumonia however x-ray negative. No clinical meningitis. My EKG interpretation: N/A Imaging independently reviewed and interpreted by myself: 2 view chest x-ray: No acute process also read by radiology. External documents reviewed: N/A Test considered but not ordered:N/A ED course: Vital signs stable nontoxic. No meningismus. Viral symptoms with contact son who diagnosed with COVID yesterday. Will check COVID, flu, RSV. Two-view chest x-ray ordered for further evaluation. Chest x-ray negative. COVID, flu, RSV negative. Discussed viral syndrome with the patient. Outpatient follow-up. Work note provided. Should continue Tylenol or Motrin. Discussed humidifier and vapor rubs to help with symptoms. All questions were answered. Re-evaluation: stable Disposition discussed with patient/family/significant other: Patient Case discussed with consulting clinician: N/A This note was generated with [employer] dictation software. It may contain incorrect words, spelling, and punctuation that were not noted in checking the note before signing. Radiography Diagnostic Testing: Clinical Impression(s) from Imaging Studies Chest X-Ray 03/09/24 16:39 IMPRESSION: Small airways disease Electronically Signed: Sid Silvestre MD at 17:30 EST , Discharge Plan Triage Chief Complaint: Cough ED Provider: Stephon Singh Dx/Rx/DC Orders Clinical Impression: Acute viral syndrome, Cough, Headache Instructions: ED Viral Syndrome (Adult), ED URI, Viral, No Abx (Adult) Prescriptions: No Action sumatriptan succinate 50 mg tablet 50 mg PO PRN PRN (Reason: Migraine Headache) Patient Comments: Take 1 tablet at the onset of migraine. Can repeat in 2 hours if headaches persists nortriptyline 10 mg capsule 25 mg PO QHS Patient Comments: Take 1 capsule by mouth daily at bedtime. Stand Alone Forms: ED Work / School Excuse Primary Care Provider: Mayelin Lee NP Referrals: Mayelin Lee NP, [employer] [facility] [Primary Care Provider] - 1 Week Activity Restrictions/Additional Instructions: Chest x-ray negative. COVID, influenza, RSV PCR negative. Continue Tylenol as needed. Use humidifier and vapor rubs to help with symptoms. Follow-up with your doctor. Print Language: Austrian Disposition Disposition: Home, Self Care Discharge Date/Time: 03/09/24 18:07
[2024-03-09] MEDS: Acetaminophen 500 MG Tablet 1000 MG PO (16:39)
--- NOTE | 2024-03-09 16:39 | RAD_ITS ---
STUDY: X-RAY CHEST REASON FOR EXAM: Female, 43 years old. cough TECHNIQUE: Single frontal view of the chest. COMPARISON: March 12, 2022 FINDINGS: Lungs are hyperaerated. The lungs are clear and expanded. There is no demonstrated pleural abnormality. Normal size heart. Normal mediastinum and basilia. Normal visualized pulmonary arteries. Normal visualized aortic arch and descending thoracic aorta. Normal visualized thoracic spine. Normal visualized ribs, clavicles, and shoulders. There is no demonstrated abnormality of the visualized soft tissue structures of the upper abdomen. RAD/Chest PA and Lateral IMPRESSION: Small airways disease Electronically Signed: Sid Silvestre MD at 17:30 EST ,
[2024-03-09 17:00] VITALS: PULSE 87; RESP 16; O2SAT 98
[2024-03-09 18:03] VITALS: BP 134/78; PULSE 86; RESP 16; O2SAT 97
== END 2024-03-09 18:07 | disposition home or self-care (01) ==
PROVIDERS: Emergency Provider Emergency Medicine; PCP Nurse Practitioner; Referring Provider Emergency Medicine; Visit Provider Emergency Medicine
DX: B34.9 Viral infection, unspecified (principal); Z87.891 Personal history of nicotine dependence; Z28.310 Unvaccinated for COVID-19; K21.9 Gastro-esophageal reflux disease without esophagitis; J45.909 Unspecified asthma, uncomplicated; R05.9 Cough, unspecified; R51.9 Headache, unspecified
CPT/HCPCS: 71046; 87631; 99282

== ENCOUNTER 2024-04-23 10:41 | Emergency (ER) | payer MEDICAID, SELFPAY ==
[2024-04-23 10:42] VITALS: BP 139/81; PULSE 66; RESP 18; TEMP 37.1; O2SAT 100; BMI 25.6
--- NOTE | 2024-04-23 10:55 | EX.ED.DYSGE1 ---
HPI History of Present Illness Chief Complaint: Cough PFSH PFSH Medical History Kidney stone COVID-19 virus infection Herpes Scoliosis Depression Carpal tunnel syndrome Post-trauma syndrome Substance abuse Anxiety Chronic pain GERD (gastroesophageal reflux disease) Former smoker Asthma Migraines Home Medications ?Medication ?Instructions ?Recorded ?Last Taken ?Type nortriptyline 10 mg capsule 25 mg PO QHS 09/12/20 Unknown History sumatriptan succinate 50 mg tablet 50 mg PO PRN PRN Migraine Headache 09/12/20 Unknown History Allergy/AdvReac Type Severity Reaction Status Date / Time latex Allergy Hives Verified 04/23/24 10:42 morphine Allergy Rash Verified 04/23/24 10:42 sertraline (From Zoloft) Allergy Hives Verified 04/23/24 10:42 sulfamethoxazole (From Allergy Hives Verified 04/23/24 10:42 Bactrim) tramadol Allergy Rash Verified 04/23/24 10:42 trimethoprim (From Bactrim) Allergy Hives Verified 04/23/24 10:42 Family History no significant family his Surgical History Hx of oral surgery Hx of lithotripsy Hx of breast surgery Social History Smoking Status: Former smoker substance use type: marijuana EXAM Physical Exam Const Vital Signs: 04/23/24 10:42 04/23/24 12:39 04/23/24 14:02 Temperature 98.7 F Temperature Source Oral Pulse Rate 66 68 58 L Respiratory Rate 18 Blood Pressure 139/81 H 132/81 H 141/82 H Blood Pressure Mean 100 98 101 Pulse Ox 100 100 98 Oxygen Delivery Method Room Air Room Air Room Air 04/23/24 15:12 Temperature 98.7 F Temperature Source Pulse Rate 62 Respiratory Rate 11 L Blood Pressure 145/88 H Blood Pressure Mean 107 Pulse Ox 100 Oxygen Delivery Method MDM MDM MDM Narrative Medical decision making narrative: HISTORY OF PRESENT ILLNESS: 43-year-old female history of GERD, nephrolithiasis, anxiety, substance abuse, asthma, migraines presents with 2 days of cough, runny nose, nausea and chest pain. The patient denies chest pain or shortness of breath. The patient denies recent surgery in the last 4 weeks or immobilization in the last 3 days, denies previous diagnosis of DVT or PE, hemoptysis, unilateral leg swelling or malignancy with treatment the last 6 months or palliative. No estrogen use noted. Patient denies sudden onset of pain, no tearing sensation, no migratory symptoms, no new numbness, weakness or loss of sensation. Patient denies family history or personal history of Connective tissue disorders (Marfan's Syndrome, Anita Danlos etc) REVIEW OF SYSTEMS: Pertinent positives: As per HPI Pertinent negatives: Chest pain, shortness of breath PHYSICAL EXAM: Nursing triage notes reviewed, Vital signs reviewed Constitutional: please see mdm HENT: MMM Eyes: Pupils equal round and reactive to light, Extraocular muscles intact Neck: No stridor, no JVD, full neck ROM Lungs: Clear to auscultation, No wheezing or rales. No increased work of breathing, no conversational dyspnea, no accessory muscle use, no nasal flaring. No respiratory distress noted Heart: Regular rate and rhythm, No murmurs, No rubs and No gallops, 2+ distal pulses (radial, femoral, posterior tibial) in all extremities Abdomen: Soft, there is no tenderness, rigidity, rebound or guarding, no obvious peritoneal signs, no palpable pulsatile abdominal masses, no auscultated abdominal bruit : No CVAT Extremities: No edema Neuro: No new focal neurological deficits, cranial nerves II through XII intact, 5/5 strength in all present extremities. Intact sensation to light touch in all present extremities, 2+ reflexes bilateral patella tendons. Skin: No rash or lesions noted MEDICAL DECISION MAKING: Chief Complaint: Chest pain, cough, runny nose and nausea External records reviewed: Reviewed prior ED visits Factors affecting care: As per HPI Social determinants of health: none History obtained from others: none Consults: none [facility] Narrative: Patient was initially hemodynamically stable, afebrile and nontoxic-appearing. Exam with clear lungs. No focal consolidation noted. I considered the following differential diagnosis: Pneumonia, PE, ACS, arrhythmia, electro disturbance, ALL IMAGES (IF OBTAINED) HAVE BEEN PERSONALLY REVIEWED AND INTERPRETED BY MYSELF. COVID/flu/RSV negative EKG with normal sinus rhythm, normal axis, normal intervals, QTc 422, no STEMI, no signs of right heart strain CBC without leukocytosis, severe anemia, no thrombocytopenia. High-sensitivity troponin is negative, no evidence of myocardial ischemiax2 CMP without evidence of acute kidney injury, significant electrolyte abnormality, anion gap to suggest end organ hypo-perfusion, no evidence of metabolic acidosis with a normal bicarbonate, no evidence of hepatobiliary obstructive pathology. I have personally reviewed the patient's chest x-ray. Chest x-ray is unremarkable for pulmonary edema, pneumothorax, pneumonia or focal cardiopulmonary abnormality. Upon re-evaluation the patient's vital signs remained stable. Patient ambulated out significant hypoxia. She likely some from a viral URI. Tylenol ibuprofen instructions given. Strict return precautions were discussed. The patient and/or family, caregivers express understanding. The patient and/or family, caregivers agrees with the plan. Shared decision making: I will have a discussion with the patient and or visitors regarding risk/benefits of further testing or admission. They will be made aware of of the risk/benefits inherent in this decision they will be given the opportunity to voice understanding. Total critical care time today provided was at least 0 minutes. This excludes separately billable procedures. Critical care time (if documented) is secondary to the patient having high probability of clinically significant/life threatening deterioration in the patient's condition which required my urgent intervention. Impression: 1. Viral URI 2. Dyspnea Dispo: discharge This note was generated with [employer] dictation software. It may contain incorrect words, spelling, and punctuation that were not noted in review of the chart prior to signing. Lab Data Labs: Laboratory Results - last 24 hr 04/23/24 04/23/24 11:43 13:50 WBC 8.0 RBC 4.81 Hgb 14.1 Hct 43.8 MCV 91.1 MCH 29.3 MCHC 32.2 RDW Std Deviation 45.3 H RDW Coeff of Sophia 13.3 Plt Count 349 MPV 9.6 Immature Gran % (Auto) 0.100 Neut % (Auto) 49.8 Lymph % (Auto) 39.0 [place] % (Auto) 7.4 Eos % (Auto) 3.0 Baso % (Auto) 0.7 Absolute Neuts (auto) 4.0 Absolute Lymphs (auto) 3.13 Nucleated RBC % 0 Sodium 135 L Potassium 3.8 Chloride 108 H Carbon Dioxide 22.0 Anion Gap 6 BUN 6 L Creatinine 0.82 Estim Creat Clear Calc 77.45 Est GFR (MDRD) Af Amer 98 Est GFR (MDRD) Non-Af 81 BUN/Creatinine Ratio 7.3 L Glucose 91 Calcium 8.9 Total Bilirubin 0.40 AST 22 ALT 27 Alkaline Phosphatase 58 Troponin I High Sens 13 8 Total Protein 8.4 H Albumin 3.9 Globulin 4.5 H Albumin/Globulin Ratio 0.9 Radiography Diagnostic Testing: Clinical Impression(s) from Imaging Studies Chest X-Ray 04/23/24 11:00 IMPRESSION: NEGATIVE CHEST Reading Location: [facility] Discharge Plan Triage Chief Complaint: Cough Other Complaint: Chest Pain ED Provider: Johnie Shen Dx/Rx/DC Orders Instructions: ED Chest Pain, Noncardiac Prescriptions: No Action sumatriptan succinate 50 mg tablet 50 mg PO PRN PRN (Reason: Migraine Headache) Patient Comments: Take 1 tablet at the onset of migraine. Can repeat in 2 hours if headaches persists nortriptyline 10 mg capsule 25 mg PO QHS Patient Comments: Take 1 capsule by mouth daily at bedtime. Stand Alone Forms: ED Work / School Excuse Primary Care Provider: Mayelin Lee NP Referrals: Mayelin Lee NP, [facility] [employer] [Primary Care Provider] - Activity Restrictions/Additional Instructions: Thank you for trusting us with your care today! Your labs images were unremarkable for signs of a life or limb threatening cause of your presentation. Suspect you are suffering from a viral upper respiratory tract infection however there is no sign of pneumonia COVID RSV or flu in your workup. Please take Tylenol (2 pills, 650 mg), ibuprofen (2 pills, 400 mg) every 6 hours as needed for pain and fever control. Please return to the emergency department if your symptoms change or worsen. Please follow with your primary care physician for further outpatient evaluation and management. Print Language: Nigerien Disposition Disposition: Home, Self Care Discharge Date/Time: 04/23/24 15:18
--- NOTE | 2024-04-23 11:00 | RAD_ITS ---
PROCEDURE: CHEST PA AND LATERAL REASON FOR EXAM: Cough TECHNIQUE: Frontal and lateral views of the chest. COMPARISON: 2023. FINDINGS: The heart size is normal. The mediastinal contour is unremarkable. The lungs are clear. The bones are unremarkable. RAD/Chest PA and Lateral IMPRESSION: NEGATIVE CHEST Reading Location: [facility]
--- NOTE | 2024-04-23 11:00 | EKG12_ITS ---
Test Reason : GENERAL Blood Pressure : */* mmHG Vent. Rate : 65 BPM Atrial Rate : 65 BPM P-R Int : 120 ms QRS Dur : 86 ms QT Int : 406 ms P-R-T Axes : 67 63 22 degrees QTcB Int : 422 ms Normal sinus rhythm with sinus arrhythmia Normal ECG Confirmed by WILLIAN CARDENAS, VIVIANA ([id number]), senior editor TONIA ARCHIBALD ([id number]) on 04/24/2024 10:53:57 AM Referred By: Confirmed By: VIVIANA DORSEY MD
[2024-04-23] MEDS: 0.9% Normal Saline (500mL Bag) 500 ML 1000 ML IV (11:40)
[2024-04-23] MEDS: Ondansetron 4 MG/2 ML Vial IV (11:41)
[2024-04-23] MEDS: Ketorolac 15 MG/ML Vial IV (11:41)
[2024-04-23 11:52] LABS: Absolute Lymphocyte Count 3.13 X10^3/uL (0.83-4.51); Basophil# 0.06 X10^3/uL; Basophil% 0.7 % (0-1); Eosinophil# 0.24 X10^3/uL; Hematocrit 43.8 % (37-47); Hemoglobin 14.1 g/dL (12.0-15.0); Lymphocyte # 3.13 X10^3/ul (0.83-4.51); Mean Corp Hgb Conc 32.2 g/dL (32-36); Mean Corpuscular Hgb 29.3 pg (27.0-32.0); Mean Corpuscular Volume 91.1 fL (81-99); Mean Platelet Vol. 9.6 fl (6.2-12.0); Monocyte# 0.59 X10^3/uL; Monocyte% 7.4 % (0-10); NRBC Flagged by Analyzer 0 % (0-5); Neutrophil # 3.99 X10^3/uL (2.7-7.7); Neutrophil % 49.8 % (47-70); Platelet Count 349 K/mm3 (150-450); RBC Distribution Width CV 13.3 % (11.6-14.6); RBC Distribution Width SD 45.3 fl (35.1-43.9); Red Blood Count 4.81 M/mm3 (4.2-5.4)
[2024-04-23 12:17] LABS: ALB/GLOB Ratio 0.9 RATIO (0.9-2.4); AST(SGOT) 22 U/L (15-37); Alanine Aminotransfer ALT/SGPT 27 U/L (13-56); Albumin, Serum 3.9 g/dL (3.2-5.0); Alkaline Phosphatase 58 U/L (45-117); Anion Gap 6 (5-15); BUN 6 mg/dL (7-18); BUN/Creat Ratio 7.3 RATIO (10-20); Calcium,Total 8.9 mg/dL (8.5-10.1); Chloride 108 mmol/L (98-107); Creatinine, Serum 0.82 mg/dL (0.55-1.02); EST Glomerular Filtration Rate 81 mL/min (>60); Est Glom Filt Rate - Afr Amer 98 mL/min (>60); Estimated Creatinine Clearance 77.45 ml/min; Globulin 4.5 g/dL (2.2-4.2); Glucose 91 mg/dL (74-106); Potassium 3.8 mmol/L (3.5-5.1); Protein, Total 8.4 g/dL (6.4-8.2); Sodium Level 135 mmol/L (136-145); Troponin-I HS (w/2H Reflex) 13 pg/mL (3.0-54.0)
[2024-04-23 12:39] VITALS: BP 132/81; PULSE 68; O2SAT 100
[2024-04-23 13:49] LABS: Reflex Troponin-HS? (from REC) Y
[2024-04-23 14:02] VITALS: BP 141/82; PULSE 58; O2SAT 98
[2024-04-23 14:33] LABS: Troponin-I HS 8 pg/mL (3.0-54.0)
[2024-04-23 15:12] VITALS: BP 145/88; PULSE 62; RESP 11; TEMP 37.1; O2SAT 100
== END 2024-04-23 15:18 | disposition home or self-care (01) ==
PROVIDERS: Emergency Provider Emergency Medicine; PCP Nurse Practitioner; Visit Provider Emergency Medicine
DX: J06.9 Acute upper respiratory infection, unspecified (principal); F41.9 Anxiety disorder, unspecified; R11.0 Nausea; Z87.891 Personal history of nicotine dependence; R06.00 Dyspnea, unspecified; K21.9 Gastro-esophageal reflux disease without esophagitis; J45.909 Unspecified asthma, uncomplicated; R07.89 Other chest pain
CPT/HCPCS: 71046; 80053; 84484; 85025; 87631; 93005; 96361; 96374; 96375; 99284; A4216; J2405

== ENCOUNTER 2024-05-10 08:09 | Emergency (ER) | payer MEDICAID, SELFPAY ==
[2024-05-10 08:10] VITALS: BP 136/80; PULSE 75; RESP 18; TEMP 37.1; O2SAT 98; BMI 25.6
[2024-05-10 08:50] LABS: Bacteria 0 SEEN /hpf (None Seen); Mucous, Urine 0 SEEN /hpf (<or=2+); White Blood Cells 0 SEEN /hpf (0-5)
[2024-05-10 08:52] LABS: Color, Urine Straw (Yellow); Glucose, Dipstick Normal (Normal); Ketone-Dipstick Negative (Negative); Leukocyte Esterase-Dipstick Negative /ul (Negative); Nitrite-Dipstick Negative (Negative); Occult Blood-Urine Negative /ul (Negative); Protein-Dipstick Negative (Negative); Specific Gravity, Urine 1.005 (1.002-1.030); Urine Bilirubin Dipstick Negative (Negative); Urine Clarity Clear (Clear); Urine Urobilinogen Normal (Normal)
[2024-05-10 09:02] LABS: Red Blood Cells-Urine 0 SEEN /hpf (0-5); Squamous Epithelial Cells - UA 0-5 SEEN /hpf (5-10)
[2024-05-10 09:03] LABS: Internal QC Validated? YES +Cl - CLEAR BKGD; Pregnancy, Urine Negative Negative
--- NOTE | 2024-05-10 09:15 | ED.VIS.FEGU ---
HPI HPI - Female History of Present Illness Chief Complaint: Female C/O Narrative Narrative: Patient is a 43-year-old female with a past medical history of depression, substance abuse, anxiety, migraine headaches who presents to the emergency department the chief complaint of painful urination for approximately 3 weeks as well as vaginal discharge that is foul-smelling in nature for the last week. She states that she is concerned for a STD. States that she has been with the same partner for a significant amount of time. Patient states that she was unable to get into her doctor to be evaluated for several weeks. PFSH PFSH Medical History Kidney stone COVID-19 virus infection Herpes Scoliosis Depression Carpal tunnel syndrome Post-trauma syndrome Substance abuse Anxiety Chronic pain GERD (gastroesophageal reflux disease) Former smoker Asthma Migraines Home Medications ?Medication ?Instructions ?Recorded ?Last Taken ?Type nortriptyline 10 mg capsule 25 mg PO QHS 09/12/20 Unknown History sumatriptan succinate 50 mg tablet 50 mg PO PRN PRN Migraine Headache 09/12/20 Unknown History doxycycline hyclate 100 mg capsule 100 mg PO BID 7 days #14 caps 05/10/24 Unknown Rx metronidazole 500 mg tablet 500 mg PO Q12H 7 days #14 tabs 05/10/24 Unknown Rx Allergy/AdvReac Type Severity Reaction Status Date / Time latex Allergy Hives Verified 05/10/24 08:10 morphine Allergy Rash Verified 05/10/24 08:10 sertraline (From Zoloft) Allergy Hives Verified 05/10/24 08:10 sulfamethoxazole (From Allergy Hives Verified 05/10/24 08:10 Bactrim) tramadol Allergy Rash Verified 05/10/24 08:10 trimethoprim (From Bactrim) Allergy Hives Verified 05/10/24 08:10 Surgical History Hx of oral surgery Hx of lithotripsy Hx of breast surgery Social History Smoking Status: Former smoker substance use type: marijuana ROS ROS ED ROS Narrative Constitutional: Denies fevers, chills, headaches, lightness, dizziness Eyes: Denies change in vision double vision blurry vision Cardiovascular: Denies chest pain Respiratory: Denies cough or wheezing shortness of breath Abdomen: Denies abdominal pain nausea vomit diarrhea : Complains of vaginal discharge and painful urination as noted above Neurological: Denies numbness, weakness, tingling Musculoskeletal: Complains of back pain on both sides Skin: Denies rashes or lesions EXAM Physical Exam Narrative Exam Narrative: General: Patient was lying in bed rest comfortably did not appear to be in acute distress Head: Atraumatic, normocephalic Eyes: PERRL bilaterally, EOMI bilateral, no conjunctival injection noted Neck: Soft, supple, trach midline Cardiovascular: Regular rate and rhythm no murmurs gallops rubs noted Respiratory: Clear to auscultation bilaterally Abdomen: Soft, nondistended, nontender to palpation Musculoskeletal: No tenderness palpation midline of the thoracic lumbar spine Extremities: +5/5 strength noted in the bilateral upper and lower extremities, radial pulses +2/4 in the bilateral extremities Neurological: Patient following commands knew that she was at [facility] year is 2024 Skin: Warm, dry, intact Const Vital Signs: 05/10/24 08:10 05/10/24 10:09 Temperature 98.7 F Temperature Source Oral Pulse Rate 75 81 Respiratory Rate 18 Blood Pressure 136/80 H 142/87 H Blood Pressure Mean 98 105 Pulse Ox 98 Oxygen Delivery Method Room Air MDM MDM MDM Narrative Medical decision making narrative: Patient is a 43-year-old female who presented to the emergency department chief complaint of painful urination for 3 weeks and vaginal discharge for the last week. On the differential diagnose includes but not limited to bacterial vaginosis, trichomonas, chlamydia, gonorrhea, UTI. Once workup is obtained reviewed she will be reevaluated. Patient will be given 500 mg of intramuscular Rocephin, and first dose of doxycycline as well as Flagyl. Patient's urine sample on the counter was extremely clear appeared to be water in consistency patient states that that is her urine. Patient's urinalysis did not reveal any evidence infection did test her for chlamydia gonorrhea and trichomonas. Patient was given first dose of antibiotics here and was advised to take the antibiotics as prescribed. She was encouraged to return with worsening symptoms or other concerns otherwise she is to follow-up with her primary care physician outpatient setting. She should follow-up on the STD testing with them as well. She is agreeable this plan all question concerns answered she was discharged home in stable condition. Lab Data Labs: Laboratory Results - last 24 hr 05/10/24 08:29 Urine Color Straw Urine Clarity Clear Urine pH 7.0 Ur Specific [place] 1.005 Urine Protein Negative Urine Glucose (UA) Normal Urine Ketones Negative Urine Occult Blood Negative Urine Nitrite Negative Urine Bilirubin Negative Urine Urobilinogen Normal Ur Leukocyte Esterase Negative Urine RBC 0 SEEN Urine WBC 0 SEEN Ur Squamous Epith Cells 0-5 SEEN Urine Bacteria 0 SEEN Urine Mucus 0 SEEN Urine Test Negative Discharge Plan Triage Chief Complaint: Female C/O ED Provider: Minh Evans Dx/Rx/DC Orders Clinical Impression: Vaginal discharge Prescriptions: New doxycycline hyclate 100 mg capsule 100 mg PO BID 7 Days Qty: 14 0RF metronidazole 500 mg tablet 500 mg PO Q12H 7 Days Qty: 14 0RF No Action sumatriptan succinate 50 mg tablet 50 mg PO PRN PRN (Reason: Migraine Headache) Patient Comments: Take 1 tablet at the onset of migraine. Can repeat in 2 hours if headaches persists nortriptyline 10 mg capsule 25 mg PO QHS Patient Comments: Take 1 capsule by mouth daily at bedtime. Primary Care Provider: Mayelin Lee NP Referrals: Mayelin Lee DOCUMENT IMAGE TECHNICIAN, [employer] [facility]CHNICIAN[facility]C [Primary Care Provider] - Activity Restrictions/Additional Instructions: Follow-up with your primary care physician follow-up on the STD testing. Take antibiotics as prescribed do not drink alcohol while on Flagyl. Return with worsening symptoms or concerns. Your urine did not show any evidence of infection. Print Language: Ukrainian Disposition Disposition: Home, Self Care
[2024-05-10] MEDS: Doxycycline 100 MG CAPSULE PO (09:35)
[2024-05-10] MEDS: Ceftriaxone 500 MG Vial IM (09:35)
[2024-05-10] MEDS: metroNIDAZOLE 500 MG Tablet PO (09:35)
[2024-05-10 10:09] VITALS: BP 142/87; PULSE 81
== END 2024-05-10 10:46 | disposition home or self-care (01) ==
PROVIDERS: Emergency Provider Emergency Medicine; PCP Nurse Practitioner; Visit Provider Emergency Medicine
DX: N89.8 Other specified noninflammatory disorders of vagina (principal); Z87.891 Personal history of nicotine dependence; F41.9 Anxiety disorder, unspecified; K21.9 Gastro-esophageal reflux disease without esophagitis; F32.A Depression, unspecified; R30.9 Painful micturition, unspecified
CPT/HCPCS: 81001; 81025; 87491; 87591; 87661; 96372; 99283

== ENCOUNTER → 2024-06-12 | Outpatient (CLI) | payer MEDICAID, SELFPAY ==
[2024-06-12 13:20] LABS: ALB/GLOB Ratio 1.3 RATIO (0.9-2.4); AST(SGOT) 21 U/L (<=31); Alanine Aminotransfer ALT/SGPT 17 U/L (<=34); Albumin, Serum 4.1 g/dL (3.5-5.0); Alkaline Phosphatase 51 U/L (35-104); Anion Gap 9 (5-15); BUN 15 mg/dL (4-19); BUN/Creat Ratio 18.1 RATIO (10-20); Calcium,Total 9.2 mg/dL (7.6-11.0); Carbon Dioxide 23.7 mmol/L (21.0-32.0); Chloride 105 mmol/L (98-108); Cholesterol 177 mg/dL (<=200); Creatinine, Serum 0.82 mg/dL (0.70-1.20); EST Glomerular Filtration Rate 91 (>60); Globulin 3.3 g/dL (2.2-4.2); Glucose 93 mg/dL (70-99); High Density Lipoprotein 59 mg/dL; Low Density Lipoprotein Calc. 109 mg/dL; Potassium 4.1 mmol/L (3.3-5.1); Protein, Total 7.3 g/dL (5.9-8.4); Sodium Level 137 mmol/L (133-145); Thyroid Stim Hormone (TSH) 0.507 uIU/mL (0.300-4.200); Total Bilirubin 0.22 mg/dL (0.00-1.30); Triglycerides 49 mg/dL; Very Low Density Lipoprotein 10 mg/dL (5-40); cholesterol:hdl ratio screen 3.03
== END | disposition home or self-care (01) ==
LOC: BIMLAB 09:55
PROVIDERS: PCP Internal Medicine; Referring Provider Internal Medicine; Visit Provider Internal Medicine
DX: R07.9 Chest pain, unspecified (principal)
CPT/HCPCS: 36415; 80053; 80061; 84443

== ENCOUNTER 2024-06-17 12:57 | Emergency (ER) | payer MEDICAID, SELFPAY ==
[2024-06-17 12:57] VITALS: BP 131/71; PULSE 98; RESP 16; TEMP 36.3; O2SAT 100; BMI 25.4
--- NOTE | 2024-06-17 13:19 | EDS_ITS ---
HPI <DORIE Hector - Last Filed: 06/17/24 15:53> History of Present Illness Chief Complaint: Complaint Narrative Narrative: Patient presenting today with dysuria, urinary frequency, cloudy urine, and hematuria that started day, her symptoms worsened yesterday. She has a remote history of UTIs that have felt similar. She does have a history of kidney stones but does not think that this feels consistent with that. She does report pain across her lower back. She denies abdominal pain, vomiting, fevers, chills, and abnormal vaginal discharge. She denies concerns for STDs, she was recently tested in April and was negative. [facility] <DORIE Hector - Last Filed: 06/17/24 15:53> [facility] Medical History (Updated 06/17/24 @ 14:17 by DORIE Hector) Osteochondral lesion Ovarian cyst Kidney stone COVID-19 virus infection Herpes Scoliosis Depression Carpal tunnel syndrome Post-trauma syndrome Substance abuse Anxiety Chronic pain GERD (gastroesophageal reflux disease) Former smoker Asthma Migraines Home Medications ?Medication ?Instructions ?Recorded ?Last Taken ?Type cyclobenzaprine 10 mg tablet 10 mg PO TID #90 tabs Unknown Rx gabapentin 300 mg capsule 300 mg PO BID 06/12/24 Unkno wn History sumatriptan succinate 50 mg tablet 50 mg PO PRN PRN Mi graine Headache 06/12/24 Unknown Rx #14 tabs nortriptyline 25 mg capsule 25 mg PO QHS #90 caps 04/08 Unknown Rx cephalexin 500 mg capsule 500 mg PO Q6 #28 CAPSULES Unknown Rx phenazopyridine 200 mg tablet 200 mg PO TID #10 tabs 0 06/17/24 Unknown Rx (Pyridium) Allergy/AdvReac Type Severity Reaction Status Date / Time latex Allergy Hives Verified 06/17/24 13:02 morphine Allergy Rash Verified 06/17/24 13:02 sertraline (From Zoloft) Allergy Hives Verified 06/17/24 13:02 sulfamethoxazole (From Allergy Hives Verified 06/17/24 13:02 Bactrim) tramadol Allergy Rash Verified 06/17/24 13:02 trimethoprim (From Bactrim) Allergy Hives Verified 06/17/24 13:02 Family History Mother Anxiety Asthma Arthritis Blood clot in abdominal vein Cancer CERVICAL Diabetes Depression Mental disorder Allergies Heart disease Grandmother Cancer CERVICAL Surgical History H/O dilation and curettage Hx of oral surgery Hx of lithotripsy Hx of breast surgery Social History household members: children current occupational status: employed 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, [employer], [employer] Smoking Status: Former smoker quit date: 03/15/21 pack-years: 5 alcohol intake: current alcohol intake frequency: holidays/special occasions only substance use type: marijuana what type of physical activity do you participate in: walking frequency: daily seatbelt use: always do you feel safe at home: Yes ROS <DORIE Hector - Last Filed: 06/17/24 15:53> ROS ED Constitutional Constitutional ED: Denies chills or fever(s) Cardiovascular Cardiovascular: Denies chest pain Respiratory/Chest Respiratory/Chest: Denies dyspnea Gastrointestinal Gastrointestinal: Reports nausea; Denies abdominal pain or vomiting Genitourinary Genitourinary ED: Reports dysuria, hematuria and urinary frequency Musculoskeletal Musculoskeletal: Reports back pain Integumentary Denies rash Neurologic Neurologic: Denies weakness EXAM <DORIE Hector - Last Filed: 06/17/24 15:53> Physical Exam Const Vital Signs: 06/17/24 12:57 Temperature 97.3 F L Temperature Source Oral Pulse Rate 98 Respiratory Rate 16 Blood Pressure 131/71 H Blood Pressure Mean 91 Pulse Ox 100 Oxygen Delivery Method Room Air Positive well nourished, well developed and no apparent distress General Appearance ED: well developed HEENT Reports normocephalic and head/scalp atraumatic Mouth ED: Yes moist mucous membranes normal Eyes PERRL and EOMs intact bilaterally Neck full ROM and supple Chest Wall inspection of chest normal Resp normal respiratory effort and clear to auscultation bilaterally Cardio regular rate and regular rhythm GI soft to palpation, non-tender, non-distended and no masses Back/Spine normal ROM and normal to inspection General Back: Negative for CVA tenderness Extremity normal to inspection and full ROM Neuro oriented x3, CN's II-XII intact bilaterally, moves all extremities, no focal motor deficits and no sensory deficits noted Sensorium / Orientation: awake and alert Psych mental status grossly normal and thought process normal Skin no rashes or lesions noted and no wounds <Dr. Bobbi Harry DO - Last Filed: 06/17/24 14:36> Physical Exam Const Vital Signs: 06/17/24 12:57 Temperature 97.3 F L Temperature Source Oral Pulse Rate 98 Respiratory Rate 16 Blood Pressure 131/71 H Blood Pressure Mean 91 Pulse Ox 100 Oxygen Delivery Method Room Air MDM <DORIE Hector - Last Filed: 06/17/24 15:53> [facility] Narrative Medical decision making narrative: Patient presenting with concerns for UTI. She denies concerns for STDs, no abnormal vaginal discharge. She reports that this does not feel consistent with previous kidney stones. She is nontoxic-appearing. She does report that she was exposed at work to a patient who is currently in isolation precautions but she is not sure what they have. Lower suspicion for pyelonephritis or kidney stone. UA was obtained and shows positive WBCs and RBCs, 4+ bacteria, 500 leukocytes. Urine hCG negative. Urinary culture sent. She will be started on Keflex and Pyridium. Recommended she follow-up with PCP and will be discharged home in stable condition. I have personally performed a face to face assessment of the patient and have reviewed the ROULA Note. I performed a substantive portion of the visit including all aspects of the following. My aguirre findings include: History is [patient presents to the emergency department with complaint of dysuria as well as frequency. 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 Patient denies fever. She has had some mild nausea but no vomiting. She has noticed some intermittent blood in the urine. She does have a history of kidney stones] Exam is [HEENT-PERRLA, EOMI. Cranial nerves II through XII grossly intact. TMs clear. Mucous membranes moist. No adenopathy. Cardiovascular-regular rate and rhythm without murmur or ectopy Lungs-clear to auscultation, chest wall stable without crepitus or subcu emphysema Abdomen-normoactive bowel sounds, soft. Mild diffuse tenderness over the suprapubic region. There is no rebound, rigidity, or periostitis. No CVA tenderness on exam Extremities-intact ?4, normal range of motion, normal pulses, atraumatic] Medical Decison Making [patient presents with symptoms of a UTI. Clinically looks well. Urinalysis obtained was positive for 5 out of leukocyte Estrace as well as 25-50 WBCs and +4 bacteria. Serum hCG was negative. Urine culture sent. Patient will be started on Keflex and Pyridium. Advised follow-up with primary care physician in 3 to 5 days.] Other additions or changes: [None] Lab Data Labs: Laboratory Results - last 24 hr 06/17/24 13:17 Urine Color Yellow Urine Clarity Sl. Cloudy Urine pH 6.0 Ur Specific [place] 1.020 Urine Protein 100 H Urine Glucose (UA) Normal Urine Ketones Negative Urine Occult Blood 250 H Urine Nitrite Negative Urine Bilirubin Negative Urine Urobilinogen Normal Ur Leukocyte Esterase 500 H Urine RBC 25-50 SEEN Urine WBC 25-50 SEEN Ur Squamous Epith Cells 0-5 SEEN Urine Bacteria 4+ Urine Mucus 0 SEEN Urine Test Negative <Dr. Bobbi Harry, DO - Last Filed: 06/17/24 14:36> [facility] MDM Narrative Medical decision making narrative: Patient presenting with concerns for UTI. She denies concerns for STDs, no abnormal vaginal discharge. She reports that this does not feel consistent with previous kidney stones. She is nontoxic-appearing. She does report that she was exposed at work to a patient who is currently in isolation precautions but she is not sure what they have. She does not have CVA I have personally performed a face to face assessment of the patient and have reviewed the ROULA Note. I performed a substantive portion of the visit including all aspects of the following. My aguirre findings include: History is [patient presents to the emergency department with complaint of dysuria as well as frequency. 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 Patient denies fever. She has had some mild nausea but no vomiting. She has noticed some intermittent blood in the urine. She does have a history of kidney stones] Exam is [HEENT-PERRLA, EOMI. Cranial nerves II through XII grossly intact. TMs clear. Mucous membranes moist. No adenopathy. Cardiovascular-regular rate and rhythm without murmur or ectopy Lungs-clear to auscultation, chest wall stable without crepitus or subcu emphysema Abdomen-normoactive bowel sounds, soft. Mild diffuse tenderness over the suprapubic region. There is no rebound, rigidity, or periostitis. No CVA tenderness on exam Extremities-intact ?4, normal range of motion, normal pulses, atraumatic] Medical Decison Making [patient presents with symptoms of a UTI. Clinically looks well. Urinalysis obtained was positive for 5 out of leukocyte Estrace as well as 25-50 WBCs and +4 bacteria. Serum hCG was negative. Urine culture sent. Patient will be started on Keflex and Pyridium. Advised follow-up with primary care physician in 3 to 5 days.] Other additions or changes: [None] Lab Data Attestation: I reviewed the patient's lab results. Labs: Laboratory Results - last 24 hr 06/17/24 13:17 Urine Color Yellow Urine Clarity Sl. Cloudy Urine pH 6.0 Ur Specific [place] 1.020 Urine Protein 100 H Urine Glucose (UA) Normal Urine Ketones Negative Urine Occult Blood 250 H Urine Nitrite Negative Urine Bilirubin Negative Urine Urobilinogen Normal Ur Leukocyte Esterase 500 H Urine RBC 25-50 SEEN Urine WBC 25-50 SEEN Ur Squamous Epith Cells 0-5 SEEN Urine Bacteria 4+ Urine Mucus 0 SEEN Urine Test Negative Discharge Plan Triage Chief Complaint: Complaint ED Midlevel Provider: Qiana Schilling ED Provider: Bobbi Harry Dx/Rx/DC Orders Clinical Impression: UTI (urinary tract infection) Instructions: UTIs Prescriptions: New cephalexin 500 mg capsule 500 mg PO Q6 Qty: 28 0RF phenazopyridine [Pyridium] 200 mg tablet 200 mg PO TID Qty: 10 0RF No Action gabapentin 300 mg capsule 300 mg PO BID cyclobenzaprine 10 mg tablet 10 mg PO TID Qty: 90 0RF sumatriptan succinate 50 mg tablet 50 mg PO PRN PRN (Reason: Migraine Headache) Qty: 14 0RF nortriptyline 25 mg capsule 25 mg PO QHS Qty: 90 0RF Primary Care Provider: Betzy Clark Referrals: Betzy Clark MD [Primary Care Provider] - 5-7 Days Activity Restrictions/Additional Instructions: Follow-up with your PCP and return for worsening symptoms. Print Language: Latvian Disposition Disposition: Home, Self Care Discharge Date/Time: 06/17/24 14:32
[2024-06-17 13:24] LABS: Mucous, Urine 0 SEEN /hpf (<or=2+)
[2024-06-17 13:27] LABS: Color, Urine Yellow (Yellow); Glucose, Dipstick Normal (Normal); Ketone-Dipstick Negative (Negative); Leukocyte Esterase-Dipstick 500 /ul (Negative); Nitrite-Dipstick Negative (Negative); Occult Blood-Urine 250 /ul (Negative); Protein-Dipstick 100 mg/dl (Negative); Urine Bilirubin Dipstick Negative (Negative); Urine Clarity Sl. Cloudy (Clear); Urine Urobilinogen Normal (Normal)
[2024-06-17 13:58] LABS: Red Blood Cells-Urine 25-50 SEEN /hpf (0-5); Squamous Epithelial Cells - UA 0-5 SEEN /hpf (5-10); White Blood Cells 25-50 SEEN /hpf (0-5)
[2024-06-17 14:00] LABS: Bacteria 4+ /hpf (None Seen)
[2024-06-17 14:01] LABS: Internal QC Validated? YES +Cl - CLEAR BKGD
[2024-06-17 14:02] LABS: Pregnancy, Urine Negative Negative
[2024-06-17] MEDS: Cephalexin 250 MG Capsule 500 MG PO (14:29)
== END 2024-06-17 14:32 | disposition home or self-care (01) ==
PROVIDERS: Physician Assistant; Emergency Provider Emergency Medicine; PCP Internal Medicine; Visit Provider Emergency Medicine
DX: N39.0 Urinary tract infection, site not specified (principal); Z87.891 Personal history of nicotine dependence; R31.9 Hematuria, unspecified; Z87.440 Personal history of urinary (tract) infections; Z87.442 Personal history of urinary calculi; K21.9 Gastro-esophageal reflux disease without esophagitis; J45.909 Unspecified asthma, uncomplicated
CPT/HCPCS: 81001; 81025; 87086; 87088; 87186; 99282

== ENCOUNTER 2024-06-29 08:48 | Emergency (ER) | payer MEDICAID, SELFPAY ==
[2024-06-29 08:49] VITALS: BP 124/82; PULSE 99; RESP 16; TEMP 37; O2SAT 100; BMI 24.5
--- NOTE | 2024-06-29 09:00 | ED.VIS.FEGU ---
HPI HPI - Female History of Present Illness Chief Complaint: Complaint Detail of Chief Complaint: Dysuria and cloudy urine Informant: patient Narrative Narrative: Patient presents with dysuria and cloudy urine x 3 to 4 days. Patient states that she was seen about 2 weeks ago in the ER and diagnosed with a UTI and was treated for that. Her frequency resolved and symptoms got better with treatment with Keflex. Patient denies nausea or vomiting. She denies fever. She does complain of some bilateral back pain that is diffuse. 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 Denies hematuria. Denies frequency. She does have history of kidney stones [facility] Medical History (Updated 06/29/24 @ 10:[address] Bobbi Harry, ) Osteochondral lesion Ovarian cyst Kidney stone COVID-19 virus infection Herpes Scoliosis Depression Carpal tunnel syndrome Post-trauma syndrome Substance abuse Anxiety Chronic pain GERD (gastroesophageal reflux disease) Former smoker Asthma Migraines Home Medications ?Medication ?Instructions ?Recorded ?Last Taken ?Type cyclobenzaprine 10 mg tablet 10 mg PO TID #90 tabs 06/12/24 Unknown Rx gabapentin 300 mg capsule 300 mg PO BID 06/12/24 Unknown History sumatriptan succinate 50 mg tablet 50 mg PO PRN PRN Migraine Headache 06/12/24 Unknown Rx #14 tabs nortriptyline 25 mg capsule 25 mg PO QHS #90 caps 06/13/24 Unknown Rx cephalexin 500 mg capsule 500 mg PO Q6 #28 CAPSULES 06/17/24 Unknown Rx phenazopyridine 200 mg tablet 200 mg PO TID #10 tabs 06/17/24 Unknown Rx (Pyridium) cyclobenzaprine 10 mg tablet 10 mg PO TID PRN Muscle Spasm #20 06/29/24 Unknown Rx TABLETS hydrocodone-acetaminophen 5-325mg 1 tab PO Q4H PRN PRN Pain 2 days 06/29/24 Unknown Rx 5mg-325mg #10 TABLETS naproxen 500 mg tablet (Naprosyn) 500 mg PO BID PRN pain #20 tabs 06/29/24 Unknown Rx Allergy/AdvReac Type Severity Reaction Status Date / Time latex Allergy Hives Verified 06/17/24 13:02 morphine Allergy Rash Verified 06/17/24 13:02 sertraline (From Zoloft) Allergy Hives Verified 06/17/24 13:02 sulfamethoxazole (From Allergy Hives Verified 06/17/24 13:02 Bactrim) tramadol Allergy Rash Verified 06/17/24 13:02 trimethoprim (From Bactrim) Allergy Hives Verified 06/17/24 13:02 Family History Mother Anxiety Asthma Arthritis Blood clot in abdominal vein Cancer CERVICAL Diabetes Depression Mental disorder Allergies Heart disease Grandmother Cancer CERVICAL Surgical History H/O dilation and curettage Hx of oral surgery Hx of lithotripsy Hx of breast surgery Social History household members: children current occupational status: employed 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, [employer] Smoking Status: Former smoker quit date: 03/15/21 pack-years: 5 alcohol intake: current alcohol intake frequency: holidays/special occasions only substance use type: marijuana what type of physical activity do you participate in: walking frequency: daily seatbelt use: always do you feel safe at home: Yes ROS ROS ED Review of Systems ROS Unobtainable: other Constitutional Constitutional ED: Reports lethargy; Denies chills, fever(s), sweats or weight loss Eyes Eyes: Denies blurry vision, change in vision or diplopia ENT ENT ED: Denies rhinorrhea or sore throat Cardiovascular Cardiovascular: Reports chest pain and racing heartbeat; Denies orthopnea Respiratory/Chest Respiratory/Chest: Denies cough, dyspnea, dyspnea on exertion, orthopnea or sputum Gastrointestinal Gastrointestinal: Denies abdominal pain, diarrhea, nausea or vomiting Genitourinary Genitourinary ED: Reports dysuria; Denies hematuria or urinary frequency Musculoskeletal Musculoskeletal: Reports back pain; Denies arthralgias, myalgias or neck pain Integumentary Denies abscess, Abrasions or rash Neurologic Neurologic: Denies headache(s) or weakness Psychiatric Psychiatric: Denies anxiety, depression or suicidal thoughts Endocrine Endocrinology: Denies polydipsia, polyphagia or polyuria Hematologic/Lymphatic Hematologic/Lymphatic: Denies easy bleeding, easy bruising or lymphadenopathy Allergic/Immunologic Allergic/Immunologic ED: Denies mouth swelling, tongue swelling or urticaria EXAM Physical Exam Const Vital Signs: 06/29/24 08:49 Temperature 98.6 F Temperature Source Oral Pulse Rate 99 Respiratory Rate 16 Blood Pressure 124/82 H Blood Pressure Mean 96 Pulse Ox 100 Oxygen Delivery Method Room Air Positive well nourished and well developed General Appearance ED: well developed and NAD HEENT Reports TM's clear and moist mucous membranes normocephalic and atraumatic; Negative for trauma or tenderness Tympanic Membrane ED: Yes TM's clear Eyes PERRL and EOMs intact bilaterally General Eye ED: Negative for pale conjunctiva or scleral icterus Neck no lymphadenopathy, supple and no JVD General: Negative for tenderness Chest Wall inspection of chest normal and palpation of chest normal Chest: Negative for tenderness Resp normal respiratory effort and clear to auscultation bilaterally Effort and Inspection: Negative for respiratory distress or pain with movement Auscultation: Negative for rhonchi, wheezes or diminished lung sounds Cardio regular rate, regular rhythm, S1 normal heart sound, S2 normal heart sound and no murmurs Peripheral Pulses: pulses 2+ throughout GI normal to inspection, nondistended, normoactive bowel sounds, soft to palpation, non-tender, non-distended and no masses Back/Spine no thoracic nor lumbar tenderness; Negative for no CVA tenderness Back/Spine Narrative: Patient with bilateral CVA tenderness on exam. No tenderness over the thoracic or lumbar spine. Negative straight leg raises. Deep tendon reflexes plus 2 out of 4 bilaterally at the patella and Achilles. She has normal 5 extension Extremity normal to inspection General Extremety ED: Negative for edema General Extremity: Negative for edema Neuro oriented x3, CN's II-XII intact bilaterally, no sensory deficits noted and gait normal Sensorium / Orientation: awake, alert, oriented to person, oriented to place and oriented to time Motor Exam: strength 5/5 throughout and strength abnormal Psych mental status grossly normal Skin no rashes or lesions noted and no wounds MDM MDM MDM Narrative Medical decision making narrative: Patient presents with some dysuria and low back pain. She was treated for UTI recently and symptoms did resolve. Patient does do lifting at work and think she may have possibly strained her back. She does have history of kidney stones but states pain is different than when she had a kidney stone and its bilateral. She has had no abdominal pain. And clinically she looks well. We did obtain a urinalysis that was normal. This point I suspect likely musculoskeletal back pain. She has no radiculopathy. I do not feel any imaging is indicated as she has had no direct trauma. Lab Data Attestation: I reviewed the patient's lab results. Labs: Laboratory Results - last 24 hr 06/29/24 09:06 Urine Color Yellow Urine Clarity Clear Urine pH 6.0 Ur Specific [place] 1.010 Urine Protein TNP Urine Glucose (UA) Normal Urine Ketones Negative Urine Occult Blood Negative Urine Nitrite Negative Urine Bilirubin Negative Urine Urobilinogen Normal Ur Leukocyte Esterase Negative Urine RBC 0 SEEN Urine WBC 0 SEEN Ur Squamous Epith Cells 0-5 SEEN Urine Bacteria 0 SEEN Urine Mucus 0 SEEN U Random Total Protein < 6.0 Discharge Plan Triage Chief Complaint: Complaint ED Provider: Bobbi Harry Dx/Rx/DC Orders Clinical Impression: Back pain Instructions: ED Back Pain (Acute or Chronic) Prescriptions: New cyclobenzaprine 10 mg tablet 10 mg PO TID PRN (Reason: Muscle Spasm) Qty: 20 0RF hydrocodone-acetaminophen 5-325 mg tablet 1 tab PO Q4H PRN PRN (Reason: Pain) 2 Days Qty: 10 0RF naproxen [Naprosyn] 500 mg tablet 500 mg PO BID PRN (Reason: pain) Qty: 20 0RF No Action gabapentin 300 mg capsule 300 mg PO BID cyclobenzaprine 10 mg tablet 10 mg PO TID Qty: 90 0RF sumatriptan succinate 50 mg tablet 50 mg PO PRN PRN (Reason: Migraine Headache) Qty: 14 0RF cephalexin 500 mg capsule 500 mg PO Q6 Qty: 28 0RF phenazopyridine [Pyridium] 200 mg tablet 200 mg PO TID Qty: 10 0RF nortriptyline 25 mg capsule 25 mg PO QHS Qty: 90 0RF Primary Care Provider: Betzy Clark Referrals: Betzy Clark MD [Primary Care Provider] - 3-5 Days Print Language: Spanish Disposition Disposition: Home, Self Care
[2024-06-29 09:13] LABS: Bacteria 0 SEEN /hpf (None Seen); Mucous, Urine 0 SEEN /hpf (<or=2+); Red Blood Cells-Urine 0 SEEN /hpf (0-5); White Blood Cells 0 SEEN /hpf (0-5)
[2024-06-29] MEDS: Ibuprofen 400 MG Tablet 800 MG PO (09:21)
[2024-06-29 09:56] LABS: Color, Urine Yellow (Yellow); Glucose, Dipstick Normal (Normal); Ketone-Dipstick Negative (Negative); Leukocyte Esterase-Dipstick Negative /ul (Negative); Nitrite-Dipstick Negative (Negative); Occult Blood-Urine Negative /ul (Negative); Urine Bilirubin Dipstick Negative (Negative); Urine Clarity Clear (Clear); Urine Urobilinogen Normal (Normal)
[2024-06-29 10:19] LABS: Protein, Urine (Random) < 6.0 mg/dL (0.0-12.0)
[2024-06-29 10:20] LABS: Squamous Epithelial Cells - UA 0-5 SEEN /hpf (5-10)
[2024-06-29 11:09] VITALS: BP 120/80; PULSE 72; RESP 13; O2SAT 100
[2024-06-29 11:11] VITALS: BP 120/80; PULSE 72; RESP 13; TEMP 36.6; O2SAT 100
== END 2024-06-29 11:12 | disposition home or self-care (01) ==
PROVIDERS: Emergency Provider Emergency Medicine; PCP Internal Medicine; Visit Provider Emergency Medicine
DX: M54.9 Dorsalgia, unspecified (principal); R30.0 Dysuria; Z87.891 Personal history of nicotine dependence; K21.9 Gastro-esophageal reflux disease without esophagitis; J45.909 Unspecified asthma, uncomplicated; R07.9 Chest pain, unspecified
CPT/HCPCS: 81001; 84156; 99282

== ENCOUNTER 2024-07-22 06:13 | Emergency (ER) | payer MEDICAID, SELFPAY ==
[2024-07-22 06:14] VITALS: BP 141/92; PULSE 85; RESP 18; TEMP 37.1; O2SAT 99; BMI 26.2
--- NOTE | 2024-07-22 06:26 | EX.ED.DYSGE1 ---
HPI History of Present Illness Chief Complaint: Flank Pain Narrative Narrative: 43-year-old female presents with low back pain radiating to both hips that she has had for about a month. She relates history that she was seen about a month ago, and diagnosed with a urinary tract infection. She finished the antibiotics that were given, but was still having dysuria and low back pain. She was seen in the emergency department again, where her urine was negative and they thought she had musculoskeletal back pain. She states that she is concerned because she is still having back pain that radiates to both hips. No recent falls. No fevers or chills. However, she thinks that her urine is milky and cloudy again. She also stated that she was concerned that her kidneys are hurting her, and that her mom of renal failure. She has followed up with her primary care provider and a urologist as well. She presents today with low back pain radiating to both hips, and reported cloudy urine. Her pain is bilateral and she states it shoots up both sides of her back. Pain is worse with movement as well. [facility] Medical History Osteochondral lesion Ovarian cyst Kidney stone COVID-19 virus infection Herpes Scoliosis Depression Carpal tunnel syndrome Post-trauma syndrome Substance abuse Anxiety Chronic pain GERD (gastroesophageal reflux disease) Former smoker Asthma Migraines Home Medications ?Medication ?Instructions ?Recorded ?Last Taken ?Type cyclobenzaprine 10 mg tablet 10 mg PO TID #90 tabs 06/12/24 Unknown Rx sumatriptan succinate 50 mg tablet 50 mg PO PRN PRN Migraine Headache 06/12/24 Unknown Rx #14 tabs nortriptyline 25 mg capsule 25 mg PO QHS #90 caps 06/13/24 Unknown Rx cyclobenzaprine 10 mg tablet 10 mg PO TID PRN Muscle Spasm #20 06/29/24 Unknown Rx TABLETS Allergy/AdvReac Type Severity Reaction Status Date / Time latex Allergy Hives Verified 07/22/24 06:19 morphine Allergy Rash Verified 07/22/24 06:19 sertraline (From Zoloft) Allergy Hives Verified 07/22/24 06:19 sulfamethoxazole (From Allergy Hives Verified 07/22/24 06:19 Bactrim) tramadol Allergy Rash Verified 07/22/24 06:19 trimethoprim (From Bactrim) Allergy Hives Verified 07/22/24 06:19 Family History Mother Anxiety Asthma Arthritis Blood clot in abdominal vein Cancer CERVICAL Diabetes Depression Mental disorder Allergies Heart disease Grandmother Cancer CERVICAL Surgical History H/O dilation and curettage Hx of oral surgery Hx of lithotripsy Hx of breast surgery Social History household members: children current occupational status: employed 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 No fevers or chills, no nausea or vomiting. Milky colored urine/cloudy. No hematuria. Recently treated for UTI. This was a month ago. EXAM Physical Exam Narrative Exam Narrative: Afebrile. Vital signs noted. Nontoxic-appearing. Cardiovascular examination reveals a regular rate and rhythm. Lungs are clear to auscultation bilaterally. Abdomen is soft and nontender without guarding or rebound. Positive bowel sounds. No CVA tenderness to percussion bilaterally. Mild tenderness to palpation of the lumbar spine diffusely. No point tenderness or step-off. No crepitance, no erythema. Full range of motion bilateral hips. Flexion extension intact bilateral knees and hips. Const Vital Signs: 07/22/24 06:14 Temperature 98.8 F Temperature Source Oral Pulse Rate 85 Respiratory Rate 18 Blood Pressure 141/92 H Blood Pressure Mean 108 Pulse Ox 99 Oxygen Delivery Method Room Air MDM MDM MDM Narrative Medical decision making narrative: Reviewed the patient's prior records. She was seen on June 14 and again on June 29. On the , her urine was clear. I do feel that the differential diagnosis does include musculoskeletal back pain versus cystitis versus pyelonephritis. Based on the history and physical I have lower suspicion for ureterolithiasis. I do not feel she needs CT imaging. Lumbar x-rays will be obtained to help rule out compression fracture. Patient states she has been taking Advil recently. Prior to x-rays of the pelvis and lumbar spine, serum will be obtained. I will also obtain basic laboratory work as she states she has a concern for renal failure. I doubt that she has ureterolithiasis because she states her pain is bilateral and shoots up her back. Reviewed her laboratory work that returned thus far and she has normal white count of 9.0 with hemoglobin 13.1, hematocrit 39.3, platelet count 316. At this point in time, patient will be signed out to the oncoming physician to check the remaining laboratory work and the x-rays and make final disposition on the patient which I anticipate could be discharged. Disposition is pending further workup. Patient in stable condition. History & Record Review Discussion w/independent historian: Patient Lab Data Attestation: I reviewed the patient's lab results. Labs: Laboratory Results - last 24 hr 07/22/24 06:39 WBC 9.0 RBC 4.38 Hgb 13.1 Hct 39.3 MCV 89.7 MCH 29.9 MCHC 33.3 RDW Std Deviation 44.1 H RDW Coeff of Sophia 13.3 Plt Count 316 MPV 9.5 Immature Gran % (Auto) 0.300 Neut % (Auto) 59.7 Lymph % (Auto) 30.6 Warren % (Auto) 6.9 Eos % (Auto) 1.9 Baso % (Auto) 0.6 Absolute Neuts (auto) 5.4 Absolute Lymphs (auto) 2.75 Nucleated RBC % 0 Discharge Plan Triage Chief Complaint: Flank Pain ED Provider: Dario Arana Dx/Rx/DC Orders Prescriptions: No Action cyclobenzaprine 10 mg tablet 10 mg PO TID Qty: 90 0RF sumatriptan succinate 50 mg tablet 50 mg PO PRN PRN (Reason: Migraine Headache) Qty: 14 0RF cyclobenzaprine 10 mg tablet 10 mg PO TID PRN (Reason: Muscle Spasm) Qty: 20 0RF nortriptyline 25 mg capsule 25 mg PO QHS Qty: 90 0RF Primary Care Provider: Betzy Clark Referrals: Betzy Clark MD [Primary Care Provider] - Print Language: Iraqi
[2024-07-22 06:45] LABS: Absolute Lymphocyte Count 2.75 X10^3/uL (0.83-4.51); Absolute Neutrophil Count 5.4 X10^3/uL (2.0-7.7); Basophil# 0.05 X10^3/uL; Basophil% 0.6 % (0-1); Eosinophil# 0.17 X10^3/uL; Eosinophils% 1.9 % (0-5); Hematocrit 39.3 % (37-47); Hemoglobin 13.1 g/dL (12.0-15.0); Lymphocyte # 2.75 X10^3/ul (0.83-4.51); Lymphocyte % 30.6 % (19-41); Mean Corp Hgb Conc 33.3 g/dL (32-36); Mean Corpuscular Hgb 29.9 pg (27.0-32.0); Mean Corpuscular Volume 89.7 fL (81-99); Mean Platelet Vol. 9.5 fl (6.2-12.0); Monocyte# 0.62 X10^3/uL; Monocyte% 6.9 % (0-10); Mucous, Urine 0 SEEN /hpf (<or=2+); NRBC Flagged by Analyzer 0 % (0-5); Neutrophil # 5.36 X10^3/uL (2.7-7.7); Neutrophil % 59.7 % (47-70); Platelet Count 316 K/mm3 (150-450); RBC Distribution Width CV 13.3 % (11.6-14.6); RBC Distribution Width SD 44.1 fl (35.1-43.9); Red Blood Cells-Urine 0 SEEN /hpf (0-5); Red Blood Count 4.38 M/mm3 (4.2-5.4)
[2024-07-22 06:46] LABS: Color, Urine Yellow (Yellow); Glucose, Dipstick Normal (Normal); Ketone-Dipstick Negative (Negative); Leukocyte Esterase-Dipstick Negative /ul (Negative); Nitrite-Dipstick Negative (Negative); Occult Blood-Urine Negative /ul (Negative); Protein-Dipstick 15 mg/dl (Negative); Specific Gravity, Urine 1.025 (1.002-1.030); Urine Bilirubin Dipstick Negative (Negative); Urine Clarity Clear (Clear); Urine Urobilinogen Normal (Normal)
[2024-07-22 06:54] LABS: White Blood Cells 0-5 SEEN /hpf (0-5)
[2024-07-22 06:55] LABS: Bacteria 2+ /hpf (None Seen); Squamous Epithelial Cells - UA 0-5 SEEN /hpf (5-10)
[2024-07-22 07:05] LABS: Anion Gap 11 (5-15); BUN 11 mg/dL (4-19); BUN/Creat Ratio 14.6 RATIO (10-20); Calcium,Total 9.4 mg/dL (7.6-11.0); Carbon Dioxide 22.9 mmol/L (21.0-32.0); Chloride 105 mmol/L (98-108); Creatinine, Serum 0.76 mg/dL (0.70-1.20); EST Glomerular Filtration Rate 100 (>60); Estimated Creatinine Clearance 84.59 ml/min (50-250); Glucose 92 mg/dL (70-99); Potassium 3.6 mmol/L (3.3-5.1); Sodium Level 138 mmol/L (133-145)
[2024-07-22 07:09] LABS: Internal QC Validated? YES +Cl - CLEAR BKGD; Pregnancy, Serum, hCG Quali. NEGATIVE Negative
--- NOTE | 2024-07-22 07:23 | RAD_ITS ---
PROCEDURE: LUMBAR SPINE 2 OR 3 VIEWS 07/22/2024 REASON FOR EXAM: PAIN TECHNIQUE: 2 view(s) of the lumbar spine COMPARISON: None available FINDINGS: For nomenclature purposes there are 6 [id number] lumbar vertebral body types identified. No fracture or malalignment. The disc spaces appear within limits. Moderate appearing stool. RAD/Lumbar Spine 2 or 3 Views IMPRESSION: Study appears within limits as above. Reading Location: [id number]
--- NOTE | 2024-07-22 07:23 | RAD_ITS ---
PROCEDURE: PELVIS 1 OR 2 VIEWS 07/22/2024 REASON FOR EXAM: PAIN TECHNIQUE: 1 view(s) of the pelvis. COMPARISON: None available FINDINGS: Symmetric appearing SI joints and pubic symphysis appear within limits. The joint spaces appear within limits. No fracture or dislocation. Incidental pelvic phleboliths noted. RAD/Pelvis 1 or 2 Views IMPRESSION: Study appears within limits. Reading Location: [id number]
[2024-07-22 07:59] VITALS: BP 132/85; PULSE 69; RESP 16; O2SAT 99
== END 2024-07-22 08:00 | disposition home or self-care (01) ==
PROVIDERS: Emergency Provider Emergency Medicine; PCP Internal Medicine; Visit Provider Emergency Medicine
DX: M54.50 Low back pain, unspecified (principal); Z87.891 Personal history of nicotine dependence; R30.0 Dysuria; K21.9 Gastro-esophageal reflux disease without esophagitis
CPT/HCPCS: 72100; 72170; 80048; 81001; 84703; 85025; 87077; 87086; 87088; 87186; 99283

== ENCOUNTER 2024-08-08 15:43 | Emergency (ER) | payer MEDICAID, SELFPAY ==
[2024-08-08 15:45] VITALS: BP 121/96; PULSE 83; RESP 18; TEMP 36.3; O2SAT 100; BMI 25.2
--- NOTE | 2024-08-08 16:44 | EX.ED.UPPERE ---
HPI History of Present Illness Chief Complaint: Upper Extremity Injury Narrative Narrative: Patient is a 43-year-old female with past medical history of depression, anxiety, GERD, migraines, asthma who presented to the Emergency Department chief complaint right shoulder pain and concern for still having a urinary tract infection with E. coli. 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 States that she did not have a x-ray afterwards states that she has been using muscle relaxers and Tylenol for pain control. States that when she wakes up first thing in the morning she feels better however when she tries to put weight on her shoulder she immediately has pain. Patient states that from a urinary standpoint that approximately 1-1/2 weeks ago she was placed on antibiotic for urinary tract infection she does not recall what antibiotic she completed and states that her doctor told her that she needs rechecked. [facility] Medical History Osteochondral lesion Ovarian cyst Kidney stone COVID-19 virus infection Herpes Scoliosis Depression Carpal tunnel syndrome Post-trauma syndrome Substance abuse Anxiety Chronic pain GERD (gastroesophageal reflux disease) Former smoker Asthma Migraines Home Medications ?Medication ?Instructions ?Recorded ?Last Taken ?Type sumatriptan succinate 50 mg tablet 50 mg PO PRN PRN Migraine Headache 06/12/24 Unknown Rx #14 tabs nortriptyline 25 mg capsule 25 mg PO QHS #90 caps 06/13/24 Unknown Rx cyclobenzaprine 10 mg tablet 10 mg PO TID PRN Muscle Spasm #20 06/29/24 Unknown Rx TABLETS ciprofloxacin HCl 500 mg tablet 500 mg PO BID #6 TABLETS 07/28/24 Unknown Rx Allergy/AdvReac Type Severity Reaction Status Date / Time latex Allergy Hives Verified 08/08/24 15:45 morphine Allergy Rash Verified 08/08/24 15:45 sertraline (From Zoloft) Allergy Hives Verified 08/08/24 15:45 sulfamethoxazole (From Allergy Hives Verified 08/08/24 15:45 Bactrim) tramadol Allergy Rash Verified 08/08/24 15:45 trimethoprim (From Bactrim) Allergy Hives Verified 08/08/24 15:45 Family History Mother Anxiety Asthma Arthritis Blood clot in abdominal vein Cancer CERVICAL Diabetes Depression Mental disorder Allergies Heart disease Grandmother Cancer CERVICAL Surgical History H/O dilation and curettage Hx of oral surgery Hx of lithotripsy Hx of breast surgery Social History household members: children current occupational status: employed 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[employer], 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 Smoking Status: Former smoker quit date: 03/15/21 pack-years: 5 alcohol intake: current alcohol intake frequency: holidays/special occasions only substance use type: marijuana what type of physical activity do you participate in: walking frequency: daily seatbelt use: always do you feel safe at home: Yes ROS ROS ED ROS Narrative Constitutional: Denies any fevers or chills Cardiovascular: Denies chest pain or palpitations Respiratory: Denies coughing wheezing shortness of breath Abdomen: Denies nausea vomiting diarrhea : Complains of increased frequency denies any blood in her urine Neurological: Denies any numbness, wheeze, tingling Musculoskeletal: Complains of right shoulder pain as noted above Skin: Denies rashes or lesions EXAM Physical Exam Narrative Exam Narrative: General: Patient was sitting in chair in the hallway resting comfortably did not appear to be in acute distress Head: Atraumatic, normocephalic Eyes: PERRL bilateral, EOMI bilateral, no conjunctival injection noted Neck: Soft, supple, trachea midline Cardiovascular: Regular rhythm no murmurs gallops rubs noted Respiratory: Clear to auscultation bilaterally Abdomen: Soft, nondistended, nontender to palpation Musculoskeletal: Patient is able to lift her shoulder to approximately 130 degrees and states that she has significant pain after this Extremities: +5/5 strength noted in the bilateral upper and lower extremities, radial pulses +2/4 in the bilateral extremities, patient was able to give me okay sign thumbs up and oppose her thumb to her pinky bilaterally Neurological: Patient follow commands that she was at [facility] year is 2024. Sensation grossly intact in the axillary, median ulnar radial nerve distribution bilaterally Skin: Warm, dry, intact no rashes or lesions noted Const Vital Signs: 08/08/24 15:45 Temperature 97.4 F L Temperature Source Temporal Pulse Rate 83 Respiratory Rate 18 Blood Pressure 121/96 H Blood Pressure Mean 104 Pulse Ox 100 Oxygen Delivery Method Room Air MDM MDM MDM Narrative Medical decision making narrative: Patient is a 43-year-old female who presented to the emerged part with a chief complaint of right arm pain and concern for UTI. On the differential diagnose includes but not limited to UTI, proximal humerus fracture, musculoskeletal strain, rotator cuff tear, labral tear. Once workup is obtained reviewed she will be reevaluated. Patient's urinalysis reviewed showed no evidence of infection. Patient's shoulder x-ray reviewed by the son by radiology showed no acute findings. Reevaluation patient she like to go home. Patient vies to follow-up with orthopedic surgery for which she is referred to as well as her primary care physician. She is encouraged return with worsening symptoms or concerns she is to continue to use her [id number] medications for pain control and return with worsening symptoms and concerns. She is agreeable to plan all question concerns answered she was discharged home in stable condition. Discharge Plan Triage Chief Complaint: Upper Extremity Injury Other Complaint: Abn Labs ED Provider: Minh Evans Dx/Rx/DC Orders Clinical Impression: Acute pain of right shoulder Prescriptions: No Action sumatriptan succinate 50 mg tablet 50 mg PO PRN PRN (Reason: Migraine Headache) Qty: 14 0RF cyclobenzaprine 10 mg tablet 10 mg PO TID PRN (Reason: Muscle Spasm) Qty: 20 0RF nortriptyline 25 mg capsule 25 mg PO QHS Qty: 90 0RF ciprofloxacin HCl 500 mg tablet 500 mg PO BID Qty: 6 0RF Primary Care Provider: Betzy Clark Referrals: Betzy Clark MD [Primary Care Provider] - Moisés Schreiber DO [Med Staff - Active Staff] - Activity Restrictions/Additional Instructions: Your x-ray did not show any broken bones. Follow-up with orthopedic surgery that you referred to. Your urine did not show any evidence of UTI. Return with worsening symptoms or any other concerns Print Language: Zimbabwean Disposition Disposition: Home, Self Care
--- NOTE | 2024-08-08 16:50 | RAD_ITS ---
PROCEDURE: SHOULDER MIN 2 VIEWS 08/08/2024 REASON FOR EXAM: SHOULDER PAIN, LIFTED HEAVY PT 1 MONTH AGO TECHNIQUE: 3 view(s) of the right shoulder FINDINGS: No fracture, dislocation or joint space disruption RAD/Shoulder min 2 Views IMPRESSION: Negative right shoulder Reading [facility]
[2024-08-08 17:44] LABS: Bacteria 0 SEEN /hpf (None Seen); Mucous, Urine 0 SEEN /hpf (<or=2+)
[2024-08-08 18:36] LABS: Color, Urine Yellow (Yellow); Glucose, Dipstick Normal (Normal); Ketone-Dipstick Negative (Negative); Leukocyte Esterase-Dipstick Negative /ul (Negative); Nitrite-Dipstick Negative (Negative); Occult Blood-Urine 10 /ul (Negative); Protein-Dipstick 15 mg/dl (Negative); Urine Bilirubin Dipstick Negative (Negative); Urine Clarity Clear (Clear); Urine Urobilinogen Normal (Normal)
[2024-08-08 19:34] LABS: Red Blood Cells-Urine 0-5 SEEN /hpf (0-5); Squamous Epithelial Cells - UA 5-10 SEEN /hpf (5-10); White Blood Cells 0-5 SEEN /hpf (0-5)
[2024-08-08 20:00] VITALS: BP 150/97; PULSE 70; PULSE 72; RESP 18; TEMP 36.7; O2SAT 100
== END 2024-08-08 20:10 | disposition home or self-care (01) ==
PROVIDERS: Emergency Provider Emergency Medicine; PCP Internal Medicine; Visit Provider Emergency Medicine
DX: M25.511 Pain in right shoulder (principal); F41.9 Anxiety disorder, unspecified; Z87.891 Personal history of nicotine dependence; F32.A Depression, unspecified; K21.9 Gastro-esophageal reflux disease without esophagitis; J45.909 Unspecified asthma, uncomplicated
CPT/HCPCS: 73030; 81001; 87086; 87088; 99283